=== PATIENT | male | born 2005 | race Caucasian/White ===

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

== ENCOUNTER 2025-01-12 09:37 | Emergency (ER) | payer OTHER, MEDICAID, SELFPAY ==
--- OUTSIDE RECORDS SUMMARY | 2024-11-29 08:10 | XMS_ITS | Encounter Summary ---
Author Organization [employer] Address [address] [place] [address] Care Team Providers Care Lines Tender Name Role Phone Unavailable Primary Care Provider Unavailabl e Encounter Details Date Type Department Care Team (Latest Contact Info) Description 11/29/2024 8:10 AM CDT - 11/30/2024 3:10 PM CDT Hospital Encounter [facility] [address] [facility] [address] [place] [address] Jesus Santizo MD [address] [place] [address] Discharge Disposition: Home Social History Tobacco Use Types Packs/Day Years Used Date Smoking Tobacco: Never Assessed Sex and Gender Information Value Date Recorded Sex Assigned at Not on file Legal Sex Male 5:30 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 ASSISTANT Gender Identity Not on file Sexual Orientation Not on file documented as of this encounter Plan of Treatment Not on file documented as of this encounter Procedures Procedure Name Priority Date/Time Associated Diagnosis Comments ZINC, SERUM STAT 11/29/2024 9:16 AM CDT COPPER STAT 11/29/2024 9:16 AM CDT CARNITINE FREE AND TOTAL STAT 11/29/2024 9:16 AM CDT VITAMIN D 25-HYDROXY, TOTAL STAT 11/29/2024 9:16 AM CDT FERRITIN STAT 11/29/2024 9:16 AM CDT C-REACTIVE PROTEIN STAT 11/29/2024 9: 16 AM CDT IRON PROFILE (IRON,TIBC,%SAT.(CA LC)) STAT 11/29/2024 9:16 AM CDT documented in this encounter Results * Iron Profile (Iron,TIBC,%Sat.(Calc)) (11/29/2024 9:16 AM CDT) Pathologist [facility] Iron 87 65 - 175 mcg/dL 11/29/2024 9:49 AM CDT [facility] Transferrin 317 174 - 364 mg/dL 11/29/2024 9:49 AM CDT [facility] TIBC, Calculated 396 240 - 450 mcg/dL 11/29/2024 9:49 AM T [facility] % Saturation, Calculated 22 10 - 50 % 11/29/2024 9:49 AM T [facility] Blood Venipuncture / Unknown 11/29/2024 9:16 AM CDT 11/29/2024 9:21 AM CDT us Physician Unknown LAB_[email or web address] Final Result [facility] CLIA: [id number] [address] [place] [address] * Carnitine Free And Total (11/29/2024 9:16 AM CDT) Pathologist [facility] Carnitine Jeanna/Free Ratio 0.2 0.1 - 0.9 12/01/2024 1:32 PM CDT [facility] Comment: Performed By: [employer] [employer] [address] [place] [id number] [employer]ational [employer] Consultant: Krzysztof Vazquez MD, PhD CLIA Number: [id number] Carnitine Esterified 8 3 - 38 umol/L 12/01/2024 1:32 PM CDT [facility] Carnitine, Free 36 22 - 63 umol/L 12/01/2024 1:32 PM CDT [facility] Carnitine, Total 44 31 - 78 umol/L 12/01/2024 1:32 PM CDT [facility] Comment: This test was developed and its performance characteristics determined by [employer]. It has not been cleared or approved by the [place] Food and Drug Administration. This test was performed in a CLIA certified laboratory and is intended for clinical purposes. Blood Venipuncture / Unknown 11/29/2024 9:16 AM CDT 11/29/2024 9:21 AM CDT us Physician Unknown LAB_1 Final Result Performing Organization Address [facility] de Phone Number [facility] CLIA: [id number] [address] [place] [address] * Zinc (11/29/2024 9:16 AM CDT) Zinc, Serum 77.1 60.0 - 120.0 ug/dL 11/30/2024 9:24 AM CDT [facility] Comment: INTERPRETIVE INFORMATION: Zinc, Serum or Plasma Elevated results may be due to skin or collection-related contamination, including the use of a noncertified metal-free collection/transport tube. If contamination concerns exist due to elevated levels of serum/plasma zinc, confirmation with a second specimen collected in a certified metal-free tube is recommended. Circulating zinc concentrations are dependent on albumin status and are depressed with malnutrition. Zinc may also be lowered with infection, inflammation, stress, oral contraceptives, and . Zinc may be elevated with zinc supplementation or fasting. Elevated zinc concentrations may interfere with copper absorption. This test was developed and its performance characteristics determined by [employer]. It has not been cleared or approved by the [place] Food and Drug Administration. This test was performed in a CLIA certified laboratory and is intended for clinical purposes. Performed By: [facility] [employer] [facility] [address] [place], [place] [id number] Vocational Rehabilitation Consultant: Krzysztof Vazquez MD, PhD CLIA Number: [id number] Blood Venipuncture / Unknown 11/29/2024 9:16 AM CDT 11/29/2024 9:21 AM CDT us Physician Unknown LAB_1 Final Result Performing Organization Address [facility]/ZIP Co de Phone Number [facility] CLIA: [id number] [address] [place] [address], [place] * Copper, Serum or Plasma (11/29/2024 9:16 AM CDT) Copper, Serum 76.1 70.0 - 140.0 ug/dL 11/30/2024 9:24 AM CDT [facility] Comment: INTERPRETIVE INFORMATION: Copper, Serum or Plasma Elevated results may be due to skin or collection-related contamination, including the use of a noncertified metal-free collection/transport tube. If contamination concerns exist due to elevated levels of serum/plasma copper, confirmation with a second specimen collected in a certified metal-free tube is recommended. Serum copper may be elevated with infection, inflammation, stress, and copper supplementation. In females, elevated copper may also be caused by oral contraceptives and (concentrations may be elevated up to 3 times normal during the third trimester). This test was developed and its performance characteristics determined by [facility]. It has not been cleared or approved by the [place] Food and Drug Administration. This test was performed in a CLIA certified laboratory and is intended for clinical purposes. Performed By: [facility] [employer] [address] [place] [address] Vocational Rehabilitation Consultant: Krzysztof Vazquez MD, PhD CLIA Number: [id number] Blood Venipuncture / Unknown 11/29/2024 9:16 AM CDT 11/29/2024 9:21 AM CDT us Physician Unknown LAB_1 Final Result Performing Organization Address City/[facility]/ZIP Co de Phone Number [facility] CLIA: [id number] [address] [place], [place] [id number] [address] * C-Reactive Protein (11/29/2024 9:16 AM CDT) C-Reactive Protein <0.1 0.0 - 0.5 mg/dL 11/29/2024 9:49 AM CDT [facility] Blood Venipuncture / Unknown 11/29/2024 9:16 AM CDT 11/29/2024 9:21 AM CDT us Physician Unknown LAB_1 Final Result [facility] CLIA: [id number] [address] [place] [address] * (ABNORMAL) Ferritin (11/29/2024 9:16 AM CDT) Ferritin 10(L) 22 - 275 ng/mL 11/29/2024 10:09 AM CDT [facility] Blood Venipuncture / Unknown 11/29/2024 9:16 AM CDT 11/29/2024 9:21 AM CDT us Physician Unknown LAB_1 Final Result [facility] CLIA: [id number] [address] [place] [address] * Vitamin D 25-Hydroxy, Total (11/29/2024 9:16 AM CDT) Vitamin D, 25-OH, Total 42 30 - 80 ng/mL 11/29/2024 12:56 PM CDT [facility] Blood Venipuncture / Unknown 11/29/2024 9:16 AM CDT 11/29/2024 9:21 AM CDT us Physician Unknown LAB_1 Final Result [facility] CLIA: [id number] [address] [place] [address] documented in this encounter Visit Diagnoses Not on filedocumented in this encounter
--- OUTSIDE RECORDS SUMMARY | 2024-12-23 14:30 | XMS_ITS | Encounter Summary ---
Author Organization [facility] Address [address] [place] [id number] Care Team Providers Care Cleaning Laborer Name Role Phone SindevangEstelle meléndez MD Unavailable Jyoti Sotomayor [facility] Unavailable [phone]- [phone] Marcus Stephens MD Unavailable Rashmi Isaac MD Unavailable [phone] Eloy Singh MD Primary Care Provider Reason for Visit * Reason Comments Establish Care Encounter Details Date Type Department Care Team (Late st Contact Info) Description 12/23/2024 2:30 PM CDT Office Visit [facility] [place] [address] [place] [address] [address] [place] [address] Eloy Sinhg MD [address] [place] [address] [place] [address] Autism (Primary Dx); Seizures (H); G tube feedings (H); Anxiety; H/O spinal fusion; Aggressive behavior; CYP2D6 intermediate metabolizer (H); Nutritional deficiency; Food aversion; Impacted tooth; Preop general physical exam; Complex care coordination Social History Tobacco Use Types Packs/Day Years [...] an overnight nursing home, or couch-surfing.) Yes 10/06/2024 Are you worried [...] Sign Reading Time Taken Comments Blood Pressure 111/69 12/23/2024 2:23 PM CDT Pulse 80 12/23/2024 2:23 PM CDT Temperature 36.6 C (97.9 F) 12/23/2024 2:23 PM CDT Respiratory Rate 16 12/23/2024 2:23 PM CDT Oxygen Saturation 97% 12/23/2024 2:23 PM CDT Inhaled Oxygen Concentration - - Weight 47.2 kg (104 lb) 12/23/2024 2:23 PM CDT Height 172.7 cm (5' 8) 12/23/2024 2:23 PM CDT Body Mass Index 15.81 12/23/2024 2:23 PM CDT documented in this encounter Patient Instructions * Patient Instructions* Eloy Singh MD - 12/23/2024 2:30 PM CDT We can try taking [id number] Ferrous Sulfate 325 mg Mon, Wed, Fri. Watch for constipation. How to Take Your Medication Before Surgery Preoperative Medication Instructions Antiplatelet or Anticoagulation Medication Instructions - We reviewed the medication list and the patient is not on an antiplatelet or anticoagulation medications. Additional Medication Instructions We reviewed the medication list and there are no chronic medications that need to be adjusted for this procedure. Avoid nonsteroidals (like ibuprofen or aspirin or naproxen) , but may take tylenol as needed for pain. Patient Education Preparing for Your Surgery For Adults Getting started In most cases, a nurse will call to review your health history and instructions. They will give youan arrival time based on your scheduled surgery time. Please be ready to share: Your doctor's clinic name and phone number Your medical, surgical, and anesthesia history A list of allergies and sensitivities A list of medicines, including herbal treatments and rcjf-myg-bvwiipr drugs Whether the patient has a legal guardian (ask how to send us the papers in advance) Note: You may not receive a call if you were seen at our PAC (Preoperative Assessment Center). Please tell us if you're --or if there's any chance you might be . Some surgeries may injure a fetus (unborn baby), so they require a test. Surgeries that are safe for a fetus don't always need a test, and you can choose whether to have one. Preparing for surgery Within 10 to 30 days of surgery: Have a pre-op exam (sometimes called an H&P, or History and Physical). This can be done at a clinic or pre-operative center. If you're having a , you may not need this exam. Talk to your care team. At your pre-op exam, talk to your care team about all medicines you take. (This includes CBD oil and any drugs, such as THC, marijuana, and other forms of cannabis.) If you need to stop any medicine before surgery, ask when to start taking it again. This is for your safety. Many medicines and drugs can make you bleed too much during surgery. Some change how well surgery (anesthesia) drugs work. Call your insurance company to let them know you're having surgery. (If you don't have insurance, call [phone].) Call your clinic if there's any change in your health. This includes a scrape or scratch near the surgery site, or any signs of a cold (sore throat, runny nose, cough, rash, fever). Eating and drinking guidelines For your safety: Unless your surgeon tells you otherwise, follow the guidelines below. Eat and drink as normal until 8 hours before you arrive for surgery. After that, no food or milk. You can spit out gum when you arrive. Drink clear liquids until 2 hours before you arrive. These are liquids you can see through, like water, Gatorade, and Propel Water. They also include plain black coffee and tea (no cream or milk). No alcohol for 24 hours before you arrive. The night before surgery, stop any drinks that contain THC. If your care team tells you to take medicine on the morning of surgery, it's okay to take it with asip of water. No other medicines or drugs are allowed (including CBD oil)--follow your care team's instructions. If you have questions the day of surgery, call your hospital or surgery center. Preventing infection Shower or bathe the night before and the morning of surgery. Follow the instructions your clinic gave you. (If no instructions, use regular soap.) Don't shave or clip hair near your surgery site. We'll remove the hair if needed. Don't smoke or vape the morning of surgery. No chewing tobacco for 6 hours before you arrive. A nicotine patch is okay. You may spit out nicotine gum when you arrive. For some surgeries, the surgeon will tell you to fully quit smoking and nicotine. We will make every effort to keep you safe from infection. We will: Clean our hands often with soap and water (or an alcohol-based hand rub). Clean the skin at your surgery site with a special soap that kills germs. Give you a special gown to keep you warm. (Cold raises the risk of infection.) Wear hair covers, masks, gowns, and gloves during surgery. Give antibiotic medicine, if prescribed. Not all surgeries need this medicine. What to bring on the day of surgery Photo ID and insurance card Copy of your health care directive, if you have one Glasses and hearing aids (bring cases) You can't wear contacts during surgery Inhaler and eye drops, if you use them (tell us about these when you arrive) CPAP machine or breathing device, if you use them A few personal items, if spending the night If you have . . . A pacemaker, ICD (cardiac defibrillator), or other implant: Bring the ID card. An implanted stimulator: Bring the remote control. A legal guardian: Bring a copy of the certified (court-stamped) guardianship papers. Please remove any jewelry, including body piercings. Leave jewelry and other valuables at home. If you're going home the day of surgery You must have a support person drive you home. They should stay with you overnight, and they may need to help with your self-care. If you don't have a support person, please tells us as soon as possible. We can help. After surgery If it's hard to control your pain or you need more pain medicine, please call your surgeon's office. Questions? If you have any questions for your care team, list them here: For informational purposes only. Not to replace the advice of your health care provider. Copyright ?? 2018 [facility]. All rights reserved. Clinically reviewed by Agustín Nice MD. [employer] [id number] - REV 05/28. documented in this encounter Progress Notes * Eloy Singh MD - 12/23/2024 2:30 PM CDT Assessment & Plan Preop general physical exam: - Preoperative evaluation for upcoming dental procedure. - Completed preoperative paperwork. No changes to current medications. Provided standard preoperative instructions. Scheduled follow-up in six months for routine well check. 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 Autism: - Diagnosis of autism confirmed. G-tube feedings (H): - G-tube placed for nutritional support and hydration due to oral aversion and dysphagia. - Continue current feeding regimen. Recommended ongoing follow-up with elementary art teacher and feeding team at [facility] for formula tolerance and optimization. Anxiety: - Anxiety managed with lexapro. - Continue lexapro as prescribed by psychiatrist. H/O spinal fusion: - Status post spinal fusion for tethered cord and scoliosis on August 01, 2019. Aggressive behavior: - Aggressive behavior managed with risperdal, lexapro, and functional medicine protocol (Beyond Balance supplements). Behavioral flares possibly related to PANS. - Continue current behavioral management regimen. Monitor for behavioral changes. Continue [facility] therapy. 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 Nutritional deficiency: - Nutritional deficiency related to oral aversion and limited intake. Ferritin level noted to be low. - Recommended ferrous sulfate 325 mg every other day (Monday, Monday, Monday). Monitor for constipation. Continue multivitamin supplementation. - Risks and side effects: Monitor for constipation with iron supplementation. Food aversion: - Oral aversion and dysphagia, likely related to sensory or texture issues. Previous speech and swallowing therapy trials without significant improvement. - Recommended continued engagement with feeding team and elementary art teacher at [facility] for oral aversionmanagement. Offered referral to additional feeding team at [facility] if needed. Impacted tooth: - Possible impacted wisdom tooth. - Scheduled sedated dental cleaning and evaluation for wisdom tooth extraction at [facility] January 10, 2025. Preoperative paperwork completed. Consent was obtained from the patient to use an AI documentation tool in the creation of this note. Pacheco Joshi is a 19 year old, presenting for the following health issues: Establish Care 12/23/2024 2:18 PM Additional Questions Roomed by Rosie Alcazar Accompanied by parents 12/23/2024 2:18 PM Patient Reported Additional Medications Patient reports taking the following new medications None History of Present Illness Reason for visit: New patient intro and pre auth for Jan 10 sedation for oral cleaning He is taking medications regularly. Specialists: sees: Meena Mckinley at [facility]. G Tube placed thru Meena as well. To meet with Park Warden at [facility] for GT feeds Dr. [facility] for his spine fusion Rachel Cabrera at [facility], for Functional Medicine for diagnosis of PANS. Takesa supplement program called [facility] Rashmi Pinto: Psychiatry. GTube feeds. Currently just taking water and miralax. Goal 800 mL per day to help with hydration and constipation. Formula (Functional Formularies, Keto Formula, coconut base) causing excess gas. [facility] for dentistry. Sedated dental cleaning. To have IV sedation. History of Present Illness- Adi Dolan, 19 years Autism Spectrum Disorder and Developmental Delay - History of autism spectrum disorder - KCNQ2 gene mutation identified, associated with seizures at and developmental delays - Intellectual disabilities present - Anxiety and ADHD symptoms reported - Aggression episodes noted, including severe behavioral flares lasting several months - Aggression led to two emergency room visits for behavioral management - Behavioral improvement observed with functional medicine protocols and dietary modifications - Lexapro and Risperdal used for anxiety and aggression management - Behavioral tracking performed at [facility] therapy, with improvement noted after resuming functional medicine supplements (Beyond Balance, Fidosidil) - Attends [facility] therapy four days per week Feeding Difficulties and Nutritional Status - Feeding tube (G-tube) placed approximately four weeks prior to encounter for hydration and nutritional support - History of dysphagia and oral aversion; stopped chewing food over four years ago, previously enjoyed potato chips and Faroese fries - Current intake consists of pureed foods, prepared in an instant pot and consumed as thick soup - Difficulty tolerating certain formulas (functional formularies keto formula), with increased gas and sensitivity noted - Water administered via G-tube, goal of 800 mL daily for hydration and constipation management - Formula added to foods, but not used exclusively due to intolerance - History of constipation, managed with MiraLAX - Weight prior to spinal fusion surgery reached 112 lbs; current weight stable at 104 lbs, with previous goal to maintain above 100 lbs - Appetite suppression and difficulty eating noted during behavioral flares, with improvement following antibiotic therapy and functional medicine protocol - Iron supplementation attempted due to low ferritin levels; multivitamin with iron used Spinal and Orthopedic History - History of tethered cord and scoliosis - Underwent spinal fusion surgery for tethered cord and scoliosis on August 01, 2019 - Postoperative period marked by challenges in regaining nutritional status and resolving constipation Gastrointestinal History - History of constipation, managed with MiraLAX - Omeprazole (Prilosec) used for reflux, taken in the morning - Past evaluation by GI specialists for gut issues; medications for digestion trialed without long-term benefit - G-tube placed by surgical team at [facility] Behavioral and Psychiatric History - Aggression and behavioral flares associated with 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) - Behavioral improvement noted with antibiotics and functional medicine protocol - History of suspected triggers including strep throat and dietary factors (sugar intake) - Lexapro and Risperdal used for psychiatric symptom management Surgical History - History of tonsillectomy and adenoidectomy - History of ear tube placement - Recent hospitalization in October 2024 for evaluation of possible impacted wisdom tooth, included CAT scans, X-rays, and ultrasounds - Discharged with pain medication post-hospitalization Dental History - Difficulty with oral care due to oral aversion and agitation - Scheduled for sedated dental cleaning and evaluation for possible impacted wisdom tooth Immunization History - One chickenpox vaccination received; MMR titers checked previously, rubella noted as low - Tetanus vaccination administered in August 2024 [facility] - Sees multiple specialists: complex care, orthopedics, functional medicine, psychiatry, GI, and dentistry - Behavioral and nutritional status monitored by specialists and caregivers Review of Systems Constitutional, HEENT, cardiovascular, pulmonary, GI, , musculoskeletal, neuro, skin, endocrine and psych systems are negative, except as otherwise noted. Objective BP 111/69 (BP Location: Right arm, Patient Position: Sitting, Cuff Size: Adult Small) Pulse 80 Temp 97.9 ??F (36.6 ??C) (Temporal) Resp 16 Ht 1.727 m (5' 8) Wt 47.2 kg (104 lb) SpO2 97% BMI 15.81 kg/m?? Body mass index is 15.81 kg/m??. Physical Exam GENERAL: alert and no distress EYES: Eyes grossly normal to inspection, PERRL and conjunctivae and sclerae normal RESP: lungs clear to auscultation - no rales, rhonchi or wheezes CV: regular rate and rhythm, normal S1 S2, no S3 or S4, no murmur, click or rub, no peripheral edema ABDOMEN: soft, nontender, no hepatosplenomegaly, no masses and bowel sounds normal MS: no gross musculoskeletal defects noted, no edema SKIN: no suspicious lesions or rashes Patient not allowing good complete physcial exam today. Signed Electronically by: Eloy Singh MD * Eloy Singh MD - 12/23/2024 2:30 PM CDT Preoperative Evaluation [address] [address] Primary Provider: Eloy Singh MD Pre-op Performing Provider: Eloy Singh MD Dec 23, 2024 Dental procedure coming up: possible wisdom tooth surgery. Fax number for surgical facility: [facility]. Assessment & Plan The proposed surgical procedure is considered LOW risk. Impacted tooth Surgical and post-op care per primary surgical service. Preop general physical exam Advised to stop all aspirin products and nonsteroidals (like ibuprofen or naproxen) for 10 days prior to procedure. Advised follow surgical center's instructions re: arrival time and when to stop eating. - No identified additional risk factors other than previously addressed Recommendation Approval given to proceed with proposed procedure, without further diagnostic evaluation. Follow-up Pacheco Joshi is a 19 year old, presenting for the following: Establish Care 12/23/2024 2:18 PM Additional Questions Roomed by Rosie Alcazar Accompanied by parents 12/23/2024 2:18 PM Patient Reported Additional Medications Patient reports taking the following new medications None HPI: Upcoming sedated evaluation for wisdom teeth. 11/12/2024 Pre-Op Questionnaire Have you ever had a heart attack or stroke? No Have you ever had surgery on your heart or blood vessels, such as a stent placement, a coronary artery bypass, or surgery on an artery in your head, neck, heart, or legs? No Do you have chest pain with activity? No Do you have a history of heart failure? No Do you currently have a cold, bronchitis or symptoms of other infection? No Do you have a cough, shortness of breath, or wheezing? No Do you or anyone in your family have previous history of blood clots? No Do you or does anyone in your family have a serious bleeding problem such as prolonged bleeding following surgeries or cuts? No Have you ever had problems with anemia or been told to take iron pills? No Have you had any abnormal blood loss such as black, tarry or bloody stools? No Have you ever had a blood transfusion? No Are you willing to have a blood transfusion if it is medically needed before, during, or after yoursurgery? Yes Have you or any of your relatives ever had problems with anesthesia? No Do you have sleep apnea, excessive snoring or daytime drowsiness? No Do you have any artifical heart valves or other implanted medical devices like a pacemaker, defibrillator, or continuous glucose monitor? No Do you have artificial joints? No Are you allergic to latex? No Preoperative Review of PHARMACEUTICAL PLANT OPERATOR PHARMACEUTICAL PLANT OPERATOR reviewed - no record of controlled substances prescribed. Status of Chronic Conditions: See problem list for active medical problems. Problems all longstanding and stable, except as noted/documented. See ROS for pertinent symptoms related to these conditions. Patient Active Problem List Diagnosis Date Noted Aggressive behavior 12/23/2024 Priority: Medium G tube feedings (H) 12/23/2024 Priority: Medium Food aversion 12/23/2024 Priority: Medium H/O spinal fusion 07/16/2024 Priority: Medium For Scoliosis and tethered cord. [id number] decreased function 03/09/2023 Priority: Medium CYP2D6 intermediate metabolizer (H) 03/09/2023 Priority: Medium [id number] intermediate metabolizer (H) 03/09/2023 Priority: Medium CYP2B6 intermediate metabolizer (H) 03/09/2023 Priority: Medium Gastroesophageal reflux disease with esophagitis without hemorrhage 08/22/2022 Priority: Medium Speech delay 09/30/2020 Priority: Medium Tethered cord (H) 09/24/2020 Priority: Medium Contracture of Achilles tendon, unspecified laterality 09/24/2020 Priority: Medium Encopresis, nonorganic origin 09/24/2020 Priority: Medium Urinary incontinence without sensory awareness 09/24/2020 Priority: Medium Immunization deficiency 09/24/2020 Priority: Medium Intellectual disability 03/14/2019 Priority: Medium Low weight, pediatric, BMI less than 5th percentile for age 1001/16/2019 Priority: Medium Attention deficit hyperactivity disorder (ADHD) 06/18/2014 Priority: Medium Inattentive challenges Problem list name updated by automated process. Provider to review Anxiety 01/14/2014 Priority: Medium Nutritional deficiency 07/01/2013 Priority: Medium Gluten and casein free Seizures (H) 07/12/2012 Priority: Medium KCNQ2 mutation. History of seizures At age 9 years seizures for past 3-4 years and normal EEG Rectal diastat to use as needed for seizures lasting more than 5 minutes (particualrly when not near to EMS) For any seizures call 911 Had seizures with medication Autism 07/12/2012 Priority: Medium Intuniv 2mg helps with sleep issues and irritability and OCD - later 02/12/2014 they feel it correlates with stimming so will decrease it. Also consider prozac. History of using lexapro. SEEN AT [facility] with full neurological work-up (metabolic labs, other labs, MRI and EEG with no identifiable cause for ASD) Attends [facility] alvarez for 4 mo of intuiv today on 10/02/2013. Pineda's last appointment was 07/02/2013 and he should be seen in clinic by . Constipation 07/12/2012 Priority: Medium Improved with diet Past Medical History: Diagnosis Date ADHD Autism Chronic constipation History of seizures Seizures (H) Past Surgical History: Procedure Laterality Date BACK SURGERY August 2019July ESOPHAGOSCOPY, GASTROSCOPY, DUODENOSCOPY (EGD), COMBINED N/A 03/12/2019 Procedure: upper endoscopy with Biopsies; Surgeon: Reyna Mojica MD; Location: [facility] SEDATION MYRINGOTOMY, INSERT TUBE BILATERAL, COMBINED tethered chord release TONSILLECTOMY & ADENOIDECTOMY Current Outpatient Medications Medication Sig Dispense Refill Digestive Enzymes (ENZYME DIGEST PO) Pure Encapsulation Digestive enzyme escitalopram (LEXAPRO) 5 MG tablet Take 1 tablet (5 mg) by mouth daily. 30 tablet 5 Fish Oil-Cholecalciferol (OMEGA-3 + D PO) Pro [place] [address] [place] Multiple Vitamins-Minerals (MULTIVITAMIN OR) Take 1 tablet by mouth daily omeprazole (PRILOSEC) [address] capsule Take 40 mg by mouth daily. polyethylene glycol (MIRALAX) 17 GM/Dose powder TAKE 51 G BY MOUTH DAILY 1020 g 4 Probiotic Product (PROBIOTIC BLEND PO) Take 1 capsule by mouth daily Nature Bounty's Prbiotic 10 Ultra strength risperiDONE (RISPERDAL) 1 MG tablet Take 0.5 tablets (0.5 mg) by mouth 2 times daily. 30 tablet 3 Allergies Allergen Reactions Casein Gluten Meal Milk Digestant Other reaction(s): Stomach Pain Wheat Other reaction(s): Stomach Pain Social History Tobacco Use Smoking status: Never Passive exposure: Never Smokeless tobacco: Never Substance Use Topics Alcohol use: Never Family History Problem Relation Age of Onset Hypertension Father Allergies Father Seasonal Allergies Mother Seasonal Heart Disease Paternal Grandfather History Drug Use Unknown Review of Systems Constitutional, HEENT, cardiovascular, pulmonary, GI, , musculoskeletal, neuro, skin, endocrine and psych systems are negative, except as otherwise noted. Objective BP 111/69 (BP Location: Right arm, Patient Position: Sitting, Cuff Size: Adult Small) Pulse 80 Temp 97.9 ??F (36.6 ??C) (Temporal) Resp 16 Ht 1.727 m (5' 8) Wt 47.2 kg (104 lb) SpO2 97% BMI 15.81 kg/m?? Estimated body mass index is 15.81 kg/m?? as calculated from the following: Height as of this encounter: 1.727 m (5' 8). Weight as of this encounter: 47.2 kg (104 lb). Physical Exam GENERAL: alert and no distress EYES: Eyes grossly normal to inspection, PERRL and conjunctivae and sclerae normal HENT: ear canals and TM's normal, nose and mouth without ulcers or lesions NECK: no adenopathy, no asymmetry, masses, or scars RESP: lungs clear to auscultation - no rales, rhonchi or wheezes CV: regular rate and rhythm, normal S1 S2, no S3 or S4, no murmur, click or rub, no peripheral edema ABDOMEN: soft, nontender, no hepatosplenomegaly, no masses and bowel sounds normal NEURO: Normal strength and tone, mentation intact and speech normal PSYCH: mentation appears normal, affect normal/bright Recent Labs Lab Test 07/16/24 1504 07/01/24 1749 01/23/24 1356 HGB -- 12.4* 13.5 PLT -- 306 292 NA -- 142 -- POTASSIUM -- 4.3 -- CR -- 1.25* -- A1C 5.5 -- -- Diagnostics No labs were ordered during this visit. No EKG required for low risk surgery (cataract, skin procedure, breast biopsy, etc). Revised Cardiac Risk Index (RCRI) The patient has the following serious cardiovascular risks for perioperative complications: - No serious cardiac risks = 0 points RCRI Interpretation: 0 points: Class I (very low risk - 0.4% complication rate) Signed Electronically by: Eloy Singh MD A copy of this evaluation report is provided to the requesting physician. documented in this encounter Plan of Treatment Upcoming Encounters Date Type Department Care Team (Late st Contact Info) Description 06/23/2025 3:30 PM CDT Office Visit [facility] Francie [address] [place] [address] [address] [place] [phone] Eloy Singh MD [address] [place] [address] [place] [address] documented as of this encounter Goals Goal [...] Parent to continue with medical specialties within [place] and [facility] 2. Parent to continue with SLT/ Feeding therapy/ OT 3. Parent to connect with PACER on barriers with school 4. 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) Nutritional deficiency Unspecified nutritional deficiency Food aversion Feeding difficulties and mismanagement Impacted tooth Disturbances in tooth eruption Preop general physical exam Other specified pre-operative examination Complex care coordination documented in this encounter Additional Health Concerns Active Problems Noted Date Diagnosed Date Lacking Appropriate Services and Supports 2022 Assessment Noted Time PHQ-9 Depression Total Score: 10 025 11:26 AM SLEEVER documented as of this encounter Care Teams Cleaning Laborer Relationship Specialty Start Date End Date Eloy Singh MD [address] [place] [place] [address] PCP - General Internal Medicine - Pediatrics 12/23/24 Estelle Calvillo MD [address] [place] [address] [address] [place], [place] [address] safety glass installer & Neurology - Child & Adolescent Psychiatry 05/24/19 Jyoti Sotomayor, [facility] [address] [place], [place] [id number] Pharmacist Pharmacist 03/08/23 Marcus Stephens MD [address] [facility] [address] [place], [place] [id number] Assigned PCP 04/27/23 Rashmi Isaac MD [address] [place] [address] [address] [place], [place] [address] Assigned Behavioral Health Provider 06/16/23 documented as of this encounter
--- OUTSIDE RECORDS SUMMARY | 2024-12-24 11:18 | XMS_ITS | Encounter Summary ---
Author Organization [place] Address [address] [facility] [place] [address] Care Team Providers Care Lead Technical Architect Name Role Phone NeishaoscarEstelle MD Unavailable Jyoti Sotomayor [facility] Unavailable + [phone] Marcus Stephens MD Unavailable Rashmi Isaac MD Unavailable [phone] Eloy Singh MD Primary Care Provider [phone] Reason for Visit * Reason Comments Gtube Problem Encounter Details Date Type Department Care Team (Late st Contact Info) Description 12/24/2024 11:18 AM CDT - 12/24/2024 2:58 PM CDT Emergency [facility] Emergency Department [address] [place] [phone] Calin Yanez MD [address] [place], [place] [address] Encounter for gastrojejunal (GJ) tube placement (Primary Dx) Discharge Disposition: Home or Self Care Social History Tobacco Use Types Packs/Day Years [...] in an overnight usp, or couch-surfing.) Yes 10/06/2024 Are you worried [...] on file documented as of this encounter Discharge Instructions * Discharge Instructions* Calin Yanez MD - 12/24/2024 2:49 PM CDT We placed the G-tube here in the emergency room and confirmed that it was in the correct position If he has any new or worsening symptoms please return immediately to the emergency department Otherwise please call your primary care doctor for follow-up visit in the next 1 to 2 days. documented in this encounter Medications at Time of Discharge Digestive Enzymes (ENZYME DIGEST PO) Pure Encapsulation Digestive enzyme escitalopram (LEXAPRO) 5 MG tabletIndications: Anxiety Take 1 tablet (5 mg) by mouth daily. 30 tablet 5 5 Fish Oil-Cholecalcifero l (OMEGA-3 + D PO) Pro [place] 2000-D Supai Multiple Vitamins-Minerals (MULTIVITAMIN OR) Take 1 tablet by mouth daily omeprazole (PRILOSEC) [address] capsule Take 40 mg by mouth daily. polyethylene glycol (MIRALAX) 17 GM/Dose powderIndications: Slow transit constipation TAKE 51 G BY MOUTH DAILY 1020 g 4 5 Probiotic Product (PROBIOTIC BLEND PO) Take 1 capsule by mouth daily Nature Bounty's Prbiotic 10 Ultra strength risperiDONE (RISPERDAL) 1 MG tabletIndications: Autism,Attention deficit hyperactivity disorder (ADHD), combined type,Anxiety Take 0.5 tablets (0.5 mg) by mouth 2 times daily. 30 tablet 3 5 documented as of this encounter ED Notes * Zoe Alarcon RN - 12/24/2024 12:45 PM CDT ordered injection of Haldol given in the R deltoid. Pt was physically held down by MYRIAM team between 12:45-12:46. Notified MD for physical hold order to be placed. Pt calm, cooperative at time IM was given. * Calin Yanez MD - 12/24/2024 12:31 PM CDT Images from the original note were not included. [facility] EMERG[facility]Y [facility]MENT ([facility]) 12/24/24 ED PROVIDER NOTE History Chief Complaint Patient presents with Gtube Problem The history is provided by the patient and medical records. Adi Dolan is a 19 year old male with a history of ASD, GERD, and chronic constipation whopresents to the ED requesting g-tube replacement. Patient reports here with parent. The parent states that patient last had a celia- johnson g-tube replacement done approximately 4 weeks ago and this morning, patient pulled it out. The parents were not able to put it back in and was advised to come here. Physical Exam BP: (unable to obtain. Pt unable to sit still) Physical Exam Vitals and nursing note reviewed. Constitutional: General: He is not in acute distress. Appearance: Normal appearance. He is not toxic-appearing. HENT: Head: Atraumatic. Eyes: General: No scleral icterus. Conjunctiva/sclera: Conjunctivae normal. Cardiovascular: Rate and Rhythm: Normal rate. Heart sounds: Normal heart sounds. Pulmonary: Effort: Pulmonary effort is normal. No respiratory distress. Breath sounds: Normal breath sounds. Abdominal: Palpations: Abdomen is soft. Tenderness: There is no abdominal tenderness. Comments: Abdomen soft and nondistended with small G-tube stoma, appears noninfected Musculoskeletal: General: No deformity. Cervical back: Neck supple. Skin: General: Skin is warm. Neurological: Mental Status: He is alert. ED Course, Procedures, & Data Procedures Medications haloperidol lactate (HALDOL) injection 5 mg (has no administration in time range) OLANZapine zydis (zyPREXA) ODT tab 5 mg (5 mg Oral $Given 12/24/24 1222) Critical care was not performed. Medical Decision Making The patient's presentation was of high complexity (an acute health issue posing potential threat tolife or bodily function). The patient's evaluation involved: review of external note(s) from 3+ sources (see separate area of note for details) review of 3+ test result(s) ordered prior to this encounter (see separate area of note for details) strong consideration of a test (CT abdomen pelvis) that was ultimately deferred discussion of management or test interpretation with another health professional (General Surgery) The patient's management necessitated high risk (order and review of x-ray, discussed with business management consultant, performing a procedure, coordination of care and disposition home). Assessment & Plan Patient presented for dislodged G-tube Discussed with surgery as it had recently been placed [address], [address] Jose recommended attempting here in the emergency department Therefore ordered Haldol for the patient for relaxation Had a number of staff members help calm patient while we placed the G-tube, which was placed successfully G-tube confirmatory x-ray was also showed that it is appropriately positioned As patient is well-appearing, x-ray is reassuring, parents feel comfortable taking patient home, wewill discharge him home with strict return precaution to come back to the emergency room for new orworsening symptoms as well as instructed to follow-up with his primary care doctor in the next 1 to2 days I have reviewed the nursing notes. I have reviewed the findings, diagnosis, plan and need for follow up with the patient. New Prescriptions No medications on file Final diagnoses: None Calin Yanez MD [facility] EMERGENCY DEPARTMENT 12/24/2024 Calin Yanez MD 12/24/24 1454 * Car Trevino, RN - 12/24/2024 11:40 AM CDT Pt here for g-tube replacement. Pt had a lester g-tube placement about 4 weeks ago and this morning he pulled it out. Parents were not able to put it back in and was advised to come here. Parents have supplies with. * Amanda Quick - 12/24/2024 11:37 AM CDT Bed: [facility] Expected date: Expected time: Means of arrival: Comments: SP20 46m hallucinating documented in this encounter Plan of Treatment Upcoming Encounters Date Type Department Care Team (Late st Contact Info) Description 06/23/2025 3:30 PM CDT Office Visit [facility] Francie [address] [place] [phone] Eloy Singh MD [address] [place] [address] [place] [phone] documented as of this encounter Goals Goal [...] Parent to continue with medical specialties within [place] and [facility] 2. Parent to continue with SLT/ Feeding therapy/ OT 3. Parent to connect with PACER on barriers with school 4. SW CC to continue to follow and provide support documented as of this encounter Procedures Procedure Name Priority Date/Time Associated Diagnosis Comments XR ABDOMEN PORT 1 VIEW STAT 12/24/2024 2:17 PM CDT documented in this encounter Results * XR Abdomen Port 1 View (12/24/2024 2:17 PM CDT) Anatomical Region Laterality Modality Abdomen/Pelvis Computed Radiogr aphy Impressions 12/24/2024 2:17 PM CDT IMPRESSION: Adequate G tube positioning based on fluoroscopic water-soluble contrast check. ALICE BROWN MD Narrative 12/24/2024 2:17 PM CDT Examination: Water-soluble contrast G tube check x-ray 12/24/2024 INDICATION: G-tube placement, please place contrast in COMPARISON: Radiograph 07/01/2024. FINDINGS: Hotel Maintenance Worker film demonstrates nonobstructive bowel gas pattern with G-tube projecting over the lower stomach. Omnipaque water soluble contrast administered via G-tube, demonstrating normal G-tube positioning, with contrast outlining portions of the stomach and proximal small bowel. No evidence of extravasation. Procedure Note Alice Brown MD - 12/24/2024 Examination: Water-soluble contrast G tube check x-ray 12/24/2024 INDICATION: G-tube placement, please place contrast in COMPARISON: Radiograph 07/01/2024. FINDINGS: Hotel Maintenance Worker film demonstrates nonobstructive bowel gas pattern with G-tube projecting over the lower stomach. Omnipaque water soluble contrast administered via G-tube, demonstrating normal G-tube positioning, with contrast outlining portions of the stomach and proximal small bowel. No evidence of extravasation. IMPRESSION: Adequate G tube positioning based on fluoroscopic water-soluble contrast check. ALICE BROWN MD Calin Yanez MD IMG DIAGNOSTIC IMAGING ORDERAB LES Final Result documented in this encounter Visit Diagnoses Diagnosis Encounter for gastrojejunal (GJ) tube placement- Primary Unspecified conditions influencing health status documented in this encounter Administered Medications Inactive Administered Medications - up to 3 most recent administrations Medication Order MAR Action Action Date Dose Rate Site haloperidol lactate (HALDOL) injection 5 mg 5 mg, Intramuscular, ONCE, Administer over 1 Minutes, On Mon12/24/24 at 1240, For 1 dose $Given 12/24/2024 12:45 PM CDT 5 mg OLANZapine zydis (zyPREXA) ODT tab 5 mg 5 mg, Oral, ONCE, On Mon12/24/24 at 1220, For 1 dose, Combined IM and PO doses may significantly increase the risk of orthostatic hypotension at 30 mg per day or higher. With dry hands, peel back foil backing and gently remove tablet. Do not push oral disintegrating tablet through foil backing. Administer immediately on tongue and oral disintegrating tablet dissolves in seconds, then swallow with saliva. Liquid not required. $Given 12/24/2024 12:22 PM CDT 5 mg documented in this encounter Active and Recently Administered Medications Times are shown in CDT. Scheduled Medication Order 12/22/2024 12/23/2024 12/24/2024 haloperidol lactate (HALDOL) injection 5 mg (COMPLETED) 5 mg, Intramuscular, ONCE, Administer over 1 Minutes, On Mon12/24/24 at 1240, For 1 dose 1245 ($Given - Provi iain: Zoe Alarcon RN) iopamidol (ISOVUE-300) IV solution 61% 30 mL 30 mL, Intra-peritoneal Port, ONCE, On Mon12/24/24 at 1355, For 1 dose, Supplied and administered by Radiology. 1355 (Canceled Entry - Provider: Orders Generic Provider - Comment: Automatically canceled at discontinue of medication order) OLANZapine zydis (zyPREXA) ODT tab 5 mg (COMPLETED) 5 mg, Oral, ONCE, On Mon12/24/24 at 1220, For 1 dose, Combined IM and PO doses may significantly increase the risk of orthostatic hypotension at 30 mg per day or higher. With dry hands, peel back foil backing and gently remove tablet. Do not push oral disintegrating tablet through foil backing. Administer immediately on tongue and oral disintegrating tablet dissolves in seconds, then swallow with saliva. Liquid not required. 1222 ($Given - Provi iain: Zoe Alarcon RN) documented in this encounter Additional Health Concerns Active Problems Noted Date Diagnosed Date Lacking Appropriate Services and Supports 2022 Assessment Noted Time PHQ-9 Depression Total Score: 10 025 11:26 AM YARDAGE ESTIMATOR documented as of this encounter Care Teams Lead Technical Architect Relationship Specialty Start Date End Date Eloy Singh MD [address] [facility] [place] [address] PCP - General Internal Medicine - Pediatrics 12/23/24 Estelle Calvillo MD [address] [place] [address] [address] [place], [place] [address] gas plant technician & Neurology - Child & Adolescent Psychiatry 05/24/19 Jyoti Sotomayor, [facility] [address] [facility] [address] [place], [place] [address] Pharmacist Pharmacist 03/08/23 Marcus Stephens MD [address] [facility] 370 [place], [place] [address] Assigned PCP 04/27/23 Rashmi Isaac MD [address] [place] [address] [address] [place], [place] [address] Assigned Behavioral Health Provider 06/16/23 documented as of this encounter
--- OUTSIDE RECORDS SUMMARY | 2025-01-06 12:00 | XMS_ITS | Encounter Summary ---
Author Organization [place] Address [address] [place] [address] Care Team Providers Care Genetics Physician Name Role Phone KarliEstelle MD Unavailable Jyoti Sotomayor [facility] Unavailable + [phone] Marcus Stephens MD Unavailable Rashmi Isaac MD Unavailable [phone] Eloy Singh MD Primary Care Provider [phone] Sara Jara RN Unavailable [phone] Reason for Visit * Reason Comments RECHECK Encounter Details Date Type Department Care Team (Late st Contact Info) Description 01/06/2025 12:00 PM CDT Virtual Visit [facility] [address]24 [place] [address] Rashmi Isaac MD [facility] [place] [address] [id number] Social History Tobacco Use Types Packs/Day Years [...] PHQ-2 Answer Date Recorded PHQ-2 Score Incomplete 01/05/2025 Exercise Vital Sign Answer Date Recorde d [...] an overnight long term, or couch-surfing.) Yes 10/06/2024 Are you worried [...] on file documented as of this encounter Nursing Notes * Anastasiya Myrick - 01/06/2025 12:00 PM CDT Current patient location: [address] [place] [id number] Is the patient currently in the state of [place]? YES Visit mode: VIDEO If the visit is dropped, the patient can be reconnected by:VIDEO VISIT: Text to cell phone: Telephone Information: Will anyone else be joining the visit? NO (If patient encounters technical issues they should call [phone] :[phone]) Are changes needed to the allergy or medication list? No Are refills needed on medications prescribed by this physician? NO Rooming Documentation: Questionnaire(s) completed Reason for visit: RECHECK Anastasiya Steward. Shay Rangel [facility] documented in this encounter Plan of Treatment Upcoming Encounters Date Type Department Care Team (Late st Contact Info) Description 06/23/2025 3:30 PM CDT Office Visit [facility] Francie [address] [place] [phone] Eloy Singh MD [address] [place] [address] [place] [id number] documented as of this encounter Goals Goal [...] Depression Total Score: 10 025 11:26 AM MOTORS AND GENERATORS INSPECTOR documented as of this encounter Care Teams Genetics Physician Relationship Specialty Start Date End Date Eloy Singh MD [address] [place] [address] [place] [address] PCP - General Internal Medicine - Pediatrics 12/23/24 Estelle Calvillo MD [address] [place], [place] [phone] reimbursement specialist & Neurology - Child & Adolescent Psychiatry 05/24/19 Jyoti Sotomayor, [facility] [address] [place] [address] Pharmacist Pharmacist 03/08/23 Marcus Stephens MD [address] [facility] [address] [place] [address] Assigned PCP 04/27/23 Rashmi Isaac MD [address] [place] [address] [address] [place], [place] [address] Assigned Behavioral Health Provider 06/16/23 Sara Jara, RN Clinic Production Underwriter 12/25/24 documented as of this encounter
[2025-01-12 09:39] VITALS: BP 121/73; PULSE 75; RESP 18; TEMP 36.6; O2SAT 92
--- OUTSIDE RECORDS SUMMARY | 2025-01-12 09:39 | XMS_ITS | Encounter Summary ---
Author Organization [facility] Address [address] [place] [address] Care Team Providers Care Tractor Trailer Mechanic Name Role Phone Rachel Crum MD Primary Care Provid er Rachel Crum MD Unavailable + [phone] Estelle Calvillo MD Unavailable Estelle Calvillo MD Unavailable Jose Hartman AUTOMOTIVE SALES PROFESSIONAL GENERAL OFFICE WORKER Unavailable Lexii Wray RN Unavailable Twan Patrick MD Unavailable [phone] Zulema Parrish [facility] Unavailable Unavaila Estelle Schaeffer MD Unavailable Erin Fernandez [facility] Unavailable [phone] Erin Fernandez [facility] Unavailable [phone] Marcus Stephens MD Primary Care Provider [phone] Jyoti Sotomayor [facility] Unavailable + [phone] Jyoti Sotomayor [facility] Unavailable [phone] Marcus Stephens MD Unavailable Twan Patrick MD Unavailable [phone] Rashmi Isaac MD Unavailable [phone] Eloy Singh MD Primary Care Provider [phone] Sara Jara RN Unavailable [phone] Encounter Details Date Type Department Care Team (Late Contact Info) Description 03/18/2019 MyC Medical Advice [facility] [address] [facility] [address] [place] [phone] Jose Hartman, AUTOMOTIVE SALES PROFESSIONAL GENERAL OFFICE WORKER [address] [place] [address] Social History Tobacco Use Types Packs/Day Years [...] as of this encounter Plan of Treatment Upcoming Encounters Date Type Department Care Team (Late Contact Info) Description 06/23/2025 3:30 PM CDT Office Visit [facility] Francie [address] [place] [address] Drive [address] [place] [phone] Eloy Singh MD [address] [place] [address] [place] [phone] documented as of this encounter Visit Diagnoses Not on filedocumented in this encounter Additional Health Concerns Infection Onset Date Last Indicated Resolved Time Rule Out COVID-19 12/11/2022 12/11/2022 12/12/2022 1:24 PM CDT Rule Out Rubella 07/16/2024 07/16/2024 07/17/2024 12:31 PM CDT documented as of this encounter Care Teams Tractor Trailer Mechanic Relationship Specialty Start Date End Date Rachel Crum MD PCP - General Pediatrics 07/04/12 02/13/23 Marcus Stephens MD [address] [facility] [address] [place], [place] [address] PCP - General Pediatrics 02/14/23 12/22/24 Eloy Singh MD [address] [facility] [place] [phone] PCP - General Internal Medicine - Pediatrics 12/23/24 Rachel Crum MD Assigned PCP 11/11/18 04/26/23 Estelle Calvillo MD [address] [place] [address] [address] [place], [place] [phone] assistant spa director & Neurology - Child & Adolescent Psychiatry 05/24/19 Estelle Calvillo MD [address] [place], [place] [id number] [place], [place] [id number] Assigned Behavioral Health Provider 01/24/20 05/13/22 Jose Hartman APRN GENERAL OFFICE WORKER [facility] [place] [address] Assigned Pediatric Specialist Provider 01/24/20 09/05/20 Lexii Wray, JOHN Lead Steam Shovel Operator Primary Care - CC 08/14/20 Twan Patrick MD [address] [place] [address] Assigned Pediatric Specialist Provider 12/11/21 04/26/23 Zulema Parrish LGSW Lead Steam Shovel Operator 07/04/22 01/27/23 Estelle Calvillo MD [address] [place], [place] [address] Assigned Behavioral Health Provider 07/02/22 06/15/23 Erin [place]andez, [facility] [address] [place] [phone] Pharmacist Pharmacist 12/22/22 10/25/23 Erin Fernandez, [facility] [address] [place] [phone] Assigned MTM Pharmacist 12/31/22 Jyoti Sotomayor [facility] [address] [place] [address] Pharmacist Pharmacist 03/08/23 Jyoti Sotomayor [facility] [address] [place], [place] [address] Assigned MTM Pharmacist 03/11/23 Marcus Stephens MD [address] [facility] [address] [place], [place] [address] Assigned PCP 04/27/23 Twan Patrick MD [address] [place] [address] Assigned Pediatric Specialist Provider 05/05/23 06/15/23 Rashmi Isaac MD [address] [place] [address] Assigned Behavioral Health Provider 06/16/23 Sara Jara, RN Clinic Steam Shovel Operator 12/25/24 documented as of this encounter
--- OUTSIDE RECORDS SUMMARY | 2025-01-12 09:39 | XMS_ITS | Encounter Summary ---
Author Organization [facility] Address [address] [place] [address] Care Team Providers Care Child And Family Services Worker Name Role Phone Rachel Crum MD Primary Care Provid er Rachel Crum MD Unavailable + [phone] Rachel Crum MD Unavailable + [phone] Santos Guerrero MD Unavailable +[phone] Rachel Crum MD Unavailable + [phone] Estelle Calvillo MD Unavailable Estelle Calvillo MD Unavailable Jose Hartman ANALYST BUSINESS ANALYSIS FLYING I INSTRUCTOR Unavailable Lexii Wray RN Unavailable [phone] Twan Patrick MD Unavailable +[phone] Zulema Parrish [facility] Unavailable Unavaila ble Estelle Calvillo MD Unavailable Erin Fernandez [facility] Unavailable +[phone] Erin Fernandez [facility] Unavailable +[phone] Marcus Stephens MD Primary Care Provider Jyoti Sotomayor [facility] Unavailable + [phone] Jyoti Sotomayor [facility] Unavailable + [phone] Marcus Stephens MD Unavailable Twan Patrick MD Unavailable +[phone] Rashmi Isaac MD Unavailable +[phone] Eloy Singh MD Primary Care Provider Sara Jara RN Unavailable +[phone] Encounter Details Date Type Department Care Team (Late st Contact Info) Description 10/03/2012 MyC Medical Advice [facility] [address] [place] [address] Rachel Crum MD 1021 [facility] E [facility] 100 [place], [place] [id number] Social History Tobacco Use Types Packs/Day Years [...] Description 06/23/2025 3:30 PM CDT [facility] [address] [place] [address] Drive [address] [place] [address] Eloy Singh MD [address] [place] [address] [place] [id number] documented as of this encounter Visit Diagnoses Not on filedocumented in this encounter Additional Health Concerns Infection Onset Date Last Indicated Resolved Time Rule Out COVID-19 12/11/2022 12/11/2022 12/12/2022 1:24 PM CDT Rule Out Rubella 07/16/2024 07/16/2024 07/17/2024 12:31 PM CDT documented as of this encounter Care Teams Child And Family Services Worker Relationship Specialty Start Date End Date Rachle Crum MD PCP - General Pediatrics 07/04/12 02/13/23 Rachel Crum MD [address] [place], [place] [id number] PCP - Assigned PCP 05/22/16 06/05/18 Marcus Stephens MD 717 [facility] [address] 370 [place], [place] [address] PCP - General Pediatrics 02/14/23 12/22/24 Eloy Singh MD [address] [facility] [place] [address] PCP - General Internal Medicine - Pediatrics 12/23/24 Rachel Crum MD [address] [place], [place] [id number] Assigned PCP 05/22/16 06/09/18 [place] [address] [place] [address] Assigned PCP 07/01/18 11/10/18 Rachel Crum MD Assigned PCP 11/11/18 04/26/23 Estelle Calvillo MD [address] [place], [place] [address] photographer model & Neurology - Child & Adolescent Psychiatry 05/24/19 Estelle Calvillo MD [address] [place] [address] [address]275 [place] [address] Assigned Behavioral Health Provider 01/24/20 05/13/22 Jose Hartman APRN FLYING I INSTRUCTOR [address] [place] [address] Assigned Pediatric Specialist Provider 01/24/20 09/05/20 Lexii Wray, JOHN Lead Advertising Layout Worker Primary Care - CC 08/14/20 Twan Patrick MD [address] [facility] [address] [place] [address] Assigned Pediatric Specialist Provider 12/11/21 04/26/23 Zulema Parrish [facility] Lead Advertising Layout Worker 07/04/22 01/27/23 Estelle Calvillo MD [address] [place] [address] [address]275 [place] [address] Assigned Behavioral Health Provider 07/02/22 06/15/23 Erin Fernandez, [facility] [address] [place] [id number] Pharmacist Pharmacist 12/22/22 10/25/23 Erin Fernandez [facility] [address] [place] [id number] Assigned MTM Pharmacist 12/31/22 Jyoti Sotomayor [facility] [address] [place], [place] [address] Pharmacist Pharmacist 03/08/23 Jyoti Sotomayor [facility] [address] [place], [place] [address]474 Assigned MTM Pharmacist 03/11/23 Marcus Stephesn MD [address] [place], [place] 425445 Assigned PCP 04/27/23 Twan Patrick MD [address] [facility] [address] [place] [address] Assigned Pediatric Specialist Provider 05/05/23 06/15/23 Rashmi Isaac MD [address] [place], [place] [address]884 Assigned Behavioral Health Provider 06/16/23 Sara Jara, RN Clinic Advertising Layout Worker 12/25/24 documented as of this encounter
--- OUTSIDE RECORDS SUMMARY | 2025-01-12 09:39 | XMS_ITS | Encounter Summary ---
Author Organization [facility] Address [address] [place] [address] Care Team Providers Care Boxing Machine Operator Name Role Phone Rachel Crum MD Primary Care Provid er Rachel Crum MD Unavailable + [phone] Rachel Crum MD Unavailable + [phone] Santos Guerrero MD Unavailable +[phone] Rachel Crum MD Unavailable + [phone] Estelle Calvillo MD Unavailable Estelle Calvillo MD Unavailable Jose Hartman METER ENGINEER SANFORIZING MACHINE OPERATOR Unavailable Lexii Wray RN Unavailable +[phone] Twan Patrick MD Unavailable +[phone] Zulema Parrish [facility] Unavailable Unavaila ble Estelle Calvillo MD Unavailable Erin Fernandez [facility] Unavailable +[phone] Erin Fernandez [facility] Unavailable +[phone] Marcus Stephens MD Primary Care Provider Jyoti Sotomayor [facility] Unavailable + [phone] Jyoti Sotomayor [facility] Unavailable + [phone] Marcus Stephens MD Unavailable Twan Patrick MD Unavailable +[phone] Rashmi Isaac MD Unavailable +[phone] Eloy Singh MD Primary Care Provider Sara Jara RN Unavailable +[phone] Encounter Details Date Type Department Care Team (Late st Contact Info) Description 12/12/2012 MyC Medical Advice [facility] Children[facility] [address] [place] [address] Rachel Crum MD 1021 [facility] E [facility] 100 [place], [place] [id number] Social History Tobacco Use Types Packs/Day Years [...] Description 06/23/2025 3:30 PM CDT [facility] [address] [place] [address] Drive [address] [place] [address] Eloy Singh MD [address] [place] [address] [place] [id number] documented as of this encounter Visit Diagnoses Not on filedocumented in this encounter Additional Health Concerns Infection Onset Date Last Indicated Resolved Time Rule Out COVID-19 12/11/2022 12/11/2022 12/12/2022 1:24 PM CDT Rule Out Rubella 07/16/2024 07/16/2024 07/17/2024 12:31 PM CDT documented as of this encounter Care Teams Boxing Machine Operator Relationship Specialty Start Date End Date Rachel Crum MD PCP - General Pediatrics 07/04/12 02/13/23 Rachel Crum MD [address] 100 [place], [place] [phone] PCP - Assigned PCP 05/22/16 06/05/18 Marcus Stephens MD 717 [facility] [address] 370 [place], [place] 346185 PCP - General Pediatrics 02/14/23 12/22/24 Eloy Singh MD [address] [facility] [place] [address] PCP - General Internal Medicine - Pediatrics 12/23/24 Rachel Crum MD [address] 100 [place], [place] [id number] Assigned PCP 05/22/16 06/09/18 [place] [address] [place] [address] Assigned PCP 07/01/18 11/10/18 Rachel rCum MD Assigned PCP 11/11/18 04/26/23 Estelle Calvillo MD [address] [place], [place] [address] department editor & Neurology - Child & Adolescent Psychiatry 05/24/19 Estelle Calvillo MD [address] [place] [address] [address]275 [place] [address] Assigned Behavioral Health Provider 01/24/20 05/13/22 Jose Hartman APRN SANFORIZING MACHINE OPERATOR [address] [place] [address] Assigned Pediatric Specialist Provider 01/24/20 09/05/20 Lexii Wray, JOHN Lead Licensed Nurse Practitioner Primary Care - CC 08/14/20 Twan Patrick MD [address] [facility] [address] [place] [address] Assigned Pediatric Specialist Provider 12/11/21 04/26/23 Zulema Parrish [facility] Lead Licensed Nurse Practitioner 07/04/22 01/27/23 Estelle Calvillo MD [address] [place] [address] [address]275 [place] [address] Assigned Behavioral Health Provider 07/02/22 06/15/23 Erin Fernandez, [facility] [address] [place] [id number] Pharmacist Pharmacist 12/22/22 10/25/23 Erin Fernandez [facility] [address] [place] [id number] Assigned MTM Pharmacist 12/31/22 Jyoti Sotomayor [facility] [address] [place], [place] [address] Pharmacist Pharmacist 03/08/23 Jyoti Sotomayor [facility] [address] [place], [place] 8[address] Assigned MTM Pharmacist 03/11/23 Marcus Stephens MD [address] [place], [place] [address]15 Assigned PCP 04/27/23 Twan Patrick MD [address] [facility] [address] [place] [address] Assigned Pediatric Specialist Provider 05/05/23 06/15/23 Rashmi Isaac MD [address] [place], [place] 459964 Assigned Behavioral Health Provider 06/16/23 Sara Jara, RN Clinic Licensed Nurse Practitioner 12/25/24 documented as of this encounter
--- OUTSIDE RECORDS SUMMARY | 2025-01-12 09:39 | XMS_ITS | Encounter Summary ---
Author Organization [facility] Address [address] [place] [address] Care Team Providers Care Law Office Manager Name Role Phone Rachel Crum MD Primary Care Provid er Rachel Crum MD Unavailable + [phone] Rachel Crum MD Unavailable + [phone] Santos Guerrero MD Unavailable Rachel Crum MD Unavailable + [phone] Estelle Calvillo MD Unavailable Estelle Calvillo MD Unavailable Jose Hartman WET MILLING WHEEL OPERATOR GOVERNMENT AFFAIRS MANAGER Unavailable Lexii Wray RN Unavailable [phone] Twan Patrick MD Unavailable [phone] Zulema Parrish [facility] Unavailable Unavaila ble Estelle Calvillo MD Unavailable Erin Fernandez [facility] Unavailable [phone] Erin Fernandez [facility] Unavailable [phone] Marcus Stephens MD Primary Care Provider [phone] Jyoti Sotomayor [facility] Unavailable + [phone] Jyoti Sotomayor [facility] Unavailable + [phone] Marcus Stephens MD Unavailable Twan Patrick MD Unavailable +[phone] Rashmi Isaac MD Unavailable +[phone] Eloy Singh MD Primary Care Provider aSra Jara RN Unavailable +[phone] Reason for Visit * Reason Onset Date Comments Refill Request 11/26/2012 Encounter Details Date Type Department Care Team (Late st Contact Info) Description 11/26/2012 MyC Medical Advice [facility] Children's [address] [place] [address] Rachel Crum MD 1021 [facility] E [facility] 100 [place], [place] [id number] Refill Request Social History Tobacco Use Types [...] Description 06/23/2025 3:30 PM CDT Office Visit [facility] [place] [address] [facility] [address] [place] [phone] Eloy Singh MD [address] [place] [address] [place] [id number] documented as of this encounter Visit Diagnoses Diagnosis Autism- Primary Autistic disorder, current or active state documented in this encounter Additional Health Concerns Infection Onset Date Last Indicated Resolved Time Rule Out COVID-19 12/11/2022 12/11/2022 12/12/2022 1:24 PM CDT Rule Out Rubella 07/16/2024 07/16/2024 07/17/2024 12:31 PM CDT documented as of this encounter Care Teams Law Office Manager Relationship Specialty Start Date End Date Rachel Crum MD PCP - General Pediatrics 07/04/12 02/13/23 Rachel Crum MD [address] [facility] 100 [place], [place] [phone] PCP - Assigned PCP 05/22/16 06/05/18 Marcus Stephens MD 717 [facility] 370 [place], [place] [address] PCP - General Pediatrics 02/14/23 12/22/24 Eloy Singh MD [address] [facility] [place] [address] PCP - General Internal Medicine - Pediatrics 12/23/24 Rachel Crum MD [address] [facility] 100 [place], [place] [address] Assigned PCP 05/22/16 06/09/18 [place] [address] [place], [place] [address] Assigned PCP 07/01/18 11/10/18 Rachel Crum MD Assigned PCP 11/11/18 04/26/23 Estelle Calvillo MD [address] [place] [address] [address]275 [place], [place] [address] prosthetics technician & Neurology - Child & Adolescent Psychiatry 05/24/19 Estelle Calvillo MD [facility] [address] [address] Assigned Behavioral Health Provider 01/24/20 05/13/22 Jose Hartman APRN GOVERNMENT AFFAIRS MANAGER [address] [place] [address] Assigned Pediatric Specialist Provider 01/24/20 09/05/20 Lexii Wray, JOHN Lead Roof Mechanic Primary Care - CC 08/14/20 Twan Patrick MD [address] [place] [address] 200 [place], [place] 043934 Assigned Pediatric Specialist Provider 12/11/21 04/26/23 Zulema Parrish LGSW Lead Roof Mechanic 07/04/22 01/27/23 Estelle Calvillo MD [facility] [address] [address] Assigned Behavioral Health Provider 07/02/22 06/15/23 Erin Fernandez [facility] [address] [id number] Pharmacist Pharmacist 12/22/22 10/25/23 Erin Fernandez [facility] [address] [id number] Assigned MTM Pharmacist 12/31/22 Jyoti Sotomayor [facility] Critical access hospital0 [facility] [address] [place] [address] Pharmacist Pharmacist 03/08/23 Jyoti Sotomayor [facility] 2450 [facility] [address] [place], [place] 453554 Assigned MTM Pharmacist 03/11/23 Marcus Stephens MD 717 [facility] 370 [place] [address] Assigned PCP 04/27/23 Twan Patrick MD [address] [place] [address] [place] 200 [place], [place] 867074 Assigned Pediatric Specialist Provider 05/05/23 06/15/23 Rashmi Isaac MD [address] [place] [address] Assigned Behavioral Health Provider 06/16/23 Sara Jara, RN Clinic Roof Mechanic 12/25/24 documented as of this encounter
--- OUTSIDE RECORDS SUMMARY | 2025-01-12 09:40 | XMS_ITS | Encounter Summary ---
Author Organization [facility] Address [address] [place] [address] Care Team Providers Care Solid Center Winder Name Role Phone Rachel Crum MD Primary Care Provid er Rachel Crum MD Unavailable + [phone] Estelle Calvillo MD Unavailable Estelle Calvillo MD Unavailable Twan Patrick MD Unavailable +[phone] Zulema Parrish [facility] Unavailable Unavaila Estelle Schaeffer MD Unavailable Erin Fernandez [facility] Unavailable +[phone] Erin Fernandez [facility] Unavailable +[phone] Marcus Stephens MD Primary Care Provider [phone] Jyoti Sotomayor [facility] Unavailable +[phone] Jyoti Sotomayor [facility] Unavailable +[phone] Marcus Stephens MD Unavailable Twan Patrick MD Unavailable +[phone] Rashmi Isaac MD Unavailable + [phone] Eloy Singh MD Primary Care Provider +[phone] Sara Jara RN Unavailable +[phone] Encounter Details Date Type Department Care Team (Late st Contact Info) Description 03/18/2021 MyC Medical Advice [place] [address] [place] [address] Rachel Crum MD [address] [place], [place] [id number] Social History Tobacco Use Types Packs/Day Years [...] COVID-19? No / Unsure 03/08/2021 12:40 PM NURSING UNIT CLERK documented as of this encounter Miscellaneous Notes * Telephone Encounter - Elvi Sanchez RN - 03/19/2021 1:43 PM NURSING UNIT CLERK Called mom for clarification and scheduled video visit for 04/01. Elvi Sanchez RN ING UNIT CLERK documented in this encounter Plan of Treatment Upcoming Encounters Date Type Department Care Team (Late st Contact Info) Description 06/23/2025 3:30 PM CDT [facility] [address] [place] [address] Drive [address] [place] [address] Eloy Singh MD [address] [place] [address] [place] [address] documented as of this encounter Visit Diagnoses Not on filedocumented in this encounter Additional Health Concerns Infection Onset Date Last Indicated Resolved Time Rule Out COVID-19 12/11/2022 12/11/2022 12/12/2022 1:24 PM CDT Rule Out Rubella 07/16/2024 07/16/2024 07/17/2024 12:31 PM CDT documented as of this encounter Care Teams Solid Center Winder Relationship Specialty Start Date End Date Rachel Crum MD PCP - General Pediatrics 07/04/12 02/13/23 Marcus Stephens MD 717 [facility] 370 [place] [address] PCP - General Pediatrics 02/14/23 12/22/24 Eloy Singh MD 3305 [facility] [place] [address] PCP - General Internal Medicine - Pediatrics 12/23/24 Rachel Crum MD Assigned PCP 11/11/18 04/26/23 Estelle Calvillo MD [address] [place] [address] carbon lamp cleaner & Neurology - Child & Adolescent Psychiatry 05/24/19 Estelle Calvillo MD [facility] [address] 88[address] Assigned Behavioral Health Provider 01/24/20 05/13/22 Twan Patrick MD [address] [facility] [address] [facility] 200 [place], [place] 2[address]14 Assigned Pediatric Specialist Provider 12/11/21 04/26/23 Zulema Parrish LGSW Lead Senior Product Manager 07/04/22 01/27/23 Estelle Calvillo MD [address] [place] [address] Assigned Behavioral Health Provider 07/02/22 06/15/23 Erin Fernandez [facility] [address] [place] [id number] Pharmacist Pharmacist 12/22/22 10/25/23 Erin Fernandez [facility] [address] [place] [address] Assigned MTM Pharmacist 12/31/22 Jyoti Sotomayor [facility] 2450 [facility] [address] [place] [address] Pharmacist Pharmacist 03/08/23 Jyoti Sotomayor [facility] 2450 [place] 2424882 [place] [address] Assigned MTM Pharmacist 03/11/23 Marcus Stephens MD 717 [facility] [address] [place] [address] Assigned PCP 04/27/23 Twan Patrick MD [address] [place], [place] [address]E S [address] 200 [place] [address] Assigned Pediatric Specialist Provider 05/05/23 06/15/23 Rashmi Isaac MD [address] [place], [place] [address] Assigned Behavioral Health Provider 06/16/23 Sara Jara, RN Clinic Senior Product Manager 12/25/24 documented as of this encounter
--- OUTSIDE RECORDS SUMMARY | 2025-01-12 09:40 | XMS_ITS | Encounter Summary ---
Author Organization [facility] Address [address] [place] [address] Care Team Providers Care Oracle Drm Consultant Name Role Phone Rachel Crum MD Primary Care Provid er Rachel Crum MD Unavailable + [phone] Estelle Calvillo MD Unavailable Estelle Calvillo MD Unavailable Twan Patrick MD Unavailable [phone] Zulema Parrish [facility] Unavailable Unavaila Estelle Schaeffer MD Unavailable Erin Fernandez [facility] Unavailable +[phone] Erin Fernandez [facility] Unavailable +[phone] Marcus Stephens MD Primary Care Provider [phone] Jyoti Sotomayor [facility] Unavailable +[phone] Jyoti Sotomayor [facility] Unavailable +[phone] Marcus Stephens MD Unavailable Twan Patrick MD Unavailable +[phone] Rashmi Isaac MD Unavailable + [phone] Eloy Singh MD Primary Care Provider [phone] Sara Jara RN Unavailable +[phone] Encounter Details Date Type Department Care Team (Late st Contact Info) Description 04/01/2021 MyC Medical Advice [place] [address] [place] [address] Rachel Crum MD [address] [place], [place] [phone] Social History Tobacco Use Types Packs/Day Years [...] COVID-19? No / Unsure 03/08/2021 12:40 PM MOBILE MARKETING MANAGER documented as of this encounter Plan of Treatment Upcoming Encounters Date Type Department Care Team (Late st Contact Info) Description 06/23/2025 3:30 PM CDT Office Visit [facility] [place] [address] [place] [address] Drive [address] [place] [address] Eloy Singh MD [address] [place] [address] [place] [address] documented as of this encounter Visit Diagnoses Not on filedocumented in this encounter Additional Health Concerns Infection Onset Date Last Indicated Resolved Time Rule Out COVID-19 12/11/2022 12/11/2022 12/12/2022 1:24 PM CDT Rule Out Rubella 07/16/2024 07/16/2024 07/17/2024 12:31 PM CDT documented as of this encounter Care Teams Oracle Drm Consultant Relationship Specialty Start Date End Date Rachel Crum MD PCP - General Pediatrics 07/04/12 02/13/23 Marcus Stephens MD [address] [place] [address] PCP - General Pediatrics 02/14/23 12/22/24 Eloy Singh MD [address] [place] [address] [place] [address] PCP - General Internal Medicine - Pediatrics 12/23/24 Rachel Crum MD Assigned PCP 11/11/18 04/26/23 Estelle Calvillo MD [address] [place] [address] hardwood floor sander & Neurology - Child & Adolescent Psychiatry 05/24/19 Estelle Calvillo MD [address] [place] [address] Assigned Behavioral Health Provider 01/24/20 05/13/22 Twan Patrick MD [address] [place] [address] 200 [place], [place] 610944 Assigned Pediatric Specialist Provider 12/11/21 04/26/23 Zulema Parrish [facility] Lead Professor Of Physical Education 07/04/22 01/27/23 Estelle Calvillo MD [address] 683404 Assigned Behavioral Health Provider 07/02/22 06/15/23 Erin Fernandez, [facility] [address] [id number] Pharmacist Pharmacist 12/22/22 10/25/23 Erin Fernandez, [facility] [address] [id number] Assigned MTM Pharmacist 12/31/22 Jyoti Sotomayor [facility] 2450 [facility] [address] [place], [place] [address] Pharmacist Pharmacist 03/08/23 Jyoti Sotomayor [facility] [address] [place] [address] Assigned MTM Pharmacist 03/11/23 Marcus Stephens MD [address] [place] [address] [place] [address] Assigned PCP 04/27/23 Twan Patrick MD [address] [place] [address] Assigned Pediatric Specialist Provider 05/05/23 06/15/23 Rashmi Isaac MD [address] [place] [address] Assigned Behavioral Health Provider 06/16/23 Sara Jara, RN Clinic Professor Of Physical Education 12/25/24 documented as of this encounter
--- OUTSIDE RECORDS SUMMARY | 2025-01-12 09:40 | XMS_ITS | Encounter Summary ---
Author Organization [place] Address [address] [place] [address] Care Team Providers Care Roll Bucker Name Role Phone Rachel Crum MD Primary Care Provid er Rachel Crum MD Unavailable + [phone] Estelle Calvillo MD Unavailable Estelle Calvillo MD Unavailable Twan Patrick MD Unavailable +[phone] Zulema Parrish [facility] Unavailable Unavaila Estelle Schaeffer MD Unavailable Erin Fernandez [facility] Unavailable +[phone] Erin Fernandez [facility] Unavailable [phone] Marcus Stephens MD Primary Care Provider [phone] Jyoti Sotomayor [facility] Unavailable +[phone] Jyoti Sotomayor [facility] Unavailable +[phone] Marcsu Stephens MD Unavailable Twan Patrick MD Unavailable +[phone] Rashmi Isaac MD Unavailable + [phone] Eloy Singh MD Primary Care Provider [phone] Sara Jara RN Unavailable [phone] Encounter Details Date Type Department Care Team (Late st Contact Info) Description 08/12/2021 MyC Medical Advice [id number] [place] [address] Rachel Crum MD [address] [place], [place] [id number] Social History Tobacco Use Types Packs/Day Years [...] Description 06/23/2025 3:30 PM CDT Office Visit [facility] [place] [address] [place] [address] Drive [address] [place] [address] Eloy Singh MD [address] [place] [address] [place] [address] documented as of this encounter Visit Diagnoses Not on filedocumented in this encounter Additional Health Concerns Infection Onset Date Last Indicated Resolved Time Rule Out COVID-19 12/11/2022 12/11/2022 12/12/2022 1:24 PM CDT Rule Out Rubella 07/16/2024 07/16/2024 07/17/2024 12:31 PM CDT documented as of this encounter Care Teams Roll Bucker Relationship Specialty Start Date End Date Rachel Crum MD PCP - General Pediatrics 07/04/12 02/13/23 Marcus Stephens MD [address] [place] [address] PCP - General Pediatrics 02/14/23 12/22/24 Eloy Singh MD [address] [place] [address] [place] [address] PCP - General Internal Medicine - Pediatrics 12/23/24 Rachel Crum MD Assigned PCP 11/11/18 04/26/23 Estelle Calvillo MD [address] [place] [address] [address]275 [place] [address] senior sous chef & Neurology - Child & Adolescent Psychiatry 05/24/19 Estelle Calvillo MD [address] [place] [address] [address] [place] [address] Assigned Behavioral Health Provider 01/24/20 05/13/22 Twan Patrick MD [address] [facility] 200 [place], [place] 598414 Assigned Pediatric Specialist Provider 12/11/21 04/26/23 Zulema Parrish [facility] Lead Flight Attendant/Inflight Manager 07/04/22 01/27/23 Estelle Calvillo MD [id number] [place] [address] Assigned Behavioral Health Provider 07/02/22 06/15/23 Erin Fernandez [facility] [address] [id number] Pharmacist Pharmacist 12/22/22 10/25/23 Erin Fernandez, [facility] [address] [place] [place] [address] Assigned MTM Pharmacist 12/31/22 Jyoti Sotomayor [facility] [address] [place] [address] [id number] Pharmacist Pharmacist 03/08/23 Jyoti Sotomayor [facility] [address] [id number] Assigned MTM Pharmacist 03/11/23 Marcus Stephens MD 717 [facility] [address] [place], [place] [address]605 Assigned PCP 04/27/23 Twan Patrick MD [address] [place] [place], [place] [address]E [address] 200 [place] [address] Assigned Pediatric Specialist Provider 05/05/23 06/15/23 Rashmi Isaac MD [address] [place], [place] [address] Assigned Behavioral Health Provider 06/16/23 Sara Jara, RN Clinic Flight Attendant/Inflight Manager 12/25/24 documented as of this encounter
--- OUTSIDE RECORDS SUMMARY | 2025-01-12 09:40 | XMS_ITS | Encounter Summary ---
Author Organization [place] Address [address] [place] [address] Care Team Providers Care Steam Conditioning Operator Name Role Phone Rachel Crum MD Primary Care Provid er Rachel Crum MD Unavailable + [phone] Estelle Calvillo MD Unavailable Estelle Calvillo MD Unavailable Jose Hartman COIL WRAPPER MECHANICAL SPECIALIST Unavailable Lexii Wray RN Unavailable [phone] Twan Patrick MD Unavailable +[phone] Zulema Parrish [facility] Unavailable Unavaila Estelle Schaeffer MD Unavailable Erin Fernandez [facility] Unavailable [phone] Erin Fernandez [facility] Unavailable [phone] Marcus Stephens MD Primary Care Provider +[phone] Jyoti Sotomayor [facility] Unavailable + [phone] Jyoti Sotomayor [facility] Unavailable [phone] Marcus Stephens MD Unavailable Twan Patrick MD Unavailable +[phone] Rashmi Isaac MD Unavailable Eloy Singh MD Primary Care Provider [phone] Sara Jara RN Unavailable [phone] Encounter Details Date Type Department Care Team (Late Contact Info) Description 05/03/2019 MyC Medical Advice [facility] [address] [facility] [address], 3rd [place] [phone] Jose Hartman, COIL WRAPPER MECHANICAL SPECIALIST 303 [place] [address] Social History Tobacco Use Types Packs/Day Years [...] Description 06/23/2025 3:30 PM CDT Office Visit [facility] [place] [address] [place] [address] Drive [address] [place] [phone] Eloy Singh MD [address] [place] [address] [place]ON [id number] documented as of this encounter Visit Diagnoses Not on filedocumented in this encounter Additional Health Concerns Infection Onset Date Last Indicated Resolved Time Rule Out COVID-19 12/11/2022 12/11/2022 12/12/2022 1:24 PM CDT Rule Out Rubella 07/16/2024 07/16/2024 07/17/2024 12:31 PM CDT documented as of this encounter Care Teams Steam Conditioning Operator Relationship Specialty Start Date End Date Rachel Crum MD PCP - General Pediatrics 07/04/12 02/13/23 Marcus Stephens MD 717 [facility] 370 [place], [place] 832725 PCP - General Pediatrics 02/14/23 12/22/24 Eloy Singh MD [address] [address] [place] [id number] PCP - General Internal Medicine - Pediatrics 12/23/24 Rachel Crum MD Assigned PCP 11/11/18 04/26/23 Estelle Calvillo MD [address] [place] [address] [address] [place], [place] [phone] sales representative wire rope & Neurology - Child & Adolescent Psychiatry 05/24/19 Estelle Calvillo MD [address] [place], [place] 1907975 [place], [place] [address] Assigned Behavioral Health Provider 01/24/20 05/13/22 Jose Hartman APRN MECHANICAL SPECIALIST [facility] [place] [address] Assigned Pediatric Specialist Provider 01/24/20 09/05/20 Lexii Wray, JOHN Lead Appliance Counselor Primary Care - CC 08/14/20 Twan Patrick MD [address] 200 [place] [address] Assigned Pediatric Specialist Provider 12/11/21 04/26/23 Zulema Parrish LGSW Lead Appliance Counselor 07/04/22 01/27/23 Estelle Calvillo MD [address] [place], [place] 926714 Assigned Behavioral Health Provider 07/02/22 06/15/23 Erin Fernandez, [facility] [address] [place] [id number] Pharmacist Pharmacist 12/22/22 10/25/23 Erin Fernandez, [facility] [address] [place] [id number] Assigned MTM Pharmacist 12/31/22 Jyoti Sotomayor [facility] [address] [place] [address] Pharmacist Pharmacist 03/08/23 Jyoti Sotomayor [facility] [address] [place], [place] 269844 Assigned MTM Pharmacist 03/11/23 Marcus Stephens MD 717 [facility] SE [address] [place], [place] 768015 Assigned PCP 04/27/23 Twan Patrick MD [address] [place] 200 [place] [address] Assigned Pediatric Specialist Provider 05/05/23 06/15/23 Rashmi Isaac MD [address] [place] [address] Assigned Behavioral Health Provider 06/16/23 Sara Jara, RN Clinic Appliance Counselor 12/25/24 documented as of this encounter
--- OUTSIDE RECORDS SUMMARY | 2025-01-12 09:40 | XMS_ITS | Encounter Summary ---
Author Organization [facility] Address [address] [place] [address] Care Team Providers Care Storage Management Consultant Name Role Phone Unavailable Primary Care Provider Unavailabl e Encounter Details Date Type Department Care Team (Late st Contact Info) Description 10/22/2018 Correspondence External to External, [place] [address] ORDER NUTRITION REFERRAL Social History Tobacco Use Types Packs/Day Years Used Date Smoking Tobacco: Never Assessed Sex and Gender Information Value Date Recorded Sex Assigned at Not on file Legal Sex Male 5:30 PM WIRE INSERTER Gender Identity Not on file Sexual Orientation Not on file documented as of this encounter Plan of Treatment Not on file documented as of this encounter Visit Diagnoses Not on filedocumented in this encounter
--- OUTSIDE RECORDS SUMMARY | 2025-01-12 09:40 | XMS_ITS | Encounter Summary ---
Author Organization [place] Address [address] [place] [address] Care Team Providers Care Eye Surgeon Name Role Phone Rachel Crum MD Primary Care Provid er Rachel Crum MD Unavailable + [phone] Estelle Calvillo MD Unavailable Estelle Calvillo MD Unavailable Jose Hartman SOCK EXAMINER VALIDATION MANAGER Unavailable Lexii Wray RN Unavailable [phone] Twan Patrick MD Unavailable [phone] Zulema Parrish [facility] Unavailable Unavaila Estelle Schaeffer MD Unavailable Erin Fernandez [facility] Unavailable [phone] Erin Fernandez [facility] Unavailable [phone] Marcus Stephens MD Primary Care Provider [phone] Jyoti Sotomayor [facility] Unavailable + [phone] Jyoti Sotomayor [facility] Unavailable +[phone] Marcus Stephens MD Unavailable Twan Patrick MD Unavailable [phone] Rashmi Isaac MD Unavailable Eloy Singh MD Primary Care Provider Sara Jara RN Unavailable [phone] Encounter Details Date Type Department Care Team (Late Contact Info) Description 02/21/2019 MyC Medical Advice [facility] [address] [facility] [address] Bld[address], 3rd [place] [phone] Jose Hartman, SOCK EXAMINER VALIDATION MANAGER 303 [place] [address] Social History Tobacco Use Types Packs/Day Years [...] Description 06/23/2025 3:30 PM CDT [facility] [address] [place] [address] [address] [place] [address] Eloy Singh MD [address] [place] [address] [place] [address] documented as of this encounter Visit Diagnoses Not on filedocumented in this encounter Additional Health Concerns Infection Onset Date Last Indicated Resolved Time Rule Out COVID-19 12/11/2022 12/11/2022 12/12/2022 1:24 PM CDT Rule Out Rubella 07/16/2024 07/16/2024 07/17/2024 12:31 PM CDT documented as of this encounter Care Teams Eye Surgeon Relationship Specialty Start Date End Date Rachel Crum MD PCP - General Pediatrics 07/04/12 02/13/23 Marcus Stephens MD 717 [facility] 370 [place], [place] 785875 PCP - General Pediatrics 02/14/23 12/22/24 Eloy Singh MD [address] [facility] [place] [address] PCP - General Internal Medicine - Pediatrics 12/23/24 Rachel Crum MD Assigned PCP 11/11/18 04/26/23 Estelle Calvillo MD [address] [place], [place] [address] webmethods consultant & Neurology - Child & Adolescent Psychiatry 05/24/19 Estelle Calvillo MD [address] [place] [address] Assigned Behavioral Health Provider 01/24/20 05/13/22 Jose Hartman APRN VALIDATION MANAGER [address] [place] [address]7297 Assigned Pediatric Specialist Provider 01/24/20 09/05/20 Lexii Wray, RN Lead Tax Services Professional Primary Care - CC 08/14/20 Twan Patrick MD [address] [place] [address] 200 [place] [address] Assigned Pediatric Specialist Provider 12/11/21 04/26/23 Zulema Parrish LGSW Lead Tax Services Professional 07/04/22 01/27/23 Estelle Calvillo MD [address] [facility] [address] [place], [place] 863214 Assigned Behavioral Health Provider 07/02/22 06/15/23 Erin Fernandez, [facility] [address] [place], [place] [phone] Pharmacist Pharmacist 12/22/22 10/25/23 Erin Fernandez, [facility] [address] [place] [phone] Assigned MTM Pharmacist 12/31/22 Jyoti Sotomayor [facility] 2450 [facility] [address] [place], [place] 793614 Pharmacist Pharmacist 03/08/23 Jyoti Sotomayor [facility] 2450 [facility] [address] [place], [place] 988524 Assigned MTM Pharmacist 03/11/23 Marcus Stephens MD 717 [facility] [address] [place], [place] 325865 Assigned PCP 04/27/23 Twan Patrick MD [address] [facility] [address] [place] [address] Assigned Pediatric Specialist Provider 05/05/23 06/15/23 Rashmi Isaac MD [address] [place] [address] [place] [address] Assigned Behavioral Health Provider 06/16/23 Sara Jara, RN Clinic Tax Services Professional 12/25/24 documented as of this encounter
--- OUTSIDE RECORDS SUMMARY | 2025-01-12 09:40 | XMS_ITS | Encounter Summary ---
Author Organization [place] Address [address] [place] [address] Care Team Providers Care Forestry Scientist Name Role Phone Rachel Crum MD Primary Care Provid er Rachel Crum MD Unavailable + [phone] Estelle Calvillo MD Unavailable Estelle Calvillo MD Unavailable Twan Patrick MD Unavailable [phone] Zulema Parrish [facility] Unavailable Unavaila Estelle Schaeffer MD Unavailable Erin Fernandez [facility] Unavailable [phone] Erin Fernandez [facility] Unavailable [phone] Marcus Stephens MD Primary Care Provider [phone] Jyoti Sotomayor [facility] Unavailable [phone] Jyoti Sotomayor [facility] Unavailable [phone] Marcus Stephens MD Unavailable Twan Patrick MD Unavailable [phone] Rashmi Isaac MD Unavailable + [phone] Eloy Singh MD Primary Care Provider [phone] Sara Jara RN Unavailable [phone] Encounter Details Date Type Department Care Team (Late st Contact Info) Description 02/18/2021 MyC Medical Advice [place] [address] [place] [address] Rachel Crum MD [address] [place], [place] [id number] Social History Tobacco Use Types Packs/Day Years [...] Description 06/23/2025 3:30 PM CDT Office Visit [facility] [place] [address] [place] [address] Drive [address] [place] [address] Eloy Singh MD [address] [place] [address] [place] [address] documented as of this encounter Visit Diagnoses Not on filedocumented in this encounter Additional Health Concerns Infection Onset Date Last Indicated Resolved Time Rule Out COVID-19 12/11/2022 12/11/2022 12/12/2022 1:24 PM CDT Rule Out Rubella 07/16/2024 07/16/2024 07/17/2024 12:31 PM CDT documented as of this encounter Care Teams Forestry Scientist Relationship Specialty Start Date End Date Rachel Crum MD PCP - General Pediatrics 07/04/12 02/13/23 Marcus Stephens MD [address] [place] [address] PCP - General Pediatrics 02/14/23 12/22/24 Eloy Singh MD [address] [place] [address] [place] [address] PCP - General Internal Medicine - Pediatrics 12/23/24 Rachel Crum MD Assigned PCP 11/11/18 04/26/23 Estelle Calvillo MD [address] [place] [address] F[address] [place] [address] supervisor word processing & Neurology - Child & Adolescent Psychiatry 05/24/19 Estelle Calvillo MD [address] [place] [address] [address] [place] [address] Assigned Behavioral Health Provider 01/24/20 05/13/22 Twan Patrick MD [address] [facility] 200 [place], [place] 09[address] Assigned Pediatric Specialist Provider 12/11/21 04/26/23 Zulema Parrish [facility] Lead Search Engine Optimization Strategist 07/04/22 01/27/23 Estelle Calvillo MD [facility] [id number] [place] [address] Assigned Behavioral Health Provider 07/02/22 06/15/23 Erin Fernandez [facility] [address] [id number] Pharmacist Pharmacist 12/22/22 10/25/23 Erin Fernandez, [facility] [address] [place] [address] [address] Assigned MTM Pharmacist 12/31/22 Jyoti Sotomayor [facility] [address] [place] [address] Pharmacist Pharmacist 03/08/23 Jyoti Sotomayor [facility] [address] [id number] Assigned MTM Pharmacist 03/11/23 Marcus Stephens MD 717 [facility] [address]H 370 [place], [place] 354655 Assigned PCP 04/27/23 Twan Patrick MD [address] [place], [place] [address]E [address] 200 [place] [address] Assigned Pediatric Specialist Provider 05/05/23 06/15/23 Rashmi Isaac MD [address] [place], [place] [address] Assigned Behavioral Health Provider 06/16/23 Sara Jara, RN Clinic Search Engine Optimization Strategist 12/25/24 documented as of this encounter
--- OUTSIDE RECORDS SUMMARY | 2025-01-12 09:40 | XMS_ITS | Encounter Summary ---
Author Organization [place] Address [address] [place] [address] Care Team Providers Care Swaging Machine Adjuster Name Role Phone Rachel Crum MD Primary Care Provid er Rachel Crum MD Unavailable + [phone] Estelle Calvillo MD Unavailable Estelle Calvillo MD Unavailable Jose Hartman CLINICAL QUALITY ANALYST NURSES' AIDE Unavailable Lexii Wray RN Unavailable [phone] Twan Patrick MD Unavailable [phone] Zulema Parrish [facility] Unavailable Unavaila Estelle Schaeffer MD Unavailable Erin Fernandez [facility] Unavailable [phone] Erin Fernandez [facility] Unavailable [phone] Marcus Stephens MD Primary Care Provider [phone] Jyoti Sotomayor [facility] Unavailable + [phone] Jyoti Sotomayor [facility] Unavailable +[phone] Marcus Stephens MD Unavailable Twan Patrick MD Unavailable [phone] Rashmi Isaac MD Unavailable Eloy Singh MD Primary Care Provider [phone] Sara Jara RN Unavailable [phone] Reason for Visit * Reason Onset Date Comments Refill Request 09/06/2019 fluticasone (JULIUS NASE) 50 MCG/ACT nasal spray Encounter Details Date Type Department Care Team (Late st Contact Info) Description 09/06/[address] [address] Rachel Crum MD 1021 [facility] E [facility] 100 [place] [address] Refill Request (fluticasone (FLONASE) 50 [...] - 09/06/2019 11:07 AM CDT Refilled per [facility] protocol. Camila Bowen RN * Telephone Encounter [...] Description 06/23/2025 3:30 PM CDT [facility] [address] [place] [address] Drive [address] [place] [address] Eloy Singh MD [address] [place] [address] [place] [address] documented as of this encounter Visit Diagnoses Diagnosis Other sinusitis, unspecified chronicity documented in this encounter Additional Health Concerns Infection Onset Date Last Indicated Resolved Time Rule Out COVID-19 12/11/2022 12/11/2022 12/12/2022 1:24 PM CDT Rule Out Rubella 07/16/2024 07/16/2024 07/17/2024 12:31 PM CDT documented as of this encounter Care Teams Swaging Machine Adjuster Relationship Specialty Start Date End Date Rachel Crum MD PCP - General Pediatrics 07/04/12 02/13/23 Marcus Stephens MD [address] [address] PCP - General Pediatrics 02/14/23 12/22/24 Eloy Singh MD [address] [place] [address] [place], [place] [phone] PCP - General Internal Medicine - Pediatrics 12/23/24 Rachel Crum MD Assigned PCP 11/11/18 04/26/23 Estelle Calvillo MD [address] [place] [address] condenser setter & Neurology - Child & Adolescent Psychiatry 05/24/19 Estelle Calvillo MD [address] [place] [address] Assigned Behavioral Health Provider 01/24/20 05/13/22 Jose Hartman APRN [facility] [address] [place] [address]33677 Assigned Pediatric Specialist Provider 01/24/20 09/05/20 Lexii Wray, JOHN Lead Commercial Lines Underwriter Primary Care - CC 08/14/20 Twan Patrick MD [address] [facility] 200 [place], [place] [address] Assigned Pediatric Specialist Provider 12/11/21 04/26/23 Zulema Parrish LGSW Lead Commercial Lines Underwriter 07/04/22 01/27/23 Estelle Calvillo MD [address] [place] [address] Assigned Behavioral Health Provider 07/02/22 06/15/23 Erin Fernandez, [facility] [address] [place] [address] Pharmacist Pharmacist 12/22/22 10/25/23 Erin Fernandez, [facility] [address] [place] [address] Assigned MTM Pharmacist 12/31/22 Jyoti Sotomayor [facility] 2450 [facility] [address] [place] [address] Pharmacist Pharmacist 03/08/23 Jyoti Sotomayor [facility] 2450 [facility] [address] [place] [address] Assigned MTM Pharmacist 03/11/23 Marcus Stephens MD 717 [facility] [address] 370 [place], [place] [address] Assigned PCP 04/27/23 Twan Patrick MD [address] [place], [place] [address]E [address] 200 [place], [place] [address] Assigned Pediatric Specialist Provider 05/05/23 06/15/23 Rashmi Isaac MD [address] [place], [place] [address] Assigned Behavioral Health Provider 06/16/23 Sara Jara, RN Clinic Commercial Lines Underwriter 12/25/24 documented as of this encounter
--- OUTSIDE RECORDS SUMMARY | 2025-01-12 09:40 | XMS_ITS | Encounter Summary ---
Author Organization [place] Address [address] [place] [address] Care Team Providers Care Auction Block Clerk Name Role Phone Rachel Crum MD Primary Care Provid er Rachel Crum MD Unavailable + [phone] Estelle Calvillo MD Unavailable Estelle Calvillo MD Unavailable Twan Patrick MD Unavailable +[phone] Zulema Parrish [facility] Unavailable Unavaila Estelle Schaeffer MD Unavailable Erin Fernandez [facility] Unavailable +[phone] Erin Fernandez [facility] Unavailable [phone] Marcus Stephens MD Primary Care Provider [phone] Jyoti Sotomayor [facility] Unavailable +[phone] Jyoti Sotomayor [facility] Unavailable +[phone] Marcus Stephens MD Unavailable Twan Patrick MD Unavailable +[phone] Rashmi Isaac MD Unavailable + [phone] Eloy Singh MD Primary Care Provider +[phone] Sara Jara RN Unavailable +[phone] Encounter Details Date Type Department Care Team (Late st Contact Info) Description 05/20/2021 MyC Medical Advice [place] [id number] [place] [address] Rachel Crum MD [address] [place], [place] [id number] Social History Tobacco Use Types Packs/Day Years [...] COVID-19? No / Unsure 04/26/2021 6:22 PM YOUTH CARE PROFESSIONAL documented as of this encounter Plan of Treatment Upcoming Encounters Date Type Department Care Team (Late st Contact Info) Description 06/23/2025 3:30 PM CDT Office Visit [facility] Francie [address] [place] [address] Drive [address] [place] [address] Eloy Singh MD [address] [place] [address] [place] [address] documented as of this encounter Visit Diagnoses Not on filedocumented in this encounter Additional Health Concerns Infection Onset Date Last Indicated Resolved Time Rule Out COVID-19 12/11/2022 12/11/2022 12/12/2022 1:24 PM CDT Rule Out Rubella 07/16/2024 07/16/2024 07/17/2024 12:31 PM CDT documented as of this encounter Care Teams Auction Block Clerk Relationship Specialty Start Date End Date Rachel Crum MD PCP - General Pediatrics 07/04/12 02/13/23 Marcus Stephens MD [address] [place] [address] PCP - General Pediatrics 02/14/23 12/22/24 Eloy Singh MD [address] [place] [address] [place] [address] PCP - General Internal Medicine - Pediatrics 12/23/24 Rachel Crum MD Assigned PCP 11/11/18 04/26/23 Estelle Calvillo MD [address] [place] [address] cad drafter & Neurology - Child & Adolescent Psychiatry 05/24/19 Estelle Calvillo MD [address] [place] [address] Assigned Behavioral Health Provider 01/24/20 05/13/22 Twan Patrick MD [address] [place] [address] 200 [place], [place] 002964 Assigned Pediatric Specialist Provider 12/11/21 04/26/23 Zulema Parrish [facility] Lead Telegraph Plant Maintainer 07/04/22 01/27/23 Estelle Calvillo MD [address] [address] Assigned Behavioral Health Provider 07/02/22 06/15/23 Erin Fernandez, [facility] [address] [id number] Pharmacist Pharmacist 12/22/22 10/25/23 Erin Fernandez, [facility] [address] [id number] Assigned MTM Pharmacist 12/31/22 Jyoti Sotomayor [facility] [address] [facility] F[address] [place], [place] 534234 Pharmacist Pharmacist 03/08/23 Jyoti Sotomayor [facility] [address] [place] [address] Assigned MTM Pharmacist 03/11/23 Marcus Stephens MD [address] [place] [address] Assigned PCP 04/27/23 Twan Patrick MD [address] [place] [address] Assigned Pediatric Specialist Provider 05/05/23 06/15/23 Rashmi Isaac MD [address] [place] [address] Assigned Behavioral Health Provider 06/16/23 Sara Jara, RN Clinic Telegraph Plant Maintainer 12/25/24 documented as of this encounter
--- OUTSIDE RECORDS SUMMARY | 2025-01-12 09:40 | XMS_ITS | Encounter Summary ---
Author Organization [place] Address [address] [place] [address] Care Team Providers Care Cad Draftsman Name Role Phone Rachel Crum MD Primary Care Provid er Rachel Crum MD Unavailable + [phone] Estelle Calvillo MD Unavailable Estelle Calvillo MD Unavailable Jose Hartman [employer] LEATHER CLEANER Unavailable Lexii Wray RN Unavailable [phone] Twan Patrick MD Unavailable +[phone] Zulema Parrish [facility] Unavailable Unavaila Estelle Schaeffer MD Unavailable Erin Fernandez [facility] Unavailable [phone] Erin Fernandez [facility] Unavailable +[phone] Marcus Stephens MD Primary Care Provider [phone] Jyoti Sotomayor [facility] Unavailable + [phone] Jyoti Sotomayor [facility] Unavailable +[phone] Marcus Stephens MD Unavailable Twan Patrick MD Unavailable +[phone] Rashmi Isaac MD Unavailable Eloy Singh MD Primary Care Provider [phone] Sara Jara RN Unavailable [phone] Reason for Visit * Reason Onset Date Comments Patient/info Update 09/03/2019 Encounter Details Date Type Department Care Team (Late st Contact Info) Description 09/03/[address] [facility] [place] [id number] [facility] [address] [phone] Estelle Calvillo MD [facility] [address] [address] Patient/info Update Social History Tobacco Use [...] Upcoming Encounters Date Type Department Care Team ([facility] Contact Info) Description 06/23/2025 3:30 PM CDT Office Visit [facility] [place] [address] [place] [address] Drive [address] [place] [phone] Eloy Singh MD [address] [place] [address] [place] [address] documented as of this encounter Visit Diagnoses Not on filedocumented in this encounter Additional Health Concerns Infection Onset Date Last Indicated Resolved Time Rule Out COVID-19 12/11/2022 12/11/2022 12/12/2022 1:24 PM CDT Rule Out Rubella 07/16/2024 07/16/2024 07/17/2024 12:31 PM CDT documented as of this encounter Care Teams Cad Draftsman Relationship Specialty Start Date End Date Rachel Crum MD PCP - General Pediatrics 07/04/12 02/13/23 Marcus Stephens MD 717 [facility] 370 [place], [place] 298515 PCP - General Pediatrics 02/14/23 12/22/24 [place] [address] [place] [address] [address] [place] [id number] PCP - General Internal Medicine - Pediatrics 12/23/24 Rachel Crum MD Assigned PCP 11/11/18 04/26/23 Estelle Calvillo MD [address] [place] [id number] [place], [place] [phone] deli cook & Neurology - Child & Adolescent Psychiatry 05/24/19 Estelle Calvillo MD [address] [id number] Assigned Behavioral Health Provider 01/24/20 05/13/22 Jose Hartman APRN LEATHER CLEANER [facility] [place], [place] 234987 Assigned Pediatric Specialist Provider 01/24/20 09/05/20 Lexii Wray RN Lead Thread Spooler Primary Care - CC 08/14/20 Twan Patrick MD [address] [place], [place] 579164 Assigned Pediatric Specialist Provider 12/11/21 04/26/23 Zulema Parrish LGSW Lead Thread Spooler 07/04/22 01/27/23 Estelle Calvillo MD [address] [place], [place] [address] Assigned Behavioral Health Provider 07/02/22 06/15/23 Erin Fernandez, [facility] [address] [place] [address] Pharmacist Pharmacist 12/22/22 10/25/23 [facility] [address] [place] [address] Assigned MTM Pharmacist 12/31/22 Jyoti Sotomayor [facility] [address] [place], [place] [address] Pharmacist Pharmacist 03/08/23 Jyoti Sotomayor [facility] [address] [place] [address] Assigned MTM Pharmacist 03/11/23 Marcus Stephens MD 717 [facility] [address] [place], [place] 394765 Assigned PCP 04/27/23 Twan Patrick MD [address] 200 [place] [address] Assigned Pediatric Specialist Provider 05/05/23 06/15/23 Rashmi Isaac MD [address] [place] [address] [address] [place] [address] Assigned Behavioral Health Provider 06/16/23 Sara Jara, RN Clinic Thread Spooler 12/25/24 documented as of this encounter
--- OUTSIDE RECORDS SUMMARY | 2025-01-12 09:40 | XMS_ITS | Encounter Summary ---
Author Organization [place] Address [address] [place] [address] Care Team Providers Care General Ledger Accountant Name Role Phone Rachel Crum MD Primary Care Provid er Rachel Crum MD Unavailable + [phone] Rachel Crum MD Unavailable + [phone] Santos Guerrero MD Unavailable [phone] Rachel Crum MD Unavailable + [phone] Estelle Calvillo MD Unavailable Estelle Calvillo MD Unavailable Jose Hartman SECOND RIGGER GEOCHEMICAL LABORATORY TECHNICIAN Unavailable Lexii Wray RN Unavailable [phone] Twan Patrick MD Unavailable [phone] Zulema Parrish [facility] Unavailable Unavaila ble Estelle Calvillo MD Unavailable Erin Fernandez [facility] Unavailable [phone] Erin Fernandez [facility] Unavailable [phone] Marcus Stephens MD Primary Care Provider Jyoti Sotomayor [facility] Unavailable + [phone] Jyoti Sotomayor [facility] Unavailable + [phone] Marcus Stephens MD Unavailable Twan Patrick MD Unavailable +[phone] Rashmi Isaac MD Unavailable [phone] Eloy Singh MD Primary Care Provider Sara Jara RN Unavailable [phone] Encounter Details Date Type Department Care Team (Late st Contact Info) Description 07/31/2012 MyC Medical Advice [facility] [address] [place] [address] Rachel Crum MD 1021 [facility] E [facility] 100 [place], [place] [id number] Social History Tobacco Use Types Packs/Day Years [...] 06/23/2025 3:30 PM CDT [facility] [address] [place] [address] Drive [address] [place] [address] Eloy Singh MD [address] [place] [address] [place] [id number] documented as of this encounter Visit Diagnoses Not on filedocumented in this encounter Additional Health Concerns Infection Onset Date Last Indicated Resolved Time Rule Out COVID-19 12/11/2022 12/11/2022 12/12/2022 1:24 PM CDT Rule Out Rubella 07/16/2024 07/16/2024 07/17/2024 12:31 PM CDT documented as of this encounter Care Teams General Ledger Accountant Relationship Specialty Start Date End Date Rachel Crum MD PCP - General Pediatrics 07/04/12 02/13/23 Rachel Crum MD [address] [place], [place] [phone] PCP - Assigned PCP 05/22/16 06/05/18 Marcus Stephens MD 717 [facility] [address] [place], [place] 849675 PCP - General Pediatrics 02/14/23 12/22/24 Eloy Singh MD [address] [facility] [place] [address] PCP - General Internal Medicine - Pediatrics 12/23/24 Rachel Crum MD [address] [place], [place] [phone] Assigned PCP 05/22/16 06/09/18 [place] [address] [place] [address] Assigned PCP 07/01/18 11/10/18 Rachel Crum MD Assigned PCP 11/11/18 04/26/23 Estelle Calvillo MD [address] [place], [place] 117774 judge & Neurology - Child & Adolescent Psychiatry 05/24/19 Estelle Calvillo MD [address] [place] [address] F275 [place] [address] Assigned Behavioral Health Provider 01/24/20 05/13/22 Jose Hartman APRN GEOCHEMICAL LABORATORY TECHNICIAN [address] [place] [address] Assigned Pediatric Specialist Provider 01/24/20 09/05/20 Lexii Wray, JOHN Lead Milk Route Deliverer Primary Care - CC 08/14/20 Twan Patrick MD [address] [facility] [address] [place] [address] Assigned Pediatric Specialist Provider 12/11/21 04/26/23 Zulema Parrish [facility] Lead Milk Route Deliverer 07/04/22 01/27/23 Estelle Calvillo MD [address] [place] [address] F275 [place] [address] Assigned Behavioral Health Provider 07/02/22 06/15/23 Erin Fernandez, [facility] [address] [place] [address] [id number] Pharmacist Pharmacist 12/22/22 10/25/23 Erin Fernandez [facility] [address] [place] [id number] Assigned MTM Pharmacist 12/31/22 Jyoti Sotomayor [facility] [address] [place], [place] 493664 Pharmacist Pharmacist 03/08/23 Jyoti Sotomayor [facility] [address] [place], [place] 934134 Assigned MTM Pharmacist 03/11/23 Marcus Stephens MD [address] [place], [place] 297145 Assigned PCP 04/27/23 Twan Patrick MD [address] [facility] [address] [place] [address] Assigned Pediatric Specialist Provider 05/05/23 06/15/23 Rashmi Isaac MD [address] [place], [place] 476284 Assigned Behavioral Health Provider 06/16/23 Sara Jara, RN Clinic Milk Route Deliverer 12/25/24 documented as of this encounter
--- OUTSIDE RECORDS SUMMARY | 2025-01-12 09:40 | XMS_ITS | Encounter Summary ---
Author Organization [place] Address [address] [place] [address] Care Team Providers Care Spinning Bath Patroller Name Role Phone Rachel Crum MD Primary Care Provid er Rachel Crum MD Unavailable + [phone] Estelle Calvillo MD Unavailable Estelle Calvillo MD Unavailable Twan Patrick MD Unavailable +[phone] Zulema Parrish [facility] Unavailable Unavaila Estelle Schaeffer MD Unavailable Erin Fernandez [facility] Unavailable [phone] Erin Fernandez [facility] Unavailable [phone] Marcus Stephens MD Primary Care Provider [phone] Jyoti Sotomayor [facility] Unavailable [phone] Jyoti Sotomayor [facility] Unavailable +[phone] Marcus Stephens MD Unavailable Twan Patrick MD Unavailable +[phone] Rashmi Isaac MD Unavailable + [phone] Eloy Singh MD Primary Care Provider [phone] Sara Jara RN Unavailable [phone] Encounter Details Date Type Department Care Team (Late st Contact Info) Description 04/25/2021 MyC Medical Advice [place] [id number] [place] [address] Rachel Crum MD [address] [place], [place] [phone] Social History Tobacco Use Types Packs/Day Years [...] COVID-19? No / Unsure 04/26/2021 6:22 PM DISTRICT RECRUITER documented as of this encounter Miscellaneous Notes * Telephone Encounter - Rachel Crum MD - 04/27/2021 7:43 PM DISTRICT RECRUITER Can use triage spot sooner yes this kid is in and out of ED so this is urgent Rachel Crum MD RICT RECRUITER documented in this encounter Plan of Treatment Upcoming Encounters Date Type Department Care Team (Late st Contact Info) Description 06/23/2025 3:30 PM CDT Office Visit [facility] [place] [address] [place] [address] Drive [address] [place] [address] Eloy Singh MD [address] [place] [address] [place]ANLON [id number] documented as of this encounter Visit Diagnoses Not on filedocumented in this encounter Additional Health Concerns Infection Onset Date Last Indicated Resolved Time Rule Out COVID-19 12/11/2022 12/11/2022 12/12/2022 1:24 PM CDT Rule Out Rubella 07/16/2024 07/16/2024 07/17/2024 12:31 PM CDT documented as of this encounter Care Teams Spinning Bath Patroller Relationship Specialty Start Date End Date Rachel Crum MD PCP - General Pediatrics 07/04/12 02/13/23 Marcus Stephens MD [address] [place] [address] PCP - General Pediatrics 02/14/23 12/22/24 Eloy Singh MD 3305 [facility] [place] [address] PCP - General Internal Medicine - Pediatrics 12/23/24 Rachel Crum MD Assigned PCP 11/11/18 04/26/23 Estelle Calvillo MD [address] [place] [address] [id number] home help aide & Neurology - Child & Adolescent Psychiatry 05/24/19 Estelle Calvillo MD [facility] [address] 509[address] Assigned Behavioral Health Provider 01/24/20 05/13/22 Twan Patrick MD [address] [place] [address] 200 [place], [place] 846484 Assigned Pediatric Specialist Provider 12/11/21 04/26/23 Zulema Parrish, [facility] Lead Gummed Tape Press Operator 07/04/22 01/27/23 Estelle Calvillo MD [facility] [address] 776034 Assigned Behavioral Health Provider 07/02/22 06/15/23 Erin Fernandez [facility] 1440 [facility] [place] [address] Pharmacist Pharmacist 12/22/22 10/25/23 Erin Fernandez [facility] [address] [place] [address] Assigned MTM Pharmacist 12/31/22 [facility] [address] [place], [place] [address] Pharmacist Pharmacist 03/08/23 [facility] [address] [facility] [facility] [address] [place], [place] 757484 Assigned MTM Pharmacist 03/11/23 Marcus Stephens MD [address] [place], [place] 046485 Assigned PCP 04/27/23 Twan Patrick MD [address] [place] [address] Assigned Pediatric Specialist Provider 05/05/23 06/15/23 Rashmi Isaac MD [address] [place], [place] 437[address] Assigned Behavioral Health Provider 06/16/23 Sara Jara, RN Clinic Gummed Tape Press Operator 12/25/24 documented as of this encounter
--- OUTSIDE RECORDS SUMMARY | 2025-01-12 09:40 | XMS_ITS | Encounter Summary ---
Author Organization [place] Address [address] [place] [address] Care Team Providers Care Nurse'S Aides Teacher Name Role Phone Rachel Crum MD Primary Care Provid er Rachel Crum MD Unavailable + [phone] Estelle Calvillo MD Unavailable Estelle Calvillo MD Unavailable Twan Patrick MD Unavailable [phone] Zulema Parrish [facility] Unavailable Unavaila Estelle Schaeffer MD Unavailable Erin Fernandez [facility] Unavailable [phone] Erin Fernandez [facility] Unavailable [phone] Marcus Stephens MD Primary Care Provider [phone] Jyoti Sotomayor [facility] Unavailable +[phone] Jyoti Sotomayor [facility] Unavailable +[phone] Marcus Stephens MD Unavailable Twan Patrick MD Unavailable +[phone] Rashmi Isaac MD Unavailable + [phone] Eloy Singh MD Primary Care Provider [phone] Sara Jara RN Unavailable +[phone] Reason for Visit * Reason Onset Date Comments Patient Request for Note/Letter 04/17/2021 Encounter Details Date Type Department Care Team (Late st Contact Info) Description 04/17/2021 MyC Medical Advice [place] 064795 [place] [address] Rachel Crum MD 1021 [facility] 100 [place] [address] Patient Request for Note/Letter Social History Tobacco [...] Rachel Crum MD - 04/20/2021 1:21 PM RN ONCOLOGY CLINICAL Dc team I do not know what mom needs YES I will sign any letter for this Talk with [employer] is VERY SPECIFIC about what they need Can you determine what is needed and let me know? Thanks for investigating Rachel Crum MD ONCOLOGY CLINICAL documented in this encounter Plan of Treatment Upcoming Encounters Date Type Department Care Team (Late st Contact Info) Description 06/23/2025 3:30 PM CDT Office Visit [facility] [place] [address] [place] [address] Drive [address] [place] [address] Eloy Singh MD [address] [place] [address] [place] [address] documented as of this encounter Visit Diagnoses Not on filedocumented in this encounter Additional Health Concerns Infection Onset Date Last Indicated Resolved Time Rule Out COVID-19 12/11/2022 12/11/2022 12/12/2022 1:24 PM CDT Rule Out Rubella 07/16/2024 07/16/2024 07/17/2024 12:31 PM CDT documented as of this encounter Care Teams Nurse'S Aides Teacher Relationship Specialty Start Date End Date Rachel Crum MD PCP - General Pediatrics 07/04/12 02/13/23 Marcus Stephens MD [address] [place] [address] PCP - General Pediatrics 02/14/23 12/22/24 Eloy Singh MD 3305 [facility] [place] [address] PCP - General Internal Medicine - Pediatrics 12/23/24 Rachel Crum MD Assigned PCP 11/11/18 04/26/23 Estelle Calvillo MD [address] [place] [address]34 aviation technician aircraft & Neurology - Child & Adolescent Psychiatry 05/24/19 Estelle Calvillo MD [facility] [address] [address] Assigned Behavioral Health Provider 01/24/20 05/13/22 Twan Patrick MD [address] [place] [address] 200 [place], [place] 402194 Assigned Pediatric Specialist Provider 12/11/21 04/26/23 Zulema Parrish, [facility] Lead Pile Driving Technician 07/04/22 01/27/23 Estelle Calvillo MD [facility] [address] [address] Assigned Behavioral Health Provider 07/02/22 06/15/23 Erin Fernandez [facility] [address] [place] [address] [place] [address] Pharmacist Pharmacist 12/22/22 10/25/23 Erin Fernandez [facility] [address] [place] [address] Assigned MTM Pharmacist 12/31/22 Jyoti Sotomayor, [facility] [address] [place] [address] Pharmacist Pharmacist 03/08/23 [facility] [address] [place], [place] 752344 Assigned MTM Pharmacist 03/11/23 Marcus Stephens MD [address] [place], [place] 231045 Assigned PCP 04/27/23 Twan Patrick MD [address] [place] [address] Assigned Pediatric Specialist Provider 05/05/23 06/15/23 Rashmi Isaac MD [address] [place], [place] [address] Assigned Behavioral Health Provider 06/16/23 Sara Jara, RN Clinic Pile Driving Technician 12/25/24 documented as of this encounter
--- OUTSIDE RECORDS SUMMARY | 2025-01-12 09:40 | XMS_ITS | Encounter Summary ---
Author Organization [place] Address [address] [place] [address] Care Team Providers Care Aircraft Electronics Technical Officer Name Role Phone Rachel Crum MD Primary Care Provid er Rachel Crum MD Unavailable + [phone] Rachel Crum MD Unavailable + [phone] Santos Guerrero MD Unavailable +[phone] Rachel Crum MD Unavailable + [phone] Estelle Calvillo MD Unavailable Estelle Calvillo MD Unavailable Jose Hartman TANK FARM ATTENDANT STAGE SET UP WORKER Unavailable Lexii Wrya RN Unavailable [phone] Twan Patrick MD Unavailable +[phone] Zulema Parrish [facility] Unavailable Unavaila ble Estelle Calvillo MD Unavailable Erin Fernandez [facility] Unavailable +[phone] Erin Fernandez [facility] Unavailable +[phone] Marcus Stephens MD Primary Care Provider Jyoti Sotomayor [facility] Unavailable + [phone] Jyoti Sotomayor [facility] Unavailable + [phone] Marcus Stephens MD Unavailable Twan Patrick MD Unavailable +[phone] Rashmi Isaac MD Unavailable [phone] Eloy Singh MD Primary Care Provider Sara Jara RN Unavailable [phone] Encounter Details Date Type Department Care Team (Late st Contact Info) Description 06/04/2013 MyC Medical Advice [facility] Children's [address] [place] [address] Rachel Crum MD 1021 [facility] E [facility] 100 [place], [place] [id number] Social History Tobacco Use Types Packs/Day Years [...] Description 06/23/2025 3:30 PM CDT [facility] [address] [place] [address] Drive [address] [place] [id number] Eloy Singh MD [address] [place] [address] [place] [id number] documented as of this encounter Visit Diagnoses Not on filedocumented in this encounter Additional Health Concerns Infection Onset Date Last Indicated Resolved Time Rule Out COVID-19 12/11/2022 12/11/2022 12/12/2022 1:24 PM CDT Rule Out Rubella 07/16/2024 07/16/2024 07/17/2024 12:31 PM CDT documented as of this encounter Care Teams Aircraft Electronics Technical Officer Relationship Specialty Start Date End Date Rachel Crum MD PCP - General Pediatrics 07/04/12 02/13/23 Rachel Crum MD [address] [place], [place] [id number] PCP - Assigned PCP 05/22/16 06/05/18 Marcus Stephens MD 7[address] [facility] [address] [place], [place] [address] PCP - General Pediatrics 02/14/23 12/22/24 Eloy Singh MD [address] [facility] [place] [id number] PCP - General Internal Medicine - Pediatrics 12/23/24 Rachel Crum MD [address] [place], [place] [id number] Assigned PCP 05/22/16 06/09/18 [place] [address] [place] [address] Assigned PCP 07/01/18 11/10/18 Rachel Crum MD Assigned PCP 11/11/18 04/26/23 Estelle Calvillo MD [address] [place], [place] [address] gold letterer & Neurology - Child & Adolescent Psychiatry 05/24/19 Estelle Calvillo MD [address] [place] [address] [address] [place] [address] Assigned Behavioral Health Provider 01/24/20 05/13/22 Jose Hartman APRN STAGE SET UP WORKER [address] [place] [address] Assigned Pediatric Specialist Provider 01/24/20 09/05/20 Lexii Wray, JOHN Lead Psychiatric Secretary Primary Care - CC 08/14/20 Twan Patrick MD [address] [facility] [address] [place] [address] Assigned Pediatric Specialist Provider 12/11/21 04/26/23 Zulema Parrish [facility] Lead Psychiatric Secretary 07/04/22 01/27/23 Estelle Calvillo MD [address] [place] [address] [address] [place] [address] Assigned Behavioral Health Provider 07/02/22 06/15/23 Erin Fernandez, [facility] [address] [place] [address] Pharmacist Pharmacist 12/22/22 10/25/23 Erin Fernandez [facility] [address] [place] [address] Assigned MTM Pharmacist 12/31/22 Jyoti Sotomayor [facility] [address] [place], [place] [address] Pharmacist Pharmacist 03/08/23 Jyoti Sotomayor [facility] [address] [place], [place] 44[address]84 Assigned MTM Pharmacist 03/11/23 Marcus Stephens MD [address] [place], [place] [address] Assigned PCP 04/27/23 Twan Patrick MD [address] [facility] [address] [place] [address] Assigned Pediatric Specialist Provider 05/05/23 06/15/23 Rashmi Isaac MD [address] [place], [place] [address] Assigned Behavioral Health Provider 06/16/23 Sara Jara, RN Clinic Psychiatric Secretary 12/25/24 documented as of this encounter
--- OUTSIDE RECORDS SUMMARY | 2025-01-12 09:40 | XMS_ITS | Encounter Summary ---
Author Organization [place] Address [address] [place] [address] Care Team Providers Care Production Supv Name Role Phone Rachel Crum MD Primary Care Provid er Rachel Crum MD Unavailable + [phone] Estelle Calvillo MD Unavailable Estelle Calvillo MD Unavailable Jose Hartman DRIVER/SALES WORKERS SENIOR FINANCIAL REPORTING ACCOUNTANT Unavailable Lexii Wray RN Unavailable [phone] Twan Patrick MD Unavailable [phone] Zulema Parrish [facility] Unavailable Unavaila Estelle Schaeffer MD Unavailable Erin Fernandez [facility] Unavailable +[phone] Erin Fernandez [facility] Unavailable [phone] Marcus Stephens MD Primary Care Provider [phone] Jyoti Sotomayor [facility] Unavailable + [phone] Jyoti Sotomayor [facility] Unavailable +[phone] Marcus Stephens MD Unavailable Twan Patrick MD Unavailable [phone] Rashmi Isaac MD Unavailable Eloy Singh MD Primary Care Provider [phone] Sara Jara RN Unavailable [phone] Reason for Visit * Reason Onset Date Comments Patient/info Update 10/09/2019 Encounter Details Date Type Department Care Team (Late st Contact Info) Description 10/09/2019 MyC Medical Advice [facility] Mental Health & Addiction [place] [id number] [facility] [address] [phone] Estelle Calvillo MD [facility] [address] [address] Patient/info Update Social History Tobacco [...] Upcoming Encounters Date Type Department Care Team ([facility] Contact Info) Description 06/23/2025 3:30 PM CDT Office Visit [facility] [place] [address] [place] [address] Drive [address] [place] [phone] Eloy Singh MD [address] [place] [address] [place] [address] documented as of this encounter Visit Diagnoses Not on filedocumented in this encounter Additional Health Concerns Infection Onset Date Last Indicated Resolved Time Rule Out COVID-19 12/11/2022 12/11/2022 12/12/2022 1:24 PM CDT Rule Out Rubella 07/16/2024 07/16/2024 07/17/2024 12:31 PM CDT documented as of this encounter Care Teams Production Supv Relationship Specialty Start Date End Date Rachel Crum MD PCP - General Pediatrics 07/04/12 02/13/23 Marcus Stephens MD 717 [facility] 370 [place], [place] [address] PCP - General Pediatrics 02/14/23 12/22/24 [place] [address] [place] [address] [address] [place] [id number] PCP - General Internal Medicine - Pediatrics 12/23/24 Rachel Crum MD Assigned PCP 11/11/18 04/26/23 Estelle Calvillo MD [address] [place] 11568[address] [place], [place] [id number] manager hris & Neurology - Child & Adolescent Psychiatry 05/24/19 Estelle Calvillo MD [address] [id number] Assigned Behavioral Health Provider 01/24/20 05/13/22 Jose Hartman APRN SENIOR FINANCIAL REPORTING ACCOUNTANT [facility] [place], [place] [address] Assigned Pediatric Specialist Provider 01/24/20 09/05/20 Lexii Wray RN Lead Marriage Performer Primary Care - CC 08/14/20 Twan Patrick MD [address] [place], [place] [address] Assigned Pediatric Specialist Provider 12/11/21 04/26/23 Zulema Parrish LGSW Lead Marriage Performer 07/04/22 01/27/23 Estelle Calvillo MD [address] [place] [address] [place], [place] [address] Assigned Behavioral Health Provider 07/02/22 06/15/23 Erin Fernandez, [facility] [address] [place] [address] Pharmacist Pharmacist 12/22/22 10/25/23 [facility] [address] [place] [address] Assigned MTM Pharmacist 12/31/22 Jyoti Sotomayor [facility] [address] [place], [place] [address] Pharmacist Pharmacist 03/08/23 Jyoti Sotomayor [facility] [address] [place] [address] Assigned MTM Pharmacist 03/11/23 Marcus Stephens MD 717 [facility] [address] [place], [place] [address] Assigned PCP 04/27/23 Twan Patrick MD [address] [place] [address] Assigned Pediatric Specialist Provider 05/05/23 06/15/23 Rashmi Isaac MD [address] [place] [address] [address] [place] [address] Assigned Behavioral Health Provider 06/16/23 Sara Jara, RN Clinic Marriage Performer 12/25/24 documented as of this encounter
--- OUTSIDE RECORDS SUMMARY | 2025-01-12 09:40 | XMS_ITS | Encounter Summary ---
Author Organization [facility] Address [address] [place] [address] Care Team Providers Care Life Skills Worker Name Role Phone Unavailable Primary Care Provider Unavailabl e Encounter Details Date Type Department Care Team (Late st Contact Info) Description 10/25/2018 Correspondence External to External, [place] [address] NUTRITION REFERRAL ORDER Social History Tobacco Use Types Packs/Day Years Used Date Smoking Tobacco: Never Assessed Sex and Gender Information Value Date Recorded Sex Assigned at Not on file Legal Sex Male 5:30 PM TRIGONOMETRY TUTOR Gender Identity Not on file Sexual Orientation Not on file documented as of this encounter Plan of Treatment Not on file documented as of this encounter Visit Diagnoses Not on filedocumented in this encounter
--- OUTSIDE RECORDS SUMMARY | 2025-01-12 09:40 | XMS_ITS | Encounter Summary ---
Author Organization [place] Address [address] [place] [address] Care Team Providers Care Head Tennis Coach Name Role Phone Rachel Crum MD Primary Care Provid er Rachel Crum MD Unavailable + [phone] Rachel Crum MD Unavailable + [phone] Santos Guerreor MD Unavailable [phone] Rachel Crum MD Unavailable + [phone] Estelle Calvillo MD Unavailable Estelle Calvillo MD Unavailable Jose Hartman FISH BAIT PICKER WELDER SETTER ELECTRON BEAM MACHINE Unavailable Lexii Wray RN Unavailable [phone] Twan Patrick MD Unavailable [phone] Zulema Parrish [facility] Unavailable Unavaila ble Estelle Calvillo MD Unavailable Erin Fernandez [facility] Unavailable [phone] Erin Fernandez [facility] Unavailable [phone] Marcus Stephens MD Primary Care Provider [phone] Jyoti Sotomayor [facility] Unavailable + [phone] Jyoti Sotomayor [facility] Unavailable + [phone] Marcus Stephens MD Unavailable Twan Patrick MD Unavailable [phone] Rashmi Isaac MD Unavailable +[phone] Eloy Singh MD Primary Care Provider [phone] Sara Jara RN Unavailable +[phone] Reason for Visit * Reason Onset Date Comments Refill Request 10/03/2012 intuniv, and altagracia apro- patient is out of intuniv, please send to [facility] on [address] in [place] Encounter Details Date Type Department Care Team (Late Contact Info) Description 10/03/2012 Refill [facility] Children' [address] [place] [address] Nicole Miller APRN [facility]-[address] [place] [address] Refill Request (intuniv, and lexapro- patient is out of intuniv, please send to [facility] on [address] in [place]) Social History Tobacco Use Types Packs/Day Years [...] Description 06/23/2025 3:30 PM CDT Office Visit [facility] [place] [address] [facility] [address] [place] [address] [place] [address] [place] [address] [place] [id number] documented as of this encounter Visit Diagnoses Diagnosis Autism- Primary Autistic disorder, current or active state documented in this encounter Additional Health Concerns Infection Onset Date Last Indicated Resolved Time Rule Out COVID-19 12/11/2022 12/11/2022 12/12/2022 1:24 PM CDT Rule Out Rubella 07/16/2024 07/16/2024 07/17/2024 12:31 PM CDT documented as of this encounter Care Teams Head Tennis Coach Relationship Specialty Start Date End Date Rachel Crum MD PCP - General Pediatrics 07/04/12 02/13/23 Rachel Crum MD [address] [facility] 100 [place], [place] [id number] PCP - Assigned PCP 05/22/16 06/05/18 Marcus Stephens MD [address] [address] PCP - General Pediatrics 02/14/23 12/22/24 Eloy Singh MD [address] [facility] [place] [address] PCP - General Internal Medicine - Pediatrics 12/23/24 Rachel Crum MD [address] [facility] 100 [place] [address] Assigned PCP 05/22/16 06/09/18 [place] [address] [place], [place] [id number] Assigned PCP 07/01/18 11/10/18 Rachel Crum MD Assigned PCP 11/11/18 04/26/23 Estelle Calvillo MD [address] [place] [address]5974 inspector material disposition & Neurology - Child & Adolescent Psychiatry 05/24/19 Estelle Calvillo MD [address] [place] [address] 941884 Assigned Behavioral Health Provider 01/24/20 05/13/22 Jose Hartman APRN [facility] [address] [place] [address] 752957 Assigned Pediatric Specialist Provider 01/24/20 09/05/20 Lexii Wray RN Lead Traffic Operator Primary Care - CC 08/14/20 Twan Patrick MD [address] [facility] 200 [place], [place] [address] Assigned Pediatric Specialist Provider 12/11/21 04/26/23 Zulema Parrish LGSW Lead Traffic Operator 07/04/22 01/27/23 sEtelle Calvillo MD [address] [place] [address] Assigned Behavioral Health Provider 07/02/22 06/15/23 Erin Fernandez [facility] [address] [place] [address] Pharmacist Pharmacist 12/22/22 10/25/23 Erin Fernandez [facility] [address] [id number] Assigned MTM Pharmacist 12/31/22 Jyoti Sotomayor [facility] 2450 [facility] [address] [place], [place] [address] Pharmacist Pharmacist 03/08/23 Jyoti Sotomayor [facility] 2450 [facility] [address] [place], [place] [address] Assigned MTM Pharmacist 03/11/23 Marcus Stephens MD 717 [facility] [address] [place], [place] [address] Assigned PCP 04/27/23 Twan Patrick MD [address] [facility] [address] [place] [place], [place] [address] Assigned Pediatric Specialist Provider 05/05/23 06/15/23 Rashmi Isaac MD [address] [facility] [address] [place], [place] [address] Assigned Behavioral Health Provider 06/16/23 Sara Jara, RN Clinic Traffic Operator 12/25/24 documented as of this encounter
--- OUTSIDE RECORDS SUMMARY | 2025-01-12 09:40 | XMS_ITS | Clinical Summary ---
[facility] Organization [facility] Address [address] [place] [address] Care Team Providers Care Curriculum Director Name Role Phone Unavailable Primary Care Provider [...] for each transition of care or referral. [facility] Date Type Department Care Team Description 11/29/2024 8:10 AM CDT - 11/30/2024 3:10 PM CDT Hospital Encounter [address] 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 Gender Identity Not on file Sexual Orientation Not on file Plan of Treatment Health Maintenance Due Date Last Done Comments Hep C Screening (Preventive Services) 2005 MenB Immunization Discussion 2005 HPV Vaccine (1 - Male 3-dose series) 2020 HIV Screening (Preventive Services) 2021 Adult Preventive Visit 09/20/2023 DTaP/Tdap/Td Vaccine (1 - Tdap) 2024 HepB Vaccine (1) 2024 COVID-19 Vaccine ( - 2023-2 5 season) 2024 Influenza Vaccine (#1) 2024 Zoster/Shingles Vaccine [...] Procedure Name Priority Date/Time Associated Diagnosis Comments IRON PROFILE (IRON,TIBC,%SAT.(CA LC)) STAT 11/29/2024 9:16 AM CDT CARNITINE FREE AND TOTAL STAT 11/29/2024 9:16 AM CDT ZINC, SERUM STAT 11/29/2024 9:16 AM CDT COPPER STAT 11/29/2024 9:16 AM CDT C-REACTIVE PROTEIN STAT 11/29/2024 9: 16 AM CDT FERRITIN STAT 11/29/2024 9:16 AM CDT VITAMIN D 25-HYDROXY, TOTAL STAT 11/29/2024 9:16 AM CDT UA CONDITIONAL UC Specified Time 10/24/2024 11: 11 AM CDT from Last 3 Months Results * Zinc (11/29/2024 9:16 AM CDT) Zinc, Serum 77.1 60.0 - 120.0 ug/dL 11/30/2024 9:24 AM CDT [facility] Comment: INTERPRETIVE INFORMATION: Zinc, Serum or Plasma [...] developed and its performance characteristics determined by [employer]. It has not been cleared or approved by the US Food and Drug Administration. This test was performed in a CLIA certified laboratory and is intended for clinical purposes. Performed By: [facility] [address] [place] [address] Clinical Pharmacologist: Krzysztof Vazquez MD, PhD CLIA Number: [id number] Blood Venipuncture / Unknown 11/29/2024 9:16 AM CDT 11/29/2024 9:21 AM CDT us Physician Unknown LAB_1 Final Result Performing Organization Address City/State/[facility] Co de Phone Number [facility] CLIA: [id number] [address] [place] [address] * Copper, Serum or Plasma (11/29/2024 9:16 AM CDT) Copper, Serum 76.1 70.0 - 140.0 ug/dL 11/30/2024 9:24 AM CDT [facility] Comment: INTERPRETIVE INFORMATION: Copper, Serum or Plasma [...] developed and its performance characteristics determined by [employer]. It has not been cleared or approved by the US Food and Drug Administration. This test was performed in a CLIA certified laboratory and is intended for clinical purposes. Performed By: [employer] [address] [place], [place] [id number] Clinical Pharmacologist: Krzysztof Vazquez MD, PhD CLIA Number: [id number] Blood Venipuncture / Unknown 11/29/2024 9:16 AM CDT 11/29/2024 9:21 AM CDT us Physician Unknown LAB_1 Final Result Performing Organization Address [facility] Co de Phone Number [facility] CLIA: [id number] [address] [place] [address] * Carnitine Free And Total (11/29/2024 9:16 AM CDT) Carnitine Jeanna/Free Ratio 0.2 0.1 - 0.9 12/01/2024 1:32 PM CDT [facility] [facility] [employer] Comment: Performed By: [employer] [address] [place] [address] Clinical Pharmacologist: Krzysztof Vazquez MD, PhD CLIA Number: [id number] Carnitine Esterified 8 3 - 38 umol/L 12/01/2024 1:32 PM CDT [facility] Carnitine, Free 36 22 - 63 umol/L 12/01/2024 1:32 PM CDT [facility] Carnitine, Total 44 31 - 78 umol/L 12/01/2024 1:32 PM CDT [employer] [facility] [employer] Comment: This test was developed and its performance characteristics determined by [employer]. It has not been cleared or approved by the US Food and Drug Administration. This test was performed in a CLIA certified laboratory and is intended for clinical purposes. Blood Venipuncture / Unknown 11/29/2024 9:16 AM CDT 11/29/2024 9:21 AM CDT us Physician Unknown LAB_1 Final Result Performing Organization Address City/[facility]/ZIP Co de Phone Number [facility] CLIA: [id number] [address] * Vitamin D 25-Hydroxy, Total (11/29/2024 9:16 AM CDT) Vitamin D, 25-OH, Total 42 30 - 80 ng/mL 11/29/2024 12:56 PM CDT [facility] Blood Venipuncture / Unknown 11/29/2024 9:16 AM CDT 11/29/2024 9:21 AM CDT us Physician Unknown LAB_1 Final Result Performing Organization Address City/[facility]/ZIP Co de Phone Number [facility] CLIA: [id number] [address] [place] [address] * (ABNORMAL) Ferritin (11/29/2024 9:16 AM CDT) Ferritin 10(L) 22 - 275 ng/mL 11/29/2024 10:09 AM CDT [facility] Blood Venipuncture / Unknown 11/29/2024 9:16 AM CDT 11/29/2024 9:21 AM CDT us Physician Unknown LAB_1 Final Result Performing Organization Address [facility] Co de Phone Number [facility] CLIA: [id number] [address] * C-Reactive Protein (11/29/2024 9:16 AM CDT) C-Reactive Protein <0.1 0.0 - 0.5 mg/dL 11/29/2024 9:49 AM CDT [facility] Blood Venipuncture / Unknown 11/29/2024 9:16 AM CDT 11/29/2024 9:21 AM CDT us Physician Unknown LAB_1 Final Result Performing Organization Address City/[facility]/ZIP Co de Phone Number [facility] CLIA: [id number] [address] * Iron Profile (Iron,TIBC,%Sat.(Calc)) (11/29/2024 9:16 AM CDT) Iron 87 65 - 175 mcg/dL 11/29/2024 9:49 AM T [facility] Transferrin 317 174 - 364 mg/dL 11/29/2024 9:49 AM [facility] TIBC, Calculated 396 240 - 450 mcg/dL 11/29/2024 9:49 AM [facility] % Saturation, Calculated 22 10 - 50 % 11/29/2024 9:49 AM [facility] Blood Venipuncture / Unknown 11/29/2024 9:16 AM CDT 11/29/2024 9:21 AM CDT us Physician Unknown LAB_1 Final Result [facility] CLIA: [id number] [address] [place] [address] * UA Conditional UC: Straight catheter (10/24/2024 11:11 AM CDT) Urine Culture Comment Urinalysis results do not meet criteria for urine culture reflex. 10/24/2024 11:26 AM [facility] Urine Color Light-Yellow 10/24/2024 11:26 AM [facility] Urine Clarity Clear Clear 10/24/2024 11:26 AM [facility] Specific [place], Urine 1.020 <1.030 10/24/2024 11:26 AM [facility] PH Urine 7.5 5.0 - 8.0 10/24/2024 11:26 AM [facility] Protein Negative Negative, 10 , 20 mg/dL 10/24/2024 11:26 AM [facility] Glucose Normal (Negative) Normal (Negative), 30 , 50 mg/dL 10/24/2024 11:26 AM [facility] Ketones Negative Negative, Trace mg/dL 10/24/2024 11:26 AM [facility] Urobilinogen Normal (Negative) Normal (Negative) EU/dL 10/24/2024 11:26 AM [facility] Bilirubin Negative Negative mg/dL 10/24/2024 11:26 AM [facility] Blood, Urine (mg/dL) Negative Negative, 0.03 (Trace) 10/24/2024 11:26 AM [facility] Nitrite Urine Negative Negative 10/24/2024 11:26 AM [facility] Leukocyte Esterase Negative Negative, 25 (Trace) JUANITA/uL 10/24/2024 11:26 AM [facility] Red Blood Cells 1 0 - 3 /HPF 11:26 AM [facility] White Blood Cells <1 0 - 5 /HPF 10/24/2024 11:26 AM [facility] Source Straight catheter 10/24/2024 11:26 AM [facility] Urine (Straight catheter) Non-blood Collection / Unknown 10/24/2024 11:11 AM CDT 10/24/2024 11:18 AM CDT [facility] - 10/24/2024 11:26 AM CDT The qualitative interpretive guidance provided (e.g., small, moderate, large) is intended to aid in quantitative result interpretation. It is not itself an FDA-cleared test result. us Shakir Kingston MD LAB_1 [place] [address], [facility] from Last 3 Months Insurance [facility] [place] [phone]
--- OUTSIDE RECORDS SUMMARY | 2025-01-12 09:40 | XMS_ITS | Encounter Summary ---
Author Organization [employer] Address [address] [place] [address] Care Team Providers Care Hse Coordinator Name Role Phone Rachel Crum MD Primary Care Provid er Rachel Crum MD Unavailable + [phone] Estelle Calvillo MD Unavailable Estelle Calvillo MD Unavailable Twan Patrick MD Unavailable [phone] Zulema Parrish [facility] Unavailable Unavaila Estelle Schaeffer MD Unavailable Erin Fernandez [facility] Unavailable +[phone] Erin Fernandez [facility] Unavailable +[phone] Marcus Stephens MD Primary Care Provider [phone] Jyoti Sotomayor [facility] Unavailable +[phone] Jyoti Sotomayor [facility] Unavailable +[phone] Marcus Stephens MD Unavailable Twan Patrick MD Unavailable +[phone] Rashmi Isaac MD Unavailable + [phone] Eloy Singh MD Primary Care Provider [phone] Sara Jara RN Unavailable +[phone] Encounter Details Date Type Department Care Team (Late st Contact Info) Description 09/28/2021 MyC Medical Advice [place] [id number] [place] [address] Rachel Crum MD [address] [place], [place] [id number] Social History Tobacco Use Types Packs/Day Years [...] Description 06/23/2025 3:30 PM CDT [facility] [address] [place] [address] Drive [address] [place] [address] Eloy Singh MD [address] [place] [address] [place] [address] documented as of this encounter Visit Diagnoses Not on filedocumented in this encounter Additional Health Concerns Infection Onset Date Last Indicated Resolved Time Rule Out COVID-19 12/11/2022 12/11/2022 12/12/2022 1:24 PM CDT Rule Out Rubella 07/16/2024 07/16/2024 07/17/2024 12:31 PM CDT documented as of this encounter Care Teams Hse Coordinator Relationship Specialty Start Date End Date Rachel Crum MD PCP - General Pediatrics 07/04/12 02/13/23 Marcus Stephens MD [address] [address] PCP - General Pediatrics 02/14/23 12/22/24 Eloy Singh MD [address] [facility] [place] [address] PCP - General Internal Medicine - Pediatrics 12/23/24 Rachel Crum MD Assigned PCP 11/11/18 04/26/23 Estelle Calvillo MD [facility] [address] [address] medical assistant prn & Neurology - Child & Adolescent Psychiatry 05/24/19 Estelle Calvillo MD [facility] [address] [address]280[address] Assigned Behavioral Health Provider 01/24/20 05/13/22 Twan Patrick MD [address] [place] [address] [address] [place], [place] [address] Assigned Pediatric Specialist Provider 12/11/21 04/26/23 Zulema Parrish, MACHINIST FIRST CLASS Lead Senior Packaging Engineer 07/04/22 01/27/23 Estelle Calvillo MD [facility] [address] [address] Assigned Behavioral Health Provider 07/02/22 06/15/23 Erin Fernandez [facility] [address] [place] [address] Pharmacist Pharmacist 12/22/22 10/25/23 Erin Fernandez [facility] [address] [place] [address] Assigned MTM Pharmacist 12/31/22 Jyoti Sotomayor [facility] 2450 [facility] [address] [place] [address] Pharmacist Pharmacist 03/08/23 Jyoti Sotomayor [facility] 24[address] [facility] [address] [place] [address] Assigned MTM Pharmacist 03/11/23 Marcus Stephens MD 717 [facility] [address] [place] [address] Assigned PCP 04/27/23 Twan Patrick MD [address] [place], [place] [address]E [address] [place] [address] Assigned Pediatric Specialist Provider 05/05/23 06/15/23 Rashmi Isaac MD [address] [facility] [address] [place] [address] Assigned Behavioral Health Provider 06/16/23 Sara Jara, RN Clinic Senior Packaging Engineer 12/25/24 documented as of this encounter
--- OUTSIDE RECORDS SUMMARY | 2025-01-12 09:40 | XMS_ITS | Encounter Summary ---
Author Organization [facility] Address [address] [place] [address] Care Team Providers Care Bleach Boiler Filler Name Role Phone Rachel Crum MD Primary Care Provid er Rachel Crum MD Unavailable + [phone] Rachel Curm MD Unavailable + [phone] Santos Guerrero MD Unavailable [phone] Rachel Crum MD Unavailable + [phone] Estelle Calvillo MD Unavailable Estelle Calvillo MD Unavailable Jose Hartman SCENARIO WRITER AUTO BODY REPAIR TEACHER Unavailable Lexii Wray RN Unavailable [phone] Twan Patrick MD Unavailable [phone] Zulema Parrish [facility] Unavailable Unavaila ble Estelle Calvillo MD Unavailable Erin Fernandez [facility] Unavailable +[phone] Erin Fernandez [facility] Unavailable +[phone] Marcus Stephens MD Primary Care Provider [phone] Jyoti Sotomayor [facility] Unavailable + [phone] Jyoti Sotomayor [facility] Unavailable + [phone] Marcus Stephens MD Unavailable Twan Patrick MD Unavailable +[phone] Rashmi Isaac MD Unavailable [phone] Eloy Singh MD Primary Care Provider [phone] Sara Jara RN Unavailable [phone] Encounter Details Date Type Department Care Team (Late st Contact Info) Description 07/02/2013 MyC Medical Advice [facility] [address] [place] [address] Rachel Crum MD 1021 [facility] E [facility] 100 [place], [place] [id number] Social History Tobacco Use Types Packs/Day Years [...] 3:30 PM CDT [facility] [address] [place] [address] [address] [place] [address] Eloy Singh MD [address] [place] [address] [place] [id number] documented as of this encounter Visit Diagnoses Not on filedocumented in this encounter Additional Health Concerns Infection Onset Date Last Indicated Resolved Time Rule Out COVID-19 12/11/2022 12/11/2022 12/12/2022 1:24 PM CDT Rule Out Rubella 07/16/2024 07/16/2024 07/17/2024 12:31 PM CDT documented as of this encounter Care Teams Bleach Boiler Filler Relationship Specialty Start Date End Date Rachel Crum MD PCP - General Pediatrics 07/04/12 02/13/23 Rachel Crum MD [address] [place], [place] [id number] PCP - Assigned PCP 05/22/16 06/05/18 Marcus Stephens MD 717 [facility] [address] [place], [place] [address] PCP - General Pediatrics 02/14/23 12/22/24 Eloy Singh MD [address] [facility] [place] [address] PCP - General Internal Medicine - Pediatrics 12/23/24 Rachel Crum MD [address] [place], [place] [id number] Assigned PCP 05/22/16 06/09/18 [place] [address] [place] [address] Assigned PCP 07/01/18 11/10/18 Rachel Crum MD Assigned PCP 11/11/18 04/26/23 Estelle Calvillo MD [address] [place], [place] [address] general forecaster & Neurology - Child & Adolescent Psychiatry 05/24/19 Estelle Calvillo MD [address] [place] [address] [address] [place] [address] Assigned Behavioral Health Provider 01/24/20 05/13/22 Jose Hartman APRN AUTO BODY REPAIR TEACHER [address] [place] [address] Assigned Pediatric Specialist Provider 01/24/20 09/05/20 Lexii Wray, JOHN Lead Audiology Assistant Primary Care - CC 08/14/20 Twan Patrick MD [address] [facility] [address] [place] [address] Assigned Pediatric Specialist Provider 12/11/21 04/26/23 Zulema Parrish [facility] Lead Audiology Assistant 07/04/22 01/27/23 Estelle Calvillo MD [address] [place] [address] [address] [place] [address] Assigned Behavioral Health Provider 07/02/22 06/15/23 Erin Fernandez, [facility] [address] [place] [address] [address] Pharmacist Pharmacist 12/22/22 10/25/23 Erin Fernandez [facility] [address] [place] [address] Assigned MTM Pharmacist 12/31/22 Jyoti Sotomayor [facility] [address] [place], [place] [address] Pharmacist Pharmacist 03/08/23 Jyoti Sotomayor [facility] [address] [place], [place] [address] Assigned MTM Pharmacist 03/11/23 Marcus Stephens MD [address] [place], [place] [address] Assigned PCP 04/27/23 Twan Patrick MD [address] [facility] [address] [place] [address] Assigned Pediatric Specialist Provider 05/05/23 06/15/23 Rashmi Isaac MD [address] [place], [place] [address] Assigned Behavioral Health Provider 06/16/23 Sara Jara, RN Clinic Audiology Assistant 12/25/24 documented as of this encounter
--- OUTSIDE RECORDS SUMMARY | 2025-01-12 09:40 | XMS_ITS | Encounter Summary ---
Author Organization [facility] Address [address] [place] [address] Care Team Providers Care Sponge Buffer Name Role Phone Rachel Crum MD Primary Care Provid er Rachel Crum MD Unavailable + [phone] Rachel Crum MD Unavailable + [phone] Santos Guerrero MD Unavailable [phone] Rachel Crum MD Unavailable + [phone] Estelle Calvillo MD Unavailable Estelle Calvillo MD Unavailable Jose Hartman STRIP PRESSER MARKETING CONTENT SPECIALIST Unavailable Lexii Wray RN Unavailable [phone] Twan Patrick MD Unavailable [phone] Zulema Parrish [facility] Unavailable Unavaila ble Estelle Calvillo MD Unavailable Erin Fernandez [facility] Unavailable +[phone] Erin Fernandez [facility] Unavailable +[phone] Marcus Stephens MD Primary Care Provider Jyoti Sotomayor [facility] Unavailable + [phone] Jyoti Sotomayor [facility] Unavailable + [phone] Marcus Stephens MD Unavailable Twan Patrick MD Unavailable +[phone] Rashmi Isaac MD Unavailable [phone] Eloy Singh MD Primary Care Provider Sara Jara RN Unavailable [phone] Reason for Visit * Reason Onset Date Comments Patient Request 01/15/2016 Encounter Details Date Type Department Care Team (Late st Contact Info) Description 01/15/2016 MyC Medical Advice [facility] Children' [address] [place] [address] Rachel Crum MD 1021 [facility] [address] [place], [place] [id number] Patient Request Social History Tobacco Use Types [...] Description 06/23/2025 3:30 PM CDT Office Visit [facility] [place] [address] [place] [address] Drive [address] [place] [address] [place] [address] [place] [address] [place] [address] documented as of this encounter Visit Diagnoses Not on filedocumented in this encounter Additional Health Concerns Infection Onset Date Last Indicated Resolved Time Rule Out COVID-19 12/11/2022 12/11/2022 12/12/2022 1:24 PM CDT Rule Out Rubella 07/16/2024 07/16/2024 07/17/2024 12:31 PM CDT documented as of this encounter Care Teams Sponge Buffer Relationship Specialty Start Date End Date Rachel Crum MD PCP - General Pediatrics 07/04/12 02/13/23 Rachel Crum MD [address] [place], [place] [id number] PCP - Assigned PCP 05/22/16 06/05/18 Marcus Stephens MD 717 [facility] [address] [place], [place] [address] PCP - General Pediatrics 02/14/23 12/22/24 Eloy Singh MD [address] [facility] [place] [address] PCP - General Internal Medicine - Pediatrics 12/23/24 Rachel Crum MD [address] [place], [place] [phone] Assigned PCP 05/22/16 06/09/18 [place] [address] [place], [place] [id number] Assigned PCP 07/01/18 11/10/18 Rachel Crum MD Assigned PCP 11/11/18 04/26/23 Estelle Calvillo MD [address] [place], [place] [address] liberal arts teacher & Neurology - Child & Adolescent Psychiatry 05/24/19 Estelle Calvillo MD [address] [place] [address] [address] [place] [address] Assigned Behavioral Health Provider 01/24/20 05/13/22 Jose Hartman APRN MARKETING CONTENT SPECIALIST [facility] [place] [address] Assigned Pediatric Specialist Provider 01/24/20 09/05/20 Lexii Wray, JOHN Lead Orchid Transplanter Primary Care - CC 08/14/20 Twan Patrick MD [address] [facility] [address] [place], [place] [address] Assigned Pediatric Specialist Provider 12/11/21 04/26/23 Zulema Parrish LGSW Lead Orchid Transplanter 07/04/22 01/27/23 Estelle Calvillo MD [address] [place] 3456075 [place], [place] [address] Assigned Behavioral Health Provider 07/02/22 06/15/23 Erin Fernandez, [facility] [address] [id number] Pharmacist Pharmacist 12/22/22 10/25/23 Erin Fernandez, [facility] [address] [id number] Assigned MTM Pharmacist 12/31/22 Jyoti Sotomayor [facility] [address] [facility] [address] [place], [place] [address] Pharmacist Pharmacist 03/08/23 Jyoti Sotomayor [facility] [address] [place] [address] Assigned MTM Pharmacist 03/11/23 Marcus Stephens MD 717 [facility] [address] [place] [address] Assigned PCP 04/27/23 Twan Patrick MD [address] [place], [place] [address]E [address] [place] [address] Assigned Pediatric Specialist Provider 05/05/23 06/15/23 Rashmi Isaac MD [address] [place], [place] [address] Assigned Behavioral Health Provider 06/16/23 Sara Jara, RN Clinic Orchid Transplanter 12/25/24 documented as of this encounter
--- OUTSIDE RECORDS SUMMARY | 2025-01-12 09:40 | XMS_ITS | Encounter Summary ---
Author Organization [place] Address [address] [place] [address] Care Team Providers Care Construction Recruiter Name Role Phone Rachel Crum MD Primary Care Provid er Rachel Crum MD Unavailable + [phone] Estelle Calvillo MD Unavailable Estelle Calvillo MD Unavailable Twan Patrick MD Unavailable +[phone] Zulema Parrish [facility] Unavailable Unavaila Estelle Schaeffer MD Unavailable Erin Fernandez [facility] Unavailable +[phone] Erin Fernandez [facility] Unavailable +[phone] Marcus Stephens MD Primary Care Provider [phone] Jyoti Sotomayor [facility] Unavailable +[phone] Jyoti Sotomayor [facility] Unavailable +[phone] Marcus Stephens MD Unavailable Twan Patrick MD Unavailable +[phone] Rashmi Isaac MD Unavailable + [phone] Eloy Singh MD Primary Care Provider [phone] Sara Jara RN Unavailable [phone] Encounter Details Date Type Department Care Team (Late st Contact Info) Description 09/29/2021 MyC Medical Advice [facility] Explorer [facility] Explorer [facility] 12th Floor [address] [place] [phone] Stacie Butts Social History Tobacco Use Types [...] 06/23/2025 3:30 PM CDT Office Visit [facility] [place] [address] [place] [address] Eloy Singh MD [address] [place] [address] [place] [address] documented as of this encounter Visit Diagnoses Not on filedocumented in this encounter Additional Health Concerns Infection Onset Date Last Indicated Resolved Time Rule Out COVID-19 12/11/2022 12/11/2022 12/12/2022 1:24 PM CDT Rule Out Rubella 07/16/2024 07/16/2024 07/17/2024 12:31 PM CDT documented as of this encounter Care Teams Construction Recruiter Relationship Specialty Start Date End Date Rachel Crum MD PCP - General Pediatrics 07/04/12 02/13/23 Marcus Stephens MD [address] [place] [address] PCP - General Pediatrics 02/14/23 12/22/24 Eloy Singh MD [address] [place] [address] [place] [address] PCP - General Internal Medicine - Pediatrics 12/23/24 Rachel Crum MD Assigned PCP 11/11/18 04/26/23 Estelle Calvillo MD [address] [place] [address] crepe maker & Neurology - Child & Adolescent Psychiatry 05/24/19 Estelle Calvillo MD [address] [place], [place] 964064 Assigned Behavioral Health Provider 01/24/20 05/13/22 Twan Patrick MD [address] [place] [address] 200 [place], [place] 888614 Assigned Pediatric Specialist Provider 12/11/21 04/26/23 Zulema Parrish [facility] Lead Hospital Corpsman 07/04/22 01/27/23 Estelle Calvillo MD [facility] [address] [place] [address] Assigned Behavioral Health Provider 07/02/22 06/15/23 Erin Fernandez [facility] [address] [place] [id number] Pharmacist Pharmacist 12/22/22 10/25/23 Erin Fernandez [facility] [address] [place] [address] Assigned MTM Pharmacist 12/31/22 Jyoti Sotomayor Edin [address] [place] [address] [address] [place] [address] Pharmacist Pharmacist 03/08/23 Jyoti Sotomayor [facility] [address] [place] [address] Assigned MTM Pharmacist 03/11/23 Marcus Stephens MD [address] [facility] [address] 370 [place], [place] 546935 Assigned PCP 04/27/23 Twan Patrick MD [address] [place] [address] [address] 200 [place], [place] 834244 Assigned Pediatric Specialist Provider 05/05/23 06/15/23 Rashmi Isaac MD [address] [place], [place] 394404 Assigned Behavioral Health Provider 06/16/23 Sara Jara, RN Clinic [facility] Corpsman 12/25/24 documented as of this encounter
--- OUTSIDE RECORDS SUMMARY | 2025-01-12 09:40 | XMS_ITS | Encounter Summary ---
Author Organization [place] Address [address] [place] [address] Care Team Providers Care Manager Aerospace Name Role Phone Rachel Crum MD Primary Care Provid er Rachel Crum MD Unavailable + [phone] Estelle Calvillo MD Unavailable Estelle Calvillo MD Unavailable Jose Hartman LEAD SYSTEMS ANALYST BUDGET CLERK Unavailable Lexii Wray RN Unavailable [phone] Twan Patrick MD Unavailable [phone] Zulema Parrish [facility] Unavailable Unavaila Estelle Schaeffer MD Unavailable Erin Fernandez [facility] Unavailable [phone] Erin Fernandez [facility] Unavailable +[phone] Marcus Stephens MD Primary Care Provider [phone] Jyoti Sotomayor [facility] Unavailable + [phone] Jyoti Sotomayor [facility] Unavailable +[phone] Marcus Stephens MD Unavailable Twan Patrick MD Unavailable +[phone] Rashmi Isaac MD Unavailable Eloy Singh MD Primary Care Provider [phone] Sara Jara RN Unavailable +[phone] Encounter Details Date Type Department Care Team (Late st Contact Info) Description 03/14/2019 MyC Medical Advice [facility] [address] [place] [address] Rachel Crum MD [address] [facility] 100 [place], [place] [id number] Social History Tobacco Use Types Packs/Day Years [...] Description 06/23/2025 3:30 PM CDT [facility] [address] [place] [address] Drive [address] [place] [address] Eloy Singh MD [address] [place] [address] [place] [address] documented as of this encounter Visit Diagnoses Not on filedocumented in this encounter Additional Health Concerns Infection Onset Date Last Indicated Resolved Time Rule Out COVID-19 12/11/2022 12/11/2022 12/12/2022 1:24 PM CDT Rule Out Rubella 07/16/2024 07/16/2024 07/17/2024 12:31 PM CDT documented as of this encounter Care Teams Manager Aerospace Relationship Specialty Start Date End Date Rachel Crum MD PCP - General Pediatrics 07/04/12 02/13/23 Marcus Stephens MD [address] [facility] 370 [place], [place] 176425 PCP - General Pediatrics 02/14/23 12/22/24 Eloy Singh MD [address] [facility] [place] [address] PCP - General Internal Medicine - Pediatrics 12/23/24 Rachel Crum MD Assigned PCP 11/11/18 04/26/23 Estelle Calvillo MD [address] [place] [address] [address] [place], [place] 247124 die cutter operator & Neurology - Child & Adolescent Psychiatry 05/24/19 Estelle Calvillo MD [address] [place] [address] [address]275 [place] [address] Assigned Behavioral Health Provider 01/24/20 05/13/22 Jose Hartman APRN BUDGET CLERK [address] [place] [address] 204067 Assigned Pediatric Specialist Provider 01/24/20 09/05/20 Lexii Wray, RN Lead Cork Grinder Primary Care - CC 08/14/20 Twan Patrick MD [address] [place] [address] 200 [place] [address] Assigned Pediatric Specialist Provider 12/11/21 04/26/23 Zulema Parrish LGSW Lead Cork Grinder 07/04/22 01/27/23 Estelle Calvillo MD [address] [facility] [address] [place], [place] 510494 Assigned Behavioral Health Provider 07/02/22 06/15/23 Erin Fernandez, [facility] [address] [id number] Pharmacist Pharmacist 12/22/22 10/25/23 Erin Fernandez, [facility] [address] [id number] Assigned MTM Pharmacist 12/31/22 Jyoti Sotomayor, [facility] [address] [facility] [address] [place], [place] 8[address]24 Pharmacist Pharmacist 03/08/23 Jyoti Sotomayor, [facility] [address] [facility] [address] [place] [address] Assigned MTM Pharmacist 03/11/23 Marcus Stephens MD [address] [facility] [address] 370 [place], [place] 205865 Assigned PCP 04/27/23 Twan Patrick MD [address] [facility] [address] 200 [place] [address] Assigned Pediatric Specialist Provider 05/05/23 06/15/23 Rashmi Isaac MD [address] [place] [address] Assigned Behavioral Health Provider 06/16/23 Sara Jara, RN Clinic Cork Grinder 12/25/24 documented as of this encounter
--- OUTSIDE RECORDS SUMMARY | 2025-01-12 09:40 | XMS_ITS | Encounter Summary ---
Author Organization [place] Address [address] [place] [address] Care Team Providers Care Program Manager Transportation Name Role Phone Rachel Crum MD Primary Care Provid er Rachel Crum MD Unavailable + [phone] Rachel Crum MD Unavailable + [phone] Santos Guerrero MD Unavailable Rachel Crum MD Unavailable + [phone] Estelle Calvillo MD Unavailable Estelle Calvillo MD Unavailable Jose Hartman PILE DRIVING TECHNICIAN LITHOGRAPHERS PRINTER Unavailable Lexii Wray RN Unavailable [phone] Twan Patrick MD Unavailable [phone] Zulema Parrish [facility] Unavailable Unavaila ble Estelle Calvillo MD Unavailable Erin Fernandez [facility] Unavailable +[phone] Erin Fernandez [facility] Unavailable [phone] Marcus Stephens MD Primary Care Provider Jyoti Sotomayor [facility] Unavailable + [phone] Jyoti Sotomayor [facility] Unavailable + [phone] Marcus Stephens MD Unavailable Twan Patrick MD Unavailable [phone] Rashmi Isaac MD Unavailable +[phone] Eloy Singh MD Primary Care Provider Sara Jara RN Unavailable +[phone] Encounter Details Date Type Department Care Team (Late st Contact Info) Description 07/28/2015 MyC Medical Advice [facility] Children[facility] 25[address] [place] [address] Rachel Crum MD 10[address] [facility] 100 [place], [place] [id number] Social History Tobacco Use Types Packs/Day Years [...] Description 06/23/2025 3:30 PM CDT [facility] [address] [place] [address] Drive [address] [place] [address] Eloy Singh MD [address] [place] [address] [place] [id number] documented as of this encounter Visit Diagnoses Not on filedocumented in this encounter Additional Health Concerns Infection Onset Date Last Indicated Resolved Time Rule Out COVID-19 12/11/2022 12/11/2022 12/12/2022 1:24 PM CDT Rule Out Rubella 07/16/2024 07/16/2024 07/17/2024 12:31 PM CDT documented as of this encounter Care Teams Program Manager Transportation Relationship Specialty Start Date End Date Rachel Crum MD PCP - General Pediatrics 07/04/12 02/13/23 Rachel Crum MD [address] [place], [place] [id number] PCP - Assigned PCP 05/22/16 06/05/18 Marcus Stephens MD 7[address] [facility] [address] 370 [place], [place] [address]375 PCP - General Pediatrics 02/14/23 12/22/24 Eloy Singh MD [address] [facility] [address] PCP - General Internal Medicine - Pediatrics 12/23/24 Rachel Crum MD [address] [place], [place] [address] Assigned PCP 05/22/16 06/09/18 [place] [address] [place] [address] Assigned PCP 07/01/18 11/10/18 Rachel Crum MD Assigned PCP 11/11/18 04/26/23 Estelle Calvillo MD [address] [place], [place] [address] machine coil assembler & Neurology - Child & Adolescent Psychiatry 05/24/19 Estelle Calvillo MD [address] [place] [address] [address]275 [place] [address] Assigned Behavioral Health Provider 01/24/20 05/13/22 Jose Hartman APRN LITHOGRAPHERS PRINTER [address] [place] [address] Assigned Pediatric Specialist Provider 01/24/20 09/05/20 Lexii Wray, JOHN Lead Food Service Lead Primary Care - CC 08/14/20 Twan Patrick MD [address] [facility] [address] 200 [place] [address] Assigned Pediatric Specialist Provider 12/11/21 04/26/23 Zulema Parrish [facility] Lead Food Service Lead 07/04/22 01/27/23 Estelle Calvillo MD [address] [place] [address] F275 [place] [address] Assigned Behavioral Health Provider 07/02/22 06/15/23 Erin Fernandez, [facility] [address] [place] [address] [address] Pharmacist Pharmacist 12/22/22 10/25/23 Erin Fernandez [facility] [address] [place] [address] [id number] Assigned MTM Pharmacist 12/31/22 Jyoti Sotomayor [facility] [address] [place], [place] [address] Pharmacist Pharmacist 03/08/23 Jyoti Sotomayor [facility] [address] [place], [place] 894564 Assigned MTM Pharmacist 03/11/23 Marcus Stephens MD [address] [facility] [address] [place], [place] 521885 Assigned PCP 04/27/23 Twan Patrick MD [address] [facility] [address] [place] [address] Assigned Pediatric Specialist Provider 05/05/23 06/15/23 Rashmi Isaac MD [address] [place], [place] [address] Assigned Behavioral Health Provider 06/16/23 Sara Jara, RN Clinic Food Service Lead 12/25/24 documented as of this encounter
--- OUTSIDE RECORDS SUMMARY | 2025-01-12 09:40 | XMS_ITS | Encounter Summary ---
Author Organization [place] Address [address] [place] [address] Care Team Providers Care Size Stamper Name Role Phone Rachel Crum MD Primary Care Provid er Rachel Crum MD Unavailable + [phone] Estelle Calvillo MD Unavailable Estelle Calvillo MD Unavailable Twan Patrick MD Unavailable [phone] Zulema Parrish [facility] Unavailable Unavaila Estelle Schaeffer MD Unavailable Erin Fernandez [facility] Unavailable +[phone] Erin Fernandez [facility] Unavailable [phone] Marcus Setphens MD Primary Care Provider [phone] Jyoti Sotomayor [facility] Unavailable +[phone] Jyoti Sotomayor [facility] Unavailable +[phone] Marcus Stephens MD Unavailable Twan Patrick MD Unavailable +[phone] Rashmi Isaac MD Unavailable + [phone] Eloy Singh MD Primary Care Provider +[phone] Sara Jaar RN Unavailable +[phone] Encounter Details Date Type Department Care Team (Late st Contact Info) Description 04/28/2021 MyC Medical Advice [address] [address] Kandy Vega, RN Social History Tobacco Use Types Packs/Day Years [...] COVID-19? No / Unsure 04/26/2021 6:22 PM MAILROOM COORDINATOR documented as of this encounter Plan of Treatment Upcoming Encounters Date Type Department Care Team (Late st Contact Info) Description 06/23/2025 3:30 PM CDT Office Visit [facility] [place] [address] [facility] [address] [place] [address] [place] [address] [place] [address] [place] [address] documented as of this encounter Visit Diagnoses Not on filedocumented in this encounter Additional Health Concerns Infection Onset Date Last Indicated Resolved Time Rule Out COVID-19 12/11/2022 12/11/2022 12/12/2022 1:24 PM CDT Rule Out Rubella 07/16/2024 07/16/2024 07/17/2024 12:31 PM CDT documented as of this encounter Care Teams Size Stamper Relationship Specialty Start Date End Date Rachel Crum MD PCP - General Pediatrics 07/04/12 02/13/23 Marcus Stephens MD [address] [address] PCP - General Pediatrics 02/14/23 12/22/24 Eloy Singh MD [address] [place] [address] [place] [address] PCP - General Internal Medicine - Pediatrics 12/23/24 Rachel Crum MD Assigned PCP 11/11/18 04/26/23 Estelle Calvillo MD [address] [place] [address] [address]275 [place] [address] inspecting engineer & Neurology - Child & Adolescent Psychiatry 05/24/19 Estelle Calvillo MD [address] [place], [place] 8[address] [place] [address] Assigned Behavioral Health Provider 01/24/20 05/13/22 Twan Patrick MD [address] [facility] [address] [facility] 200 [place], [place] [address] Assigned Pediatric Specialist Provider 12/11/21 04/26/23 Zulema Parrish [facility] Lead Rn Licensed Practical 07/04/22 01/27/23 Estelle Calvillo MD [facility] [address] [address] Assigned Behavioral Health Provider 07/02/22 06/15/23 Erin Fernandez [facility] [address] [place] [address] Pharmacist Pharmacist 12/22/22 10/25/23 Erin Fernandez [facility] [address] [place] [address] Assigned MTM Pharmacist 12/31/22 Jyoti Sotomayor [facility] [address] [place] [address] [phone] Pharmacist Pharmacist 03/08/23 Jyoti Sotomayor [facility] [address] [place] [address] 479644 Assigned MTM Pharmacist 03/11/23 Marcus Stephens MD 717 [facility] [address] 370 [place], [place] 9[address] Assigned PCP 04/27/23 Twan Patrick MD [address] [facility] [address] [place], [place] 9[address] Assigned Pediatric Specialist Provider 05/05/23 06/15/23 Rashmi Isaac MD [address] [place], [place] [address] Assigned Behavioral Health Provider 06/16/23 Sara Jara RN Clinic Rn Licensed Practical 12/25/24 documented as of this encounter
--- OUTSIDE RECORDS SUMMARY | 2025-01-12 09:40 | XMS_ITS | Encounter Summary ---
Author Organization [place] Address [address] [place] [address] Care Team Providers Care Debit Agent Name Role Phone Rachel Crum MD Primary Care Provid er Rachel Crum MD Unavailable + [phone] Estelle Calvillo MD Unavailable Estelle Calvillo MD Unavailable Jose Hartman [employer] CAPTAIN Unavailable Lexii Wray RN Unavailable [phone] Twan Patrick MD Unavailable [phone] Zulema Parrish [facility] Unavailable Unavaila Estelle Schaeffer MD Unavailable Erin Fernandez [facility] Unavailable [phone] Erin Fernandez [facility] Unavailable [phone] Marcus Stephens MD Primary Care Provider +[phone] Jyoti Sotomayor [facility] Unavailable + [phone] Jyoti Sotomayor [facility] Unavailable +[phone] Marcus Stephens MD Unavailable Twan Patrick MD Unavailable +[phone] Rashmi Isaac MD Unavailable Eloy Singh MD Primary Care Provider [phone] Sara Jara RN Unavailable [phone] Reason for Visit * Reason Onset Date Comments Clinic Care Coordination - Follow-up 09/04/2019 Encounter Details Date Type Department Care Team (Late Contact Info) Description 09/04/2019 MyC Medical Advice [facility] [place] [id number] [facility] [address] [phone] Estelle Calvillo MD [facility] [address] [address] Clinic Care Coordination - Follow-up Social History [...] Description 06/23/2025 3:30 PM CDT Office Visit [facility] [place] [address] [place] [address] Drive [address] [place] [phone] Eloy Singh MD [address] [place] [address] [place] [address] documented as of this encounter Visit Diagnoses Not on filedocumented in this encounter Additional Health Concerns Infection Onset Date Last Indicated Resolved Time Rule Out COVID-19 12/11/2022 12/11/2022 12/12/2022 1:24 PM CDT Rule Out Rubella 07/16/2024 07/16/2024 07/17/2024 12:31 PM CDT documented as of this encounter Care Teams Debit Agent Relationship Specialty Start Date End Date Rachel Crum MD PCP - General Pediatrics 07/04/12 02/13/23 Marcus Stephens MD 717 [facility] 370 [place], [place] [address] PCP - General Pediatrics 02/14/23 12/22/24 Eloy Singh MD [address] [facility] [address] [place], [place] [address] PCP - General Internal Medicine - Pediatrics 12/23/24 Rachel Crum MD Assigned PCP 11/11/18 04/26/23 Estelle Calvillo MD [address] [place], [place] [address]75 [place], [place] [address] men's designer & Neurology - Child & Adolescent Psychiatry 05/24/19 Estelle Calvillo MD [address] [place] [address] 254534 Assigned Behavioral Health Provider 01/24/20 05/13/22 Jose Hartman APRN [facility] [place] [address] Assigned Pediatric Specialist Provider 01/24/20 09/05/20 Lexii Wray, JOHN Lead [place] Primary Care - CC 08/14/20 Twan Patrick MD [address] [place], [place] [address] Assigned Pediatric Specialist Provider 12/11/21 04/26/23 Zulema Parrish LGSW Lead [place] 07/04/22 01/27/23 Estelle Calvillo MD [address] [place], [place] [address] Assigned Behavioral Health Provider 07/02/22 06/15/23 Erin Fernandez [facility] [address] [place] [address] Pharmacist Pharmacist 12/22/22 10/25/23 [facility] [address] [place] [address] Assigned MTM Pharmacist 12/31/22 Jyoti Sotomayor [facility] [address] [facility] [address] [place], [place] [address] Pharmacist Pharmacist 03/08/23 Jyoti Sotomayor [facility] [address] [place], [place] [address] Assigned MTM Pharmacist 03/11/23 Marcus Stephens MD [facility]17 [facility] [address] [place], [place] [address] Assigned PCP 04/27/23 Twan Patrick MD [address] [place] [address] Assigned Pediatric Specialist Provider 05/05/23 06/15/23 Rashmi Isaac MD [address] [place] [address] [address] [place] [address] Assigned Behavioral Health Provider 06/16/23 Sara Jara, RN Clinic [place] 12/25/24 documented as of this encounter
--- OUTSIDE RECORDS SUMMARY | 2025-01-12 09:40 | XMS_ITS | Encounter Summary ---
Author Organization [place] Address [address] [place] [address] Care Team Providers Care Inspector Assemblies And Installations Name Role Phone Rachel Crum MD Primary Care Provid er Rachel Crum MD Unavailable + [phone] Rachel Crum MD Unavailable + [phone] Santos Guerrero MD Unavailable +[phone] Rachel Crum MD Unavailable + [phone] Estelle Calvillo MD Unavailable Estelle Calvillo MD Unavailable Jose Hartman NET SQL DEVELOPER SENIOR GEOLOGIST Unavailable Lexii Wray RN Unavailable [phone] Twan Patrick MD Unavailable +[phone] Zulema Parrish [facility] Unavailable Unavaila ble Estelle Calvillo MD Unavailable Erin Fernandez [facility] Unavailable +[phone] Erin Fernandez [facility] Unavailable +[phone] Marcus Stephens MD Primary Care Provider Jyoti Sotomayor [facility] Unavailable + [phone] yJoti Sotomayor [facility] Unavailable + [phone] Marcus Stephens MD Unavailable Twan Patrick MD Unavailable +[phone] Rashmi Isaac MD Unavailable [phone] Eloy Singh MD Primary Care Provider +[phone] Sara Jara RN Unavailable [phone] Encounter Details Date Type Department Care Team (Late st Contact Info) Description 01/18/[address] [facility] [address] [place] [address] Rachel Crum MD 1021 [facility] E [facility] 100 [place], [place] [id number] Social History Tobacco Use Types Packs/Day Years [...] Description 06/23/2025 3:30 PM CDT [facility] [address] [place] [address] Drive [address] [place] [address] Eloy Singh MD [address] [place] [address] [place] [id number] documented as of this encounter Visit Diagnoses Not on filedocumented in this encounter Additional Health Concerns Infection Onset Date Last Indicated Resolved Time Rule Out COVID-19 12/11/2022 12/11/2022 12/12/2022 1:24 PM CDT Rule Out Rubella 07/16/2024 07/16/2024 07/17/2024 12:31 PM CDT documented as of this encounter Care Teams Inspector Assemblies And Installations Relationship Specialty Start Date End Date Rachel Crum MD PCP - General Pediatrics 07/04/12 02/13/23 Rachel Crum MD [address] [place], [place] [address] PCP - Assigned PCP 05/22/16 06/05/18 Marcus Stephens MD 717 [facility] JOSH 370 [place], [place] 8[address]15 PCP - General Pediatrics 02/14/23 12/22/24 Eloy Singh MD 3305 [facility] [place] [address] PCP - General Internal Medicine - Pediatrics 12/23/24 Rachel Crum MD [address] [place], [place] [address] Assigned PCP 05/22/16 06/09/18 [place] [address] [place] [address] Assigned PCP 07/01/18 11/10/18 Rachel Crum MD Assigned PCP 11/11/18 04/26/23 Estelle Calvillo MD [address] [place], [place] [address] truck dock material mover & Neurology - Child & Adolescent Psychiatry 05/24/19 Estelle Calvillo MD [address] [place] [address] [address] [place] [address] Assigned Behavioral Health Provider 01/24/20 05/13/22 Jose Hartman APRN SENIOR GEOLOGIST [address] [place] [address] Assigned Pediatric Specialist Provider 01/24/20 09/05/20 Lexii Wray, JOHN Lead Staff Weapons Officer Primary Care - CC 08/14/20 Twan Patrick MD [address] [facility] [address] 200 [place] [address] Assigned Pediatric Specialist Provider 12/11/21 04/26/23 Zulema Parrish [facility] Lead Staff Weapons Officer 07/04/22 01/27/23 Estelle Calvillo MD [address] [place] [address] [address]275 [place] [address] Assigned Behavioral Health Provider 07/02/22 06/15/23 Erin Fernandez, [facility] [address] [place] [id number] Pharmacist Pharmacist 12/22/22 10/25/23 Erin Fernandez [facility] [address] [place] [id number] Assigned MTM Pharmacist 12/31/22 Jyoti Sotomayor [facility] [address] [place], [place] 9[address] Pharmacist Pharmacist 03/08/23 Jyoti Sotomayor [facility] [address] [place], [place] 0[address]324 Assigned MTM Pharmacist 03/11/23 Marcus Stephens MD [address] [place], [place] 857835 Assigned PCP 04/27/23 Twan Patrick MD [address] [facility] [address] 200 [place] [address] Assigned Pediatric Specialist Provider 05/05/23 06/15/23 Rashmi Isaac MD [address] [place], [place] 178054 Assigned Behavioral Health Provider 06/16/23 Sara Jara, RN Clinic Staff Weapons Officer 12/25/24 documented as of this encounter
--- OUTSIDE RECORDS SUMMARY | 2025-01-12 09:41 | XMS_ITS | Encounter Summary ---
Author Organization [place] Address [address] [place] [address] Care Team Providers Care Frame Cleaner Name Role Phone Rachel Crum MD Primary Care Provid er Rachel Crum MD Unavailable + [phone] Estelle Calvillo MD Unavailable Estelle Calvillo MD Unavailable Jose Hartman GAS SPECIALIST OUTSOLE MOLDER Unavailable Lexii Wray RN Unavailable [phone] Twan Patrick MD Unavailable +[phone] Zulema Parrish [facility] Unavailable Unavaila Estelle Schaeffer MD Unavailable Erin Fernandez [facility] Unavailable [phone] Erin Fernandez [facility] Unavailable [phone] Marcus Stephens MD Primary Care Provider [phone] Jyoti Sotomayor [facility] Unavailable + [phone] Jyoti Sotomayor [facility] Unavailable +[phone] Marcus Stephens MD Unavailable Twan Patrick MD Unavailable +[phone] Rashmi Isaac MD Unavailable Eloy Singh MD Primary Care Provider [phone] Sara Jara RN Unavailable [phone] Reason for Visit * Reason Comments Medication Refill Encounter Details Date Type Department Care Team (Late Contact Info) Description 10/31/2019 Refill [facility]5 [place] [address] Rachel Crum MD 1021 [facility] E [facility] 100 [place], [place] [id number] Medication Refill Social History Tobacco Use Types [...] Upcoming Encounters Date Type Department Care Team ([facility] Contact Info) Description 06/23/2025 3:30 PM CDT Office Visit [facility] [place]ie [address] [place] [address] Drive [address] [place] [phone] [place] [address] [place] [address] [place] [id number] documented as of this encounter Visit Diagnoses Diagnosis Other sinusitis, unspecified chronicity documented in this encounter Additional Health Concerns Infection Onset Date Last Indicated Resolved Time Rule Out COVID-19 12/11/2022 12/11/2022 12/12/2022 1:24 PM CDT Rule Out Rubella 07/16/2024 07/16/2024 07/17/2024 12:31 PM CDT documented as of this encounter Care Teams Frame Cleaner Relationship Specialty Start Date End Date Rachel Crum MD PCP - General Pediatrics 07/04/12 02/13/23 Marcus Stephens MD 717 [facility] 370 [place], [place] 828815 PCP - General Pediatrics 02/14/23 12/22/24 Eloy Singh MD [address] [facility] [address] [place] [id number] PCP - General Internal Medicine - Pediatrics 12/23/24 Rachel Crum MD Assigned PCP 11/11/18 04/26/23 Estelle Calvillo MD [address] [place] [address] F275 [place], [place] [phone] geriatric nurse & Neurology - Child & Adolescent Psychiatry 05/24/19 Estelle Calvillo MD [address] [place] [address] F275 [place], [place] 529424 Assigned Behavioral Health Provider 01/24/20 05/13/22 Jose Hartman APRN [facility] [place] [address] Assigned Pediatric Specialist Provider 01/24/20 09/05/20 Lexii Wray, JOHN Lead Employee Health Nurse Primary Care - CC 08/14/20 Twan Patrick MD [address] [place] [address] Assigned Pediatric Specialist Provider 12/11/21 04/26/23 Zulema Parrish LGSW Lead Employee Health Nurse 07/04/22 01/27/23 Estelle Calvillo MD [address] [place], [place] 7[address]144 Assigned Behavioral Health Provider 07/02/22 06/15/23 Erin Fernandez, [facility] [address] [id number] Pharmacist Pharmacist 12/22/22 10/25/23 Erin Fernandez, [facility] [address] [id number] Assigned MTM Pharmacist 12/31/22 Jyoti Sotomayor, [facility] [address] [place], [place] 166784 Pharmacist Pharmacist 03/08/23 Jyoti Sotomayor [facility] [address] [place], [place] 378934 Assigned MTM Pharmacist 03/11/23 Marcus Stephens MD [address] [place], [place] 289265 Assigned PCP 04/27/23 Twan Patrick MD [address] 200 [place] [address] Assigned Pediatric Specialist Provider 05/05/23 06/15/23 Rashmi Isaac MD [address] [place] [address] Assigned Behavioral Health Provider 06/16/23 Sara Jara, RN Clinic Employee Health Nurse 12/25/24 documented as of this encounter
--- OUTSIDE RECORDS SUMMARY | 2025-01-12 09:41 | XMS_ITS | Encounter Summary ---
Author Organization [place] Address [address] [place] [address] Care Team Providers Care Spun Paste Machine Operator Name Role Phone Rachel Crum MD Primary Care Provid er Rachel Crum MD Unavailable + [phone] Estelle Calvillo MD Unavailable Estelle Calvillo MD Unavailable Jose Hartman SIGNING TEACHER CORRECTIONAL SUBSTANCE ABUSE COUNSELOR Unavailable Lexii Wray RN Unavailable [phone] Twan Patrick MD Unavailable [phone] Zulema Parrish [facility] Unavailable Unavaila Estelle Schaeffer MD Unavailable Erin Fernandez [facility] Unavailable [phone] Erin Fernandez [facility] Unavailable [phone] Marcus Stephens MD Primary Care Provider [phone] Jyoti Sotomayor [facility] Unavailable + [phone] Jyoti Sotomayor [facility] Unavailable [phone] Marcus Stephens MD Unavailable Twan Patrick MD Unavailable +[phone] Rashmi Isaac MD Unavailable [phone] Eloy Singh MD Primary Care Provider [phone] Sara Jara RN Unavailable [phone] Encounter Details Date Type Department Care Team (Late Contact Info) Description 12/24/[address] [facility] Mental Health & Addiction [place] [id number] [address] [phone] Estelle Calvillo MD [facility]2 [place] [id number] [place] [address]127[address] Social History Tobacco Use Types Packs/Day Years [...] Upcoming Encounters Date Type Department Care Team ([facility] Contact Info) Description 06/23/2025 3:30 PM CDT Office Visit [facility] Francie [address] [place] [address] Drive [address] [place] [phone] Eloy Singh MD [address] [place] [address] [place] [address] documented as of this encounter Visit Diagnoses Not on filedocumented in this encounter Additional Health Concerns Infection Onset Date Last Indicated Resolved Time Rule Out COVID-19 12/11/2022 12/11/2022 12/12/2022 1:24 PM CDT Rule Out Rubella 07/16/2024 07/16/2024 07/17/2024 12:31 PM CDT documented as of this encounter Care Teams Spun Paste Machine Operator Relationship Specialty Start Date End Date Rachel Crum MD PCP - General Pediatrics 07/04/12 02/13/23 Marcus Stephens MD 717 [facility] 370 [place], [place] 72[address]65 PCP - General Pediatrics 02/14/23 12/22/24 Eloy Singh MD [address] [facility] [place] [address] PCP - General Internal Medicine - Pediatrics 12/23/24 Rachel Crum MD Assigned PCP 11/11/18 04/26/23 Estelle Calvillo MD [address] [place] [address] F275 [place], [place] [id number] it service technician & Neurology - Child & Adolescent Psychiatry 05/24/19 Estelle Calvillo MD [address] [place], [place] [address] [place], [place] [address] Assigned Behavioral Health Provider 01/24/20 05/13/22 Jose Hartman APRN CORRECTIONAL SUBSTANCE ABUSE COUNSELOR [address] [place] [address] Assigned Pediatric Specialist Provider 01/24/20 09/05/20 Lexii Wray, JOHN Lead Saw Man Primary Care - CC 08/14/20 Twan Patrick MD [address] [place] [address] Assigned Pediatric Specialist Provider 12/11/21 04/26/23 Zulema Parrish [facility] Lead Saw Man 07/04/22 01/27/23 Estelle Calvillo MD [address] [place], [place] 270774 Assigned Behavioral Health Provider 07/02/22 06/15/23 Erin Fernandez, [facility] [address] [id number] Pharmacist Pharmacist 12/22/22 10/25/23 Erin Fernandez, [facility] [address] [id number] Assigned MTM Pharmacist 12/31/22 Jyoti Sotomayor, [facility] [address] [place], [place] [address] Pharmacist Pharmacist 03/08/[address] [address] [place], [place] 725[address] Assigned MTM Pharmacist 03/11/23 Marcus Stephens MD 717 [facility] SE [address] [place] [address] Assigned PCP 04/27/23 Twan Patrick MD [address] [place] [address] Assigned Pediatric Specialist Provider 05/05/23 06/15/23 Rashmi Isaac MD [address] [place] [address] Assigned Behavioral Health Provider 06/16/23 Sara Jara, RN Clinic Saw Man 12/25/24 documented as of this encounter
--- OUTSIDE RECORDS SUMMARY | 2025-01-12 09:41 | XMS_ITS | Encounter Summary ---
Author Organization [facility] Address [address] [place] [address] Care Team Providers Care Explosive Man Name Role Phone Rachel Crum MD Primary Care Provid er Rachel Crum MD Unavailable + [phone] Rachel Crum MD Unavailable + [phone] Santos Guerrero MD Unavailable [phone] Rachel Crum MD Unavailable + [phone] Estelle Calvillo MD Unavailable Estelle Calvillo MD Unavailable Jose Hartman FIRE PILOT HEARING INSTRUMENT SPECIALIST Unavailable Lexii Wray RN Unavailable [phone] Twan Patrick MD Unavailable [phone] Zulema Parrish [facility] Unavailable Unavaila ble Estelle Calvillo MD Unavailable Erin Fernandez [facility] Unavailable [phone] Erin Fernandez [facility] Unavailable [phone] Marcus Stephens MD Primary Care Provider Jyoti Sotomayor [facility] Unavailable + [phone] Jyoti Sotomayor [facility] Unavailable + [phone] Marcus Stephens MD Unavailable Twan Patrick MD Unavailable [phone] Rashmi Isaac MD Unavailable [phone] Eloy Singh MD Primary Care Provider [phone] Sara Jara RN Unavailable [phone] Reason for Referral * Consultation - Closed Specialty Diagnoses / Procedures Referred By Geoffrey t Referred To Contact Diagnoses Autism Anxiety Gingivitis Grinding of teeth Convulsions, unspecified convulsion type (H) Rachel Crum MD Phone: tel: fax: Referral ID Status Reason Start Date Expiration Date Visits Re quested Visits Authorized [id number] Closed 08/17/2015 08/16/2016 1 1 Comments Your provider has referred you to: [facility]: Dental Clinic [facility] [phone] [email or web address] Type: complex medical child Urgency: Routine and [...] where they were done to arrange for meat pickler prior to your scheduled appointment. Any new CT, MRI or other procedures ordered by your specialist must be performed at a [facility] facility or coordinated by your clinic's referral office. (2) List of current medications (3) This referral request (4) Any documents/labs given to you for this referral Reason for Visit * Reason Onset Date Comments Referral 08/17/2015 dental Encounter Details Date Type Department Care Team (Late st Contact Info) Description 08/17/2015 [facility] [address] [address] Rachel Crum MD 1021 [facility] E [address] 100 [place] [address] Referral (dental) Social History Tobacco Use Types [...] letter I made on 08/17/2015 to dentsitry [phone] Thanks Rachel Crum documented in this encounter Plan of Treatment Upcoming Encounters Date Type Department Care Team (Late st Contact Info) Description 06/23/2025 3:30 PM CDT Office Visit [facility] [place] [address] [facility] [address] [place] [phone] Eloy Singh MD 3[address] [facility] [place] [address] documented as of this encounter Visit Diagnoses [...] documented as of this encounter Care Teams Explosive Man Relationship Specialty Start Date End Date Rachel Crum MD PCP - General Pediatrics 07/04/12 02/13/23 Rachel Crum MD [address] [place], [place] [phone] PCP - Assigned PCP 05/22/16 06/05/18 Marcus Stephens MD [address] [place] [address] 370 [place], [place] 8[address]65 PCP - General Pediatrics 02/14/23 12/22/24 Eloy Singh MD [address] [facility] [place] [address] PCP - General Internal Medicine - Pediatrics 12/23/24 Rachel Crum MD [address] [place] [address] Assigned PCP 05/22/16 06/09/18 [place] [address] [place], [place] 43826[address] Assigned PCP 07/01/18 11/10/18 Rachel Crum MD Assigned PCP 11/11/18 04/26/23 Estelle Calvillo MD [address] [place] [address] import coordinator & Neurology - Child & Adolescent Psychiatry 05/24/19 Estelle Calvillo MD [address] [place] [address] Assigned Behavioral Health Provider 01/24/20 05/13/22 Jose Hartman APRN [facility] [address] [place] [address] Assigned Pediatric Specialist Provider 01/24/20 09/05/20 Lexii Wray, JOHN Lead Sales Coach Primary Care - CC 08/14/20 Twan Patrick MD [address] [place] [address] 200 [place], [place] 317264 Assigned Pediatric Specialist Provider 12/11/21 04/26/23 Zulema Parrish LGSW Lead Sales Coach 07/04/22 01/27/23 Estelle Calvillo MD [address] [place] [address] Assigned Behavioral Health Provider 07/02/22 06/15/23 Erin Fernandez, [facility] [address] [place] [id number] Pharmacist Pharmacist 12/22/22 10/25/23 Erin Fernandez, [facility] [address] [place] [id number] Assigned MTM Pharmacist 12/31/22 Jyoti Sotomayor [facility] 2450 [facility] F282 [place] [address] Pharmacist Pharmacist 03/08/23 Jyoti Sotomayor [facility] 2450 [facility] [address] [place] [address] Assigned MTM Pharmacist 03/11/23 Marcus Stephens MD 717 [facility] [address]H 370 [place] [address] Assigned PCP 04/27/23 Twan Patrick MD [address] [place] [address] S [address] 200 [place], [place] 255094 Assigned Pediatric Specialist Provider 05/05/23 06/15/23 Rashmi Isaac MD [address] [place], [place] 640[address] Assigned Behavioral Health Provider 06/16/23 Sara Jara, RN Clinic Sales Coach 12/25/24 documented as of this encounter
--- OUTSIDE RECORDS SUMMARY | 2025-01-12 09:41 | XMS_ITS | Encounter Summary ---
Author Organization [place] Address [address] [place] [address] Care Team Providers Care Wringer And Setter Name Role Phone Rachel Crum MD Primary Care Provid er Rachel Crum MD Unavailable + [phone] Estelle Calvillo MD Unavailable Estelle Calvillo MD Unavailable Jose Hartman BACTERIOLOGY TEACHER [facility] [employer] Unavailable Lexii Wray RN Unavailable [phone] Twan Patrick MD Unavailable [phone] Zulema Parrish [facility] Unavailable Unavaila Estelle Schaeffer MD Unavailable Erin Fernandez [facility] Unavailable [phone] Erin Fernandez [facility] Unavailable [phone] Marcus Stephens MD Primary Care Provider +[phone] Jyoti Sotomayor [facility] Unavailable + [phone] Jyoti Sotomayor [facility] Unavailable +[phone] Marcus Stephens MD Unavailable Twan Patrick MD Unavailable [phone] Rashmi Isaac MD Unavailable Eloy Singh MD Primary Care Provider [phone] Sara Jara RN Unavailable [phone] Encounter Details Date Type Department Care Team (Late Contact Info) Description 08/12/2019 MyC Medical Advice [facility] Mental Health & Addiction [place] [id number] [address] [phone] Estelle Calvillo MD [facility]2 [place] [phone] [place], [place] 798014 Social History Tobacco Use Types Packs/Day Years [...] Upcoming Encounters Date Type Department Care Team ([facility] Contact Info) Description 06/23/2025 3:30 PM CDT Office Visit [facility] Francie [address] [place] [address] Drive [address] [place] [phone] Eloy Singh MD [address] [place] [address] [place] [address] documented as of this encounter Visit Diagnoses Not on filedocumented in this encounter Additional Health Concerns Infection Onset Date Last Indicated Resolved Time Rule Out COVID-19 12/11/2022 12/11/2022 12/12/2022 1:24 PM CDT Rule Out Rubella 07/16/2024 07/16/2024 07/17/2024 12:31 PM CDT documented as of this encounter Care Teams Wringer And Setter Relationship Specialty Start Date End Date Rachel Crum MD PCP - General Pediatrics 07/04/12 02/13/23 Marcus Stephens MD 717 [facility] 370 [place], [place] 9[address] PCP - General Pediatrics 02/14/23 12/22/24 Eloy Singh MD [address] [facility] [place] [address] PCP - General Internal Medicine - Pediatrics 12/23/24 Rachel Crum MD Assigned PCP 11/11/18 04/26/23 Estelle Calvillo MD [address] [place] [address] F275 [place], [place] [phone] event technician & Neurology - Child & Adolescent Psychiatry 05/24/19 Estelle Calvillo MD [address] [place], [place] [address] [place], [place] [address] Assigned Behavioral Health Provider 01/24/20 05/13/22 Jose Hartman APRN [facility] [employer] [facility] [address] [place] [address] Assigned Pediatric Specialist Provider 01/24/20 09/05/20 Lexii Wray, JOHN Lead Enterprise Account Executive Primary Care - CC 08/14/20 Twan Patrick MD [address] [place] [address] Assigned Pediatric Specialist Provider 12/11/21 04/26/23 Zulema Parrish [facility] Lead Enterprise Account Executive 07/04/22 01/27/23 Estelle Calvillo MD [address] [place], [place] 330664 Assigned Behavioral Health Provider 07/02/22 06/15/23 Erin Fernandez, [facility] [address] [id number] Pharmacist Pharmacist 12/22/22 10/25/23 Erin Fernandez, [facility] [address] [id number] Assigned MTM Pharmacist 12/31/22 Jyoti Sotomayor, [facility] [address] [place], [place] [phone] Pharmacist Pharmacist 03/08/23 [facility] [address] [place], [place] 301614 Assigned MTM Pharmacist 03/11/23 Marcus Stephens MD 717 [facility] [address] [place], [place] 112035 Assigned PCP 04/27/23 Twan Patrick MD [address] [place] [address] Assigned Pediatric Specialist Provider 05/05/23 06/15/23 Rashmi Isaac MD [address] [place] [address] Assigned Behavioral Health Provider 06/16/23 Sara Jara, RN Clinic Enterprise Account Executive 12/25/24 documented as of this encounter
--- OUTSIDE RECORDS SUMMARY | 2025-01-12 09:41 | XMS_ITS | Encounter Summary ---
Author Organization [place] Address [address] [place] [address] Care Team Providers Care Slasher Hand Name Role Phone Rachel Crum MD Primary Care Provid er Rachel Crum MD Unavailable + [phone] Rachel Crum MD Unavailable + [phone] Santos Guerrero MD Unavailable Rachel Crum MD Unavailable + [phone] Estelle Calvillo MD Unavailable Estelle Calvillo MD Unavailable Jose Hartman [employer]ITION AND EXPLOSIVES HANDLER DIRECTOR OF HUMAN RESOURCES Unavailable Lexii Wray RN Unavailable [phone] Twan Patrick MD Unavailable +[phone] Zulema Parrish [facility] Unavailable Unavaila ble Estelle Calvillo MD Unavailable Erin Fernandez [facility] Unavailable +[phone] Erin Fernandez [facility] Unavailable +[phone] Marcus Stephens MD Primary Care Provider Jyoti Sotomayor [facility] Unavailable + [phone] Jyoti Sotomayor [facility] Unavailable + [phone] Marcus Stephens MD Unavailable Twan Patrick MD Unavailable +[phone] Rashmi Isaac MD Unavailable +[phone] Eloy Singh MD Primary Care Provider Sara Jara RN Unavailable +[phone] Encounter Details Date Type Department Care Team (Late st Contact Info) Description 02/09/2016 MyC Medical Advice [facility] Children's 2535 [place] [address] Rachel Crum MD 1021 [facility] E [facility] 100 [place], [place] [id number] Social History Tobacco Use Types Packs/Day Years [...] 3:30 PM CD[facility] [address] [place] [address] Drive [address] [place] [address] Eloy Singh MD [address] [place] [address] [place] [id number] documented as of this encounter Visit Diagnoses Not on filedocumented in this encounter Additional Health Concerns Infection Onset Date Last Indicated Resolved Time Rule Out COVID-19 12/11/2022 12/11/2022 12/12/2022 1:24 PM CDT Rule Out Rubella 07/16/2024 07/16/2024 07/17/2024 12:31 PM CDT documented as of this encounter Care Teams Slasher Hand Relationship Specialty Start Date End Date Rachel Crum MD PCP - General Pediatrics 07/04/12 02/13/23 Rachel Crum MD [address] [place], [place] [id number] PCP - Assigned PCP 05/22/16 06/05/18 Marcus Stephens MD 717 [facility] [address] 370 [place], [place] [address] PCP - General Pediatrics 02/14/23 12/22/24 Eloy Singh MD [address] [place] [address] PCP - General Internal Medicine - Pediatrics 12/23/24 Rachel Crum MD [address] [place], [place] [address] Assigned PCP 05/22/16 06/09/18 [place] [address] [place] [address] Assigned PCP 07/01/18 11/10/18 Rachel Crum MD Assigned PCP 11/11/18 04/26/23 Estelle Calvillo MD [address] [place], [place] [address] tooth clerk & Neurology - Child & Adolescent Psychiatry 05/24/19 Estelle Calvillo MD [address] [place] [address] [address] [place] [address] Assigned Behavioral Health Provider 01/24/20 05/13/22 Jose Hartman APRN DIRECTOR OF HUMAN RESOURCES [address] [place] [address] Assigned Pediatric Specialist Provider 01/24/20 09/05/20 Lexii Wray, JOHN Lead Veterinary Receptionist Primary Care - CC 08/14/20 Twan Patrick MD [address] [place] [address] Assigned Pediatric Specialist Provider 12/11/21 04/26/23 Zulema Parrish [facility] Lead Veterinary Receptionist 07/04/22 01/27/23 Estelle Calvillo MD [address] [place] [address] [address]275 [place] [address] Assigned Behavioral Health Provider 07/02/22 06/15/23 Erin Fernandez, [facility] [address] [place] [place] [id number] Pharmacist Pharmacist 12/22/22 10/25/23 Erin Fernandez [facility] [address] [place] [id number] Assigned MTM Pharmacist 12/31/22 Jyoti Sotomayor [facility] [address] [place], [place] [address] Pharmacist Pharmacist 03/08/23 Jyoti Sotomayor [facility] [address] [place], [place] [address]34 Assigned MTM Pharmacist 03/11/23 Marcus Stehpens MD [address] [place], [place] 27[address]45 Assigned PCP 04/27/23 Twan Patrick MD [address] 200 [place] [address] Assigned Pediatric Specialist Provider 05/05/23 06/15/23 Rashmi Isaac MD [address] [place], [place] 608444 Assigned Behavioral Health Provider 06/16/23 Sara Jara, RN Clinic Veterinary Receptionist 12/25/24 documented as of this encounter
--- OUTSIDE RECORDS SUMMARY | 2025-01-12 09:41 | XMS_ITS | Encounter Summary ---
Author Organization [facility] Address [address] [place] [address] Care Team Providers Care Ticket Manager Name Role Phone Rachel Crum MD Primary Care Provid er Rachel Crum MD Unavailable + [phone] Estelle Calvillo MD Unavailable Estelle Calvillo MD Unavailable Twan Patrick MD Unavailable +[phone] Zulema Parrish [facility] Unavailable Unavaila Estelle Schaeffer MD Unavailable Erin Fernandez [facility] Unavailable [phone] Erin Fernandez [facility] Unavailable +[phone] Marcus Stephens MD Primary Care Provider [phone] Jyoti Sotomayor [facility] Unavailable +[phone] Jyoti Sotomayor [facility] Unavailable +[phone] Marcus Stephens MD Unavailable Twan Patrick MD Unavailable +[phone] Rashmi Isaac MD Unavailable + [phone] Eloy Singh MD Primary Care Provider +[phone] Sara Jara RN Unavailable +[phone] Encounter Details Date Type Department Care Team (Late st Contact Info) Description 08/11/2021 MyC Medical Advice [place] [address] [place] [address] Rachel Crum MD [address] [place], [place] [id number] Social History Tobacco Use Types Packs/Day Years [...] Visit [facility] [place] [address] [place] [address] Drive [address] [place] [phone] Eloy Singh MD [address] [place] [address] [place] [address] documented as of this encounter Visit Diagnoses Not on filedocumented in this encounter Additional Health Concerns Infection Onset Date Last Indicated Resolved Time Rule Out COVID-19 12/11/2022 12/11/2022 12/12/2022 1:24 PM CDT Rule Out Rubella 07/16/2024 07/16/2024 07/17/2024 12:31 PM CDT documented as of this encounter Care Teams Ticket Manager Relationship Specialty Start Date End Date Rachel Crum MD PCP - General Pediatrics 07/04/12 02/13/23 Marcus Stephens MD [address] [place] [address] PCP - General Pediatrics 02/14/23 12/22/24 Eloy Singh MD [address] [place] [address] [place] [address] PCP - General Internal Medicine - Pediatrics 12/23/24 Rachel Crum MD Assigned PCP 11/11/18 04/26/23 Estelle Calvillo MD [address] [place] [address] F275 [place], [place] 0[address] intranet specialist & Neurology - Child & Adolescent Psychiatry 05/24/19 Estelle Calvillo MD [address] [place] [address] 9[address]254 Assigned Behavioral Health Provider 01/24/20 05/13/22 Twan Patrick MD [address] [place] [address] 200 [place], [place] 107994 Assigned Pediatric Specialist Provider 12/11/21 04/26/23 Zulema Parrish LGSW Lead Mandrel Cleaner 07/04/22 01/27/23 Estelle Calvillo MD [address] [place] [id number] [place], [place] 750184 Assigned Behavioral Health Provider 07/02/22 06/15/23 Erin Fernandez [facility] [address] [place] [address] Pharmacist Pharmacist 12/22/22 10/25/23 Erin Fernandez [facility] [address] [id number] Assigned MTM Pharmacist 12/31/22 Jyoti Sotomayor [facility] [address] [place] [address] [address] [place], [place] 140424 Pharmacist Pharmacist 03/08/23 Jyoti Sotomayor [facility] [address] [place] [address] Assigned MTM Pharmacist 03/11/23 Marcus Stephens MD 717 [facility] [address] 370 [place] [address] Assigned PCP 04/27/23 Twan Patrick MD [address] [place], [place] [address]E [address] 200 [place] [address] Assigned Pediatric Specialist Provider 05/05/23 06/15/23 Rashmi Isaac MD [address] [place], [place] [address] Assigned Behavioral Health Provider 06/16/23 Sara Jara, RN Clinic Mandrel Cleaner 12/25/24 documented as of this encounter
--- OUTSIDE RECORDS SUMMARY | 2025-01-12 09:41 | XMS_ITS | Encounter Summary ---
Author Organization [facility] Address [address] [place] [address] Care Team Providers Care Union Organizer Name Role Phone Rachel Crum MD Primary Care Provid er Rachel Crum MD Unavailable + [phone] Rachel Crum MD Unavailable + [phone] Santos Guerrero MD Unavailable +[phone] Rachel Crum MD Unavailable + [phone] Estelle Calvillo MD Unavailable Estelle Calvillo MD Unavailable Jose Hartman DIRECTOR STAFFING SANITATION ENGINEER Unavailable Lexii Wray RN Unavailable +[phone] Twan Patrick MD Unavailable +[phone] Zulema Parrish [facility] Unavailable Unavaila ble Estelle Calvillo MD Unavailable Erin Fernandez [facility] Unavailable +[phone] Erin Fernandez [facility] Unavailable +[phone] Marcus Stephens MD Primary Care Provider +[phone] Jyoti Sotomayor [facility] Unavailable + [phone] Jyoti Sotomayor [facility] Unavailable + [phone] Marcus Stephens MD Unavailable Twan Patrick MD Unavailable +[phone] Rashmi Isaac MD Unavailable +[phone] Eloy Singh MD Primary Care Provider +[phone] Sara Jara RN Unavailable +[phone] Encounter Details Date Type Department Care Team (Late st Contact Info) Description 03/24/2014 MyC Medical Advice [facility] Children's 2535 [place] [address] Rachel Crum MD 1021 [facility] E [facility] 100 [place] [address] Social History Tobacco Use Types [...] Diastat. See order 12-18-14 Kandy Vega RN EXAMINER documented in this encounter Plan of Treatment Upcoming Encounters Date Type Department Care Team (Late st Contact Info) Description 06/23/2025 3:30 PM CDT Office Visit [facility] [place] [address] [facility] [address] [place] [address] Eloy Singh MD 3305 [facility] [place] [id number] documented as of this encounter Visit Diagnoses Not on filedocumented in this encounter Additional Health Concerns Infection Onset Date Last Indicated Resolved Time Rule Out COVID-19 12/11/2022 12/11/2022 12/12/2022 1:24 PM CDT Rule Out Rubella 07/16/2024 07/16/2024 07/17/2024 12:31 PM CDT documented as of this encounter Care Teams Union Organizer Relationship Specialty Start Date End Date Rachel Crum MD PCP - General Pediatrics 07/04/12 02/13/23 Rachel Crum MD [address] [place], [place] [phone] PCP - Assigned PCP 05/22/16 06/05/18 Marcus Stephens MD 717 [facility] [address] [place] [address] PCP - General Pediatrics 02/14/23 12/22/24 Eloy Singh MD [address] [facility] [address] [place] [id number] PCP - General Internal Medicine - Pediatrics 12/23/24 Rachel Crum MD [address] [facility] 100 [place], [place] [address] Assigned PCP 05/22/16 06/09/18 [place] [address] [place] [address] Assigned PCP 07/01/18 11/10/18 Rachel Crmu MD Assigned PCP 11/11/18 04/26/23 Estelle Calvillo MD [address] [place] [address] [address]275 [place] [address] handle machine operator & Neurology - Child & Adolescent Psychiatry 05/24/19 Estelle Calvillo MD [address] [place] [address] F275 [place] [address] Assigned Behavioral Health Provider 01/24/20 05/13/22 Jose Hartman APRN [facility] [address] [place] [address] 090667 Assigned Pediatric Specialist Provider 01/24/20 09/05/20 Lexii Wray RN Lead Grip Assembler Primary Care - CC 08/14/20 Twan Patrick MD [address] [facility] 200 [place], [place] 442774 Assigned Pediatric Specialist Provider 12/11/21 04/26/23 Zulema Parrish LGSW Lead Grip Assembler 07/04/22 01/27/23 Estelle Calvillo MD [facility] [place] [address] [place] [address] Assigned Behavioral Health Provider 07/02/22 06/15/23 Erin Fernandez [facility] [address] [place] [address] Pharmacist Pharmacist 12/22/22 10/25/23 Erin Fernandez [facility] [address] [id number] Assigned MTM Pharmacist 12/31/22 Jyoti Sotomayor [facility] 2450 [facility] [address] [place], [place] 310234 Pharmacist Pharmacist 03/08/23 Jyoti Sotomayor [facility] 2450 [facility] [place] [address] [place], [place] 582634 Assigned MTM Pharmacist 03/11/23 Marcus Stephens MD 717 [facility] [address] 370 [place], [place] 692895 Assigned PCP 04/27/23 Twan Patrick MD [address] [place], [place] [address]E S [address] 200 [place] [address] Assigned Pediatric Specialist Provider 05/05/23 06/15/23 Rashmi Isaac MD [address] [place], [place] [address]074 Assigned Behavioral Health Provider 06/16/23 Sara Jara, RN Clinic Grip Assembler 12/25/24 documented as of this encounter
--- OUTSIDE RECORDS SUMMARY | 2025-01-12 09:41 | XMS_ITS | Encounter Summary ---
Author Organization [facility] Address [address] [place] [address] Care Team Providers Care Runner Out Name Role Phone Rachel Crum MD Primary Care Provid er Rachel Crum MD Unavailable + [phone] Rachel Crum MD Unavailable + [phone] Santos Guerrero MD Unavailable +[phone] Rachel Crum MD Unavailable + [phone] Estelle Calvillo MD Unavailable Estelle Calvillo MD Unavailable Jose Hartman BENEFITS SPECIALIST RECRUITER SENIOR CYTOGENETICS LABORATORY DIRECTOR Unavailable Lexii Wray RN Unavailable [phone] Twan Patrick MD Unavailable +[phone] Zulema Parrish [facility] Unavailable Unavaila ble Estelle Calvillo MD Unavailable Erin Fernandez [facility] Unavailable +[phone] Erin Fernandez [facility] Unavailable +[phone] Marcus Stephens MD Primary Care Provider +[phone] Jyoti Sotomayor [facility] Unavailable + [phone] Jyoti Sotomayor [facility] Unavailable + [phone] Marcus Stephens MD Unavailable Twan Patrick MD Unavailable +[phone] Rashmi Isaac MD Unavailable +[phone] Eloy Singh MD Primary Care Provider Sara Jara RN Unavailable +[phone] Encounter Details Date Type Department Care Team (Late st Contact Info) Description 05/24/2014 MyC Medical Advice [facility] Children's [address] [place] [address] Rachel Crum MD 1021 [facility] E [facility] 100 [place] [address] Attention deficit disorder with hyperactivity(314.01 [...] Rachel Crum MD - 05/29/2014 3:29 PM SUSPECT ARTIST Mom and I spoke at length Plan 1) intuniv 3mg/day for irritability and aggression and challenges sleeping. rx pended - nurses to send once pharmacy is documented. 2) se psychiatry - I will send resources and so will my director social welfare Rachel Crum ECT ARTIST documented in this encounter Plan of Treatment Upcoming Encounters Date Type Department Care Team (Late st Contact Info) Description 06/23/2025 3:30 PM CDT Office Visit [place] [id number] [facility] [address] [place] [address] Eoly Singh MD [facility] [place] [id number] documented as of this encounter Visit Diagnoses [...] documented as of this encounter Care Teams Runner Out Relationship Specialty Start Date End Date Rachel Crum MD PCP - General Pediatrics 07/04/12 02/13/23 Rachel Crum MD [address] [place] [address] PCP - Assigned PCP 05/22/16 06/05/18 Marcus Stephens MD 717 [facility] 370 [place] [address] PCP - General Pediatrics 02/14/23 12/22/24 Eloy Singh MD [address] [place] [address] [place] [address] PCP - General Internal Medicine - Pediatrics 12/23/24 Rachel Crum MD [address] [place] [address] Assigned PCP 05/22/16 06/09/18 [place] [address] [place] [address] Assigned PCP 07/01/18 11/10/18 Rachel Crum MD Assigned PCP 11/11/18 04/26/23 Estelle Calvillo MD [facility] [address] [address] acquisition editor & Neurology - Child & Adolescent Psychiatry 05/24/19 Estelle Calvillo MD [address] [place] [address] Assigned Behavioral Health Provider 01/24/20 05/13/22 Jose Hartman APRN [facility] [address] [place] [address] Assigned Pediatric Specialist Provider 01/24/20 09/05/20 Lexii Wray, RN Lead Auditor Tax Primary Care - CC 08/14/20 Twan Patrick MD [address] [place] [address] 200 [place] [address] Assigned Pediatric Specialist Provider 12/11/21 04/26/23 Zulema Parrish LGSW Lead Auditor Tax 07/04/22 01/27/23 Estelle Calvillo MD [address] [place] [address] Assigned Behavioral Health Provider 07/02/22 06/15/23 Erin Fernandez, [facility] [address] [place] [address] Pharmacist Pharmacist 12/22/22 10/25/23 Erin Fernandez, [facility] [address] [place] [address] Assigned MTM Pharmacist 12/31/22 Jyoti Sotomayor, [facility] [address] [address] [facility] [address] [place], [place] [address] Pharmacist Pharmacist 03/08/23 [facility] [address] [place], [place] [address] Assigned MTM Pharmacist 03/11/23 Marcus Stephens MD [address] [place] [address] Assigned PCP 04/27/23 Twan Patrick MD [address] [place], [place] [address] Assigned Pediatric Specialist Provider 05/05/23 06/15/23 Rashmi Isaac MD [address] [place] [address] Assigned Behavioral Health Provider 06/16/23 Sara Jara, RN Clinic Auditor Tax 12/25/24 documented as of this encounter
--- OUTSIDE RECORDS SUMMARY | 2025-01-12 09:41 | XMS_ITS | Encounter Summary ---
Author Organization [facility] Address [address] [place] [address] Care Team Providers Care Slinger Sequins Name Role Phone Rachel Crum MD Primary Care Provid er Rachel Crum MD Unavailable + [phone] Estelle Calvillo MD Unavailable Twan Patrick MD Unavailable +[phone] Zulema Parrish [facility] Unavailable Unavaila Estelle Schaeffer MD Unavailable Erin Fernandez [facility] Unavailable +[phone] Erin Fernandez [facility] Unavailable +[phone] Marcus Stephens MD Primary Care Provider +[phone] Jyoti Sotomayor [facility] Unavailable + [phone] Jyoti Sotomayor [facility] Unavailable + [phone] Marcus Stephens MD Unavailable Twan Patrick MD Unavailable +[phone] Rashmi Isaac MD Unavailable +[phone] Eloy Singh MD Primary Care Provider +[phone] Sara Jara RN Unavailable +[phone] Encounter Details Date Type Department Care Team (Late st Contact Info) Description 06/19/[address] [facility] 2535 [place] [address] Rachel Crum MD 1021 [facility] [address] [place] [address] Social History Tobacco Use Types Packs/Day Years [...] Coronavirus/COVID-19? No / Unsure 05/31/2022 12:51 PM GRAVEL SCREENER documented as of this encounter Plan of Treatment Upcoming Encounters Date Type Department Care Team (Late st Contact Info) Description 06/23/2025 3:30 PM CDT Office Visit [facility] [place] [address] [place] [address] Drive [address] [place] [phone] Eloy Singh MD [address] [place] [address] [place] [id number] documented as of this encounter Visit Diagnoses Not on filedocumented in this encounter Additional Health Concerns Infection Onset Date Last Indicated Resolved Time Rule Out COVID-19 12/11/2022 12/11/2022 12/12/2022 1:24 PM CDT Rule Out Rubella 07/16/2024 07/16/2024 07/17/2024 12:31 PM CDT Assessment Noted Time PHQ-9 Depression Total Score: 18 022 1:59 PM CDT documented as of this encounter Care Teams Slinger Sequins Relationship Specialty Start Date End Date Rachel Crum MD PCP - General Pediatrics 07/04/12 02/13/23 Marcus Stephens MD [address] [address] PCP - General Pediatrics 02/14/23 12/22/24 Eloy Singh MD [address] [place] [address] [place] [address] PCP - General Internal Medicine - Pediatrics 12/23/24 Rachel Crum MD Assigned PCP 11/11/18 04/26/23 Estelle Calvillo MD [address] [place] [address] F275 [place] [address] band sawmill operator & Neurology - Child & Adolescent Psychiatry 05/24/19 Twan Patrick MD [address] [place] [address] Assigned Pediatric Specialist Provider 12/11/21 04/26/23 Zulema Parrish [facility] Lead Marketing Administrative Assistant 07/04/22 01/27/23 Estelle Calvillo MD [address] [place] [address] F275 [place] [address] Assigned Behavioral Health Provider 07/02/22 06/15/23 Erin Fernandez, [facility] [address] [id number] Pharmacist Pharmacist 12/22/22 10/25/23 Erin Fernandez, [facility] [address] [id number] Assigned MTM Pharmacist 12/31/22 Jyoti Sotomayor [facility] [address] [id number] [place], [place] 559684 Pharmacist Pharmacist 03/08/23 Jyoti Sotomayor [facility] [address] [place] [address] Assigned MTM Pharmacist 03/11/23 Marcus Stephens MD [address] [place] [address] Assigned PCP 04/27/23 Twan Patrick MD [address] [place] [address] Assigned Pediatric Specialist Provider 05/05/23 06/15/23 Rashmi Isaac MD [address] [facility] [address] [place] [address] Assigned Behavioral Health Provider 06/16/23 Sara Jara, RN Clinic Marketing Administrative Assistant 12/25/24 documented as of this encounter
--- OUTSIDE RECORDS SUMMARY | 2025-01-12 09:41 | XMS_ITS | Encounter Summary ---
Author Organization [place] Address [address] [place] [address] Care Team Providers Care Glass Smoother Name Role Phone Rachel Crum MD Primary Care Provid er Rachel Crum MD Unavailable + [phone] Rachel Crum MD Unavailable + [phone] Santos Guerrero MD Unavailable +[phone] Rachel Crum MD Unavailable + [phone] Estelle Calvillo MD Unavailable Estelle Calvillo MD Unavailable Jose Hartman OFFSET LITHOGRAPHIC PRESS OPERATOR PONY RIDE ATTENDANT Unavailable Lexii Wray RN Unavailable +[phone] Twan Patrick MD Unavailable +[phone] Zulema Parrish [facility] Unavailable Unavaila ble Estelle Calvillo MD Unavailable Erin Fernandez [facility] Unavailable +[phone] Erin Fernandez [facility] Unavailable +[phone] Marcus Stephens MD Primary Care Provider Jyoti Sotomayor [facility] Unavailable + [phone] Jyoti Sotomayor [facility] Unavailable + [phone] Marcus Stephens MD Unavailable Twan Patrick MD Unavailable +[phone] Rashmi Isaac MD Unavailable +[phone] Eloy Singh MD Primary Care Provider Sara Jara RN Unavailable +[phone] Reason for Visit * Reason Onset Date Comments Refill Request 02/09/2015 Encounter Details Date Type Department Care Team (Late st Contact Info) Description 02/09/2015 MyC Medical Advice [facility] Children[facility] [address] [place] [address] Rachel Crum MD 1021 [facility] E [facility] 100 [place], [place] [id number] Refill Request Social History Tobacco Use Types [...] Description 06/23/2025 3:30 PM CDT Office Visit [facility] [place]ie [address] [place] [phone] Eloy Singh MD [address] [place] [address] [place] [id number] documented as of this encounter Visit Diagnoses [...] as of this encounter Care Teams Glass Smoother Relationship Specialty Start Date End Date Rachel Crum MD PCP - General Pediatrics 07/04/12 02/13/23 Rachel Crum MD [address] [facility] 100 [place], [place] [id number] PCP - Assigned PCP 05/22/16 06/05/18 Marcus Stephens MD 717 [facility] 370 [place], [place] 9[address] PCP - General Pediatrics 02/14/23 12/22/24 Eloy Singh MD [address] [facility] [place] [address] PCP - General Internal Medicine - Pediatrics 12/23/24 Rachel Crum MD [address] [facility] 100 [place], [place] [address]58[address] Assigned PCP 05/22/16 06/09/18 [place] [address] [place] [address] Assigned PCP 07/01/18 11/10/18 Rachel Crum MD Assigned PCP 11/11/18 04/26/23 Estelle Calvillo MD [address] [place], [place] [address] chemist water purification & Neurology - Child & Adolescent Psychiatry 05/24/19 Estelle Calvillo MD [address] [address] Assigned Behavioral Health Provider 01/24/20 05/13/22 Jose Hartman APRN [facility] [address] [place] [address] Assigned Pediatric Specialist Provider 01/24/20 09/05/20 Lexii Wray RN Lead Acupuncture Physician Primary Care - CC 08/14/20 Twan Patrick MD [address] [facility] 200 [place], [place] 50[address] Assigned Pediatric Specialist Provider 12/11/21 04/26/23 Zulema Parrish LGSW Lead Acupuncture Physician 07/04/22 01/27/23 Estelle Calvillo MD [facility][note 3][address] [address] Assigned Behavioral Health Provider 07/02/22 06/15/23 Erin Fernandez [facility] [address] [place] [address] [id number] Pharmacist Pharmacist 12/22/22 10/25/23 Erin Fernandez [facility] [address] [place] [id number] Assigned MTM Pharmacist 12/31/22 Jyoti Sotomayor [facility] [address] [place] [address] AVE [address] [place], [place] [address] Pharmacist Pharmacist 03/08/23 Jyoti Sotomayor [facility] 2450 [facility] [address] [place], [place] [address]684 Assigned MTM Pharmacist 03/11/23 Marcus Stephens MD 717 [facility] [address] 370 [place], [place] 3[address] Assigned PCP 04/27/23 Twan Patrick MD [address] [place] 200 [place], [place] [address] Assigned Pediatric Specialist Provider 05/05/23 06/15/23 Rashmi Isaac MD [address] [place], [place] [address] Assigned Behavioral Health Provider 06/16/23 Sara Jara, RN Clinic Acupuncture Physician 12/25/24 documented as of this encounter
--- OUTSIDE RECORDS SUMMARY | 2025-01-12 09:41 | XMS_ITS | Encounter Summary ---
Author Organization [place] Address [address] [place] [address] Care Team Providers Care Industrial Illuminating Engineer Name Role Phone Rachel Crum MD Primary Care Provid er Rachel Crum MD Unavailable + [phone] Estelle Calvillo MD Unavailable Estelle Calvillo MD Unavailable Twan Patrick MD Unavailable +[phone] Zulema Parrish [facility] Unavailable Unavaila Estelle Schaeffer MD Unavailable Erin Fernandez [facility] Unavailable +[phone] Erin Fernandez [facility] Unavailable +[phone] Marcus Stephens MD Primary Care Provider [phone] Jyoti Sotomayor [facility] Unavailable +[phone] Jyoti Sotomayor [facility] Unavailable +[phone] Marcus Stephens MD Unavailable Twan Patrick MD Unavailable +[phone] Rashmi Isaac MD Unavailable + [phone] Eloy Singh MD Primary Care Provider +[phone] Sara Jara RN Unavailable +[phone] Encounter Details Date Type Department Care Team (Late st Contact Info) Description 07/07/2021 MyC Medical Advice [address] [address] Kandy Vega, RN Social History [...] Description 06/23/2025 3:30 PM CDT Office Visit [facility] Francie [address] [place] [address] [place] [address] [place] [address] [place] [address] documented as of this encounter Visit Diagnoses Not on filedocumented in this encounter Additional Health Concerns Infection Onset Date Last Indicated Resolved Time Rule Out COVID-19 12/11/2022 12/11/2022 12/12/2022 1:24 PM CDT Rule Out Rubella 07/16/2024 07/16/2024 07/17/2024 12:31 PM CDT documented as of this encounter Care Teams Industrial Illuminating Engineer Relationship Specialty Start Date End Date Rachel Crum MD PCP - General Pediatrics 07/04/12 02/13/23 Marcus Stephens MD [address] [address] PCP - General Pediatrics 02/14/23 12/22/24 Eloy Singh MD [address] [place] [address] [place] [address] PCP - General Internal Medicine - Pediatrics 12/23/24 Rachel Crum MD Assigned PCP 11/11/18 04/26/23 Estelle Calvillo MD [address] [place], [place] [address] [place] [address] press cleaner & Neurology - Child & Adolescent Psychiatry 05/24/19 Estelle Calvillo MD [address] [address] Assigned Behavioral Health Provider 01/24/20 05/13/22 Twan Patrick MD [address] [facility] 200 [place], [place] 963824 Assigned Pediatric Specialist Provider 12/11/21 04/26/23 Zulema Parrish LGSW Lead Care Management Specialist 07/04/22 01/27/23 Estelle Calvillo MD [facility] [address] [address] Assigned Behavioral Health Provider 07/02/22 06/15/23 Erin Fernandez [facility] [address] [place] [address] [address] Pharmacist Pharmacist 12/22/22 10/25/23 Erin Fernandez [facility] [address] [place] [address] Assigned MTM Pharmacist 12/31/22 Jyoti Sotomayor [facility] [address] [place] [address] [id number] Pharmacist Pharmacist 03/08/23 Jyoti Sotomayor [facility] [address] [place] [address]14 Assigned MTM Pharmacist 03/11/23 Marcus Stephens MD [address] [place], [place] [address] Assigned PCP 04/27/23 Twan Patrick MD [address] [place] 200 [place] [address] Assigned Pediatric Specialist Provider 05/05/23 06/15/23 Rashmi Isaac MD [address] [facility] TAM[address] [place], [place] [address] Assigned Behavioral Health Provider 06/16/23 Sara Jara RN Clinic Care Management Specialist 12/25/24 documented as of this encounter
--- OUTSIDE RECORDS SUMMARY | 2025-01-12 09:41 | XMS_ITS | Encounter Summary ---
Author Organization [place] Address [address] [place] [address] Care Team Providers Care Veterinary Physiologist Name Role Phone Rachel Crum MD Primary Care Provid er Rachel Crum MD Unavailable + [phone] Rachel Crum MD Unavailable + [phone] Santos Guerrero MD Unavailable [phone] Rachel Crum MD Unavailable + [phone] Estelle Calvillo MD Unavailable Estelle Calvillo MD Unavailable Jose Hartman MUD ANALYSIS OPERATOR FLAP CURER Unavailable Lexii Wray RN Unavailable +[phone] Twan Patrick MD Unavailable +[phone] Zulema Parrish [facility] Unavailable Unavaila ble Estelle Calvillo MD Unavailable Erin Fernandez [facility] Unavailable +[phone] Erin Fernandez [facility] Unavailable +[phone] Marcus Stephens MD Primary Care Provider Jyoti Sotomayor [facility] Unavailable + [phone] Jyoti Sotomayor [facility] Unavailable + [phone] Marcus Stephens MD Unavailable Twan Patrick MD Unavailable +[phone] Rashmi Isaac MD Unavailable +[phone] Eloy Singh MD Primary Care Provider +[phone] Sara Jara RN Unavailable [phone] Reason for Visit * Reason Onset Date Comments Refill Request 02/09/2016 Diapers Encounter Details Date Type Department Care Team (Late st Contact Info) Description 02/09/[address] [facility] Children's Counts include 234 beds at the [facility]5 [place] [address] Rachel Crum MD 1021 [facility] E [facility] 100 [place], [place] [id number] Refill Request (Diapers) Social History Tobacco Use [...] José Lind RN - 02/09/2016 7:00 PM HOSPITAL CLEANING SPECIALIST NOTE: last WCC 05/13/2015. Last Diaper Rx: 02/10/2015. Rx sent. José Lind RN ITAL CLEANING SPECIALIST documented in this encounter Plan of Treatment Upcoming Encounters Date Type Department Care Team (Late st Contact Info) Description 06/23/2025 3:30 PM CDT Office Visit [facility] Francie [address] [place] [address] Eloy Singh MD 3305 [facility] [place] [address] documented as of this encounter Visit Diagnoses [...] documented as of this encounter Care Teams Veterinary Physiologist Relationship Specialty Start Date End Date Rachel Crum MD PCP - General Pediatrics 07/04/12 02/13/23 Rachel Crum MD 1021 [employer] E [facility] 100 [place] [address] PCP - Assigned PCP 05/22/16 06/05/18 Marcus Stephens MD [address] [address] PCP - General Pediatrics 02/14/23 12/22/24 Eloy Singh MD 3305 [facility] [place] [address] PCP - General Internal Medicine - Pediatrics 12/23/24 Rachel Crum MD 1021 [employer] E [facility] 100 [place], [place] 101[address] Assigned PCP 05/22/16 06/09/18 [place] [address] [place] [address] Assigned PCP 07/01/18 11/10/18 Rachel Crum MD Assigned PCP 11/11/18 04/26/23 Estelle Calvillo MD [address] [place] [address]2534 unit reactor operator & Neurology - Child & Adolescent Psychiatry 05/24/19 Estelle Calvillo MD [address] [place] [address] 914014 Assigned Behavioral Health Provider 01/24/20 05/13/22 Jose Hartman APRN [facility] [address] [place] [address] Assigned Pediatric Specialist Provider 01/24/20 09/05/20 Lexii Wray, RN Lead Technical Artist Primary Care - CC 08/14/20 Twan Patrick MD [address] [place] [address] 200 [place], [place] [address] Assigned Pediatric Specialist Provider 12/11/21 04/26/23 Zulema Parrish LGSW Lead Technical Artist 07/04/22 01/27/23 Estelle Calvillo MD [facility] [address] [address] Assigned Behavioral Health Provider 07/02/22 06/15/23 Erin Fernandez [facility] [address] [place] [address] [place], [place] [address] Pharmacist Pharmacist 12/22/22 10/25/23 Erin Fernandez, [facility] [address] [place] [place], [place] [address] Assigned MTM Pharmacist 12/31/22 Jyoti Sotomayor [facility] [address] [place] 1588382 [place] [address] Pharmacist Pharmacist 03/08/23 [facility] [address] [place] 1588382 [place] [address] Assigned MTM Pharmacist 03/11/23 Marcus Stephens MD 717 [facility] [address] 370 [place], [place] [address] Assigned PCP 04/27/23 Twan Patrick MD [address] [facility] [address] [place], [place] [address] Assigned Pediatric Specialist Provider 05/05/23 06/15/23 Rashmi Isaac MD [address] [place], [place] [address] Assigned Behavioral Health Provider 06/16/23 Sara Jara, RN Clinic Technical Artist 12/25/24 documented as of this encounter
--- OUTSIDE RECORDS SUMMARY | 2025-01-12 09:41 | XMS_ITS | Encounter Summary ---
Author Organization [place] Address [address] [place] [address] Care Team Providers Care Manager Product Support Name Role Phone Rachel Crum MD Primary Care Provid er Rachel Crum MD Unavailable + [phone] Estelle Calvillo MD Unavailable Twan Patrick MD Unavailable +[phone] Zulema Parrish [facility] Unavailable Unavaila Estelle Schaeffer MD Unavailable Erin Fernandez [facility] Unavailable +[phone] Erin Fernandez [facility] Unavailable [phone] Marcus Stephens MD Primary Care Provider +[phone] Jyoti Sotomayor [facility] Unavailable + [phone] Jyoti Sotomayor [facility] Unavailable + [phone] Marcus Stephens MD Unavailable Twan Patrick MD Unavailable +[phone] Rashmi Isaac MD Unavailable +[phone] Eloy Singh MD Primary Care Provider [phone] Sara Jara RN Unavailable +[phone] Encounter Details Date Type Department Care Team (Late st Contact Info) Description 08/08/2022 MyC Medical Advice [facility] 2024 [place] [address] Estelle Calvillo MD [address] [place] [address] [place] [address] Social History Tobacco Use Types Packs/Day Years [...] Description 06/23/2025 3:30 PM CDT Office Visit [facility] Francie [address] [place] [address] Eloy Singh MD [address] [facility] [place] [address] documented as of this encounter Goals Goal [...] Parent to continue with medical specialties within [place] and [facility] 2. Parent to continue with [...] Noted Time PHQ-9 Depression Total Score: 18 10/2 022 1:59 PM CDT documented as of this encounter Care Teams Manager Product Support Relationship Specialty Start Date End Date Rachel Crum MD PCP - General Pediatrics 07/04/12 02/13/23 Marcus Stephens MD 717 [facility] 370 [place] [address] PCP - General Pediatrics 02/14/23 12/22/24 [place] [address] [place] [address] [place] [address] PCP - General Internal Medicine - Pediatrics 12/23/24 Rachel Crum MD Assigned PCP 11/11/18 04/26/23 Estelle Calvillo MD [address] [place], [place] 199[address] [place] [address] manager commodities & Neurology - Child & Adolescent Psychiatry 05/24/19 Twan Patrick MD [address] [place] [address] 200 [place], [place] [address] Assigned Pediatric Specialist Provider 12/11/21 04/26/23 Zulema Parrish, [facility] Lead Voice Professor 07/04/22 01/27/23 Estelle Calvillo MD [address] [place] [address] [address] [place], [place] 274804 Assigned Behavioral Health Provider 07/02/22 06/15/23 Erin Fernandez, [facility] [address] [place] [address] [place] [id number] Pharmacist Pharmacist 12/22/22 10/25/23 Erin Fernandez, [facility] [address] [place] [address] Assigned MTM Pharmacist 12/31/22 Jyoti Sotomayor, [facility] [address] [place] [address] Pharmacist Pharmacist 03/08/23 [facility] [address] [place], [place] [address]284 Assigned MTM Pharmacist 03/11/23 Marcus Stephens MD [address] [place] [address] Assigned PCP 04/27/23 Twan Patrick MD [address] [place], [place] [address] Assigned Pediatric Specialist Provider 05/05/23 06/15/23 Rashmi Isaac MD [address] [place], [place] [address] Assigned Behavioral Health Provider 06/16/23 Sara Jara, RN Clinic Voice Professor 12/25/24 documented as of this encounter
--- OUTSIDE RECORDS SUMMARY | 2025-01-12 09:41 | XMS_ITS | Encounter Summary ---
Author Organization [place] Address [address] [place] [address] Care Team Providers Care Etl Bi Developer Name Role Phone Rachel Crum MD Primary Care Provid er Rachel Crum MD Unavailable + [phone] Estelle Calvillo MD Unavailable Twan Patrick MD Unavailable +[phone] Zulema Parrish [facility] Unavailable Unavaila Estelle Schaeffer MD Unavailable Erin Fernandez [facility] Unavailable +[phone] Erin Fernandez [facility] Unavailable [phone] Marcus Stephens MD Primary Care Provider +[phone] Jyoti Sotomayor [facility] Unavailable + [phone] Jyoti Sotomayor [facility] Unavailable + [phone] Marcus Stephens MD Unavailable Twan Patrick MD Unavailable +[phone] Rashmi Isaac MD Unavailable +[phone] Eloy Singh MD Primary Care Provider +[phone] Sara Jara RN Unavailable +[phone] Encounter Details Date Type Department Care Team (Late st Contact Info) Description 08/18/2022 [facility] [address] [place] [address] Saul Ruelas Social History Tobacco Use Types [...] Description 06/23/2025 3:30 PM CDT Office Visit [facility] Francie [address] [place] [address] Eloy Singh MD 3305 [facility] [place] [address] documented as of this encounter Goals Goal [...] documented as of this encounter Care Teams Etl Bi Developer Relationship Specialty Start Date End Date Rachel Crum MD PCP - General Pediatrics 07/04/12 02/13/23 Marcus Stephens MD 717 [facility] 370 [place] [address] PCP - General Pediatrics 02/14/23 12/22/24 Eloy Singh MD 3305 [facility] [place] [address] PCP - General Internal Medicine - Pediatrics 12/23/24 Rachel Crum MD Assigned PCP 11/11/18 04/26/23 Estelle Calvillo MD [address] [facility] [address] [place], [place] [address] operations lead & Neurology - Child & Adolescent Psychiatry 05/24/19 Twan Patrick MD [address] [facility] [address] [facility] 200 [place], [place] 5[address]34 Assigned Pediatric Specialist Provider 12/11/21 04/26/23 Zulema Parrish, MARGI Lead Cleaning Handyman 07/04/22 01/27/23 Estelle Calvillo MD [address] [place] [address] F275 [place] [address] Assigned Behavioral Health Provider 07/02/22 06/15/23 Erin Fernandez [facility] [address] [address] [id number] Pharmacist Pharmacist 12/22/22 10/25/23 Erin Fernandez [facility] [address] [id number] Assigned MTM Pharmacist 12/31/22 Jyoti Sotomayor [facility] 2450 [facility] [address] [place], [place] [address] Pharmacist Pharmacist 03/08/23 Jyoti Sotomayor [facility] 2450 [facility] [address] [place], [place] 330334 Assigned MTM Pharmacist 03/11/23 Marcus Stephens MD 717 [facility] [address] 370 [place], [place] [address] Assigned PCP 04/27/23 Twan Patrick MD [address] [facility] [address] [place] [address] Assigned Pediatric Specialist Provider 05/05/23 06/15/23 aRshmi Isaac MD 2312 [address] [facility] [address] [place], [place] 82[address] Assigned Behavioral Health Provider 06/16/23 Sara Jara, RN Clinic Cleaning Handyman 12/25/24 documented as of this encounter
--- OUTSIDE RECORDS SUMMARY | 2025-01-12 09:41 | XMS_ITS | Encounter Summary ---
Author Organization [place] Address [address] [place] [address] Care Team Providers Care Senior Ui Designer Name Role Phone Rachel Crum MD Primary Care Provid er Rachel Crum MD Unavailable + [phone] Estelle Calvillo MD Unavailable Twan Patrick MD Unavailable +[phone] Zulema Parrish [facility] Unavailable Unavaila Estelle Schaeffer MD Unavailable Erin Fernandez [facility] Unavailable +[phone] Erin Fernandez [facility] Unavailable +[phone] Marcus Stephens MD Primary Care Provider +[phone] Jyoti Sotomayor [facility] Unavailable + [phone] Jyoti Sotomayor [facility] Unavailable + [phone] Marcus Stephens MD Unavailable Twan Patrick MD Unavailable +[phone] Rashmi Isaac MD Unavailable +[phone] Eloy Singh MD Primary Care Provider +[phone] Sara Jara RN Unavailable +[phone] Encounter Details Date Type Department Care Team (Late st Contact Info) Description 07/21/2022 MyC Medical Advice [facility] 2024 [place] [address] Estelle Calvillo MD [address] [place] [address] Social History Tobacco Use Types Packs/Day Years [...] Description 06/23/2025 3:30 PM CDT Office Visit [facility] Francie [address] [place] [phone] Eloy Singh MD [address] [facility] [place] [address] documented as of this encounter Goals Goal [...] Parent to continue with medical specialties within [place] and [facility] 2. Parent to continue with [...] Noted Time PHQ-9 Depression Total Score: 18 01/20/2 022 1:59 PM CDT documented as of this encounter Care Teams Senior Ui Designer Relationship Specialty Start Date End Date Rachel Crum MD PCP - General Pediatrics 07/04/12 02/13/23 Marcus Stephens MD 717 [facility] 370 [place] [address] PCP - General Pediatrics 02/14/23 12/22/24 [place] [address] [place] [address] [place] [address] PCP - General Internal Medicine - Pediatrics 12/23/24 Rachel Crum MD Assigned PCP 11/11/18 04/26/23 Estelle Calvillo MD [address] [place], [place] [id number] [place] [address] data systems manager & Neurology - Child & Adolescent Psychiatry 05/24/19 Twan Patrick MD [address] [place] [address] 200 [place], [place] 033984 Assigned Pediatric Specialist Provider 12/11/21 04/26/23 Zulema Parrish, [facility] Lead Butter Maker 07/04/22 01/27/23 Estelle Calvillo MD [address] [place] [address] [address] [place], [place] 166694 Assigned Behavioral Health Provider 07/02/22 06/15/23 Erin Fernandez, [facility] [address] [place] [address] [place] [id number] Pharmacist Pharmacist 12/22/22 10/25/23 Erin Fernandez, [facility] [address] [place] [address] Assigned MTM Pharmacist 12/31/22 Jyoti Sotomayor, [facility] [address] [place] [address] Pharmacist Pharmacist 03/08/23 [facility] [address] [place], [place] 612124 Assigned MTM Pharmacist 03/11/23 Marcus Stephens MD [address] [place] [address] Assigned PCP 04/27/23 Twan Patrick MD [address] [place], [place] [address] Assigned Pediatric Specialist Provider 05/05/23 06/15/23 Rashmi Isaac MD [address] [place], [place] 361484 Assigned Behavioral Health Provider 06/16/23 Sara Jara, RN Clinic Butter Maker 12/25/24 documented as of this encounter
--- OUTSIDE RECORDS SUMMARY | 2025-01-12 09:41 | XMS_ITS | Encounter Summary ---
Author Organization [place] Address [address] [place] [address] Care Team Providers Care Cooling Tower Technician Name Role Phone Rachel Crum MD Primary Care Provid er Rachel Crum MD Unavailable + [phone] Estelle Calvillo MD Unavailable Estelle Calvillo MD Unavailable Jose Hartman CONSULTING UTILITY FORESTER TURN DOWN WORKER Unavailable Lexii Wray RN Unavailable Twan Patrick MD Unavailable +[phone] Zulema Parrish [facility] Unavailable Unavaila Estelle Schaeffer MD Unavailable Erin Fernandez [facility] Unavailable +[phone] Erin Fernandez [facility] Unavailable +[phone] Marcus Stephens MD Primary Care Provider +[phone] Jyoti Sotomayor [facility] Unavailable + [phone] Jyoti Sotomayor [facility] Unavailable +[phone] Marcus Stephens MD Unavailable Twan Patrick MD Unavailable +[phone] Rashmi Isaac MD Unavailable [phone] Eloy Singh MD Primary Care Provider [phone] Sara Jara RN Unavailable [phone] Reason for Visit * Reason Onset Date Comments Refill Request 07/31/2019 risperidone and guanfacine Encounter Details Date Type Department Care Team (Late st Contact Info) Description 07/31/2019 MyC Refill [facility] [place] [id number] [address] [address] Estelle Calvillo MD [address] [place] [id number] [place] [address] Refill Request (risperidone and guanfacine) Social History [...] 06/23/2025 3:30 PM CDT Office Visit [facility] Francie [address] [place] [address] Drive [address] [place] [address] Eloy Singh MD [address] [place] [place] [address] [place] [id number] documented as of this encounter Visit Diagnoses Diagnosis Autism Autistic disorder, current or active state Anxiety Anxiety state, unspecified documented in this encounter Additional Health Concerns Infection Onset Date Last Indicated Resolved Time Rule Out COVID-19 12/11/2022 12/11/2022 12/12/2022 1:24 PM CDT Rule Out Rubella 07/16/2024 07/16/2024 07/17/2024 12:31 PM CDT documented as of this encounter Care Teams Cooling Tower Technician Relationship Specialty Start Date End Date Rachel Crum MD PCP - General Pediatrics 07/04/12 02/13/23 Marcus Stephens MD [address] [place] [address] PCP - General Pediatrics 02/14/23 12/22/24 Eloy Singh MD [address] [place] [place] [address] [place] [address] PCP - General Internal Medicine - Pediatrics 12/23/24 Rachel Crum MD Assigned PCP 11/11/18 04/26/23 Estelle Calvillo MD [address] [place] [address] 823774 rn mobile & Neurology - Child & Adolescent Psychiatry 05/24/19 Estelle Calvillo MD [address] [place] [address] 038874 Assigned Behavioral Health Provider 01/24/20 05/13/22 Jose Hartman APRN [facility] [address] [place] [address] [id number] Assigned Pediatric Specialist Provider 01/24/20 09/05/20 Lexii Wray RN Lead Bakery Machine Mechanic Primary Care - CC 08/14/20 Twan Patrick MD [address] [facility] 200 [place], [place] 095364 Assigned Pediatric Specialist Provider 12/11/21 04/26/23 Zulema Parrish LGSW Lead Bakery Machine Mechanic 07/04/22 01/27/23 Estelle Calvillo MD [address] [place] [address] 745464 Assigned Behavioral Health Provider 07/02/22 06/15/23 Erin Fernandez [facility] [address] [place] [address] Pharmacist Pharmacist 12/22/22 10/25/23 Erin Fernandez [facility] [address] [place] [address] Assigned MTM Pharmacist 12/31/22 Jyoti Sotomayor [facility] 2450 [facility] [address] [place] [address] Pharmacist Pharmacist 03/08/23 Jyoti Sotomayor [facility] 2450 [facility] [address] [place] [address] Assigned MTM Pharmacist 03/11/23 Marcus Stephens MD [address] [facility] [address] [place] [address] Assigned PCP 04/27/23 Twan Patrick MD 701 [facility] [address] [address] [place], [place] 932734 Assigned Pediatric Specialist Provider 05/05/23 06/15/23 Rashmi Isaac MD [address] [facility] [address] [place], [place] 040034 Assigned Behavioral Health Provider 06/16/23 Sara Jara, RN Clinic Bakery Machine Mechanic 12/25/24 documented as of this encounter
--- OUTSIDE RECORDS SUMMARY | 2025-01-12 09:41 | XMS_ITS | Encounter Summary ---
Author Organization [place] Address [address] [place] [address] Care Team Providers Care Rework Operator Name Role Phone Rachel Crum MD Primary Care Provid er Rachel Crum MD Unavailable + [phone] Estelle Calvillo MD Unavailable Estelle Calvillo MD Unavailable Jose Hartman [facility] Unavailable Lexii Wray RN Unavailable [phone] Twan Patrick MD Unavailable +[phone] Zulema Parrish [facility] Unavailable Unavaila Estelle Schaeffer MD Unavailable Erin Fernandez [facility] Unavailable +[phone] Erin Fernandez [facility] Unavailable [phone] Marcus Stephens MD Primary Care Provider [phone] Jyoti Sotomayor [facility] Unavailable + [phone] Jyoti Sotomayor [facility] Unavailable +[phone] Marcus Stephens MD Unavailable Twan Patrick MD Unavailable +[phone] Rashmi Isaac MD Unavailable Eloy Singh MD Primary Care Provider [phone] Sara Jara RN Unavailable [phone] Reason for Visit * Reason Comments Medication Refill Encounter Details Date Type Department Care Team (Late st Contact Info) Description 08/13/2019 Refill [facility]5 [place] [address] Rachel Crum MD 1021 [facility] E [facility] 100 [place], [place] [id number] Medication Refill Social History Tobacco Use Types [...] Visit [facility] Francie [address] [place] [phone] [place] [address] [place] [address] [place] [id number] documented as of this encounter Visit Diagnoses Diagnosis Other sinusitis, unspecified chronicity documented in this encounter Additional Health Concerns Infection Onset Date Last Indicated Resolved Time Rule Out COVID-19 12/11/2022 12/11/2022 12/12/2022 1:24 PM CDT Rule Out Rubella 07/16/2024 07/16/2024 07/17/2024 12:31 PM CDT documented as of this encounter Care Teams Rework Operator Relationship Specialty Start Date End Date Rachel Crum MD PCP - General Pediatrics 07/04/12 02/13/23 Marcus Stephens MD [address] [place] [address] 378085 PCP - General Pediatrics 02/14/23 12/22/24 Eloy Singh MD [address] [place] [address] [place] [address] PCP - General Internal Medicine - Pediatrics 12/23/24 Rachel Crum MD Assigned PCP 11/11/18 04/26/23 Estelle Calvillo MD [address] [place] [address] 100124 assistant front end manager & Neurology - Child & Adolescent Psychiatry 05/24/19 Estelle Calvillo MD [facility] [address] 508[address] Assigned Behavioral Health Provider 01/24/20 05/13/22 Jose Hartman APRN [facility] [address] [place] [address] Assigned Pediatric Specialist Provider 01/24/20 09/05/20 Lexii Wray, RN Lead Mix Technician Primary Care - CC 08/14/20 Twan Patrick MD [address] [facility] [address] [place] [address] Assigned Pediatric Specialist Provider 12/11/21 04/26/23 Zulema Parrish LGSW Lead Mix Technician 07/04/22 01/27/23 Estelle Calvillo MD [address] [place] [address] [address] [place], [place] 366114 Assigned Behavioral Health Provider 07/02/22 06/15/23 Erin Fernandez [facility] [address] [place] [address] Pharmacist Pharmacist 12/22/22 10/25/23 Erin Fernandez, [facility] [address] [place] [address] Assigned MTM Pharmacist 12/31/22 Jyoti Sotomayor [facility] 2450 [facility] [address] [place], [place] 6[address] Pharmacist Pharmacist 03/08/23 Jyoti Sotomayor [facility] 2450 [facility] [address] [place] [address] Assigned MTM Pharmacist 03/11/23 Marcus Stephens MD 717 [facility] 370 [place] [address] Assigned PCP 04/27/23 Twan Patrick MD [address] [place] [address] 200 [place] [address] Assigned Pediatric Specialist Provider 05/05/23 06/15/23 Rashmi Isaac MD [address] [place] [address] Assigned Behavioral Health Provider 06/16/23 Sara Jara, RN Clinic Mix Technician 12/25/24 documented as of this encounter
--- OUTSIDE RECORDS SUMMARY | 2025-01-12 09:41 | XMS_ITS | Encounter Summary ---
Author Organization [place] Address [address] [place] [address] Care Team Providers Care Computer Architect Name Role Phone Rachel Crum MD Primary Care Provid er Rachel Crum MD Unavailable + [phone] Estelle Calvillo MD Unavailable Twan Patrick MD Unavailable +[phone] Zulmea Parrish [facility] Unavailable Unavaila Estelle Schaeffer MD Unavailable Erin Fernandez [facility] Unavailable +[phone] Erin Fernandez [facility] Unavailable +[phone] Marcus Stephens MD Primary Care Provider +[phone] Jyoti Sotomayor [facility] Unavailable + [phone] Jyoti Sotomayor [facility] Unavailable + [phone] Marcus Stephens MD Unavailable Twan Patrick MD Unavailable +[phone] Rashmi Isaac MD Unavailable +[phone] Eloy Singh MD Primary Care Provider [phone] Sara Jara RN Unavailable [phone] Encounter Details Date Type Department Care Team (Late st Contact Info) Description 08/15/2022 MyC Medical Advice [facility] 2450 [facility] [address],[place] [address] Tamra Velasquez Social History Tobacco Use Types [...] slept in a retirement (including now)? No 02/09/2022 Sex and Gender [...] Description 06/23/2025 3:30 PM CDT Office Visit [facility] Francie [address] [facility] [address] [place] [phone] [place] [address] [place] [address] [place] [address] documented as of this encounter Goals Goal [...] as of this encounter Care Teams Computer Architect Relationship Specialty Start Date End Date Rachel Crum MD PCP - General Pediatrics 07/04/12 02/13/23 Marcus Stephens MD 717 [facility] 370 [place], [place] 220955 PCP - General Pediatrics 02/14/23 12/22/24 Eloy Singh MD 3305 [facility] [place] [id number] PCP - General Internal Medicine - Pediatrics 12/23/24 Rachel Crum MD Assigned PCP 11/11/18 04/26/23 Estelle Calvillo MD [address] [place] [address] [address]275 [place] [address] sack sorter & Neurology - Child & Adolescent Psychiatry 05/24/19 Twan Patrick MD [address] [facility] 200 [place], [place] 827774 Assigned Pediatric Specialist Provider 12/11/21 04/26/23 Zulema Parrish LGSW Lead Dough Puncher 07/04/22 01/27/23 Estelle Calvillo MD [address] [place] [address] [address]275 [place] [address] Assigned Behavioral Health Provider 07/02/22 06/15/23 Erin Fernandez [facility] [address] [id number] Pharmacist Pharmacist 12/22/22 10/25/23 Erin Fernandez [facility] [address] [place] [address] [id number] Assigned MTM Pharmacist 12/31/22 Jyoti Sotomayor [facility] 2450 [facility] [address] [place], [place] 481704 Pharmacist Pharmacist 03/08/23 Jyoti Sotomayor [facility] 2450 [facility] [address] [place] [address] Assigned MTM Pharmacist 03/11/23 Marcus Stephens MD 717 [facility] [address] [place], [place] 202475 Assigned PCP 04/27/23 Twan Patrick MD [address] [facility] [address] [place], [place] 516444 Assigned Pediatric Specialist Provider 05/05/23 06/15/23 Rashmi Isaac MD [address] [facility] [address] [place], [place] 723144 Assigned Behavioral Health Provider 06/16/23 Sara Jara, RN Clinic Dough Puncher 12/25/24 documented as of this encounter
--- OUTSIDE RECORDS SUMMARY | 2025-01-12 09:41 | XMS_ITS | Encounter Summary ---
Author Organization [place] Address [address] [place] [address] Care Team Providers Care Client Portfolio Manager Name Role Phone Rachel Crum MD Primary Care Provid er Rachel Crum MD Unavailable + [phone] Estelle Calvillo MD Unavailable Esetlle Calvillo MD Unavailable Jose Hartman RIG HAND PATHOLOGY TECH Unavailable Lexii Wray RN Unavailable [phone] Twan Patrick MD Unavailable +[phone] Zulema Parrish [facility] Unavailable Unavaila Estelle Schaeffer MD Unavailable Erin Fernandez [facility] Unavailable [phone] Erin Fernandez [facility] Unavailable +[phone] Marcus Stephens MD Primary Care Provider +[phone] Jyoti Sotomayor [facility] Unavailable + [phone] Jyoti Sotomayor [facility] Unavailable +[phone] Marcus Stephens MD Unavailable Twan Patrick MD Unavailable +[phone] Rashmi Isaac MD Unavailable Eloy Singh MD Primary Care Provider [phone] Sara Jara RN Unavailable +[phone] Encounter Details Date Type Department Care Team (Late st Contact Info) Description 05/20/2019 MyC Medical Advice [facility] 25[address] [place] [address] Rachel Crum MD 1021 [facility] E [facility] 100 [place], [place] [id number] Social History Tobacco Use Types Packs/Day Years [...] Description 06/23/2025 3:30 PM CDT [facility] [address] [place] [address] Drive [address] [place] [address] Eloy Singh MD [address] [place] [address] [place] [address] documented as of this encounter Visit Diagnoses Not on filedocumented in this encounter Additional Health Concerns Infection Onset Date Last Indicated Resolved Time Rule Out COVID-19 12/11/2022 12/11/2022 12/12/2022 1:24 PM CDT Rule Out Rubella 07/16/2024 07/16/2024 07/17/2024 12:31 PM CDT documented as of this encounter Care Teams Client Portfolio Manager Relationship Specialty Start Date End Date Rachel Crum MD PCP - General Pediatrics 07/04/12 02/13/23 Marcus Stephens MD 717 [facility] 370 [place], [place] [address] PCP - General Pediatrics 02/14/23 12/22/24 Eloy Singh MD [address] [facility] [place] [address] PCP - General Internal Medicine - Pediatrics 12/23/24 Rachel Crum MD Assigned PCP 11/11/18 04/26/23 Estelle Calvillo MD [address] [place] [address] [address] [place], [place] 618604 parquetry layer & Neurology - Child & Adolescent Psychiatry 05/24/19 Estelle Calvillo MD [address] [place] [address] F275 [place] [address] Assigned Behavioral Health Provider 01/24/20 05/13/22 Jose Hartman APRN PATHOLOGY TECH [address] [place] [address] 441847 Assigned Pediatric Specialist Provider 01/24/20 09/05/20 Lexii Wray, RN Lead Curb Setter Primary Care - CC 08/14/20 Twan Patrick MD [address] [place] [address] 200 [place] [address] Assigned Pediatric Specialist Provider 12/11/21 04/26/23 Zulema Parrish LGSW Lead Curb Setter 07/04/22 01/27/23 Estelle Calvillo MD 2312 S [facility] [address] [place], [place] 212724 Assigned Behavioral Health Provider 07/02/22 06/15/23 Erin Fernandez, [facility] [address] [id number] Pharmacist Pharmacist 12/22/22 10/25/23 Erin Fernandez, [facility] [address] [id number] Assigned MTM Pharmacist 12/31/22 Jyoti Sotomayor, [facility] 2450 [facility] [address] [place], [place] 203044 Pharmacist Pharmacist 03/08/23 Jyoti Sotomayor, [facility] 2450 [facility] [address] [place] [address] Assigned MTM Pharmacist 03/11/23 Marcus Stephens MD [address] [facility] [address] [place] [address] Assigned PCP 04/27/23 Twan Patrick MD [address] [facility] [address] [place] [address] Assigned Pediatric Specialist Provider 05/05/23 06/15/23 Rashmi Isaac MD [address] [place] [address] Assigned Behavioral Health Provider 06/16/23 Sara Jara, RN Clinic Curb Setter 12/25/24 documented as of this encounter
--- OUTSIDE RECORDS SUMMARY | 2025-01-12 09:41 | XMS_ITS | Encounter Summary ---
Author Organization [place] Address [address] [place] [address] Care Team Providers Care Cleaner Wall Name Role Phone Rachel Crum MD Primary Care Provid er Rachel Crum MD Unavailable + [phone] Rachel Crum MD Unavailable + [phone] Santos Guerrero MD Unavailable [phone] Rachel Crum MD Unavailable + [phone] Estelle Calvillo MD Unavailable Estelle Calvillo MD Unavailable Jose Hartman GUN NUMBER CONTAMINATION CONSULTANT Unavailable Lexii Wray RN Unavailable [phone] Twan Patrick MD Unavailable +[phone] Zulema Parrish [facility] Unavailable Unavaila ble Estelle Calvillo MD Unavailable Erin Fernandez [facility] Unavailable +[phone] Erin Fernandez [facility] Unavailable +[phone] Marcus Stephens MD Primary Care Provider Jyoti Sotomayor [facility] Unavailable + [phone] Jyoti Sotomayor [facility] Unavailable + [phone] Marcus Stephens MD Unavailable Twan Patrick MD Unavailable +[phone] Rashmi Isaac MD Unavailable +[phone] Eloy Singh MD Primary Care Provider Sara Jara RN Unavailable +[phone] Encounter Details Date Type Department Care Team (Late st Contact Info) Description 05/30/2014 MyC Medical Advice [facility] [address] [place] [address] Monae Piña LICSW Social History [...] Description 06/23/2025 3:30 PM CDT Office Visit [facility] Francie [address] [place] [address] [address] [place] [address] Eloy Singh MD [address] [place] [address] [place] [address] documented as of this encounter Visit Diagnoses Not on filedocumented in this encounter Additional Health Concerns Infection Onset Date Last Indicated Resolved Time Rule Out COVID-19 12/11/2022 12/11/2022 12/12/2022 1:24 PM CDT Rule Out Rubella 07/16/2024 07/16/2024 07/17/2024 12:31 PM CDT documented as of this encounter Care Teams Cleaner Wall Relationship Specialty Start Date End Date Rachel Crum MD PCP - General Pediatrics 07/04/12 02/13/23 Rachel Crum MD [address] [place], [place] [id number] PCP - Assigned PCP 05/22/16 06/05/18 Marcus Stephens MD 717 [facility] 370 [place] [address] PCP - General Pediatrics 02/14/23 12/22/24 Eloy Singh MD [address] [facility] [place] [address] PCP - General Internal Medicine - Pediatrics 12/23/24 Rachel Crum MD [address] [facility] 100 [place] [address] Assigned PCP 05/22/16 06/09/18 [place] [address] [place] [address] Assigned PCP 07/01/18 11/10/18 Rachel Crum MD Assigned PCP 11/11/18 04/26/23 Estelle Calvillo MD [address] [place] [address] clerk telegraph service & Neurology - Child & Adolescent Psychiatry 05/24/19 Estelle Calvillo MD [address] [place] [address] Assigned Behavioral Health Provider 01/24/20 05/13/22 Jose Hartman APRN CNP [address] [place], [place] [address] [address] Assigned Pediatric Specialist Provider 01/24/20 09/05/20 Lexii Wray, JOHN Lead Sql Engineer Primary Care - CC 08/14/20 Twan Patrick MD [address] [place] [address] 200 [place], [place] 493794 Assigned Pediatric Specialist Provider 12/11/21 04/26/23 Zulema Parrish LGSW Lead Sql Engineer 07/04/22 01/27/23 [place] [address] [place] [address] [address]275 [place] [address] Assigned Behavioral Health Provider 07/02/22 06/15/23 Erin Fernandez [facility] [address] [place] [place] [address] Pharmacist Pharmacist 12/22/22 10/25/23 Erin Fernandez [facility] [address] [place] [place] [address] Assigned MTM Pharmacist 12/31/22 Jyoti Sotomayor Edin [address] [place] [address] [address] [place] [address] Pharmacist Pharmacist 03/08/23 Jyoti Sotomayor [facility] [address] [place], [place] 698734 Assigned MTM Pharmacist 03/11/23 Marcus Stephens MD [address] [place], [place] [address]285 Assigned PCP 04/27/23 Twan Patrick MD 701 [facility] [address] 200 [place], [place] 172334 Assigned Pediatric Specialist Provider 05/05/23 06/15/23 Rashmi Isaac MD 2312 S [facility] [address] [place], [place] 433624 Assigned Behavioral Health Provider 06/16/23 Sara Jara, RN Clinic Sql Engineer 12/25/24 documented as of this encounter
--- OUTSIDE RECORDS SUMMARY | 2025-01-12 09:41 | XMS_ITS | Encounter Summary ---
Author Organization [place] Address [address] [place] [address] Care Team Providers Care Slide Machine Tender Name Role Phone Rachel Crum MD Primary Care Provid er Rachel Crum MD Unavailable + [phone] Estelle Calvillo MD Unavailable Estelle Calvillo MD Unavailable Twan Patrick MD Unavailable +[phone] Zulema Parrish [facility] Unavailable Unavaila Estelle Schaeffer MD Unavailable Erin Fernandez [facility] Unavailable +[phone] Erin Fernandez [facility] Unavailable +[phone] Marcus Stephens MD Primary Care Provider [phone] Jyoti Sotomayor [facility] Unavailable +[phone] Jyoti Sotomayor [facility] Unavailable +[phone] Marcus Stephens MD Unavailable Twan Patrick MD Unavailable +[phone] Rashmi Isaac MD Unavailable + [phone] Eloy Singh MD Primary Care Provider +[phone] Sara Jara RN Unavailable +[phone] Encounter Details Date Type Department Care Team (Late st Contact Info) Description 07/30/2021 MyC Medical Advice [place] [id number] [place] [address] Rachel Crum MD [address] [place], [place] [id number] Social History Tobacco Use Types Packs/Day Years [...] Miscellaneous Notes * Telephone Encounter - Arlette Booth, RN - 07/30/2021 3:56 PM CDT documented in this encounter Plan of Treatment Upcoming Encounters Date Type Department Care Team (Late st Contact Info) Description 06/23/2025 3:30 PM CDT [facility] [address] [place] [address] Drive [address] [place] [address] Eloy Singh MD [address] [place] [address] [place] [id number] documented as of this encounter Visit Diagnoses Not on filedocumented in this encounter Additional Health Concerns Infection Onset Date Last Indicated Resolved Time Rule Out COVID-19 12/11/2022 12/11/2022 12/12/2022 1:24 PM CDT Rule Out Rubella 07/16/2024 07/16/2024 07/17/2024 12:31 PM CDT documented as of this encounter Care Teams Slide Machine Tender Relationship Specialty Start Date End Date Rachel Crum MD PCP - General Pediatrics 07/04/12 02/13/23 Marcus Stephens MD [address] [place] [address] PCP - General Pediatrics 02/14/23 12/22/24 Eloy Singh MD 3305 [facility] [place] [address] PCP - General Internal Medicine - Pediatrics 12/23/24 Rachel Crum MD Assigned PCP 11/11/18 04/26/23 Estelle Calvillo MD [address] [place] [address] [address] [place] [address] thermodynamics engineer & Neurology - Child & Adolescent Psychiatry 05/24/19 Estelle Calvillo MD [address] [place] [address] [place] [address] Assigned Behavioral Health Provider 01/24/20 05/13/22 Twan Patrick MD [address] [facility] 200 [place], [place] 368424 Assigned Pediatric Specialist Provider 12/11/21 04/26/23 Zulema Parrish [facility] Lead Plant Inspector 07/04/22 01/27/23 Estelle Calvillo MD [facility] [address] [place] [address] [address] [place] [address] Assigned Behavioral Health Provider 07/02/22 06/15/23 Erin Fernandez [facility] [address] [id number] Pharmacist Pharmacist 12/22/22 10/25/23 Erin Fernandez [facility] [address] [id number] Assigned MTM Pharmacist 12/31/22 Jyoti Sotomayor [facility] 2450 [facility] [address] [place], [place] [address] Pharmacist Pharmacist 03/08/23 Jyoti Sotomayor [facility] 2450 [facility] [address] [place] [address] Assigned MTM Pharmacist 03/11/23 Marcus Stephens MD 717 [facility] [address] 370 [place], [place] 400675 Assigned PCP 04/27/23 Twan Patrick MD [address] [facility] [address] 200 [place] [address] Assigned Pediatric Specialist Provider 05/05/23 06/15/23 Rashmi Isaac MD 2312 S [facility] [address] F[address] [place], [place] [address] Assigned Behavioral Health Provider 06/16/23 Sara Jara, RN Clinic Plant Inspector 12/25/24 documented as of this encounter
--- OUTSIDE RECORDS SUMMARY | 2025-01-12 09:41 | XMS_ITS | Encounter Summary ---
Author Organization [place] Address [address] [place] [address] Care Team Providers Care Workers Compensation Attorney Name Role Phone Rachel Crum MD Primary Care Provid er Rachel Crum MD Unavailable + [phone] Estelle Calvillo MD Unavailable Twan Patrick MD Unavailable +[phone] Zulema Parrish [facility] Unavailable Unavaila Estelle Schaeffer MD Unavailable Erin Fernandez [facility] Unavailable +[phone] Erin Fernandez [facility] Unavailable +[phone] Marcus Stephens MD Primary Care Provider [phone] Jyoti Sotomayor [facility] Unavailable + [phone] Jyoti Sotomayor [facility] Unavailable + [phone] Marcus Stephens MD Unavailable Twan Patrick MD Unavailable +[phone] Rashmi Isaac MD Unavailable [phone] Eloy Singh MD Primary Care Provider +[phone] Sara Jara RN Unavailable +[phone] Encounter Details Date Type Department Care Team (Late st Contact Info) Description 08/11/2022 MyC Medical Advice [facility] [place] [address] Camila Shelley Social History Tobacco Use [...] Description 06/23/2025 3:30 PM CDT Office Visit [facility] Francie [address] [place] [address] Eloy Singh MD 3305 [facility] [place] [address] documented as of this encounter Goals Goal [...] Parent to continue with medical specialties within [facility] and [facility] 2. Parent to continue with [...] Stephens MD 717 [facility] 370 [place] [address] PCP - General Pediatrics 02/14/23 12/22/24 Eloy Singh MD 3305 [facility] [place] [address] PCP - General Internal Medicine - Pediatrics 12/23/24 Rachle Crum MD Assigned PCP 11/11/18 04/26/23 Estelle Calvillo MD [address] [facility] F[address] [place], [place] 543134 elementary school art teacher & Neurology - Child & Adolescent Psychiatry 05/24/19 Twan Patrick MD [address] [facility] [address] [facility] 200 [place], [place] 977564 Assigned Pediatric Specialist Provider 12/11/21 04/26/23 Zulema Parrish, MARGI Lead Malware Analyst 07/04/22 01/27/23 Estelle Calvillo MD [address] [place] [address] [address]275 [place] [address] Assigned Behavioral Health Provider 07/02/22 06/15/23 Erin Fernandez [facility] [address] [id number] Pharmacist Pharmacist 12/22/22 10/25/23 Erin Fernandez [facility] [address] [id number] Assigned MTM Pharmacist 12/31/22 Jyoti Sotomayor [facility] 2450 [facility] F282 [place], [place] 120204 Pharmacist Pharmacist 03/08/23 Jyoti Sotomayor [facility] 2450 [facility] F[address] [place], [place] 228114 Assigned MTM Pharmacist 03/11/23 Marcus Stephens MD 717 [facility] [address] 370 [place], [place] 920285 Assigned PCP 04/27/23 Twan Patrick MD [address] [place], [place] [address]E S [address] 200 [place] [address] Assigned Pediatric Specialist Provider 05/05/23 06/15/23 Rashmi Isaac MD [address] [place], [place] 8669[address] Assigned Behavioral Health Provider 06/16/23 Sara Jara, RN Clinic Malware Analyst 12/25/24 documented as of this encounter
--- OUTSIDE RECORDS SUMMARY | 2025-01-12 09:41 | XMS_ITS | Encounter Summary ---
Author Organization [place] Address [address] [place] [address] Care Team Providers Care Information Technology Data Analyst Name Role Phone Rachel Crum MD Primary Care Provid er Rachel Crum MD Unavailable + [phone] Estelle Calvillo MD Unavailable Estelle Calvillo MD Unavailable Twan Patrick MD Unavailable +[phone] Zulema Parrish [facility] Unavailable Unavaila Estelle Schaeffer MD Unavailable Erin Fernandez [facility] Unavailable +[phone] Erin Fernandez [facility] Unavailable +[phone] Marcus Stephens MD Primary Care Provider [phone] Jyoti Sotomayor [facility] Unavailable +[phone] Jyoti Sotomayor [facility] Unavailable +[phone] Marcus Stephens MD Unavailable Twan Patrick MD Unavailable +[phone] Rashmi Isaac MD Unavailable + [phone] Eloy Singh MD Primary Care Provider +[phone] Sara Jara RN Unavailable +[phone] Reason for Visit * Reason Onset Date Comments Forms 07/01/2021 Encounter Details Date Type Department Care Team (Late st Contact Info) Description 07/01/2021 MyC Medical Advice [place] [address] [place] [phone] Rachel Crum MD [address] [facility] [address] [place] [address] Forms Social History Tobacco Use Types Packs/Day [...] 07/05/2021 9:04 AM CDT Forms received from [facility] for Rachel Crum M.D.. Forms placed in provider 'sign me' folder. Please UPLOAD forms to MY-CHART after completion. Beena Odom, Grade Setter documented in this encounter Plan of Treatment Upcoming Encounters Date Type Department Care Team (Late st Contact Info) Description 06/23/2025 3:30 PM CDT Office Visit [address] [place] [address] Eloy Singh MD [address] [place] [address] [place] [address] documented as of this encounter Visit Diagnoses Not on filedocumented in this encounter Additional Health Concerns Infection Onset Date Last Indicated Resolved Time Rule Out COVID-19 12/11/2022 12/11/2022 12/12/2022 1:24 PM CDT Rule Out Rubella 07/16/2024 07/16/2024 07/17/2024 12:31 PM CDT documented as of this encounter Care Teams Information Technology Data Analyst Relationship Specialty Start Date End Date Rachel Crum MD PCP - General Pediatrics 07/04/12 02/13/23 Marcus Stephens MD 717 [facility] [address] 370 [place] [address] PCP - General Pediatrics 02/14/23 12/22/24 Eloy Singh MD [address] [facility] [place] [address] PCP - General Internal Medicine - Pediatrics 12/23/24 Rachel Crum MD Assigned PCP 11/11/18 04/26/23 Estelle Calvillo MD [address] [facility] [address] [place] [address] machine printer hose & Neurology - Child & Adolescent Psychiatry 05/24/19 Estelle Calvillo MD [address] [place] [address] [address]275 [place], [place] 6[address] Assigned Behavioral Health Provider 01/24/20 05/13/22 Twan Patrick MD [address] [facility] [address] [facility] 200 [place], [place] 118504 Assigned Pediatric Specialist Provider 12/11/21 04/26/23 Zulema Parrish SURVEY INSTRUMENT OPERATOR Lead Screen Printer Helper 07/04/22 01/27/23 Estelle Calvillo MD [address] [place], [place] [address] [place] [address] Assigned Behavioral Health Provider 07/02/22 06/15/23 Erin Fernandez, [facility] 1440 [facility] [address] [place] [id number] Pharmacist Pharmacist 12/22/22 10/25/23 Erin Fernandez, [facility] [address]40 [place] [address] Assigned MTM Pharmacist 12/31/22 Jyoti Sotomayor, [facility] 2450 [facility] [address] [place], [place] [address] Pharmacist Pharmacist 03/08/23 [facility] [address]50 [place] [id number] [place], [place] 7[address]704 Assigned MTM Pharmacist 03/11/23 Marcus Stephens MD 717 [facility] [address] 370 [place] [address] Assigned PCP 04/27/23 Twan Patrick MD [address] [place] [address] [address] 200 [place], [place] 874334 Assigned Pediatric Specialist Provider 05/05/23 06/15/23 Rashmi Isaac MD [address] [place] [address] [address] [place], [place] 306664 Assigned Behavioral Health Provider 06/16/23 Sara Jara, RN Clinic Screen Printer Helper 12/25/24 documented as of this encounter
--- OUTSIDE RECORDS SUMMARY | 2025-01-12 09:41 | XMS_ITS | Encounter Summary ---
Author Organization [place] Address [address] [place] [address] Care Team Providers Care Chimney Mechanic Name Role Phone Rachel Crum MD Primary Care Provid er Rachel Crum MD Unavailable + [phone] Estelle Calvillo MD Unavailable Estelle Calvillo MD Unavailable Twan Patrick MD Unavailable +[phone] Zulema Parrish [facility] Unavailable Unavaila Estelle Schaeffer MD Unavailable Erin Fernandez [facility] Unavailable +[phone] Erin Fernandez [facility] Unavailable [phone] Marcus Stephens MD Primary Care Provider [phone] Jyoti Sotomayor [facility] Unavailable +[phone] Jyoti Sotomayor [facility] Unavailable +[phone] Marcus Stephens MD Unavailable Twan Patrick MD Unavailable +[phone] Rashmi Isaac MD Unavailable + [phone] Eloy Singh MD Primary Care Provider +[phone] Sara Jara RN Unavailable +[phone] Reason for Visit * Reason Onset Date Comments schedule pre op 06/14/2021 Encounter Details Date Type Department Care Team (Late st Contact Info) Description 06/14/2021 MyC Medical Advice [place] [address] [place] [address] Rachel Crum MD 1021 [facility] [address] 100 [place] [address] schedule pre op Social History Tobacco Use [...] slept in a mcc (including now)? No 09/24/2020 Sex and Gender [...] Description 06/23/2025 3:30 PM CDT Office Visit [facility] Francie [address] [place] [address] Drive [address] [place] [phone] Eloy Singh MD [address] [place] [address] [place]ON [address] documented as of this encounter Visit Diagnoses Not on filedocumented in this encounter Additional Health Concerns Infection Onset Date Last Indicated Resolved Time Rule Out COVID-19 12/11/2022 12/11/2022 12/12/2022 1:24 PM CDT Rule Out Rubella 07/16/2024 07/16/2024 07/17/2024 12:31 PM CDT documented as of this encounter Care Teams Chimney Mechanic Relationship Specialty Start Date End Date Rachel Crum MD PCP - General Pediatrics 07/04/12 02/13/23 Marcus Stephens MD [address] [address] PCP - General Pediatrics 02/14/23 12/22/24 Eloy Singh MD [address] [place] [address] [place] [address] PCP - General Internal Medicine - Pediatrics 12/23/24 Rachel Crum MD Assigned PCP 11/11/18 04/26/23 Estelle Calvillo MD [address] [place] [address] F275 [place], [place] 136084 head cook & Neurology - Child & Adolescent Psychiatry 05/24/19 Estelle Calvillo MD [address] [place] [address] 341764 Assigned Behavioral Health Provider 01/24/20 05/13/22 Twan Patrick MD [address] [place] [address] 200 [place], [place] 814504 Assigned Pediatric Specialist Provider 12/11/21 04/26/23 Zulema Parrish COMPUTER SYSTEMS SOFTWARE ENGINEER Lead Templer Head 07/04/22 01/27/23 Estelle Calvillo MD [address] [place] [address] Assigned Behavioral Health Provider 07/02/22 06/15/23 Erin Fernandez [facility] [address] [id number] Pharmacist Pharmacist 12/22/22 10/25/23 Erin Fernandez [facility] [address] [id number] Assigned MTM Pharmacist 12/31/22 Jyoti Sotomayor [facility] 2450 [facility] [address] [place] [address] Pharmacist Pharmacist 03/08/23 Jyoti Sotomayor [facility] [address] [place] [address] Assigned MTM Pharmacist 03/11/23 Marcus Stephens MD 717 [facility] [address]OSH 370 [place] [address] Assigned PCP 04/27/23 Twan Patrick MD [address] [facility] [address] 200 [place] [address] Assigned Pediatric Specialist Provider 05/05/23 06/15/23 Rashmi Isaac MD [address] [place] [address] Assigned Behavioral Health Provider 06/16/23 Sara Jara RN Clinic Templer Head 12/25/24 documented as of this encounter
--- OUTSIDE RECORDS SUMMARY | 2025-01-12 09:41 | XMS_ITS | Encounter Summary ---
Author Organization [place] Address [address] [place] [address] Care Team Providers Care Density Control Puncher Name Role Phone Estelle Calvillo MD Unavailable Estelle Calvillo MD Unavailable Erin Fernandez [facility] Unavailable +[phone] Marcus Stephens MD Primary Care Provider +[phone] Jyoti Sotomayor [facility] Unavailable + [phone] Jyoti Sotomayor [facility] Unavailable + [phone] Marcus Stephens MD Unavailable Twan Patrick MD Unavailable +[phone] Rashmi Isaac MD Unavailable [phone] Eloy Singh MD Primary Care Provider [phone] Sara Jara RN Unavailable +[phone] Encounter Details Date Type Department Care Team (Late st Contact Info) Description 06/13/2023 [facility] Medical Advice [facility] 2024 [place] [address] Rashmi Isaac MD [address] [facility] F[address] [place] [address] Social History Tobacco Use Types [...] in an overnight retirement, or couch-surfing.) Yes 06/12/2023 Are you worried [...] Description 06/23/2025 3:30 PM CDT Office Visit [facility] Francie [address] [facility] [address] [place] [address] Eloy Singh MD 3305 [facility] [place] [address] documented as of this encounter Goals Goal [...] documented as of this encounter Care Teams Density Control Puncher Relationship Specialty Start Date End Date Marcus Stephens MD [address] [place] [address] 370 [place] [address] PCP - General Pediatrics 02/14/23 12/22/24 Eloy Singh MD [address] [place] [address] [place] [address] PCP - General Internal Medicine - Pediatrics 12/23/24 Estelle Calvillo MD [address] [place] [address] F275 [place] [address] environmental services manager & Neurology - Child & Adolescent Psychiatry 05/24/19 Estelle Calvillo MD [address] [address] [place] [address] Assigned Behavioral Health Provider 07/02/22 06/15/23 Erin Fernandez, [facility] [address] [place] [id number] Pharmacist Pharmacist 12/22/22 10/25/23 [facility] [address] [place], [place] 57[address] Pharmacist Pharmacist 03/08/23 [facility] [address] [place], [place] [address] Assigned MTM Pharmacist 03/11/23 Marcus Stephens MD [address] [place], [place] 55[address] Assigned PCP 04/27/23 Twan Patrick MD [address] [place], [place] 252864 Assigned Pediatric Specialist Provider 05/05/23 06/15/23 Rashmi Isaac MD [address] [place] [place], [place] 347614 Assigned Behavioral Health Provider 06/16/23 Sara Jara, RN Clinic Ship Keeper 12/25/24 documented as of this encounter
--- OUTSIDE RECORDS SUMMARY | 2025-01-12 09:42 | XMS_ITS | Encounter Summary ---
Author Organization [place] Address [address] [place] [address] Care Team Providers Care Halal Butcher Name Role Phone Rachel Crum MD Primary Care Provid er Rachel Crum MD Unavailable + [phone] Estelle Calvillo MD Unavailable Estelle Calvillo MD Unavailable Twan Patrick MD Unavailable +[phone] Zulema Parrish [facility] Unavailable Unavaila Estelle Schaeffer MD Unavailable Erin Fernandez [facility] Unavailable +[phone] Erin Fernandez [facility] Unavailable [phone] Marcus Stephens MD Primary Care Provider [phone] Jyoti Sotomayor [facility] Unavailable +[phone] Jyoti Sotomayor [facility] Unavailable +[phone] Marcus Stephens MD Unavailable Twan Patrick MD Unavailable +[phone] Rashmi Isaac MD Unavailable + [phone] Eloy Singh MD Primary Care Provider [phone] Sara Jara RN Unavailable [phone] Encounter Details Date Type Department Care Team (Late st Contact Info) Description 09/25/2020 MyC Medical Advice [facility] [address] 1st Floor, [address] [place] [phone] Estelle Calvillo MD [address] [facility] [address] [place] [address] Social History Tobacco Use Types [...] Description 06/23/2025 3:30 PM CDT Office Visit [facility] Francie [address] [place] [address] Drive [address] [place]jo [phone] Eloy Singh MD [address] [place] [address] SAS[place] SCANLON [address] documented as of this encounter Visit Diagnoses Not on filedocumented in this encounter Additional Health Concerns Infection Onset Date Last Indicated Resolved Time Rule Out COVID-19 12/11/2022 12/11/2022 12/12/2022 1:24 PM CDT Rule Out Rubella 07/16/2024 07/16/2024 07/17/2024 12:31 PM CDT documented as of this encounter Care Teams Halal Butcher Relationship Specialty Start Date End Date Rachel Crum MD PCP - General Pediatrics 07/04/12 02/13/23 Marcus Stephens MD [address] [place] [address] [id number] PCP - General Pediatrics 02/14/23 12/22/24 Eloy Singh MD [address] [place] [address] [place]ON [address] PCP - General Internal Medicine - Pediatrics 12/23/24 Rachel Crum MD Assigned PCP 11/11/18 04/26/23 Estelle Calvillo MD [address] [place] [address] [address] [place] [address] college or university business manager & Neurology - Child & Adolescent Psychiatry 05/24/19 Estelle Calvillo MD [address] [place] [address] [address] [place], [place] 828384 Assigned Behavioral Health Provider 01/24/20 05/13/22 Twan Patrick MD [address] [place] [address] 200 [place], [place] 963204 Assigned Pediatric Specialist Provider 12/11/21 04/26/23 Zulema Parrish, [facility] Lead Operator Ground Based Air Defence 07/04/22 01/27/23 Estelle Calvillo MD [address] [place], [place] 7[address]254 Assigned Behavioral Health Provider 07/02/22 06/15/23 Erin Fernandez, [facility] [address] [id number] Pharmacist Pharmacist 12/22/22 10/25/23 Erin Fernandez, [facility] [address] [id number] Assigned MTM Pharmacist 12/31/22 Jyoti Sotomayor [facility] [address] [place], [place] 5[address]254 Pharmacist Pharmacist 03/08/23 Jyoti Sotomayor [facility] 2450 [facility] [address] [place] [address] Assigned MTM Pharmacist 03/11/23 Marcus Stephens MD 717 [facility] [address] [place], [place] 0[address]58[address] Assigned PCP 04/27/23 Twan Patrick MD [address] [place] [address] [address] [place] [address] Assigned Pediatric Specialist Provider 05/05/23 06/15/23 Rashmi Isaac MD [address] [place], [place] [address] Assigned Behavioral Health Provider 06/16/23 Sara Jara, RN Clinic Operator Ground Based [employer] 12/25/24 documented as of this encounter
--- OUTSIDE RECORDS SUMMARY | 2025-01-12 09:42 | XMS_ITS | Encounter Summary ---
Author Organization [place] Address [address] [place] [address] Care Team Providers Care Dependency Counselor Name Role Phone Rachel Crum MD Primary Care Provid er Rachel Crum MD Unavailable + [phone] Estelle Calvillo MD Unavailable Twan Patrick MD Unavailable +[phone] Zulema Parrish [facility] Unavailable Unavaila Estelle Schaeffer MD Unavailable Erin Fernandez [facility] Unavailable +[phone] Erin Fernandez [facility] Unavailable +[phone] Marcus Stephens MD Primary Care Provider [phone] [address] [facility] Unavailable + [phone] Jyoti [address]ay[address] [facility] Unavailable + [phone] Marcus Stephens MD Unavailable Twan Patrick MD Unavailable [phone] Rashmi Isaac MD Unavailable +[phone] Eloy Singh MD Primary Care Provider [phone] Sara Jara RN Unavailable [phone] Encounter Details Date Type Department Care Team (Late st Contact Info) Description 12/07/2022 MyC Medical Advice [facility] 2535 [place] [address] Rachel Crum MD 1021 [facility] [address] [place] [address] Social History Tobacco Use Types Packs/Day Years [...] 3:30 PM CDT Office Visit [facility] Francie [address] [place] [phone] Eloy Singh MD 3305 [facility] [place] [address] documented as of this encounter Goals Goal [...] documented as of this encounter Care Teams Dependency Counselor Relationship Specialty Start Date End Date Rachel Crum MD PCP - General Pediatrics 07/04/12 02/13/23 Marcus Stephens MD [address] [place] [address] [place] [address] PCP - General Pediatrics 02/14/23 12/22/24 Eloy Singh MD 3305 [facility] [place] [address] PCP - General Internal Medicine - Pediatrics 12/23/24 Rachel Crum MD Assigned PCP 11/11/18 04/26/23 Estelle Calvillo MD [address] [facility] [address] [place] [address] newspaper carrier & Neurology - Child & Adolescent Psychiatry 05/24/19 Twan Patrick MD [address] [facility] [address] [place] [address] Assigned Pediatric Specialist Provider 12/11/21 04/26/23 Zulema Parrish, [facility] Lead Braille Duplicating Machine Operator 07/04/22 01/27/23 Estelle Calvillo MD [address] [place] [address] [address] [place], [place] 734574 Assigned Behavioral Health Provider 07/02/22 06/15/23 Erin Fernandez, [facility] [address] [place] [id number] Pharmacist Pharmacist 12/22/22 10/25/23 Erin Fernandez, [facility] [address] [place] [address] [id number] Assigned MTM Pharmacist 12/31/[address] [facility] [address] [place], [place] [address] Pharmacist Pharmacist 03/08/[address] [facility] [address] [place], [place] [address] Assigned MTM Pharmacist 03/11/23 Marcus Stephens MD [address] [place] [address] [place] [address] Assigned PCP 04/27/23 Twan Patrick MD [address] [place] [address] Assigned Pediatric Specialist Provider 05/05/23 06/15/23 Rashmi Isaac MD [address] [place] [address] Assigned Behavioral Health Provider 06/16/23 Sara Jara, RN Clinic Braille Duplicating Machine Operator 12/25/24 documented as of this encounter
--- OUTSIDE RECORDS SUMMARY | 2025-01-12 09:42 | XMS_ITS | Encounter Summary ---
Author Organization [place] Address [address] [place] [address] Care Team Providers Care Executive Director Global Brand Marketing Name Role Phone Rachel Crum MD Primary Care Provid er Rachel Crum MD Unavailable + [phone] Estelle Calvillo MD Unavailable Twan Patrick MD Unavailable [phone] Zulema Parrish [facility] Unavailable Unavaila Estelle Schaeffer MD Unavailable Erin Fernandez [facility] Unavailable [phone] Erin Fernandez [facility] Unavailable [phone] Marcus Stephens MD Primary Care Provider [phone] Jyoti Sotomayor [facility] Unavailable + [phone] Jyoti Sotomayor [facility] Unavailable + [phone] Marcus Stephens MD Unavailable Twan Patrick MD Unavailable +[phone] Rashmi Isaac MD Unavailable +[phone] Eloy Singh MD Primary Care Provider [phone] Sara Jara RN Unavailable +[phone] Encounter Details Date Type Department Care Team (Late st Contact Info) Description 07/07/2022 MyC Medical Advice [facility] Care Coordination [facility] [address] [place] [address] Zulema Parrish, MARGI Social History Tobacco Use Types Packs/Day Years [...] Description 06/23/2025 3:30 PM CDT Office Visit [facility] Francie [address] [facility] [address] [place] [address] Eloy Singh MD 3305 [facility] ASSHA SCANLON [id number] documented as of this encounter Goals Goal [...] documented as of this encounter Care Teams Executive Director Global Brand Marketing Relationship Specialty Start Date End Date Rachel Crum MD PCP - General Pediatrics 07/04/12 02/13/23 Marcus Stephens MD [address] [address] PCP - General Pediatrics 02/14/23 12/22/24 Eloy Singh MD 3305 [facility] [place] [address] PCP - General Internal Medicine - Pediatrics 12/23/24 Rachel Crum MD Assigned PCP 11/11/18 04/26/23 Estelle Calvillo MD [address] [place] [address] [address] [place], [place] 8[address]684 automatic teller machine servicer & Neurology - Child & Adolescent Psychiatry 05/24/19 Twan Patrick MD [address] [place] [address] 200 [place], [place] 376084 Assigned Pediatric Specialist Provider 12/11/21 04/26/23 Zulema Parrish [facility] Lead Driver/Refuse Collector 07/04/22 01/27/23 Estelle Calvillo MD [address] [place] [address] [address] [place] [address] Assigned Behavioral Health Provider 07/02/22 06/15/23 Erin Fernandez [facility] [address] [place] [id number] Pharmacist Pharmacist 12/22/22 10/25/23 Erin Fernandez [facility] [address] [place] [id number] Assigned MTM Pharmacist 12/31/22 Jyoti Sotomayor [facility] 2450 [facility] [address] [place], [place] 9[address] Pharmacist Pharmacist 03/08/23 Jyoti Sotomayor [facility] [address] [place] [address] Assigned MTM Pharmacist 03/11/23 Marcus Stephens MD 717 [facility] [address] 370 [place] [address] Assigned PCP 04/27/23 Twan Patrick MD [address] [place], [place] [address]E S [address] 200 [place] [address] Assigned Pediatric Specialist Provider 05/05/23 06/15/23 Rashmi Isaac MD [address] [place], [place] [address] Assigned Behavioral Health Provider 06/16/23 Sara Jara, RN Clinic Driver/Refuse Collector 12/25/24 documented as of this encounter
--- OUTSIDE RECORDS SUMMARY | 2025-01-12 09:42 | XMS_ITS | Encounter Summary ---
Author Organization [place] Address [address] [place] [address]. [place] [address] Care Team Providers Care Toxicology Supervisor Name Role Phone NeishaoscarEstelle MD Unavailable Erin Fernandez [facility] Unavailable [phone] Marcus Stephens MD Primary Care Provider [phone] Jyoti Sotomayor [facility] Unavailable + [phone] Jyoti Sotomayor [facility] Unavailable + [phone] Marcus Stephens MD Unavailable Rashmi Isaac MD Unavailable [phone] Eloy Singh MD Primary Care Provider [phone] Sara Jara RN Unavailable Encounter Details Date Type Department Care Team (Late st Contact Info) Description 08/29/2023 [facility] [address] [place] [address] Marcus Stephens MD [address] [place] [address] Social History Tobacco Use Types Packs/Day [...] an overnight senior care, or couch-surfing.) Yes 06/12/2023 Are you worried [...] 06/23/2025 3:30 PM CDT Office Visit [facility] Francie [address] [facility] [address] [place] [address] Eloy Singh MD 3305 [facility] SAS[place] SCANLON [id number] documented as of this encounter Goals Goal [...] Parent to continue with medical specialties within [place] and [facility] 2. Parent to continue with [...] documented as of this encounter Care Teams Toxicology Supervisor Relationship Specialty Start Date End Date Marcus Stephens MD 717 [facility] 370 [place] [address] PCP - General Pediatrics 02/14/23 12/22/24 Eloy Singh MD 3305 [facility] [place] [address] PCP - General Internal Medicine - Pediatrics 12/23/24 Estelle Calvillo MD [address] [place] [address] nurse first aid & Neurology - Child & Adolescent Psychiatry 05/24/19 Erin Fernandez, [facility] [address] [facility] [place] [address] Pharmacist Pharmacist 12/22/22 10/25/23 Jyoti Sotomayor [facility] 2450 [facility] [address] [place], [place] 290814 Pharmacist Pharmacist 03/08/23 Jyoti Sotomayor [facility] 2450 [facility] [address] [place], [place] 502184 Assigned MTM Pharmacist 03/11/23 Marcus Stephens MD 717 [facility] [address] [place], [place] 810825 Assigned PCP 04/27/23 Rashmi Isaac MD [address] [place] [address] [address] [place], [place] 611724 Assigned Behavioral Health Provider 06/16/23 Sara Jara, RN Clinic Blood Bank Manager 12/25/24 documented as of this encounter
--- OUTSIDE RECORDS SUMMARY | 2025-01-12 09:42 | XMS_ITS | Encounter Summary ---
Author Organization [place] Address [address] [place] [address] Care Team Providers Care Comic Book Writer Name Role Phone Rachel Crum MD Primary Care Provid er Rachel Crum MD Unavailable + [phone] Estelle Calvillo MD Unavailable Twan Patrick MD Unavailable +[phone] Zulema Parrish [facility] Unavailable Unavaila Estelle Schaeffer MD Unavailable Erin Fernandez [facility] Unavailable [phone] Erin Fernandez [facility] Unavailable [phone] Marcus Stephens MD Primary Care Provider [phone] Jyoti Sotomayor [facility] Unavailable + [phone] Jyoti Sotomayor [facility] Unavailable + [phone] Marcus Stephens MD Unavailable Twan Patrick MD Unavailable +[phone] Rashmi Isaac MD Unavailable +[phone] Eloy Singh MD Primary Care Provider [phone] Sara Jara RN Unavailable +[phone] Encounter Details Date Type Department Care Team (Late st Contact Info) Description 06/26/2022 MyC Medical Advice [facility] [address] [place] [address] Estelle Calvillo MD [address] [place] [address] Social History Tobacco Use Types Packs/Day Years [...] Coronavirus/COVID-19? No / Unsure 05/31/2022 12:51 PM SCUDDING INSPECTOR documented as of this encounter Plan of Treatment Upcoming Encounters Date Type Department Care Team (Late st Contact Info) Description 06/23/2025 3:30 PM CDT Office Visit [facility] Francie [address] [place] [address] Drive [address] [place] [phone] Eloy Singh MD [address] [place] [address] [place] SCANLON [id number] documented as of this encounter Visit Diagnoses Not on filedocumented in this encounter Additional Health Concerns Infection Onset Date Last Indicated Resolved Time Rule Out COVID-19 12/11/2022 12/11/2022 12/12/2022 1:24 PM CDT Rule Out Rubella 07/16/2024 07/16/2024 07/17/2024 12:31 PM CDT Assessment Noted Time PHQ-9 Depression Total Score: 18 022 1:59 PM CDT documented as of this encounter Care Teams Comic Book Writer Relationship Specialty Start Date End Date Rachel Crum MD PCP - General Pediatrics 07/04/12 02/13/23 Marcus Stephens MD 717 [facility] 370 [place] [address] PCP - General Pediatrics 02/14/23 12/22/24 Eloy Singh MD [address] [place] [address] [place] [address] PCP - General Internal Medicine - Pediatrics 12/23/24 Rachel Crum MD Assigned PCP 11/11/18 04/26/23 Estelle Calvillo MD [address] [place] [address] [address] [place] [address] content writer & Neurology - Child & Adolescent Psychiatry 05/24/19 Twan Patrick MD [address] [facility] [address] [place], [place] [address] Assigned Pediatric Specialist Provider 12/11/21 04/26/23 Zulema Parrish [facility] Lead Metal Drill Press Operator 07/04/22 01/27/23 Estelle Calvillo MD [facility] [address] 0[address]954 Assigned Behavioral Health Provider 07/02/22 06/15/23 Erin Fernandez, [facility] [address] [id number] Pharmacist Pharmacist 12/22/22 10/25/23 Erin Fernandez, [facility] [address] [id number] Assigned MTM Pharmacist 12/31/22 Jyoti Sotomayor [facility] [address] [id number] [place], [place] [address] Pharmacist Pharmacist 03/08/23 Jyoti Sotomayor [facility] [address] [id number] [place] 174594 Assigned MTM Pharmacist 03/11/23 Marcus Stephens MD [address] [facility] [address] [place] [address] Assigned PCP 04/27/23 Twan Patrick MD [address] [place] [address] Assigned Pediatric Specialist Provider 05/05/23 06/15/23 Rashmi Isaac MD [address]12 [address] [facility] [address] [place] [address] Assigned Behavioral Health Provider 06/16/23 Sara Jara RN Clinic Metal Drill Press Operator 12/25/24 documented as of this encounter
--- OUTSIDE RECORDS SUMMARY | 2025-01-12 09:42 | XMS_ITS | Encounter Summary ---
Author Organization [place] Address [address] [place] [address] Care Team Providers Care Property Management Intern Name Role Phone Rachel Crum MD Primary Care Provid er Rachel Crum MD Unavailable + [phone] Estelle Calvillo MD Unavailable Estelle Calvillo MD Unavailable Twan Patrick MD Unavailable +[phone] Zulema Parrish [facility] Unavailable Unavaila Estelle Schaeffer MD Unavailable Erin Fernandez [facility] Unavailable +[phone] Erin Fernandez [facility] Unavailable [phone] Marcus Stephens MD Primary Care Provider [phone] Jyoti Sotomayor [facility] Unavailable +[phone] Jyoti Sotomayor [facility] Unavailable +[phone] Marcus Stephens MD Unavailable Twan Patrick MD Unavailable +[phone] Rashmi Isaac MD Unavailable + [phone] Eloy Singh MD Primary Care Provider [phone] Sara Jara RN Unavailable [phone] Encounter Details Date Type Department Care Team (Late st Contact Info) Description 09/30/2020 MyC Medical Advice [place] [id number] [place] [address] Rachel Crum MD [address] [place], [place] [id number] Social History Tobacco Use Types Packs/Day Years [...] 06/23/2025 3:30 PM CDT Office Visit [facility] Francie [address] [place] [address] Drive [address] [place] [address] Eloy Singh MD [address] [place] [address] [place] [address] documented as of this encounter Visit Diagnoses Not on filedocumented in this encounter Additional Health Concerns Infection Onset Date Last Indicated Resolved Time Rule Out COVID-19 12/11/2022 12/11/2022 12/12/2022 1:24 PM CDT Rule Out Rubella 07/16/2024 07/16/2024 07/17/2024 12:31 PM CDT documented as of this encounter Care Teams Property Management Intern Relationship Specialty Start Date End Date Rachel Crum MD PCP - General Pediatrics 07/04/12 02/13/23 Marcus Stephens MD [address] [place] [address] PCP - General Pediatrics 02/14/23 12/22/24 Eloy Singh MD [address] [place] [address] [place] [address] PCP - General Internal Medicine - Pediatrics 12/23/24 Rachel Crum MD Assigned PCP 11/11/18 04/26/23 Estelle Calvillo MD [address] [place] [address] director of strategic communications & Neurology - Child & Adolescent Psychiatry 05/24/19 Estelle Calvillo MD [address] [place] [address] Assigned Behavioral Health Provider 01/24/20 05/13/22 Twan Patrick MD [address] [place] [address] 200 [place], [place] 851434 Assigned Pediatric Specialist Provider 12/11/21 04/26/23 Zulema Parrish, [facility] Lead Manager New Product 07/04/22 01/27/23 Estelle Calvillo MD [address] 077924 Assigned Behavioral Health Provider 07/02/22 06/15/23 Erin Fernandez, [facility] [address] [id number] Pharmacist Pharmacist 12/22/22 10/25/23 Erin Fernandez, [facility] [address] [id number] Assigned MTM Pharmacist 12/31/22 Jyoti Sotomayor [facility] [address] [place], [place] 29[address] Pharmacist Pharmacist 03/08/23 Jyoti Sotomayor [facility] [address] [place] [address] Assigned MTM Pharmacist 03/11/23 Marcus Stephens MD [address] [place] [address] [place] [address] Assigned PCP 04/27/23 Twan Patrick MD [address] [facility] [address] [place] [address] Assigned Pediatric Specialist Provider 05/05/23 06/15/23 Rashmi Isaac MD [address] [place] [address] Assigned Behavioral Health Provider 06/16/23 Sara Jara, RN Clinic Manager New Product 12/25/24 documented as of this encounter
--- OUTSIDE RECORDS SUMMARY | 2025-01-12 09:42 | XMS_ITS | Encounter Summary ---
Author Organization [place] Address [address] [place] [address] Care Team Providers Care Cafeteria Director Name Role Phone Rachel Crum MD Primary Care Provid er Rachel Crum MD Unavailable + [phone] Estelle Calvillo MD Unavailable Twan Patrick MD Unavailable +[phone] Zulema Parrish [facility] Unavailable Unavaila Estelle Schaeffer MD Unavailable Erin Fernandez [facility] Unavailable +[phone] Erin Fernandez [facility] Unavailable +[phone] Marcus Stephens MD Primary Care Provider +[phone] Jyoti Sotomayor [facility] Unavailable + [phone] Jyoti Sotomayor [facility] Unavailable + [phone] Marcus Stephens MD Unavailable Twan Patrick MD Unavailable +[phone] Rashmi Isaac MD Unavailable +[phone] Eloy Singh MD Primary Care Provider +[phone] Sara Jara RN Unavailable +[phone] Encounter Details Date Type Department Care Team (Late st Contact Info) Description 06/26/2022 MyC Medical Advice [facility] 2024 [place] [address] Estelle Calvillo MD [address] [place] [address] Social History Tobacco Use Types Packs/Day Years [...] a care home (including now)? No 02/09/2022 Sex and [...] Coronavirus/COVID-19? No / Unsure 05/31/2022 12:51 PM CORPORATE ANALYST documented as of this encounter Plan of Treatment Upcoming Encounters Date Type Department Care Team (Late st Contact Info) Description 06/23/2025 3:30 PM CDT Office Visit [facility] Francie [address] [place] [address] Drive [address] [place] [phone] Eloy Singh MD [address] [place] [address] [place] [id number] documented as of this encounter Visit Diagnoses Not on filedocumented in this encounter Additional Health Concerns Infection Onset Date Last Indicated Resolved Time Rule Out COVID-19 12/11/2022 12/11/2022 12/12/2022 1:24 PM CDT Rule Out Rubella 07/16/2024 07/16/2024 07/17/2024 12:31 PM CDT Assessment Noted Time PHQ-9 Depression Total Score: 18 022 1:59 PM CDT documented as of this encounter Care Teams Cafeteria Director Relationship Specialty Start Date End Date Rachel Crum MD PCP - General Pediatrics 07/04/12 02/13/23 Marcus Stephens MD 717 [facility] 370 [place] [address] PCP - General Pediatrics 02/14/23 12/22/24 Eloy Singh MD [address] [place] [address] [place] [address] PCP - General Internal Medicine - Pediatrics 12/23/24 Rachel Crum MD Assigned PCP 11/11/18 04/26/23 Estelle Calvillo MD [address] [place] [address] [address]275 [place] [address] hose builder & Neurology - Child & Adolescent Psychiatry 05/24/19 Twan Patrick MD [address] [facility] [address] [place], [place] 392464 Assigned Pediatric Specialist Provider 12/11/21 04/26/23 Zulema Parrish LGSW Lead Trimmer Press Clippings 07/04/22 01/27/23 Estelle Calvillo MD [facility] [address] 144484 Assigned Behavioral Health Provider 07/02/22 06/15/23 Erin Fernandez, [facility] [address] [id number] Pharmacist Pharmacist 12/22/22 10/25/23 Erin Fernandez, [facility] [address] [id number] Assigned MTM Pharmacist 12/31/22 Jyoti Sotomayor [facility] [address] [id number] [place], [place] [address] Pharmacist Pharmacist 03/08/23 Jyoti Sotomayor [facility] [address] 5426082 [place], [place] 176814 Assigned MTM Pharmacist 03/11/23 Marcus Stephens MD [address] [place] [address] Assigned PCP 04/27/23 Twan Patrick MD [address] [place] [address] Assigned Pediatric Specialist Provider 05/05/23 06/15/23 Rashmi Isaac MD [address] [facility] [address] [place] [address] Assigned Behavioral Health Provider 06/16/23 Sara Jara RN Clinic Trimmer Press Clippings 12/25/24 documented as of this encounter
--- OUTSIDE RECORDS SUMMARY | 2025-01-12 09:42 | XMS_ITS | Encounter Summary ---
Author Organization [place] Address [address] [place] [address]. [place] [address] Care Team Providers Care Work Order Clerk Name Role Phone NeishaoscarEstelle MD Unavailable Erin Fernandez [facility] Unavailable +[phone] Marcus Stephens MD Primary Care Provider +[phone] Jyoti Sotomayor [facility] Unavailable + [phone] Jyoti Sotomayor [facility] Unavailable + [phone] Marcus Stephens MD Unavailable Rashmi Isaac MD Unavailable +[phone] Eloy Singh MD Primary Care Provider +[phone] Sara Jara RN Unavailable +[phone] Encounter Details Date Type Department Care Team (Late st Contact Info) Description 07/05/2023 [facility] Medical Advice [facility]'s 2535 [place] [address] Marcus Stephens MD [address] [place] [address] Social History Tobacco Use Types Packs/Day [...] in an overnight detention, or couch-surfing.) Yes 06/12/2023 Are you worried [...] Description 06/23/2025 3:30 PM CDT Office Visit [facility] Francie [address] [facility] [address] [place] [address] Eloy Singh MD 3305 [facility] [place] [id number] documented as of this encounter Goals Goal [...] Parent to continue with medical specialties within [facility] and [facility] 2. Parent to continue with [...] documented as of this encounter Care Teams Work Order Clerk Relationship Specialty Start Date End Date Marcus Stephens MD 717 [facility] 370 [place] [address] PCP - General Pediatrics 02/14/23 12/22/24 Eloy Singh MD 3[address] [facility] [place] [address] PCP - General Internal Medicine - Pediatrics 12/23/24 Estelle Calvillo MD [address] [place] [address] stockroom coordinator & Neurology - Child & Adolescent Psychiatry 05/24/19 Erin Fernandez, [facility] 1440 [facility] [place] [address] Pharmacist Pharmacist 12/22/22 10/25/23 Jyoti Sotomayor [facility] 2450 [facility] F[address] [place], [place] 699684 Pharmacist Pharmacist 03/08/23 Jyoti Sotomayor [facility] 2450 [facility] [address] [place], [place] 278[address] Assigned MTM Pharmacist 03/11/23 Marcus Stephens MD 717 [facility] [address] [place], [place] 7[address]455 Assigned PCP 04/27/23 Rashmi Isaac MD [address] [place] [address] [address] [place], [place] 020764 Assigned Behavioral Health Provider 06/16/23 Sara Jara, RN Clinic Lamp Shades Supervisor 12/25/24 documented as of this encounter
--- OUTSIDE RECORDS SUMMARY | 2025-01-12 09:42 | XMS_ITS | Encounter Summary ---
Author Organization [place] Address [address] [place] [address] Care Team Providers Care Souvenir And Novelty Maker Name Role Phone Rachel Crum MD Primary Care Provid er Rachel Crum MD Unavailable + [phone] Estelle Calvillo MD Unavailable Twan Patrick MD Unavailable +[phone] Zulema Parrish [facility] Unavailable Unavaila Estelle Schaeffer MD Unavailable Erin Fernandez [facility] Unavailable +[phone] Erin Fernandez [facility] Unavailable +[phone] Marcus Stephens MD Primary Care Provider +[phone] Jyoti Sotomayor [facility] Unavailable + [phone] Jyoti Sotomayor [facility] Unavailable + [phone] Marcus Stephens MD Unavailable Twan Patrick MD Unavailable +[phone] Rashmi Isaac MD Unavailable [phone] Eloy Singh MD Primary Care Provider [phone] Sara Jara RN Unavailable +[phone] Encounter Details Date Type Department Care Team (Late st Contact Info) Description 06/23/2022 MyC Medical Advice [facility] 2535 [place] [address] Rachel Crum MD 1021 [facility] [address] [place] [address] Social History Tobacco Use Types Packs/Day Years [...] Coronavirus/COVID-19? No / Unsure 05/31/2022 12:51 PM CYLINDER VALVE REPAIRER documented as of this encounter Plan of Treatment Upcoming Encounters Date Type Department Care Team (Late st Contact Info) Description 06/23/2025 3:30 PM CDT Office Visit [facility] Francie [address] [place] [address] Drive [address] [place] [phone] Eloy Singh MD [address] [place] [address] [place] [id number] documented as of this encounter Visit Diagnoses Not on filedocumented in this encounter Additional Health Concerns Infection Onset Date Last Indicated Resolved Time Rule Out COVID-19 12/11/2022 12/11/2022 12/12/2022 1:24 PM CDT Rule Out Rubella 07/16/2024 07/16/2024 07/17/2024 12:31 PM CDT Assessment Noted Time PHQ-9 Depression Total Score: 18 022 1:59 PM CDT documented as of this encounter Care Teams Souvenir And Novelty Maker Relationship Specialty Start Date End Date Rachel Crum MD PCP - General Pediatrics 07/04/12 02/13/23 Marcus Stephens MD [address] [address] PCP - General Pediatrics 02/14/23 12/22/24 Eloy Singh MD [address] [place] [address] [place] [address] PCP - General Internal Medicine - Pediatrics 12/23/24 Rachel Crum MD Assigned PCP 11/11/18 04/26/23 Estelle Calvillo MD [address] [place] [address] F275 [place] [address] bridge repair crew person & Neurology - Child & Adolescent Psychiatry 05/24/19 Twan Patrick MD [address] 200 [place] [address] Assigned Pediatric Specialist Provider 12/11/21 04/26/23 Zulema Parrish [facility] Lead Marine Machinist 07/04/22 01/27/23 Estelle Calvillo MD [address] [place] [address] F275 [place] [address] Assigned Behavioral Health Provider 07/02/22 06/15/23 Erin Fernandez, [facility] [address] [id number] Pharmacist Pharmacist 12/22/22 10/25/23 Erin Fernandez, [facility] [address] [id number] Assigned MTM Pharmacist 12/31/22 Jyoti Sotomayor [facility] [address] 1714982 [place], [place] 0[address] Pharmacist Pharmacist 03/08/23 Jyoti Sotomayor [facility] [address] [place] [address] Assigned MTM Pharmacist 03/11/23 Marcus Stephens MD [address] [place] [address] Assigned PCP 04/27/23 Twan Patrick MD [address] [place] [address] Assigned Pediatric Specialist Provider 05/05/23 06/15/23 Rashmi Isaac MD [address] [facility] [address] [place] [address] Assigned Behavioral Health Provider 06/16/23 Sara Jara, RN Clinic Marine Machinist 12/25/24 documented as of this encounter
--- OUTSIDE RECORDS SUMMARY | 2025-01-12 09:42 | XMS_ITS | Encounter Summary ---
Author Organization [place] Address [address] [place] [address] Care Team Providers Care Presser Hand Name Role Phone Rachel Crum MD Primary Care Provid er Rachel Crum MD Unavailable + [phone] Estelle Calvillo MD Unavailable Estelle Calvillo MD Unavailable Twan Patrick MD Unavailable +[phone] Zulema Parrish [facility] Unavailable Unavaila Estelle Schaeffer MD Unavailable Erin Fernandez [facility] Unavailable +[phone] Erin Fernandez [facility] Unavailable [phone] Marcus Stephens MD Primary Care Provider [phone] Jyoti Sotomayor [facility] Unavailable +[phone] Jyoti Sotomayor [facility] Unavailable +[phone] Marcus Stephens MD Unavailable Twan Patrick MD Unavailable +[phone] Rashmi Isaac MD Unavailable + [phone] Eloy Singh MD Primary Care Provider +[phone] Sara Jara RN Unavailable +[phone] Encounter Details Date Type Department Care Team (Late st Contact Info) Description 11/14/2020 MyC Medical Advice [id number] [place] [address] Rachel Crum MD [address] [place], [place] [id number] Social History Tobacco Use Types Packs/Day Years [...] in a senior care (including now)? No 09/24/2020 Sex and Gender [...] Description 06/23/2025 3:30 PM CDT Office Visit [facility] Francie [address] [place] [address] Drive [address] [place] [phone] Eloy Singh MD [address] [place] [address] [place] [address] documented as of this encounter Visit Diagnoses Not on filedocumented in this encounter Additional Health Concerns Infection Onset Date Last Indicated Resolved Time Rule Out COVID-19 12/11/2022 12/11/2022 12/12/2022 1:24 PM CDT Rule Out Rubella 07/16/2024 07/16/2024 07/17/2024 12:31 PM CDT documented as of this encounter Care Teams Presser Hand Relationship Specialty Start Date End Date Rachel Crum MD PCP - General Pediatrics 07/04/12 02/13/23 Marcus Stephens MD [address] [address] PCP - General Pediatrics 02/14/23 12/22/24 Eloy Singh MD [address] [place] [address] [place] [address] PCP - General Internal Medicine - Pediatrics 12/23/24 Rachel Crum MD Assigned PCP 11/11/18 04/26/23 Estelle Calvillo MD [address] [place] [address] F275 [place], [place] 461804 machine lay out worker & Neurology - Child & Adolescent Psychiatry 05/24/19 Estelle Calvillo MD [address] [place] [address] [address]275 [place], [place] 161174 Assigned Behavioral Health Provider 01/24/20 05/13/22 Twan Patrick MD [address] [place] [address] 200 [place], [place] 683854 Assigned Pediatric Specialist Provider 12/11/21 04/26/23 Zulema Parrish LGSW Lead Lsw 07/04/22 01/27/23 Estelle Calvillo MD [address] [place] [address] F275 [place] [address] Assigned Behavioral Health Provider 07/02/22 06/15/23 Erin Fernandez [facility] [address] [place] [address] [id number] Pharmacist Pharmacist 12/22/22 10/25/23 Erin Fernandez [facility] [address] [place] [id number] Assigned MTM Pharmacist 12/31/22 Jyoti Sotomayor [facility] 2450 [facility] [address] [place] [address] Pharmacist Pharmacist 03/08/23 yJoti Sotomayor [facility] 2450 [facility] [address] [place] [address] Assigned MTM Pharmacist 03/11/23 Marcus Stephens MD 717 [facility] 370 [place] [address] Assigned PCP 04/27/23 Twan Patrick MD [address] [place] [address] 200 [place] [address] Assigned Pediatric Specialist Provider 05/05/23 06/15/23 Rashmi Isaac MD [address] [place] [address] Assigned Behavioral Health Provider 06/16/23 Sara Jara RN Clinic Lsw 12/25/24 documented as of this encounter
--- OUTSIDE RECORDS SUMMARY | 2025-01-12 09:42 | XMS_ITS | Encounter Summary ---
Author Organization [place] Address [address] [place] [address] Care Team Providers Care Substitute Crossing Guard Name Role Phone Rachel Crum MD Primary Care Provid er Rachel Crum MD Unavailable + [phone] Estelle Calvillo MD Unavailable Twan Patrick MD Unavailable +[phone] Zulema Parrish [facility] Unavailable Unavaila Estelle Schaeffer MD Unavailable Erin Fernandez [facility] Unavailable +[phone] Erin Fernandez [facility] Unavailable [phone] Marcus Stephens MD Primary Care Provider +[phone] Jyoti Sotomayor [facility] Unavailable + [phone] Jyoti Sotomayor [facility] Unavailable + [phone] Marcus Stephens MD Unavailable Twan Patrick MD Unavailable +[phone] Rashmi Isaac MD Unavailable +[phone] Eloy Singh MD Primary Care Provider [phone] Sara Jara RN Unavailable +[phone] Encounter Details Date Type Department Care Team (Late st Contact Info) Description 06/26/2022 MyC Medical Advice [facility] 2024 [place] [address] Estelle Calvillo MD [address] [place] [address] Social History Tobacco Use Types Packs/Day Years [...] Coronavirus/COVID-19? No / Unsure 05/31/2022 12:51 PM WELT SEWER documented as of this encounter Plan of Treatment Upcoming Encounters Date Type Department Care Team (Late st Contact Info) Description 06/23/2025 3:30 PM CDT Office Visit [facility] Francie [address] [place] [address] Drive [address] [place] [phone] Eloy Singh MD [address] [place] [address] [place] [id number] documented as of this encounter Visit Diagnoses Not on filedocumented in this encounter Additional Health Concerns Infection Onset Date Last Indicated Resolved Time Rule Out COVID-19 12/11/2022 12/11/2022 12/12/2022 1:24 PM CDT Rule Out Rubella 07/16/2024 07/16/2024 07/17/2024 12:31 PM CDT Assessment Noted Time PHQ-9 Depression Total Score: 18 022 1:59 PM CDT documented as of this encounter Care Teams Substitute Crossing Guard Relationship Specialty Start Date End Date Rachel Crum MD PCP - General Pediatrics 07/04/12 02/13/23 Marcus Stephens MD 717 [facility] 370 [place] [address] PCP - General Pediatrics 02/14/23 12/22/24 Eloy Singh MD [address] [place] [address] [place] [address] PCP - General Internal Medicine - Pediatrics 12/23/24 Rachel Crum MD Assigned PCP 11/11/18 04/26/23 Estelle Calvillo MD [address] [place] [address] F275 [place] [address] dock hand & Neurology - Child & Adolescent Psychiatry 05/24/19 Twan Patrick MD [address] [facility] [address] [place], [place] 8018[address] Assigned Pediatric Specialist Provider 12/11/21 04/26/23 Zulema Parrish LGSW Lead Tooler 07/04/22 01/27/23 Estelle Calvillo MD [facility] [address] 863314 Assigned Behavioral Health Provider 07/02/22 06/15/23 Erin Frenandez, [facility] [address] [id number] Pharmacist Pharmacist 12/22/22 10/25/23 Erin Fernandez, [facility] [address] [id number] Assigned MTM Pharmacist 12/31/22 Jyoti Sotomayor [facility] [address] [id number] [place], [place] 7188[address] Pharmacist Pharmacist 03/08/23 Jyoti Sotomayor [facility] [address] 4668482 [place], [place] 946014 Assigned MTM Pharmacist 03/11/23 Marcus Stephens MD [address] [place] [address] Assigned PCP 04/27/23 Twan Patrick MD [address] [place] [address] Assigned Pediatric Specialist Provider 05/05/23 06/15/23 Rashmi Isaac MD [address] [facility] [address] [place] [address] Assigned Behavioral Health Provider 06/16/23 Sara Jara RN Clinic Tooler 12/25/24 documented as of this encounter
--- OUTSIDE RECORDS SUMMARY | 2025-01-12 09:42 | XMS_ITS | Encounter Summary ---
Author Organization [place] Address [address] [place] [address] Care Team Providers Care Test Lead Name Role Phone Rachel Crum MD Primary Care Provid er Rachel Crum MD Unavailable + [phone] Estelle Calvillo MD Unavailable Estelle Calvillo MD Unavailable Twan Patrick MD Unavailable +[phone] Zulema Parrish [facility] Unavailable Unavaila Estelle Schaeffer MD Unavailable Erin Fernandez [facility] Unavailable +[phone] Erin Fernandez [facility] Unavailable [phone] Marcus Stephens MD Primary Care Provider [phone] Jyoti Sotomayor [facility] Unavailable +[phone] Jyoti Sotomayor [facility] Unavailable +[phone] Marcus Stephens MD Unavailable Twan Patrick MD Unavailable +[phone] Rashmi Isaac MD Unavailable + [phone] Eloy Singh MD Primary Care Provider +[phone] Sara Jara RN Unavailable +[phone] Reason for Visit * Reason Onset Date Comments Patient Request for Note/Letter 11/24/2020 Encounter Details Date Type Department Care Team (Late st Contact Info) Description 11/24/2020 MyC Medical Advice [address] [place] [address] Rachel Crum MD 1021 [facility] E [facility] 100 [place], [place] [id number] Patient Request for Note/Letter Social History Tobacco [...] PM CDT Letter faxed to Meena at [phone] Kandy Vega RN * Telephone Encounter - Rachel Crum MD - 11/24/2020 1:08 PM CDT Hi Can our team check on this request in [employer] please? Let me know Rachel Crum MD documented in this encounter Plan of Treatment Upcoming Encounters Date Type Department Care Team (Late st Contact Info) Description 06/23/2025 3:30 PM CDT Office Visit [facility] Francie [address] [place] [address] Drive [address] [place] [phone] Eloy Singh MD [address] [place] [address] [place] [address] documented as of this encounter Visit Diagnoses Not on filedocumented in this encounter Additional Health Concerns Infection Onset Date Last Indicated Resolved Time Rule Out COVID-19 12/11/2022 12/11/2022 12/12/2022 1:24 PM CDT Rule Out Rubella 07/16/2024 07/16/2024 07/17/2024 12:31 PM CDT documented as of this encounter Care Teams Test Lead Relationship Specialty Start Date End Date Rachel Crum MD PCP - General Pediatrics 07/04/12 02/13/23 Marcus Stephens MD 717 [facility] 370 [place], [place] 194765 PCP - General Pediatrics 02/14/23 12/22/24 Eloy Singh MD [address] [facility] [address] PCP - General Internal Medicine - Pediatrics 12/23/24 Rachel Crum MD Assigned PCP 11/11/18 04/26/23 Estelle Calvillo MD [id number] [place], [place] 237784 field marketing associate & Neurology - Child & Adolescent Psychiatry 05/24/19 Estelle Calvillo MD [address] [id number] Assigned Behavioral Health Provider 01/24/20 05/13/22 Twan Patrick MD [address] [place] [address] 200 [place], [place] 899014 Assigned Pediatric Specialist Provider 12/11/21 04/26/23 Zulema Parrish LGSW Lead Retail Planner 07/04/22 01/27/23 Estelle Calvillo MD [address] 689314 Assigned Behavioral Health Provider 07/02/22 06/15/23 Erin Fernandez [facility] [address] [place] [address] Pharmacist Pharmacist 12/22/22 10/25/23 Erin Fernandez, [facility] [address] [place] [address] [address] Assigned MTM Pharmacist 12/31/22 Jyoti Sotomayor [facility] 2450 [facility] [address] [place] [address] Pharmacist Pharmacist 03/08/23 Jyoti Sotomayor [facility] 2450 [facility] [address] [place] [address] Assigned MTM Pharmacist 03/11/23 Marcus Stephens MD 717 [facility] [address] [place], [place] 7[address] Assigned PCP 04/27/23 Twan Patrick MD [address] [facility] [address] [place], [place] [address] Assigned Pediatric Specialist Provider 05/05/23 06/15/23 Rashmi Isaac MD 2312 S [facility] [address] [place], [place] 8089[address] Assigned Behavioral Health Provider 06/16/23 Sara Jara, RN Clinic Retail Planner 12/25/24 documented as of this encounter
--- OUTSIDE RECORDS SUMMARY | 2025-01-12 09:42 | XMS_ITS | Encounter Summary ---
Author Organization [place] Address [address] [place] [address] Care Team Providers Care Gage Designer Name Role Phone Rachel Crum MD Primary Care Provid er Rachel Crum MD Unavailable + [phone] Estelle Calvillo MD Unavailable Twan Patrick MD Unavailable +[phone] Zulema Parrish [facility] Unavailable Unavaila Estelle Schaeffer MD Unavailable Erin Fernandez [facility] Unavailable +[phone] Erin Fernandez [facility] Unavailable +[phone] Marcus Stephens MD Primary Care Provider +[phone] Jyoti Sotomayor [facility] Unavailable + [phone] Jyoti Sotomayor [facility] Unavailable + [phone] Marcus Stephens MD Unavailable Twan Patrick MD Unavailable +[phone] Rashmi Isaac MD Unavailable +[phone] Eloy Singh MD Primary Care Provider +[phone] Sara Jara RN Unavailable +[phone] Encounter Details Date Type Department Care Team (Late st Contact Info) Description 06/28/2022 MyC Medical Advice [facility] 2024 [place] [address] Estelle Calvillo MD [address] [place] [address] Social History Tobacco Use Types Packs/Day Years [...] Coronavirus/COVID-19? No / Unsure 05/31/2022 12:51 PM GRIND OPERATOR documented as of this encounter Plan of Treatment Upcoming Encounters Date Type Department Care Team (Late st Contact Info) Description 06/23/2025 3:30 PM CDT Office Visit [facility] Francie [address] [place] [address] Drive [address] [place] [phone] Eloy Singh MD [address] [place] [address] [place]ON [id number] documented as of this encounter Visit Diagnoses Not on filedocumented in this encounter Additional Health Concerns Infection Onset Date Last Indicated Resolved Time Rule Out COVID-19 12/11/2022 12/11/2022 12/12/2022 1:24 PM CDT Rule Out Rubella 07/16/2024 07/16/2024 07/17/2024 12:31 PM CDT Assessment Noted Time PHQ-9 Depression Total Score: 18 022 1:59 PM CDT documented as of this encounter Care Teams Gage Designer Relationship Specialty Start Date End Date Rachel Crum MD PCP - General Pediatrics 07/04/12 02/13/23 Marcus Stephens MD 717 [facility] 370 [place] [address] PCP - General Pediatrics 02/14/23 12/22/24 Eloy Singh MD [address] [place] [address] [place]ON [address] PCP - General Internal Medicine - Pediatrics 12/23/24 Rachel Crum MD Assigned PCP 11/11/18 04/26/23 Estelle Calvillo MD [address] [place] [address] [address] [place] [address] turn down attendant & Neurology - Child & Adolescent Psychiatry 05/24/19 Twan Patrick MD [address] [facility] [address] [place], [place] [address] Assigned Pediatric Specialist Provider 12/11/21 04/26/23 Zulema Parrish LGSW Lead Vice President Sales And Marketing 07/04/22 01/27/23 Estelle Calvillo MD [facility] [address] 702854 Assigned Behavioral Health Provider 07/02/22 06/15/23 Erin Fernandez, [facility] [address] [id number] Pharmacist Pharmacist 12/22/22 10/25/23 Erin Fernandez, [facility] [address] [id number] Assigned MTM Pharmacist 12/31/22 Jyoti Sotomayor [facility] [address] [id number] [place], [place] 819104 Pharmacist Pharmacist 03/08/23 Jyoti Sotomayor [facility] [address] [id number] [place], [place] 761754 Assigned MTM Pharmacist 03/11/23 Marcus Stephens MD [address] [place] [address] Assigned PCP 04/27/23 Twan Patrick MD [address] [place] [address] Assigned Pediatric Specialist Provider 05/05/23 06/15/23 Rashmi Isaac MD [address] [facility] [address] [place] [address] Assigned Behavioral Health Provider 06/16/23 Sara Jara RN Clinic Vice President Sales And Marketing 12/25/24 documented as of this encounter
--- OUTSIDE RECORDS SUMMARY | 2025-01-12 09:42 | XMS_ITS | Encounter Summary ---
Author Organization [place] Address [address] [place] [address] Care Team Providers Care Glass Installer Technician Name Role Phone Rachel Crum MD Primary Care Provid er Rachel Crum MD Unavailable + [phone] Estelle Calvillo MD Unavailable Estelle Calvillo MD Unavailable Twan Patrick MD Unavailable +[phone] Zulema Parrish [facility] Unavailable Unavaila Estelle Schaeffer MD Unavailable Erin Fernandez [facility] Unavailable +[phone] Erin Fernandez [facility] Unavailable +[phone] Marcus Stephens MD Primary Care Provider [phone] Jyoti Sotomayor [facility] Unavailable +[phone] Jyoti Sotomayor [facility] Unavailable +[phone] Marcus Stephens MD Unavailable Twan Patrick MD Unavailable +[phone] Rashmi Isaac MD Unavailable + [phone] Eloy Singh MD Primary Care Provider +[phone] Sara Jara RN Unavailable +[phone] Encounter Details Date Type Department Care Team (Late st Contact Info) Description 09/24/2020 MyC Medical Advice [place] [id number] [place] [address] Rachel Crum MD [address] [place], [place] [id number] Social History Tobacco Use Types Packs/Day Years [...] PM CDT Office Visit [facility] Francie [address] [place] [address] Drive [address] [place] [phone] Eloy Singh MD [address] [place] [address] [place]ON [address] documented as of this encounter Visit Diagnoses Not on filedocumented in this encounter Additional Health Concerns Infection Onset Date Last Indicated Resolved Time Rule Out COVID-19 12/11/2022 12/11/2022 12/12/2022 1:24 PM CDT Rule Out Rubella 07/16/2024 07/16/2024 07/17/2024 12:31 PM CDT documented as of this encounter Care Teams Glass Installer Technician Relationship Specialty Start Date End Date Rachel Crum MD PCP - General Pediatrics 07/04/12 02/13/23 Marcus Stephens MD [address] [place] [address] PCP - General Pediatrics 02/14/23 12/22/24 Eloy Singh MD [address] [place] [address] [place]ON [address] PCP - General Internal Medicine - Pediatrics 12/23/24 Rachel Crum MD Assigned PCP 11/11/18 04/26/23 Estelle Calivllo MD [address] [place] [address] hvac journeyman & Neurology - Child & Adolescent Psychiatry 05/24/19 Estelle Calvillo MD [address] [place] [address] Assigned Behavioral Health Provider 01/24/20 05/13/22 Twan Patrick MD [address] [place] [address] 200 [place], [place] 470374 Assigned Pediatric Specialist Provider 12/11/21 04/26/23 Zulema Parrish, [facility] Lead Balloon Pilot 07/04/22 01/27/23 Estelle Calvillo MD [address] 051414 Assigned Behavioral Health Provider 07/02/22 06/15/23 Erin Fernandez, [facility] [address] [id number] Pharmacist Pharmacist 12/22/22 10/25/23 Erin Fernandez, [facility] [address] [id number] Assigned MTM Pharmacist 12/31/22 Jyoti Sotomayor [facility] [address] [place], [place] 828284 Pharmacist Pharmacist 03/08/23 Jyoti Sotomayor [facility] [address] [place] [address] Assigned MTM Pharmacist 03/11/23 Marcus Stephens MD [address] [place] [address] Assigned PCP 04/27/23 Twan Patrick MD [address] [facility] [address] [place] [address] Assigned Pediatric Specialist Provider 05/05/23 06/15/23 Rashmi Isaac MD [address] [place] [address] Assigned Behavioral Health Provider 06/16/23 Sara Jara, RN Clinic Balloon Pilot 12/25/24 documented as of this encounter
--- OUTSIDE RECORDS SUMMARY | 2025-01-12 09:42 | XMS_ITS | Encounter Summary ---
Author Organization [place] Address [address] [place] [address] Care Team Providers Care Telescope Repairer Name Role Phone Rachel Crum MD Primary Care Provid er Rachel Curm MD Unavailable + [phone] Estelle Calvillo MD Unavailable Twan Patrick MD Unavailable +[phone] Zulema Parrish [facility] Unavailable Unavaila Estelle Schaeffer MD Unavailable Erin Fernandez [facility] Unavailable +[phone] Erin Fernandez [facility] Unavailable +[phone] Marcus Stephens MD Primary Care Provider +[phone] Jyoti Sotomayor [facility] Unavailable + [phone] Jyoti Sotomayor [facility] Unavailable + [phone] Marcus Stephens MD Unavailable Twan Patrick MD Unavailable +[phone] Rashmi Isaac MD Unavailable +[phone] Eloy Singh MD Primary Care Provider +[phone] Sara Jara RN Unavailable +[phone] Encounter Details Date Type Department Care Team (Late st Contact Info) Description 12/06/2022 MyC Medical Advice [facility] 2024 [place] [address] Estelle Calvillo MD [address] [place] [address] Social History Tobacco Use Types Packs/Day Years [...] Description 06/23/2025 3:30 PM CDT Office Visit [facility] Francie [address] [facility] [address] [place] [phone] Eloy Singh MD 3305 [facility] [place] [address] documented as of this encounter Goals Goal [...] Parent to continue with medical specialties within [place] and [facility] 2. Parent to continue with [...] documented as of this encounter Care Teams Telescope Repairer Relationship Specialty Start Date End Date Rachel Crum MD PCP - General Pediatrics 07/04/12 02/13/23 Marcus Stephens MD [address] [place] [address] PCP - General Pediatrics 02/14/23 12/22/24 Eloy Singh MD [address] [facility] [place] [address] PCP - General Internal Medicine - Pediatrics 12/23/24 Rachel Crum MD Assigned PCP 11/11/18 04/26/23 Estelle Calvillo MD [address] [place] [address] machine repair person & Neurology - Child & Adolescent Psychiatry 05/24/19 Twan Patrick MD [address] [place], [place] 480344 Assigned Pediatric Specialist Provider 12/11/21 04/26/23 Zulema Parrish, [facility] Lead Sack Maker 07/04/22 01/27/23 Estelle Calvillo MD [address] [facility] [address] [place], [place] 760704 Assigned Behavioral Health Provider 07/02/22 06/15/23 Erin Fernandez [facility] [address] [place] [id number] Pharmacist Pharmacist 12/22/22 10/25/23 Erin Fernandez [facility] [address] [id number] Assigned MTM Pharmacist 12/31/22 Jyoti Sotomayor [facility] [address] [place], [place] [address] Pharmacist Pharmacist 03/08/23 Jyoti Sotomayor [facility] [address] [place], [place] 11090[address] Assigned MTM Pharmacist 03/11/23 Marcus Stephens MD 717 [facility] [address] [place] [address] Assigned PCP 04/27/23 Twan Patrick MD [address] [facility] [place] [address] Assigned Pediatric Specialist Provider 05/05/23 06/15/23 Rashmi Isaac MD [address] [facility] [address] [place] [address] Assigned Behavioral Health Provider 06/16/23 Sara Jara, RN Clinic Sack Maker 12/25/24 documented as of this encounter
--- OUTSIDE RECORDS SUMMARY | 2025-01-12 09:42 | XMS_ITS | Encounter Summary ---
Author Organization [place] Address [address] [place] [address] Care Team Providers Care Credit Products Officer Name Role Phone Rachel Crum MD Primary Care Provid er Rachel Crum MD Unavailable + [phone] Estelle Calvillo MD Unavailable Estelle Calvillo MD Unavailable Twan Patrick MD Unavailable +[phone] Zulema Parrish [facility] Unavailable Unavaila Estelle Schaeffer MD Unavailable Erin Fernandez [facility] Unavailable +[phone] Erin Fernandez [facility] Unavailable +[phone] Marcus Stephens MD Primary Care Provider [phone] Jyoti Sotomayor [facility] Unavailable +[phone] Jyoti Sotomayor [facility] Unavailable +[phone] Marcus Stephens MD Unavailable Twan Patrick MD Unavailable +[phone] Rashmi Isaac MD Unavailable + [phone] Eloy Singh MD Primary Care Provider +[phone] Sara Jara RN Unavailable +[phone] Encounter Details Date Type Department Care Team (Late st Contact Info) Description 10/25/2020 MyC Medical Advice [facility]ty [facility] [address] 1[address] Floor, [address] [place] [phone] Estelle Calvillo MD [address] [facility] [address] [place] [address] Social History Tobacco Use Types [...] CDT Office Visit [facility] Francie [address] [place] [address] Drive [address] [place] [phone] Eloy Singh MD [address] [place] [address] [place]ON [address] documented as of this encounter Visit Diagnoses Not on filedocumented in this encounter Additional Health Concerns Infection Onset Date Last Indicated Resolved Time Rule Out COVID-19 12/11/2022 12/11/2022 12/12/2022 1:24 PM CDT Rule Out Rubella 07/16/2024 07/16/2024 07/17/2024 12:31 PM CDT documented as of this encounter Care Teams Credit Products Officer Relationship Specialty Start Date End Date Rachel Crum MD PCP - General Pediatrics 07/04/12 02/13/23 Marcus Stephens MD [address] [place] [address] 711035 PCP - General Pediatrics 02/14/23 12/22/24 Eloy Singh MD [address] [place] [address] [place] [address] PCP - General Internal Medicine - Pediatrics 12/23/24 Rachel Crum MD Assigned PCP 11/11/18 04/26/23 Estelle Calvillo MD [address] [place] [address] [address] [place] [address] tectonophysicist & Neurology - Child & Adolescent Psychiatry 05/24/19 Estelle Calvillo MD [address] [place] [address] [address] [place], [place] 278444 Assigned Behavioral Health Provider 01/24/20 05/13/22 Twan Patrick MD [address] [place] [address] 200 [place], [place] 056824 Assigned Pediatric Specialist Provider 12/11/21 04/26/23 Zulema Parrish, [facility] Lead Repairer Kiln Car 07/04/22 01/27/23 Estelle Calvillo MD [address] [place], [place] 0[address] Assigned Behavioral Health Provider 07/02/22 06/15/23 Erin Fernandez, [facility] [address] [id number] Pharmacist Pharmacist 12/22/22 10/25/23 Erin Fernandez, [facility] [address] [id number] Assigned MTM Pharmacist 12/31/22 Jyoti Sotomayor [facility] [address] [place], [place] 598034 Pharmacist Pharmacist 03/08/23 Jyoti Sotomayor [facility] 2450 [facility] [address] [place] [address] Assigned MTM Pharmacist 03/11/23 Marcus Stephens MD 717 [facility] [address] [place], [place] 487[address] Assigned PCP 04/27/23 Twan Patrick MD [address] [place] [address] [address] [place] [address] Assigned Pediatric Specialist Provider 05/05/23 06/15/23 Rashmi Isaac MD [address] [place], [place] [address] Assigned Behavioral Health Provider 06/16/23 Sara Jara, RN Clinic Repairer Kiln Car 12/25/24 documented as of this encounter
--- OUTSIDE RECORDS SUMMARY | 2025-01-12 09:42 | XMS_ITS | Encounter Summary ---
Author Organization [place] Address [address] [place] [address] Care Team Providers Care Design Studio Consultant Name Role Phone Rachel Crum MD Primary Care Provid er Rachel Crum MD Unavailable + [phone] Estelle Calvillo MD Unavailable Twan Patrick MD Unavailable +[phone] Zulema Parrish [facility] Unavailable Unavaila Estelle Schaeffer MD Unavailable Erin Fernandez [facility] Unavailable +[phone] Erin Fernandez [facility] Unavailable +[phone] Marcus Stephens MD Primary Care Provider +[phone] Jyoti Sotomayor [facility] Unavailable + [phone] Jyoti Sotomayor [facility] Unavailable + [phone] Marcus Stephens MD Unavailable Twan Patrick MD Unavailable +[phone] Rashmi Isaac MD Unavailable +[phone] Eloy Singh MD Primary Care Provider +[phone] Sara Jara RN Unavailable +[phone] Encounter Details Date Type Department Care Team (Late st Contact Info) Description 06/14/2022 MyC Medical Advice [facility] 2024 [place] [address] Estelle Calvillo MD [address] [place] [address] Social History Tobacco Use Types Packs/Day Years [...] Coronavirus/COVID-19? No / Unsure 05/31/2022 12:51 PM EMBOSSED OR IMPRESSED LETTERING PAINTER documented as of this encounter Plan of Treatment Upcoming Encounters Date Type Department Care Team (Late st Contact Info) Description 06/23/2025 3:30 PM CDT Office Visit [facility] Francie [address] [place] [address] Drive [address] [place] [phone] Eloy Singh MD [address] [place] [address] [place]ON [id number] documented as of this encounter Visit Diagnoses Not on filedocumented in this encounter Additional Health Concerns Infection Onset Date Last Indicated Resolved Time Rule Out COVID-19 12/11/2022 12/11/2022 12/12/2022 1:24 PM CDT Rule Out Rubella 07/16/2024 07/16/2024 07/17/2024 12:31 PM CDT Assessment Noted Time PHQ-9 Depression Total Score: 18 022 1:59 PM CDT documented as of this encounter Care Teams Design Studio Consultant Relationship Specialty Start Date End Date Rachel Crum MD PCP - General Pediatrics 07/04/12 02/13/23 Marcus Stephens MD 717 [facility] 370 [place] [address] PCP - General Pediatrics 02/14/23 12/22/24 Eloy Singh MD [address] [place] [address] [place]ON [address] PCP - General Internal Medicine - Pediatrics 12/23/24 Rachel Crum MD Assigned PCP 11/11/18 04/26/23 Estelle Calvillo MD [address] [place] [address] [address]275 [place] [address] reproduction specialist & Neurology - Child & Adolescent Psychiatry 05/24/19 Twan Patrick MD [address] [facility] [address] [place], [place] 864084 Assigned Pediatric Specialist Provider 12/11/21 04/26/23 Zulema Parrish LGSW Lead Weatherization Technician 07/04/22 01/27/23 Estelle Calvillo MD [facility] [address] 948974 Assigned Behavioral Health Provider 07/02/22 06/15/23 Erin Fernandez, [facility] [address] [id number] Pharmacist Pharmacist 12/22/22 10/25/23 Erin Fernandez, [facility] [address] [id number] Assigned MTM Pharmacist 12/31/22 Jyoti Sotomayor [facility] [address] [id number] [place], [place] 8[address]004 Pharmacist Pharmacist 03/08/23 Jyoti Sotomayor [facility] [address] 3400782 [place], [place] 716354 Assigned MTM Pharmacist 03/11/23 Marcus Stephens MD [address] [place] [address] Assigned PCP 04/27/23 Twan Patrick MD [address] [place] [address] Assigned Pediatric Specialist Provider 05/05/23 06/15/23 Rashmi Isaac MD [address] [facility] [address] [place] [address] Assigned Behavioral Health Provider 06/16/23 Sara Jara RN Clinic Weatherization Technician 12/25/24 documented as of this encounter
--- OUTSIDE RECORDS SUMMARY | 2025-01-12 09:42 | XMS_ITS | Encounter Summary ---
Author Organization [place] Address [address] [place] [address] Care Team Providers Care Cement Conveyor Operator Name Role Phone Estelle Calvillo MD Unavailable Estelle Calvillo MD Unavailable Erin Fernandez [facility] Unavailable +[phone] Marcus Stephens MD Primary Care Provider +[phone] Jyoti Sotomayor [facility] Unavailable + [phone] Jyoti Sotomayor [facility] Unavailable + [phone] Marcus Stephens MD Unavailable Twan Patrick MD Unavailable +[phone] Rashmi Isaac MD Unavailable +[phone] Eloy Singh MD Primary Care Provider +[phone] Sara Jara RN Unavailable +[phone] Encounter Details Date Type Department Care Team (Late st Contact Info) Description 05/31/2023 [facility] 2024 [place] [address] Rashmi Isaac MD [address] [facility] [address] [place] [address] Social History Tobacco Use Types [...] in a detention (including now)? No 02/09/2022 Adolescent Education Answer [...] Description 06/23/2025 3:30 PM CDT Office Visit [facility] [address] [facility] [address] [place] [phone] Eloy Singh MD 3305 [facility] [place] [address] documented as of this encounter Goals Goal [...] Parent to continue with medical specialties within [place] and [facility] 2. Parent to continue with [...] documented as of this encounter Care Teams Cement Conveyor Operator Relationship Specialty Start Date End Date Marcus Stephens MD [address] [place] [address] 370 [place], [place] 428745 PCP - General Pediatrics 02/14/23 12/22/24 Eloy Singh MD [address] [place] [address] [place]ON [address] PCP - General Internal Medicine - Pediatrics 12/23/24 Estelle Calvillo MD [address] [place] [address] [address] [place], [place] 085044 senior commercial loan officer & Neurology - Child & Adolescent Psychiatry 05/24/19 Estelle Calvillo MD [address] [facility] [address] [place], [place] 393814 Assigned Behavioral Health Provider 07/02/22 06/15/23 Erin Fernandez, [facility] [address] [place], [place] [address] Pharmacist Pharmacist 12/22/22 10/25/23 Jyoti Sotomayor [facility] 2450 [facility] [address] [place], [place] 158184 Pharmacist Pharmacist 03/08/23 Jyoti Sotomayor [facility] 2450 [facility] [address] [place], [place] 628224 Assigned MTM Pharmacist 03/11/23 Marcus Stephens MD 717 [facility] [address] 370 [place], [place] 533085 Assigned PCP 04/27/23 Twan Patrick MD [address] [place] [address] [address] [place], [place] 0[address]594 Assigned Pediatric Specialist Provider 05/05/23 06/15/23 Rashmi Isaac MD [address] [facility] [address] [place], [place] 566434 Assigned Behavioral Health Provider 06/16/23 Sara Jara, RN Clinic Event Management Consultant 12/25/24 documented as of this encounter
--- OUTSIDE RECORDS SUMMARY | 2025-01-12 09:42 | XMS_ITS | Patient Health Record ---
Author Organization [facility] Address 25[address] [facility] 400 [place], [place] [address] Care Team Providers Care Collar Packer Name Role Phone [facility] RIOS, [facility] Primary Care Provider [phone] Reason For Referral No Information Plan Of Treatment No Information Insurance Providers Payer Name Payer Address Payer Phone Subscriber Number Group Number Insured Name Patient Relationship to Insured Coverage Start Date Coverage End Date [facility] [address] [address] [place] [address] [id number] Alea Dolan Natural Child - Insured has Financial Responsibility [facility] [address] [address] [place] [address] [id number] Adi Dolan Self - patient is the insured
--- OUTSIDE RECORDS SUMMARY | 2025-01-12 09:42 | XMS_ITS | Encounter Summary ---
Author Organization [facility] Address [address] [place] [address] Care Team Providers Care Claims Examiner Name Role Phone KarliEstelle MD Unavailable Erin Fernandez [facility] Unavailable [phone] Marcus Stephens MD Primary Care Provider [phone] Jyoti Sotomayor [facility] Unavailable + [phone] Jyoti Sotomayor [facility] Unavailable + [phone] Marcus Stephens MD Unavailable Rashmi Isaac MD Unavailable +[phone] Eloy Singh MD Primary Care Provider [phone] Sara Jara RN Unavailable +[phone] Encounter Details Date Type Department Care Team (Late st Contact Info) Description 09/07/2023 [facility] 2024 [place] [phone] Rashmi Isaac MD [facility] [place] [address] [address] [place] [address] Autism (Primary Dx) Social History [...] Description 06/23/2025 3:30 PM CDT Office Visit [facility] [address] [facility] [address] [place] [phone] Eloy Singh MD [address] [place] [address] [place] [id number] documented as of this encounter Goals Goal [...] documented as of this encounter Care Teams Claims Examiner Relationship Specialty Start Date End Date Marcus Stephens MD 717 [facility] 370 [place], [place] 987505 PCP - General Pediatrics 02/14/23 12/22/24 Eloy Singh MD 3305 [facility] [place] [id number] PCP - General Internal Medicine - Pediatrics 12/23/24 [place] [address] [place] [address] [address] [place], [place] 628434 public relations counselor & Neurology - Child & Adolescent Psychiatry 05/24/19 Erin Fernandez, [facility] [address] [place] [address] [place] [address] Pharmacist Pharmacist 12/22/22 10/25/23 Jyoti Sotomayor [facility] [address] [id number] [place] [address] Pharmacist Pharmacist 03/08/23 Jyoti Sotomayor [facility] [address] [address] Assigned MTM Pharmacist 03/11/23 Marcus Stephens MD [address]17 [facility] 370 [place] [address] Assigned PCP 04/27/23 Rashmi Isaac MD [address] [place] [address] Assigned Behavioral Health Provider 06/16/23 Sara Jara, RN Clinic Sales Force Administrator 12/25/24 documented as of this encounter
--- OUTSIDE RECORDS SUMMARY | 2025-01-12 09:42 | XMS_ITS | Encounter Summary ---
Author Organization [facility] Address [address] [place] [address] Care Team Providers Care It Admin Name Role Phone Rachel Crum MD Primary Care Provid er Rachel Crum MD Unavailable + [phone] Estelle Calvillo MD Unavailable Estelle Calvillo MD Unavailable Jose Hartman DOOR TO DOOR SELLING AGENT ENVIRONMENTAL HEALTH MANAGER Unavailable Lexii Wray RN Unavailable [phone] Twan Patrick MD Unavailable +[phone] Zulema Parrish [facility] Unavailable Unavaila Estelle Schaeffer MD Unavailable Erin Fernandez [facility] Unavailable +[phone] Erin Fernandez [facility] Unavailable +[phone] Marcus Stephens MD Primary Care Provider [phone] Jyoti Sotomayor [facility] Unavailable + [phone] Jyoti Sotomayor [facility] Unavailable +[phone] Marcus Stephens MD Unavailable Twan Patrick MD Unavailable +[phone] Rashmi Isaac MD Unavailable [phone] Eloy Singh MD Primary Care Provider [phone] Sara Jara RN Unavailable [phone] Reason for Visit * Reason Comments Medication Refill Encounter Details Date Type Department Care Team (Late st Contact Info) Description 11/14/[address] [facility] [place] [address] Rachel Crum MD 1021 [facility] 100 [place], [place] [phone] Medication Refill Social History Tobacco Use Types [...] - 11/14/2018 8:20 AM CDT Per 10/22/18 [employer] message note: 1) REFLUX - trial of protonix once daily x 3 weeks (watch for burps, abdominal pain, tapping or behaviors of being frustrated with eating) - after this trial we will plan to stop protonix and then do a trial of digestive enzymes and betaine HCL (see below for purchase details). ??There is data from [place] that children with autism havelower amount of digestive enzymes. ?? Refused request for protonix, as Dr. Crum planned to stop this. Mihaela Bennett, RN, IBCLC documented in this encounter Plan of Treatment Upcoming Encounters Date Type Department Care Team (Late Contact Info) Description 06/23/2025 3:30 PM CDT Office Visit [facility] [address] [facility] [address] [place] [address] Eloy Singh MD [address] [facility] [place] [address] documented as of this encounter Visit Diagnoses Diagnosis Gastroesophageal reflux disease, esophagitis presence not specified documented in this encounter Additional Health Concerns Infection Onset Date Last Indicated Resolved Time Rule Out COVID-19 12/11/2022 12/11/2022 12/12/2022 1:24 PM CDT Rule Out Rubella 07/16/2024 07/16/2024 07/17/2024 12:31 PM CDT documented as of this encounter Care Teams It Admin Relationship Specialty Start Date End Date Rachel Crum MD PCP - General Pediatrics 07/04/12 02/13/23 Marcus Stephens MD 717 [facility] 370 [place], [place] 764175 PCP - General Pediatrics 02/14/23 12/22/24 [place] [address] [place] [address] [place] [address] PCP - General Internal Medicine - Pediatrics 12/23/24 Rachel Crum MD Assigned PCP 11/11/18 04/26/23 Estelle Calvillo MD [facility] [address] [place] [address] [address] [place] [address] attic blower & Neurology - Child & Adolescent Psychiatry 05/24/19 Estelle Calvillo MD [address] [place] [address] [address] [place] [address] Assigned Behavioral Health Provider 01/24/20 05/13/22 oJse Hartman APRN ENVIRONMENTAL HEALTH MANAGER [facility] [place] [address] Assigned Pediatric Specialist Provider 01/24/20 09/05/20 Lexii Wray, RN Lead Field Organizer Primary Care - CC 08/14/20 Twan Patrick MD [address] [place], [place] 334664 Assigned Pediatric Specialist Provider 12/11/21 04/26/23 Zulema Parrish LGSW Lead Field Organizer 07/04/22 01/27/23 Estelle Calvillo MD [address] [place], [place] [id number] Assigned Behavioral Health Provider 07/02/22 06/15/23 [facility] [address] [id number] Pharmacist Pharmacist 12/22/22 10/25/23 Erin Fernandez, [facility] [address] [id number] Assigned MTM Pharmacist 12/31/22 Jyoti Sotomayor [facility] [address] [place], [place] 8[address] Pharmacist Pharmacist 03/08/23 Jyoti Sotomayor [facility] [address] [place], [place] [address]454 Assigned MTM Pharmacist 03/11/23 Marcus Stephens MD [address] [place], [place] 7[address] Assigned PCP 04/27/23 Twan Patrick MD [address] [place] [address] Assigned Pediatric Specialist Provider 05/05/23 06/15/23 Rashmi Isaac MD [address] [facility] [address] [place] [address] Assigned Behavioral Health Provider 06/16/23 Sara Jara, RN Clinic Field Organizer 12/25/24 documented as of this encounter
--- OUTSIDE RECORDS SUMMARY | 2025-01-12 09:42 | XMS_ITS | Encounter Summary ---
Author Organization [facility] Address [address] [place] [address] Care Team Providers Care Salesforce Administrator Name Role Phone Rachel Crum MD Primary Care Provid er Rachel Crum MD Unavailable + [phone] Estelle Calvillo MD Unavailable Estelle Calvillo MD Unavailable Twan Patrick MD Unavailable [phone] Zulema Parrish [facility] Unavailable Unavaila Estelle Schaeffer MD Unavailable Erin Fernandez [facility] Unavailable [phone] Erin Fernandez [facility] Unavailable [phone] Marcus Stephens MD Primary Care Provider [phone] Jyoti Sotomayor [facility] Unavailable +[phone] Jyoti Sotomayor [facility] Unavailable +[phone] Marcus Stephens MD Unavailable Twan Patrick MD Unavailable [phone] Rashmi Isaac MD Unavailable + [phone] Eloy Singh MD Primary Care Provider [phone] Sara Jara RN Unavailable [phone] Encounter Details Date Type Department Care Team (Late st Contact Info) Description 12/05/2021 [facility] Medical Advice [place] [id number] [place] [address] Rachel Crum MD [address] [place], [place] [phone] Social History Tobacco Use Types Packs/Day Years [...] 06/23/2025 3:30 PM CDT Office Visit [facility] [address] [place] [address] Drive [address] [place] [phone] Eloy Singh MD [address] [place] [address] [place] [address] documented as of this encounter Visit Diagnoses Not on filedocumented in this encounter Additional Health Concerns Infection Onset Date Last Indicated Resolved Time Rule Out COVID-19 12/11/2022 12/11/2022 12/12/2022 1:24 PM CDT Rule Out Rubella 07/16/2024 07/16/2024 07/17/2024 12:31 PM CDT documented as of this encounter Care Teams Salesforce Administrator Relationship Specialty Start Date End Date Rachel Crum MD PCP - General Pediatrics 07/04/12 02/13/23 Marcus Stephens MD [address] [place] [address] PCP - General Pediatrics 02/14/23 12/22/24 Eloy Singh MD [address] [place] [address] [place] [address] PCP - General Internal Medicine - Pediatrics 12/23/24 Rachel Crum MD Assigned PCP 11/11/18 04/26/23 Estelle Calvillo MD [address] [place] [address] [place] [address] flame brazing machine operator & Neurology - Child & Adolescent Psychiatry 05/24/19 Estelle Calvillo MD [address] [place] [address] Assigned Behavioral Health Provider 01/24/20 05/13/22 Twan Patrick MD [address] [facility] [address] [facility] 200 [place], [place] [address]234 Assigned Pediatric Specialist Provider 12/11/21 04/26/23 Zulema Parrish [facility] Lead Metal Welder 07/04/22 01/27/23 Estelle Calvillo MD [address] 255[address] Assigned Behavioral Health Provider 07/02/22 06/15/23 Erin Fernandez, [facility] [address] [id number] Pharmacist Pharmacist 12/22/22 10/25/23 Erin Fernandez, [facility] [address] [id number] Assigned MTM Pharmacist 12/31/22 Jyoti Sotomayor [facility] [address] [facility] [address] [address] [place], [place] [phone] Pharmacist Pharmacist 03/08/23 Jyoti Sotomayor [facility] [address] [place] [address] Assigned MTM Pharmacist 03/11/23 Marcus Stephnes MD [address] [facility] [address] [place] [address] Assigned PCP 04/27/23 Twan Patrick MD [address] [facility] [address] [place] [address] Assigned Pediatric Specialist Provider 05/05/23 06/15/23 Rashmi Isaac MD [address] [place] [address] Assigned Behavioral Health Provider 06/16/23 Sara Jara, RN Clinic Metal Welder 12/25/24 documented as of this encounter
--- OUTSIDE RECORDS SUMMARY | 2025-01-12 09:42 | XMS_ITS ---
Author Organization [facility] Address [address] [place] [address] Care Team Providers Care Clock Maker Name Role Phone Estelle Calvillo MD Unavailable Jyoti Sotomayor [facility] Unavailable + [phone] Marcus Stephens MD Unavailable Rashmi Isaac MD Unavailable [phone] Eloy Singh MD Primary Care Provider [phone] Sara Jara RN Unavailable [phone] Primary Care Care Coordination Status:Enrolled (Active) Start date:12/25/2024 Enrollment date:12/25/2024 Case Team Name Relationship Phone Sara Jara RN(Responsible Staff) Clinic Car e Coordinator [phone] Continued Care and Services Coordination
--- OUTSIDE RECORDS SUMMARY | 2025-01-12 09:42 | XMS_ITS | Encounter Summary ---
Author Organization [facility] Address [address] [place] [address] Care Team Providers Care Binding Nicker Name Role Phone Rachel Crum MD Primary Care Provid er Santos Guerrero MD Unavailable [phone] Rachel Crum MD Unavailable + [phone] Estelle Calvillo MD Unavailable Estelle Calvillo MD Unavailable Jose Hartman APRN VICE PRESIDENT PAYMENT Unavailable Lexii Wray RN Unavailable [phone] Twan Patrick MD Unavailable [phone] Zulema Parrish [facility] Unavailable Unavaila Estelle Schaeffer MD Unavailable Erin Fernandez [facility] Unavailable Erin Fernandez [facility] Unavailable [phone] Marcus Stephens MD Primary Care Provider [phone] Jyoti Sotomayor [facility] Unavailable + [phone] Jyoti Sotomayor [facility] Unavailable + [phone] Marcus Stephens MD Unavailable Twan Patrick MD Unavailable [phone] Rashmi Isaac MD Unavailable [phone] Eloy Singh MD Primary Care Provider Sara Jara RN Unavailable +[phone] Encounter Details Date Type Department Care Team (Late st Contact Info) Description 10/23/2018 [facility] Medical Advice [facility] 25[address] [place] [phone] Rachel Crum MD [facility] [address] [place], [place] [phone] Social History Tobacco Use Types Packs/Day Years [...] Description 06/23/2025 3:30 PM CDT Office Visit [address] [place] [phone] Eloy Singh MD [address] [place] [address] [id number] documented as of this encounter Visit Diagnoses Not on filedocumented in this encounter Additional Health Concerns Infection Onset Date Last Indicated Resolved Time Rule Out COVID-19 12/11/2022 12/11/2022 12/12/2022 1:24 PM CDT Rule Out Rubella 07/16/2024 07/16/2024 07/17/2024 12:31 PM CDT documented as of this encounter Care Teams Binding Nicker Relationship Specialty Start Date End Date Rachel Crum MD PCP - General Pediatrics 07/04/12 02/13/23 Marcus Stephens MD 717 [facility] 370 [place] [address] PCP - General Pediatrics 02/14/23 12/22/24 Eloy Singh MD [address] [facility] [place] [address] PCP - General Internal Medicine - Pediatrics 12/23/24 [place] [address] [place], [place] [phone] Assigned PCP 07/01/18 11/10/18 Rachel Crum MD Assigned PCP 11/11/18 04/26/23 Estelle Calvillo MD [address] [place] [address] [address] [place], [place] [phone] ship fastener & Neurology - Child & Adolescent Psychiatry 05/24/19 Estelle Calvillo MD [address] [place] [address] [address] [place], [place] [address] Assigned Behavioral Health Provider 01/24/20 05/13/22 Jose Hartman APRN VICE PRESIDENT PAYMENT [address] [place] [address] [place] [address] Assigned Pediatric Specialist Provider 01/24/20 09/05/20 Lexii Wray, JOHN Lead Silo Operator Primary Care - CC 08/14/20 Twan Patrick MD [address] [place] [address] Assigned Pediatric Specialist Provider 12/11/21 04/26/23 Zulema Parrish LGSW Lead Silo Operator 07/04/22 01/27/23 Estelle Calvillo MD [address] [place], [place] [address]034 Assigned Behavioral Health Provider 07/02/22 06/15/23 Erin Fernandez, [facility] [address] [id number] Pharmacist Pharmacist 12/22/22 10/25/23 Erin Fernandez, [facility] [address] [id number] Assigned MTM Pharmacist 12/31/22 Jyoti Sotomayor, [facility] [address] [place], [place] [address] Pharmacist Pharmacist 03/08/23 Jyoti Sotomayor [facility] [address] [place], [place] 682764 Assigned MTM Pharmacist 03/11/23 Marcus Stephens MD [address] [place], [place] 316435 Assigned PCP 04/27/23 Twan Patrick MD [address] [place] [address] Assigned Pediatric Specialist Provider 05/05/23 06/15/23 Rashmi Isaac MD [address] [place] [address] Assigned Behavioral Health Provider 06/16/23 Sara Jara, RN Clinic Silo Operator 12/25/24 documented as of this encounter
--- OUTSIDE RECORDS SUMMARY | 2025-01-12 09:42 | XMS_ITS | Encounter Summary ---
Author Organization [facility] Address [address] [place] [address] Care Team Providers Care Purchase Analyst Name Role Phone Rachel Crum MD Primary Care Provid er Rachel Crum MD Unavailable + [phone] Estelle Calvillo MD Unavailable Estelle Calvillo MD Unavailable Twan Patrick MD Unavailable +[phone] Zulema Parrish [facility] Unavailable Unavaila Estelle Schaeffer MD Unavailable Erin Fernandez [facility] Unavailable +[phone] Erin Fernandez [facility] Unavailable [phone] Marcus Stephens MD Primary Care Provider [phone] Jyoti Sotomayor [facility] Unavailable +[phone] Jyoti Sotomayor [facility] Unavailable +[phone] Marcus Stephens MD Unavailable Twan Patrick MD Unavailable [phone] Rashmi Isaac MD Unavailable + [phone] Eloy Singh MD Primary Care Provider +[phone] Sraa Jara RN Unavailable +[phone] Encounter Details Date Type Department Care Team (Late st Contact Info) Description 09/21/2020 MyC Medical Advice [place] [address] [place] [address] Rachel Crum MD [address] [place], [place] [phone] Medication side effects (Primary Dx) Social History [...] CDT Office Visit [facility] [address] [facility] [address] [place] [address] Eloy Singh MD 3305 [facility] [place] [id number] documented as of this encounter Results * (ABNORMAL) Prolactin (09/24/2020 10:06 AM CDT) Prolactin 19(H) 2 - 18 ug/L 09/29/2020 4:31 PM CDT [facility] Blood 09/24/2020 10:0 6 AM CDT 09/29/2020 1:58 PM CDT us Rachel Crum MD LAB - BLOOD ORDERABL ES Final Result [facility] [address] [place] [address] documented in this encounter Visit Diagnoses Diagnosis Medication side effects- Primary Unspecified adverse effect of unspecified drug, medicinal and biological substance documented in this encounter Additional Health Concerns Infection Onset Date Last Indicated Resolved Time Rule Out COVID-19 12/11/2022 12/11/2022 12/12/2022 1:24 PM CDT Rule Out Rubella 07/16/2024 07/16/2024 07/17/2024 12:31 PM CDT documented as of this encounter Care Teams Purchase Analyst Relationship Specialty Start Date End Date Rachel Crum MD PCP - General Pediatrics 07/04/12 02/13/23 Marcus Stephens MD [address] [place] [address] 370 [place] [address] PCP - General Pediatrics 02/14/23 12/22/24 [place] [address] [place] [address] [place] [address] PCP - General Internal Medicine - Pediatrics 12/23/24 Rachel Crum MD Assigned PCP 11/11/18 04/26/23 Estelle Calvillo MD [address] [place] [address] emergency care attendant & Neurology - Child & Adolescent Psychiatry 05/24/19 Estelle Calvillo MD [address] [place] [address] 263224 Assigned Behavioral Health Provider 01/24/20 05/13/22 Twan Patrick MD [address] [place] [address] 200 [place], [place] [address] Assigned Pediatric Specialist Provider 12/11/21 04/26/23 Zulema Parrish, [facility] Lead Insurance Special Agent 07/04/22 01/27/23 Estelle Calvillo MD [facility] [address] [address] Assigned Behavioral Health Provider 07/02/22 06/15/23 Erin Fernandez, [facility] [address] [place] [place] [id number] Pharmacist Pharmacist 12/22/22 10/25/23 Erin Fernandez, [facility] [address] [place] [id number] Assigned MTM Pharmacist 12/31/22 Jyoti Sotomayor, [facility] [address] [place], [place] [phone] Pharmacist Pharmacist 03/08/23 Jyoti Sotomayor, [facility] [address] [place], [place] [phone] Assigned MTM Pharmacist 03/11/23 Marcus Stephens MD [address] [place] [address] Assigned PCP 04/27/23 Twan Patrick MD [address] [facility] [address] [place], [place] [phone] Assigned Pediatric Specialist Provider 05/05/23 06/15/23 Rashmi Isaac MD [address] [place] [address] Assigned Behavioral Health Provider 06/16/23 Sara Jara, RN Clinic Insurance Special Agent 12/25/24 documented as of this encounter
--- OUTSIDE RECORDS SUMMARY | 2025-01-12 09:42 | XMS_ITS | Encounter Summary ---
Author Organization [facility] Address [address] [place] [address] Care Team Providers Care Janitor Supervisor Name Role Phone Rachel Crum MD Primary Care Provid er Rachel Crum MD Unavailable + [phone] Estelle Calvillo MD Unavailable Estelle Calvillo MD Unavailable Lexii Wray RN Unavailable [phone] Twan Patrick MD Unavailable +[phone] Zulema Parrish [facility] Unavailable Unavaila [facility] Estelle Calvillo MD Unavailable Erin Fernandez [facility] Unavailable [phone] Erin Fernandez [facility] Unavailable +[phone] Marcus Stephens MD Primary Care Provider [phone] Jyoti Sotomayor [facility] Unavailable +[phone] Jyoti Sotomayor [facility] Unavailable +[phone] Marcus Stephens MD Unavailable Twan Patrick MD Unavailable +[phone] Rashmi Isaac MD Unavailable +[phone] Eloy Singh MD Primary Care Provider +[phone] Sara Jara RN Unavailable Encounter Details Date Type Department Care Team (Late st Contact Info) Description 09/06/2020 MyC Medical Advice [facility] [address] 1st Floor, [address] [place] [phone] Estelle Calvillo MD [address] [facility] [address] [place], [place] [address] Social History Tobacco Use Types Packs/Day Years [...] Description 06/23/2025 3:30 PM CDT Office Visit [facility] Francie [address] [place] [phone] [place] [address] [place] [address] [place] [address] documented as of this encounter Visit Diagnoses Not on filedocumented in this encounter Additional Health Concerns Infection Onset Date Last Indicated Resolved Time Rule Out COVID-19 12/11/2022 12/11/2022 12/12/2022 1:24 PM CDT Rule Out Rubella 07/16/2024 07/16/2024 07/17/2024 12:31 PM CDT documented as of this encounter Care Teams Janitor Supervisor Relationship Specialty Start Date End Date Rachel Crum MD PCP - General Pediatrics 07/04/12 02/13/23 Marcus Stephens MD 717 [facility] 370 [place], [place] 928575 PCP - General Pediatrics 02/14/23 12/22/24 Eloy Singh MD [address] [facility] [place] [address] PCP - General Internal Medicine - Pediatrics 12/23/24 Rachel Crum MD Assigned PCP 11/11/18 04/26/23 Estelle Calvillo MD [address] [place], [place] [address] [place], [place] [address] playground equipment erector & Neurology - Child & Adolescent Psychiatry 05/24/19 Estelle Calvillo MD [address] [place] [address] 131694 Assigned Behavioral Health Provider 01/24/20 05/13/22 Lexii Wray, JOHN Lead Financial Analyst Intern Primary Care - CC 08/14/20 Twan Patrick MD [address] [place] [address] 200 [place], [place] [address] Assigned Pediatric Specialist Provider 12/11/21 04/26/23 Zulema Parrish ATHLETIC TRAINER Lead Financial Analyst Intern 07/04/22 01/27/23 Estelle Calvillo MD [address] [place], [place] [address] [place] [address] Assigned Behavioral Health Provider 07/02/22 06/15/23 Erin Fernandez, [facility] 14[address] [facility] [place] [address] Pharmacist Pharmacist 12/22/22 10/25/23 Erin Fernandez, [facility] 1440 [facility] [place] [address] Assigned MTM Pharmacist 12/31/22 Jyoti Sotomayor [facility] [address] [place], [place] [address] [place] [address] Pharmacist Pharmacist 03/08/23 Jyoti Sotomayor [facility] [address] [place], [place] [address] [place] [address] Assigned MTM Pharmacist 03/11/23 Marcus Stephens MD [address] [place] [address] 370 [place], [place] 415395 Assigned PCP 04/27/23 Twan Patrick MD [address] [place] [address] 200 [place], [place] 154784 Assigned Pediatric Specialist Provider 05/05/23 06/15/23 Rashmi Isaac MD [facility] [place] [address] [address] [place] [address] Assigned Behavioral Health Provider 06/16/23 Sara Jara, RN Clinic Financial Analyst Intern 12/25/24 documented as of this encounter
--- OUTSIDE RECORDS SUMMARY | 2025-01-12 09:42 | XMS_ITS | Encounter Summary ---
Author Organization [facility] Address [address] [place] [address] Care Team Providers Care Staker Surveying Name Role Phone Rachel Crum MD Primary Care Provid er Rachel Crum MD Unavailable + [phone] Estelle Calvillo MD Unavailable Estelle Calvillo MD Unavailable Twan Patrick MD Unavailable +[phone] Zulema Parrish [facility] Unavailable Unavaila Estelle Schaeffer MD Unavailable Erin Fernandez [facility] Unavailable +[phone] Erin Fernandez [facility] Unavailable +[phone] Marcus Stephens MD Primary Care Provider [phone] Jyoti Sotomayor [facility] Unavailable +[phone] Jyoti Sotomayor [facility] Unavailable +[phone] Marcus Stephens MD Unavailable Twan Patrick MD Unavailable +[phone] Rashmi Isaac MD Unavailable + [phone] Eloy Singh MD Primary Care Provider [phone] Sara Jara RN Unavailable [phone] Encounter Details Date Type Department Care Team (Late st Contact Info) Description 11/14/2020 MyC Medical Advice [facility] [address] 1st Floor, [address] [place] [phone] Estelle Calvillo MD [address] [facility] [address] [place] [address] Social History Tobacco Use Types [...] CDT Office Visit [facility] Francie [address] [place] [address] Drive [address] [place] [phone] Eloy Singh MD [address] [place] [address] [place] [address] documented as of this encounter Visit Diagnoses Not on filedocumented in this encounter Additional Health Concerns Infection Onset Date Last Indicated Resolved Time Rule Out COVID-19 12/11/2022 12/11/2022 12/12/2022 1:24 PM CDT Rule Out Rubella 07/16/2024 07/16/2024 07/17/2024 12:31 PM CDT documented as of this encounter Care Teams Staker Surveying Relationship Specialty Start Date End Date Rachel Crum MD PCP - General Pediatrics 07/04/12 02/13/23 Marcus Stephens MD [address] [address] PCP - General Pediatrics 02/14/23 12/22/24 Eloy Singh MD [address] [place] [address] [place] [address] PCP - General Internal Medicine - Pediatrics 12/23/24 Rachel Crum MD Assigned PCP 11/11/18 04/26/23 Estelle Calvillo MD [address] [place], [place] [address] [place] [address] switching clerk & Neurology - Child & Adolescent Psychiatry 05/24/19 Estelle Calvillo MD [address] [place] [address]175 [place] [address] Assigned Behavioral Health Provider 01/24/20 05/13/22 Twan Patrick MD [address] [facility] 200 [place], [place] 712364 Assigned Pediatric Specialist Provider 12/11/21 04/26/23 Zulema Parrish LGSW Lead Air Intelligence Officer 07/04/22 01/27/23 Estelle Calvillo MD [facility] [address] Assigned Behavioral Health Provider 07/02/22 06/15/23 Erin Fernandez [facility] [address] [place] [address] Pharmacist Pharmacist 12/22/22 10/25/23 Erin Fernandez [facility] [address] [place] [address] [address] Assigned MTM Pharmacist 12/31/22 Jyoti Sotomayor [facility] [address] [place] [address] Pharmacist Pharmacist 03/08/23 yJoti Sotomayor [facility] [address] [place] [address] [id number] Assigned MTM Pharmacist 03/11/23 Marcus Stephens MD [address] [place], [place] [address] Assigned PCP 04/27/23 Twan Patrick MD [address] 200 [place] [address] Assigned Pediatric Specialist Provider 05/05/23 06/15/23 Rashmi Isaac MD [address] [facility] [address] [place], [place] [address] Assigned Behavioral Health Provider 06/16/23 Sara Jara RN Clinic Air Intelligence Officer 12/25/24 documented as of this encounter
--- OUTSIDE RECORDS SUMMARY | 2025-01-12 09:42 | XMS_ITS | Encounter Summary ---
Author Organization [facility] Address [address] [place] [address] Care Team Providers Care Account Management Specialist Name Role Phone Rachel Crum MD Primary Care Provid er Rachel Crum MD Unavailable + [phone] Estelle Calvillo MD Unavailable Twan Patrick MD Unavailable +[phone] Zulema Parrish [facility] Unavailable Unavaila Estelle Schaeffer MD Unavailable Erin Fernandez [facility] Unavailable [phone] Erin Fernandez [facility] Unavailable [phone] Marcus Stephens MD Primary Care Provider [phone] Jyoti Sotomayor [facility] Unavailable + [phone] Jyoti Sotomayor [facility] Unavailable + [phone] Marcus Stephens MD Unavailable Twan Patrick MD Unavailable +[phone] Rashmi Isaac MD Unavailable +[phone] Eloy Singh MD Primary Care Provider [phone] Sara Jara RN Unavailable +[phone] Encounter Details Date Type Department Care Team (Late st Contact Info) Description 06/26/2022 MyC Medical Advice [facility] 2024 [place] [address] Estelle Calvillo MD [address] [place] [address] Social History Tobacco Use Types Packs/Day Years [...] Coronavirus/COVID-19? No / Unsure 05/31/2022 12:51 PM INTERMEDIATE CARD TENDER documented as of this encounter Plan of Treatment Upcoming Encounters Date Type Department Care Team (Late st Contact Info) Description 06/23/2025 3:30 PM CDT Office Visit [facility] Franc[place] [address] [place] [address] Drive [address] [place] [phone] Eloy Singh MD [address] [place] [address] [place] [id number] documented as of this encounter Visit Diagnoses Not on filedocumented in this encounter Additional Health Concerns Infection Onset Date Last Indicated Resolved Time Rule Out COVID-19 12/11/2022 12/11/2022 12/12/2022 1:24 PM CDT Rule Out Rubella 07/16/2024 07/16/2024 07/17/2024 12:31 PM CDT Assessment Noted Time PHQ-9 Depression Total Score: 18 022 1:59 PM CDT documented as of this encounter Care Teams Account Management Specialist Relationship Specialty Start Date End Date Rachel Crum MD PCP - General Pediatrics 07/04/12 02/13/23 Marcus Stephens MD 717 [facility] 370 [place] [address] PCP - General Pediatrics 02/14/23 12/22/24 Eloy Singh MD [address] [place] [address] [place] [address] PCP - General Internal Medicine - Pediatrics 12/23/24 Rachel Crum MD Assigned PCP 11/11/18 04/26/23 Estelle Calvillo MD [address] [place] [address] F275 [place] [address] former hand & Neurology - Child & Adolescent Psychiatry 05/24/19 Twan Patrick MD [address] [facility] [address] 200 [place], [place] 408534 Assigned Pediatric Specialist Provider 12/11/21 04/26/23 Zulema Parrish LGSW Lead Supervisor Photoengraving 07/04/22 01/27/23 Estelle Calvillo MD [facility] [address] 904734 Assigned Behavioral Health Provider 07/02/22 06/15/23 Erin Fernandez, [facility] [address] [id number] Pharmacist Pharmacist 12/22/22 10/25/23 Erin Fernandez, [facility] [address] [id number] Assigned MTM Pharmacist 12/31/22 Jyoti Sotomayor [facility] [address] [place] 9582882 [place], [place] 361174 Pharmacist Pharmacist 03/08/23 Jyoti Sotomayor [facility] [address] [place] 9582882 [place], [place] [address] Assigned MTM Pharmacist 03/11/23 Marcus Stephens MD [address] [place] [address] Assigned PCP 04/27/23 Twan Patrick MD [address] 200 [place] [address] Assigned Pediatric Specialist Provider 05/05/23 06/15/23 Rashmi Isaac MD [address]12 [address] [facility] [address] [place] [address] Assigned Behavioral Health Provider 06/16/23 Sara Jara RN Clinic Supervisor Photoengraving 12/25/24 documented as of this encounter
--- OUTSIDE RECORDS SUMMARY | 2025-01-12 09:43 | XMS_ITS | Encounter Summary ---
Author Organization [facility] Address [address] [place] [address] Care Team Providers Care Body Shop Supervisor Name Role Phone Rachel Crum MD Primary Care Provid er Rachel Crum MD Unavailable + [phone] Estelle Calvillo MD Unavailable Estelle Calvillo MD Unavailable Twan Patrick MD Unavailable +[phone] Zulema Parrish [facility] Unavailable Unavaila Estelle Schaeffer MD Unavailable Erin Fernandez [facility] Unavailable +[phone] Erin Fernandez [facility] Unavailable +[phone] Marcus Stephens MD Primary Care Provider [phone] Jyoti Sotomayor [facility] Unavailable +[phone] Jyoti Sotomayor [facility] Unavailable +[phone] Marcus Stephens MD Unavailable Twan Patrick MD Unavailable +[phone] Rashmi Isaac MD Unavailable + [phone] Eloy Singh MD Primary Care Provider [phone] Sara Jara RN Unavailable +[phone] Encounter Details Date Type Department Care Team (Late st Contact Info) Description 12/08/2021 MyC Medical Advice [place] [id number] [place] [address] Rachel Crum MD [address] [place], [place] [id number] Social History Tobacco Use Types Packs/Day Years [...] Description 06/23/2025 3:30 PM CDT Office Visit [facility] Franc[place] [address] [place] [address] Drive [address] [place] [phone] Eloy Singh MD [address] [place] [address] [place] [address] documented as of this encounter Visit Diagnoses Not on filedocumented in this encounter Additional Health Concerns Infection Onset Date Last Indicated Resolved Time Rule Out COVID-19 12/11/2022 12/11/2022 12/12/2022 1:24 PM CDT Rule Out Rubella 07/16/2024 07/16/2024 07/17/2024 12:31 PM CDT documented as of this encounter Care Teams Body Shop Supervisor Relationship Specialty Start Date End Date Rachel Crum MD PCP - General Pediatrics 07/04/12 02/13/23 Marcus Stephens MD [address] [place] [address] PCP - General Pediatrics 02/14/23 12/22/24 Eloy Singh MD [address] [place] [address] [place] [address] PCP - General Internal Medicine - Pediatrics 12/23/24 Rachel Crum MD Assigned PCP 11/11/18 04/26/23 Estelle Calvillo MD [address] [place] [address] [place] [address] marketing automation manager & Neurology - Child & Adolescent Psychiatry 05/24/19 Estelle Calvillo MD [address] [place] [address] Assigned Behavioral Health Provider 01/24/20 05/13/22 Twan Patrick MD [address] [facility] [address] [facility] 200 [place], [place] [address]994 Assigned Pediatric Specialist Provider 12/11/21 04/26/23 Zulema Parrish [facility] Lead Artificial Snow Making Machine Operator 07/04/22 01/27/23 Estelle Calvillo MD [address] [address] Assigned Behavioral Health Provider 07/02/22 06/15/23 Erin Fernandez, [facility] [address] [id number] Pharmacist Pharmacist 12/22/22 10/25/23 Erin Fernandez, [facility] [address] [id number] Assigned MTM Pharmacist 12/31/22 Jyoti Sotomayor [facility] [address] [facility] [address] [address] [place], [place] [phone] Pharmacist Pharmacist 03/08/23 Jyoti Sotomayor [facility] [address] [place] [address] Assigned MTM Pharmacist 03/11/23 Marcus Stephens MD 717 [facility] [address] [place] [address] Assigned PCP 04/27/23 Twan Patrick MD [address] [facility] [address] 200 [place] [address] Assigned Pediatric Specialist Provider 05/05/23 06/15/23 Rashmi Isaac MD [address] [place] [address] Assigned Behavioral Health Provider 06/16/23 Sara Jara, RN Clinic Artificial Snow Making Machine Operator 12/25/24 documented as of this encounter
--- OUTSIDE RECORDS SUMMARY | 2025-01-12 09:43 | XMS_ITS | Encounter Summary ---
Author Organization [facility] Address [address] [place] [address] Care Team Providers Care Drywall Contractor Name Role Phone Rachel Crum MD Primary Care Provid er Rachel Crum MD Unavailable + [phone] Estelle Calvillo MD Unavailable Twan Patrick MD Unavailable +[phone] Zulema Parrish [facility] Unavailable Unavaila Estelle Schaeffer MD Unavailable Erin Fernandez [facility] Unavailable [phone] Erin Fernandez [facility] Unavailable [phone] Marcus Stephens MD Primary Care Provider [phone] Jyoti Sotomayor [facility] Unavailable + [phone] Jyoti Sotomayor [facility] Unavailable + [phone] Marcus Stephens MD Unavailable Twan Patrick MD Unavailable +[phone] Rashmi Isaac MD Unavailable +[phone] Eloy Singh MD Primary Care Provider [phone] Sara Jara RN Unavailable +[phone] Encounter Details Date Type Department Care Team (Late st Contact Info) Description 11/23/2022 MyC Medical Advice [facility] 2535 [place] [address] Rachel Crum MD 1021 [facility] [address] [place] [address] Social History Tobacco Use Types Packs/Day Years [...] [facility] Francie [address] [facility] [address] [place] [phone] Eloy Singh MD 3305 [facility] [place] [address] documented as of this encounter Goals Goal [...] documented as of this encounter Care Teams Drywall Contractor Relationship Specialty Start Date End Date Rachel Crum MD PCP - General Pediatrics 07/04/12 02/13/23 Marcus Stephens MD [address] [place] [address] [place] [address] PCP - General Pediatrics 02/14/23 12/22/24 Eloy Singh MD [address] [facility] [place] [address] PCP - General Internal Medicine - Pediatrics 12/23/24 Rachel Crum MD Assigned PCP 11/11/18 04/26/23 Estelle Calvillo MD [address] [facility] [address] [place] [address] fishing boat mate & Neurology - Child & Adolescent Psychiatry 05/24/19 Twan Patrick MD [address] [facility] [address] 200 [place] [address] Assigned Pediatric Specialist Provider 12/11/21 04/26/23 Zulema Parrish, [facility] Lead Core Measures Abstractor 07/04/22 01/27/23 Estelle Calvillo MD [address] [place] [address] F275 [place], [place] 249144 Assigned Behavioral Health Provider 07/02/22 06/15/23 Erin Fernandez, [facility] [address] [place] [address] Pharmacist Pharmacist 12/22/22 10/25/23 Erin Fernandez, [facility] [address] [place] [address] Assigned MTM Pharmacist 12/31/22 Jyoti oStomayor [facility] [address] [place], [place] [address] Pharmacist Pharmacist 03/08/23 Jyoti Sotomayor [facility] [address] [place], [place] [address] Assigned MTM Pharmacist 03/11/23 Marcus Stephens MD [address] [place] [address] Assigned PCP 04/27/23 Twan Patrick MD [address] 200 [place] [address] Assigned Pediatric Specialist Provider 05/05/23 06/15/23 Rashmi Isaac MD [address] [place] [address] Assigned Behavioral Health Provider 06/16/23 Sara Jara, RN Clinic Core Measures Abstractor 12/25/24 documented as of this encounter
--- OUTSIDE RECORDS SUMMARY | 2025-01-12 09:43 | XMS_ITS | Encounter Summary ---
Author Organization [facility] Address [address] [place] [address] Care Team Providers Care Rubber And Plastics Worker Name Role Phone NeishaoscarEstelle MD Unavailable Marcus Stephens MD Primary Care Provider [phone] Jyoti Sotomayor [facility] Unavailable + [phone] Jyoti Sotomayor [facility] Unavailable + [phone] Marcus Stephens MD Unavailable Rashmi Isaac MD Unavailable +[phone] Eloy Singh MD Primary Care Provider [phone] Sara Jara RN Unavailable [phone] Encounter Details Date Type Department Care Team (Late st Contact Info) Description 07/17/2024 [facility] Medical Advice [facility] 2024 [place] [address] Rashmi Isaac MD [address] [facility] [address] [place] [address] Social History Tobacco Use Types [...] 06/23/2025 3:30 PM CDT Office Visit [facility] [place] [address] [facility] [address] [place] [phone] Eloy Singh MD [address]305 [facility] [place] [id number] documented as of this encounter Goals Goal [...] Depression Total Score: 10 025 11:26 AM REGISTERED SALES ASSISTANT documented as of this encounter Care Teams Rubber And Plastics Worker Relationship Specialty Start Date End Date Marcus Stephens MD 717 [facility] 370 [place], [place] [address] PCP - General Pediatrics 02/14/23 12/22/24 Eloy Singh MD [address] [facility] [place] [address] PCP - General Internal Medicine - Pediatrics 12/23/24 Estelle Calvillo MD [address] [place], [place] [address] hand crown pouncer & Neurology - Child & Adolescent Psychiatry 05/24/19 Jyoti Sotomayor RPH 2450 [facility] [address] [place], [place] [address] Pharmacist Pharmacist 03/08/23 Jyoti Sotomayor RPH [address] [place] [address] Assigned MTM Pharmacist 03/11/23 Marcus Stephens MD [address] [place] [address] Assigned PCP 04/27/23 Rashmi Isaac MD [address] [place] [address] Assigned Behavioral Health Provider 06/16/23 Sara Jara, RN Clinic Elevator Mechanic Apprentice 12/25/24 documented as of this encounter
--- OUTSIDE RECORDS SUMMARY | 2025-01-12 09:43 | XMS_ITS | Encounter Summary ---
Author Organization [place] Address [address] [place] [address] Care Team Providers Care Field Mechanical Meter Tester Name Role Phone SindveangEstelle meléndez MD Unavailable Jyoti Sotomayor [facility] Unavailable [phone] Marcus Stephens MD Unavailable Rashmi Isaac MD Unavailable [phone] Eloy Singh MD Primary Care Provider [phone] Encounter Details Date Type Department Care Team (Late st Contact Info) Description 12/23/2024 Orders Only [address] [place] [address] Eloy Singh MD [address] [place] [address] [place] [address] Social History Tobacco Use Types Packs/Day Years [...] CDT Office Visit [facility] [place] [address] [facility] [address] [place] [phone] Eloy Singh MD 3305 [facility] [place] [id number] documented as of this encounter Goals Goal [...] Depression Total Score: 10 025 11:26 AM MVA OPERATOR documented as of this encounter Care Teams Field Mechanical Meter Tester Relationship Specialty Start Date End Date Eloy Singh MD [address] [facility] [place] [address] PCP - General Internal Medicine - Pediatrics 12/23/24 Estelle Calvillo MD [address] [place] [address] forest fire lookout & Neurology - Child & Adolescent Psychiatry 05/24/19 Jyoti Sotomayor [facility] [address] [place], [place] 3350[address] Pharmacist Pharmacist 03/08/23 Marcus Stephens MD 717 [facility] [address] [place], [place] [address] Assigned PCP 04/27/23 Rashmi Isaac MD [address] [place] [address] Assigned Behavioral Health Provider 06/16/23 documented as of this encounter
--- OUTSIDE RECORDS SUMMARY | 2025-01-12 09:43 | XMS_ITS | Encounter Summary ---
Author Organization [facility] Address [address] [place] [address] Care Team Providers Care Hat And Cap Opener Name Role Phone Estelle Calvillo MD Unavailable Marcus Stephens MD Primary Care Provider [phone] Jyoti Sotomayor [facility] Unavailable + [phone] Marcus Stephens MD Unavailable Rashmi Isaac MD Unavailable [phone] Encounter Details Date Type Department Care Team (Latest Contact Info) Description 12/20/2024 Travel Social History Tobacco Use Types Packs/Day [...] in an overnight custodial, or couch-surfing.) Yes 10/06/2024 Are you worried [...] 3:30 PM CDT Office Visit [facility] Francie [address] [facility] [address] [place] [phone] Eloy Singh MD [address] [place] [address] [place] [address] documented as of this encounter Goals Goal [...] Depression Total Score: 10 025 11:26 AM PRIVACY DIRECTOR documented as of this encounter Care Teams Hat And Cap Opener Relationship Specialty Start Date End Date Marcus Stephens MD [address]17 [facility] 370 [place] [address] PCP - General Pediatrics 02/14/23 12/22/24 Estelle Calvillo MD [address] [place] [address] [address] [place], [place] 493204 technical training specialist & Neurology - Child & Adolescent Psychiatry 05/24/19 Jyoti Sotomayor, [facility] [address] [place], [place] [address]194 Pharmacist Pharmacist 03/08/23 Marcus Stephens MD [address] [facility] 370 [place], [place] 065525 Assigned PCP 04/27/23 Rashmi Isaac MD [address] [place] [address] [place], [place] [address]444 Assigned Behavioral Health Provider 06/16/23 documented as of this encounter
--- OUTSIDE RECORDS SUMMARY | 2025-01-12 09:43 | XMS_ITS | Encounter Summary ---
Author Organization [place] Address [address] [place] [address] Care Team Providers Care Parts Administrator Name Role Phone SindevangEstelle meléndez MD Unavailable Marcus Stephens MD Primary Care Provider [phone] Jyoti Sotomayor [facility] Unavailable [phone] Marcus Stephens MD Unavailable Rashmi Isaac MD Unavailable [phone] Eloy Singh MD Primary Care Provider [phone] Encounter Details Date Type Department Care Team (Late st Contact Info) Description 12/17/2024 Medical Correspondence [facility] Health Information Management [address] [phone] Scan, Non-Provider Social History Tobacco Use Types [...] PM CDT Office Visit [facility] Francie [address] [facility] [address] [place] [phone] Eloy Singh MD [address] [place] [address] [place] [address] documented as of this encounter Goals Goal [...] Parent to continue with medical specialties within [place] and [facility] 2. Parent to continue with [...] Depression Total Score: 10 025 11:26 AM DRYWALL SPRAYER documented as of this encounter Care Teams Parts Administrator Relationship Specialty Start Date End Date Marcus Stephens MD [address] [place] [address] 370 [place] [address] PCP - General Pediatrics 02/14/23 12/22/24 Eloy Singh MD [address] [facility] [place] [address] PCP - General Internal Medicine - Pediatrics 12/23/24 Estelel Calvillo MD [address] [place] [address] F275 [place], [place] 744184 instrument processing tech & Neurology - Child & Adolescent Psychiatry 05/24/19 Jyoti Sotomayor, [facility] F[address] [place], [place] 8317[address] Pharmacist Pharmacist 03/08/23 Marcus Stephens MD [address] [place] [address] 370 [place] [address] Assigned PCP 04/27/23 Rashmi Isaac MD [address] [place] [address] [place] [address] Assigned Behavioral Health Provider 06/16/23 documented as of this encounter
--- OUTSIDE RECORDS SUMMARY | 2025-01-12 09:43 | XMS_ITS | Encounter Summary ---
Author Organization [place] Address [address] [place] [address] Care Team Providers Care Senior Software Systems Engineer Name Role Phone SindevangEstelle meléndez MD Unavailable Jyoti Sotomayor [facility] Unavailable [phone] Marcus Stephens MD Unavailable Rashmi Isaac MD Unavailable Eloy Singh MD Primary Care Provider [phone] Encounter Details Date Type Department Care Team (Latest Contact Info) Description 12/23/2024 Travel Social History Tobacco Use Types Packs/Day [...] in an overnight chcf, or couch-surfing.) Yes 10/06/2024 Are you worried [...] CDT Office Visit [facility] Francie [address] [facility] [address] [place] [address] Eloy Singh MD [address] [place] [address] [place] [address] documented as of this encounter Goals Goal [...] Depression Total Score: 10 025 11:26 AM FOREIGN LANGUAGES DEPARTMENT CHAIR documented as of this encounter Care Teams Senior Software Systems Engineer Relationship Specialty Start Date End Date Eloy Singh MD [address] [facility] [place] [address] PCP - General Internal Medicine - Pediatrics 12/23/24 Estelle Calvillo MD [address] F[address] [place], [place] 404384 bending machine operator & Neurology - Child & Adolescent Psychiatry 05/24/19 Jyoti Sotomayor, [facility] [address] [place], [place] [address] Pharmacist Pharmacist 03/08/23 Marcus Stephens MD [address] [place], [place] 343825 Assigned PCP 04/27/23 Rashmi Isaac MD [address] [place], [place] 083574 Assigned Behavioral Health Provider 06/16/23 documented as of this encounter
--- OUTSIDE RECORDS SUMMARY | 2025-01-12 09:43 | XMS_ITS | Encounter Summary ---
Author Organization [place] Address [address] [place] [address] Care Team Providers Care Electric Range Servicer Name Role Phone KarliEstelle MD Unavailable Marcus Stephens MD Primary Care Provider [phone] Jyoti Sotomayor [facility] Unavailable + [phone] Jyoti Sotomayor [facility] Unavailable + [phone] Marcus Stephens MD Unavailable Rashmi Isaac MD Unavailable [phone] Eloy Singh MD Primary Care Provider [phone] Sara Jara RN Unavailable [phone] Encounter Details Date Type Department Care Team (Latest Contact Info) Description 06/28/2024 [facility] Medical Advice [facility] 2024 [place] [address] Rashmi Isaac MD [address] [place] [address] F275 [place] [address] Extrapyramidal symptom (Primary Dx) Social [...] 06/23/2025 3:30 PM CDT Office Visit [facility] Francie [address] [place] [address] Eloy Singh MD [address] [facility] [place] [id number] documented as of this encounter Goals Goal [...] Parent to continue with medical specialties within [place] and [facility] 2. Parent to continue with [...] Depression Total Score: 10 025 11:26 AM WOOD CUT ENGRAVER documented as of this encounter Care Teams Electric Range Servicer Relationship Specialty Start Date End Date Marcus Stephens MD 717 [facility] 370 [place], [place] 7[address]285 PCP - General Pediatrics 02/14/23 12/22/24 Eloy Singh MD [address] [facility] [place] [address] PCP - General Internal Medicine - Pediatrics 12/23/24 Estelle Calvillo MD [address] [place], [place] 34[address]44 pesticide applicator & Neurology - Child & Adolescent Psychiatry 05/24/19 Jyoti Sotomayor, [facility] [address] [facility] [address] [place], [place] [address] Pharmacist Pharmacist 03/08/23 Jyoti Sotomayor [facility] [address] [place] [address] Assigned MTM Pharmacist 03/11/23 Marcus Stephens MD [address] [place] [address] Assigned PCP 04/27/23 Rashmi Isaac MD [address] [facility] [address] [place] [address] Assigned Behavioral Health Provider 06/16/23 Sara Jara, RN Clinic Glass Designer 12/25/24 documented as of this encounter
--- OUTSIDE RECORDS SUMMARY | 2025-01-12 09:43 | XMS_ITS | Encounter Summary ---
Author Organization [facility] Address [address] [place] [address] Care Team Providers Care Brick And Block Mason Name Role Phone NeishavanessaEstelle meléndez MD Unavailable Marcus Stephens MD Primary Care Provider [phone] Jyoti Sotomayor [facility] Unavailable + [phone] Marcus Stephens MD Unavailable Rashmi Isaac MD Unavailable [phone] Eloy Singh MD Primary Care Provider [phone] Sara Jara RN Unavailable [phone] Encounter Details Date Type Department Care Team (Late st Contact Info) Description 10/25/2024 MyC Medical Advice [facility] 2024 [place] [address] Rashmi Isaac MD [address] [place] [address] [address] [place] [address] Social History Tobacco [...] in an overnight long-term, or couch-surfing.) Yes 10/06/2024 Are you worried [...] 06/23/2025 3:30 PM CDT Office Visit [facility] Francie [address] [facility] [address] [place] [phone] [place] [address] [place] [address] [place] [address] documented as of this encounter Goals Goal [...] Depression Total Score: 10 025 11:26 AM HOSE CEMENTER documented as of this encounter Care Teams Brick And Block Mason Relationship Specialty Start Date End Date Marcus Stephens MD [address] [place] [address] 370 [place] [address] PCP - General Pediatrics 02/14/23 12/22/24 Eloy Singh MD [address] [facility] [place] [address] PCP - General Internal Medicine - Pediatrics 12/23/24 Estelle Calvillo MD [address] [place], [place] 32[address]24 structural engineering drafting officer & Neurology - Child & Adolescent Psychiatry 05/24/19 Jyoti Sotomayor [facility] 2450 [facility] [address] [place], [place] [address] Pharmacist Pharmacist 03/08/23 Marcus Stephens MD 717 [facility] [address] 370 [place] [address] Assigned PCP 04/27/23 Rashmi Isaac MD [address] [place] [address] Assigned Behavioral Health Provider 06/16/23 Sara Jara, RN Clinic Assignment Officer 12/25/24 documented as of this encounter
--- OUTSIDE RECORDS SUMMARY | 2025-01-12 09:43 | XMS_ITS | Encounter Summary ---
Author Organization [place] Address [address] [place] [address] Care Team Providers Care Internal Medicine Hospitalist Name Role Phone Rachel Crum MD Primary Care Provid er Rachel Crum MD Unavailable + [phone] Estelle Calvillo MD Unavailable Twan Patrick MD Unavailable [phone] Zulema Parrish [facility] Unavailable Unavaila Estelle Schaeffer MD Unavailable Erin Fernandez [facility] Unavailable [phone] Erin Fernandez [facility] Unavailable [phone] Marcus Stephens MD Primary Care Provider [phone] Jyoti Sotomayor [facility] Unavailable + [phone] Jyoti Sotomayor [facility] Unavailable + [phone] Marcus Stephens MD Unavailable Twan Patrick MD Unavailable [phone] Rashmi Isaac MD Unavailable [phone] Eloy Singh MD Primary Care Provider [phone] Sara Jara RN Unavailable [phone] Encounter Details Date Type Department Care Team (Late st Contact Info) Description 11/14/2022 MyC Medical Advice [facility]'s 25[address] [place] [address] Rachel Crum MD 10[address] [facility] [address] [place] [address] Social History Tobacco Use Types Packs/Day Years [...] Office Visit [facility] Francie [address] [place] [phone] Eloy Singh MD 3305 [facility] [place] [address] documented as of this encounter Goals Goal [...] documented as of this encounter Care Teams Internal Medicine Hospitalist Relationship Specialty Start Date End Date Rachel Crum MD PCP - General Pediatrics 07/04/12 02/13/23 Marcus Stephens MD [address] [place] [address] [place] [address] PCP - General Pediatrics 02/14/23 12/22/24 Eloy Singh MD 3305 [facility] [place] [address] PCP - General Internal Medicine - Pediatrics 12/23/24 Rachel Crum MD Assigned PCP 11/11/18 04/26/23 Estelle [place]villo MD [address] [facility] [address] [place] [address] svp marketing & Neurology - Child & Adolescent Psychiatry 05/24/19 Twan Patrick MD [address] [facility] [address] [place] [address] Assigned Pediatric Specialist Provider 12/11/21 04/26/23 Zulema Parrish, [facility] Lead Rig Superintendent 07/04/22 01/27/23 Estelle Calvillo MD [address] [place] [address] F275 [place], [place] 417754 Assigned Behavioral Health Provider 07/02/22 06/15/23 Erin Fernandez, [facility] [address] [place] [address] Pharmacist Pharmacist 12/22/22 10/25/23 Erin Fernandez, [facility] [address] [place] [address] [address] Assigned MTM Pharmacist 12/31/22 Jyoti Sotomayor [facility] [address] [place], [place] [address] Pharmacist Pharmacist 03/08/23 Jyoti Sotomayor [facility] [address] [place], [place] [address] Assigned MTM Pharmacist 03/11/23 Marcus Stephens MD [address] [place] [address] Assigned PCP 04/27/23 Twan Patrick MD [address] [place] [address] Assigned Pediatric Specialist Provider 05/05/23 06/15/23 Rashmi Isaac MD [address] [place] [address] Assigned Behavioral Health Provider 06/16/23 Sara Jara, RN Clinic Rig Superintendent 12/25/24 documented as of this encounter
--- OUTSIDE RECORDS SUMMARY | 2025-01-12 09:43 | XMS_ITS | Encounter Summary ---
Author Organization [place] Address [address] [place] [address] Care Team Providers Care Supervisor Beehive Kiln Name Role Phone Rachel Crum MD Primary Care Provid er Rachel Crum MD Unavailable + [phone] Estelle Calvillo MD Unavailable Estelle Calvillo MD Unavailable Twan Patrick MD Unavailable [phone] Zulema Parrish [facility] Unavailable Unavaila Estelle Schaeffer MD Unavailable Erin Fernandez [facility] Unavailable [phone] Erin Fernandez [facility] Unavailable [phone] Marcus Stephens MD Primary Care Provider [phone] Jyoti [address]ayor [facility] Unavailable [phone] Jyoti Sotomayor [facility] Unavailable [phone] Marcus Stephens MD Unavailable Twan Patrick MD Unavailable [phone] Rashmi Isaac MD Unavailable + [phone] Eloy Singh MD Primary Care Provider [phone] Sara Jara RN Unavailable [phone] Encounter Details Date Type Department Care Team (Late st Contact Info) Description 12/08/2021 MyC Medical Advice [place] [id number] [place] [address] Rachel Crum MD [address] [place], [place] [id number] Social History Tobacco Use Types Packs/Day Years [...] Office Visit [facility] Francie [address] [place] [address] Drive [address] [place] [phone] Eloy Singh MD [address] [place] [address] [place] [address] documented as of this encounter Visit Diagnoses Not on filedocumented in this encounter Additional Health Concerns Infection Onset Date Last Indicated Resolved Time Rule Out COVID-19 12/11/2022 12/11/2022 12/12/2022 1:24 PM CDT Rule Out Rubella 07/16/2024 07/16/2024 07/17/2024 12:31 PM CDT documented as of this encounter Care Teams Supervisor Beehive Kiln Relationship Specialty Start Date End Date Rachel Crum MD PCP - General Pediatrics 07/04/12 02/13/23 Marcus Stephens MD [address] [place] [address] PCP - General Pediatrics 02/14/23 12/22/24 Eloy Singh MD [address] [place] [address] [place] [address] PCP - General Internal Medicine - Pediatrics 12/23/24 Rachel Crum MD Assigned PCP 11/11/18 04/26/23 Estelle Calvillo MD [address] [place] [address] [place] [address] clinical research coordinator & Neurology - Child & Adolescent Psychiatry 05/24/19 Estelle Calvillo MD [address] [place] [address] Assigned Behavioral Health Provider 01/24/20 05/13/22 Twan Patrick MD [address] [facility] [address] [facility] 200 [place], [place] 301224 Assigned Pediatric Specialist Provider 12/11/21 04/26/23 Zulema Parrish [facility] Lead Sleep Manager 07/04/22 01/27/23 Estelle Calvillo MD [address] [address] Assigned Behavioral Health Provider 07/02/22 06/15/23 Erin Fernandez, [facility] [address] [id number] Pharmacist Pharmacist 12/22/22 10/25/23 Erin Fernandez, [facility] [address] [id number] Assigned MTM Pharmacist 12/31/[address] [facility] [address] [facility] [address] [place], [place] [address] Pharmacist Pharmacist 03/08/[address] [facility] [address] [place] [address] Assigned MTM Pharmacist 03/11/23 Marcus Stephens MD [address] [facility] [address] [place] [address] Assigned PCP 04/27/23 Twan Patrick MD [address] [facility] [address] [place] [address] Assigned Pediatric Specialist Provider 05/05/23 06/15/23 Rashmi Isaac MD [address] [place] [address] Assigned Behavioral Health Provider 06/16/23 Sara Jara, RN Clinic Sleep Manager 12/25/24 documented as of this encounter
--- OUTSIDE RECORDS SUMMARY | 2025-01-12 09:43 | XMS_ITS | Encounter Summary ---
Author Organization [facility] Address [address] [place] [address] Care Team Providers Care Tennis Instructor Name Role Phone Rachel Crum MD Primary Care Provid er Rachel Crum MD Unavailable + [phone] Estelle Calvillo MD Unavailable Twan Patrick MD Unavailable [phone] Zulema Parrish [facility] Unavailable Unavaila Estelle Schaeffer MD Unavailable Erin Fernandez [facility] Unavailable [phone] Erin Fernandez [facility] Unavailable [phone] Marcus Stephens MD Primary Care Provider [phone] Jyoti Sotomayor [facility] Unavailable + [phone] Jyoti Sotomayor [facility] Unavailable + [phone] Marcus Stephens MD Unavailable Twan Patrick MD Unavailable +[phone] Rashmi Isaac MD Unavailable [phone] Eloy Singh MD Primary Care Provider [phone] Sara Jara RN Unavailable [phone] Encounter Details Date Type Department Care Team (Late st Contact Info) Description 12/08/2022 MyC Medical Advice [facility] [address] [place] [address] Rachel Crum MD 1021 [facility] [address] [place] [address] Social History Tobacco Use Types Packs/Day Years [...] CDT Office Visit [facility] Francie [address] [facility] [address] [place] [address] Eloy Singh MD 3305 [facility] [place] [address] documented as of this encounter Goals Goal [...] documented as of this encounter Care Teams Tennis Instructor Relationship Specialty Start Date End Date Rachel Crum MD PCP - General Pediatrics 07/04/12 02/13/23 Marcus Stephens MD 717 [facility] 370 [place] [address] PCP - General Pediatrics 02/14/23 12/22/24 [place] [address] [place] [address] [place] [address] PCP - General Internal Medicine - Pediatrics 12/23/24 Rachel Crum MD Assigned PCP 11/11/18 04/26/23 Estelle Calvillo MD [address] [place], [place] [address] [place] [address] rn dermatology & Neurology - Child & Adolescent Psychiatry 05/24/19 Twan Patrick MD [address] [place] [address] 200 [place], [place] 599874 Assigned Pediatric Specialist Provider 12/11/21 04/26/23 Zulema Parrish, [facility] Lead Email Campaign Manager 07/04/22 01/27/23 [place] [address] [place], [place] [address] [place], [place] 440144 Assigned Behavioral Health Provider 07/02/22 06/15/23 Erin Fernandez [facility] 1440 [facility] [place] [id number] Pharmacist Pharmacist 12/22/22 10/25/23 Erin Fernandez, [facility] [address] [place] [address] Assigned MTM Pharmacist 12/31/22 Jyoti Sotomayor, [facility] [address] [place] [address] Pharmacist Pharmacist 03/08/23 [facility] [address] [place], [place] 479[address] Assigned MTM Pharmacist 03/11/23 Marcus Stephens MD [address] [place] [address] Assigned PCP 04/27/23 Twan Patrick MD [address] [facility] [address] [place], [place] [address] Assigned Pediatric Specialist Provider 05/05/23 06/15/23 Rashmi Isaac MD [address] [place], [place] [address]694 Assigned Behavioral Health Provider 06/16/23 Sara Jara, RN Clinic Email Campaign Manager 12/25/24 documented as of this encounter
--- OUTSIDE RECORDS SUMMARY | 2025-01-12 09:43 | XMS_ITS | Encounter Summary ---
Author Organization [place] Address [address] [place] [address] Care Team Providers Care Tile Setter Name Role Phone Rachel Crum MD Primary Care Provid er Rachel Crum MD Unavailable + [phone] Estelle Calvillo MD Unavailable Estelle Calvillo MD Unavailable Twan Patrick MD Unavailable +[phone] Zulema Parrish [facility] Unavailable Unavaila Estelle Schaeffer MD Unavailable Erin Fernandez [facility] Unavailable +[phone] Erin Fernandez [facility] Unavailable [phone] Marcus Stephens MD Primary Care Provider [phone] Jyoti Sotomayor [facility] Unavailable +[phone] Jyoti Sotomayor [facility] Unavailable +[phone] Marcus Stephens MD Unavailable Twan Patrick MD Unavailable +[phone] Rashmi Isaac MD Unavailable + [phone] Eloy Singh MD Primary Care Provider [phone] Sara Jara RN Unavailable [phone] Encounter Details Date Type Department Care Team (Late st Contact Info) Description 12/08/2021 MyC Medical Advice [place] [address] [place] [address] Rachel Crum MD [address] [place], [place] [id number] Social History Tobacco Use Types Packs/Day Years [...] Office Visit [facility] Francie [address] [place] [address] Drive [address] [place] [phone] Eloy Singh MD [address] [place] [address] [place] [address] documented as of this encounter Visit Diagnoses Not on filedocumented in this encounter Additional Health Concerns Infection Onset Date Last Indicated Resolved Time Rule Out COVID-19 12/11/2022 12/11/2022 12/12/2022 1:24 PM CDT Rule Out Rubella 07/16/2024 07/16/2024 07/17/2024 12:31 PM CDT documented as of this encounter Care Teams Tile Setter Relationship Specialty Start Date End Date Rachel Crum MD PCP - General Pediatrics 07/04/12 02/13/23 Marcus Stephens MD [address] [place] [address] PCP - General Pediatrics 02/14/23 12/22/24 Eloy Singh MD [address] [place] [address] [place] [address] PCP - General Internal Medicine - Pediatrics 12/23/24 Rachel Crum MD Assigned PCP 11/11/18 04/26/23 Estelle Calvillo MD [address] [place] [address] [place] [address] lens matcher & Neurology - Child & Adolescent Psychiatry 05/24/19 Estelle Calvillo MD [address] [place] [address] Assigned Behavioral Health Provider 01/24/20 05/13/22 Twan Patrick MD [address] [facility] [address] S [facility] 200 [place], [place] 644924 Assigned Pediatric Specialist Provider 12/11/21 04/26/23 Zulema Parrish [facility] Lead Big Data Admin 07/04/22 01/27/23 Estelle Calvillo MD [address] 548784 Assigned Behavioral Health Provider 07/02/22 06/15/23 Erin Fernandez, [facility] [address] [id number] Pharmacist Pharmacist 12/22/22 10/25/23 Erin Fernandez, [facility] [address] [id number] Assigned MTM Pharmacist 12/31/22 Jyoti Sotomayor [facility] [address] [facility] [facility] [address] [place], [place] [id number] Pharmacist Pharmacist 03/08/23 Jyoti Sotomayor [facility] [address] [place] [address] Assigned MTM Pharmacist 03/11/23 Marcus Stephens MD [address] [facility] [address] 370 [place] [address] Assigned PCP 04/27/23 Twan Patrick MD [address] [facility] [address] 200 [place] [address] Assigned Pediatric Specialist Provider 05/05/23 06/15/23 Rashmi Isaac MD [address] [place] [address] Assigned Behavioral Health Provider 06/16/23 Sara Jara, RN Clinic Big Data Admin 12/25/24 documented as of this encounter
--- OUTSIDE RECORDS SUMMARY | 2025-01-12 09:43 | XMS_ITS | Encounter Summary ---
Author Organization [place] Address [address] [place] [address] Care Team Providers Care College Scouting Coordinator Name Role Phone Rachel Crum MD Primary Care Provid er Rachel Crum MD Unavailable + [phone] Estelle Calvillo MD Unavailable Twan Patrick MD Unavailable +[phone] Zulema Parrish [facility] Unavailable Unavaila Estelle Schaeffer MD Unavailable Erin Fernandez [facility] Unavailable +[phone] Erin Fernandez [facility] Unavailable +[phone] Marcus Stephens MD Primary Care Provider +[phone] Jyoti Sotomayor [facility] Unavailable + [phone] Jyoti Sotomayor [facility] Unavailable + [phone] Marcus Stephens MD Unavailable Twan Patrick MD Unavailable +[phone] Rashmi Isaac MD Unavailable +[phone] Eloy Singh MD Primary Care Provider [phone] Sara Jara RN Unavailable +[phone] Encounter Details Date Type Department Care Team (Late st Contact Info) Description 12/12/2022 MyC Medical Advice [facility] 2535 [place] [address] Rachel Crum MD 1021 [facility] [address] 100 [place] [address] Social History Tobacco Use Types Packs/Day Years [...] Description 06/23/2025 3:30 PM CDT Office Visit [facility] Francie [address] [facility] [address] [place] [address] Eloy Singh MD 3305 [facility] [place] [address] documented as of this encounter Goals Goal [...] as of this encounter Care Teams College Scouting Coordinator Relationship Specialty Start Date End Date Rachel Crum MD PCP - General Pediatrics 07/04/12 02/13/23 Marucs Stephens MD 717 [facility] 370 [place] [address] PCP - General Pediatrics 02/14/23 12/22/24 [place] [address] [place] [address] [place] [address] PCP - General Internal Medicine - Pediatrics 12/23/24 Rachel Crum MD Assigned PCP 11/11/18 04/26/23 Estelle Calvillo MD [address] [place], [place] 140[address] [place] [address] cake wrapper & Neurology - Child & Adolescent Psychiatry 05/24/19 Twan Patrick MD [address] [place] [address] 200 [place], [place] 547704 Assigned Pediatric Specialist Provider 12/11/21 04/26/23 Zulema Parrish, [facility] Lead Business Objects Developer 07/04/22 01/27/23 [place] [address] [place], [place] 78[address] [place], [place] 5[address] Assigned Behavioral Health Provider 07/02/22 06/15/23 Erin Fernandez [facility] 1440 [facility] [place] [id number] Pharmacist Pharmacist 12/22/22 10/25/23 Erin Fernandez, [facility] [address] [place] [address] Assigned MTM Pharmacist 12/31/22 Jyoti Sotomayor, [facility] [address] [place] [address] Pharmacist Pharmacist 03/08/23 [facility] [address] [place], [place] 437864 Assigned MTM Pharmacist 03/11/23 Marcus Stephens MD [address] [place] [address] [place] [address] Assigned PCP 04/27/23 Twan Patrick MD [address] [facility] [address] 200 [place], [place] 952764 Assigned Pediatric Specialist Provider 05/05/23 06/15/23 Rashmi Isaac MD [address] [place], [place] 967324 Assigned Behavioral Health Provider 06/16/23 Sara Jara, RN Clinic Business Objects Developer 12/25/24 documented as of this encounter
--- OUTSIDE RECORDS SUMMARY | 2025-01-12 09:43 | XMS_ITS | Encounter Summary ---
Author Organization [place] Address [address] [place] [address] Care Team Providers Care Cnc Mill Set Up Operator Name Role Phone NeishaoscarEstelle MD Unavailable Marcus Stephens MD Primary Care Provider [phone] Jyoti Sotomayor [facility] Unavailable + [phone] Jyoti Sotomayor [facility] Unavailable + [phone] Marcus Stephens MD Unavailable Rashmi Isaac MD Unavailable +[phone] Eloy Singh MD Primary Care Provider [phone] Sara Jara RN Unavailable +[phone] Encounter Details Date Type Department Care Team (Late st Contact Info) Description 07/17/2024 [facility] Medical Advice [place] [address] [place] [address] Marcus Stephens MD [address] [place] [address] Social History Tobacco Use Types Packs/Day [...] in an overnight half-way, or couch-surfing.) Yes 07/15/2024 Are you worried [...] CDT Office Visit [facility] Francie [address] [place] [address] Eloy Singh MD [address] [place] [address] [place] [id number] documented as of this encounter Goals Goal [...] Parent to continue with medical specialties within [place] and [facility] 2. Parent to continue with [...] Depression Total Score: 10 025 11:26 AM SENIOR ANALYST MARKET INTELLIGENCE documented as of this encounter Care Teams Cnc Mill Set Up Operator Relationship Specialty Start Date End Date Marcus Stephens MD 717 [facility] 370 [place] [address] PCP - General Pediatrics 02/14/23 12/22/24 Eloy Singh MD [address] [facility] [place] [address] PCP - General Internal Medicine - Pediatrics 12/23/24 Estelle Calvillo MD [address] [place], [place] 561854 charge account authorizer & Neurology - Child & Adolescent Psychiatry 05/24/19 Jyoti Sotomayor [facility]50 [facility] F[address] [place], [place] 6[address] Pharmacist Pharmacist 03/08/23 Jyoti Sotomayor [facility] [address] [place] [address] Assigned MTM Pharmacist 03/11/23 Marcus Stephens MD [facility] [facility] [address] 370 [place] [address] Assigned PCP 04/27/23 Rashmi Isaac MD [address] [place] [address] [address] [place] [address] Assigned Behavioral Health Provider 06/16/23 Sara Jara, RN Clinic Heel Gummer 12/25/24 documented as of this encounter
--- OUTSIDE RECORDS SUMMARY | 2025-01-12 09:43 | XMS_ITS | Encounter Summary ---
Author Organization [place] Address [address] [place] [address] Care Team Providers Care Metal Polisher Name Role Phone KarliEstelle MD Unavailable Marcus Stephens MD Primary Care Provider [phone] Jyoti Sotomayor [facility] Unavailable + [phone] Jyoti Sotomayor [facility] Unavailable + [phone] Marcus Stephens MD Unavailable Rashmi Isaac MD Unavailable [phone] Eloy Singh MD Primary Care Provider [phone] Sara Jara RN Unavailable [phone] Reason for Visit * Reason Onset Date Comments Refill Request 07/15/2024 Encounter Details Date Type Department Care Team (Late st Contact Info) Description 07/15/2024 MyC Refill [facility] 2024 [place] [address] Rashmi Isaac MD [facility] [address] [place] [address] F275 [place] [address] Refill Request Social History Tobacco [...] Description 06/23/2025 3:30 PM CDT Office Visit [facility] Francie [address] [place] [phone] Eloy Singh MD [address] [place] [address] [place] [address] documented as of this encounter Goals Goal [...] Parent to continue with medical specialties within [place] and [facility] 2. Parent to continue with [...] Depression Total Score: 10 025 11:26 AM COMPUTER SYSTEMS INTEGRATOR documented as of this encounter Care Teams Metal Polisher Relationship Specialty Start Date End Date Marcus Stephens MD 717 [facility] 370 [place], [place] 211095 PCP - General Pediatrics 02/14/23 12/22/24 Eloy Singh MD [address] [place] [address] PCP - General Internal Medicine - Pediatrics 12/23/24 Estelle Calvillo MD [address] [place], [place] [address] nut sorter operator & Neurology - Child & Adolescent Psychiatry 05/24/19 Jyoti Sotomayor, [facility] 2450 [facility] F282 [place] [address] Pharmacist Pharmacist 03/08/23 Jyoti Sotomayor [facility] [address] [place] [address] Assigned MTM Pharmacist 03/11/23 Marcus Stephens MD 717 [facility] 370 [place] [address] Assigned PCP 04/27/23 Rashmi Isaac MD [address] [place] [address] Assigned Behavioral Health Provider 06/16/23 Sara Jara, RN Clinic Pbx Technician 12/25/24 documented as of this encounter
--- OUTSIDE RECORDS SUMMARY | 2025-01-12 09:43 | XMS_ITS | Encounter Summary ---
Author Organization [place] Address [address] [place] [address] Care Team Providers Care Pipe Maker Name Role Phone Rachel Crum MD Primary Care Provid er Rachel Crum MD Unavailable + [phone] Estelle Calvillo MD Unavailable Twan Patrick MD Unavailable +[phone] Zulema Parrish [facility] Unavailable Unavaila Estelle Schaeffer MD Unavailable Erin Fernandez [facility] Unavailable [phone] Erin Fernandez [facility] Unavailable [phone] Marcus Stephens MD Primary Care Provider [phone] Jyoti Sotomayor [facility] Unavailable + [phone] Jyoti Sotomayor [facility] Unavailable + [phone] Marcus Stephens MD Unavailable Twan Patrick MD Unavailable [phone] Rashmi Isaac MD Unavailable +[phone] Eloy Singh MD Primary Care Provider [phone] Sara Jara RN Unavailable [phone] Encounter Details Date Type Department Care Team (Late st Contact Info) Description 11/24/2022 MyC Medical Advice [facility] 2535 [place] [address] Rachel Crum MD 1021 [facility] [address] [place] [address] Social History Tobacco Use Types Packs/Day Years [...] CDT Office Visit [facility] Francie [address] [facility] [place] [phone] Eloy Singh MD 3305 [facility] [place] [address] documented as of this encounter Goals Goal [...] as of this encounter Care Teams Pipe Maker Relationship Specialty Start Date End Date Rachel Crum MD PCP - General Pediatrics 07/04/12 02/13/23 Marcus Stephens MD [address] [place] [address] [place] [address] PCP - General Pediatrics 02/14/23 12/22/24 Eloy Singh MD 3305 [facility] [place] [address] PCP - General Internal Medicine - Pediatrics 12/23/24 Rachel Crum MD Assigned PCP 11/11/18 04/26/23 Estelle Calvillo MD [address] [facility] F275 [place] [address] radiology director & Neurology - Child & Adolescent Psychiatry 05/24/19 Twan Patrick MD [address] [facility] [address] 200 [place] [address] Assigned Pediatric Specialist Provider 12/11/21 04/26/23 Zulema Parrish, [facility] Lead Back Panel Padder 07/04/22 01/27/23 Estelle Calvillo MD [address] [place] [address] F275 [place], [place] 503644 Assigned Behavioral Health Provider 07/02/22 06/15/23 Erin Fernandez, [facility] [address] [place] [address] Pharmacist Pharmacist 12/22/22 10/25/23 Erin Fernandez, [facility] [address] [place] [address] [address] Assigned MTM Pharmacist 12/31/22 Jyoti Sotomayor [facility] [address] [place], [place] 383[address] Pharmacist Pharmacist 03/08/23 Jyoti Sotomayor [facility] [address] [place], [place] [address] Assigned MTM Pharmacist 03/11/23 Marcus Stephens MD [address] [place] [address] [place] [address] Assigned PCP 04/27/23 Twan Patrick MD [address] 200 [place] [address] Assigned Pediatric Specialist Provider 05/05/23 06/15/23 Rashmi Isaac MD [address] [place] [address] Assigned Behavioral Health Provider 06/16/23 Sara Jara, RN Clinic Back Panel Padder 12/25/24 documented as of this encounter
--- OUTSIDE RECORDS SUMMARY | 2025-01-12 09:43 | XMS_ITS | Encounter Summary ---
Author Organization [place] Address [address] [place] [address] Care Team Providers Care Provider Network Analyst Name Role Phone Rachel Crum MD Primary Care Provid er Rachel Crum MD Unavailable + [phone] Estelle Calvillo MD Unavailable Estelle Calvillo MD Unavailable Twan Patrick MD Unavailable +[phone] Zulema Parrish [facility] Unavailable Unavaila Estelle Schaeffer MD Unavailable Erin Fernandez [facility] Unavailable +[phone] Erin Fernandez [facility] Unavailable [phone] Marcus Stephens MD Primary Care Provider [phone] Jyoti Sotomayor [facility] Unavailable +[phone] Jyoti Sotomayor [facility] Unavailable +[phone] Marcus Stephens MD Unavailable Twan Patrick MD Unavailable +[phone] Rashmi Isaac MD Unavailable + [phone] Eloy Singh MD Primary Care Provider [phone] Sara Jara RN Unavailable [phone] Encounter Details Date Type Department Care Team (Late st Contact Info) Description 11/30/2021 MyC Medical Advice [facility] 2nd Floor - [address] [place] [address] Twan Patrick MD [address] 200 [place], [place] [address] Social History Tobacco Use Types Packs/Day Years [...] Office Visit [facility] Francie [address] [place] [address] Drive [address] [place] [address] Eloy Singh MD [address] [place] [address] [place] [id number] documented as of this encounter Visit Diagnoses Not on filedocumented in this encounter Additional Health Concerns Infection Onset Date Last Indicated Resolved Time Rule Out COVID-19 12/11/2022 12/11/2022 12/12/2022 1:24 PM CDT Rule Out Rubella 07/16/2024 07/16/2024 07/17/2024 12:31 PM CDT documented as of this encounter Care Teams Provider Network Analyst Relationship Specialty Start Date End Date Rachel Crum MD PCP - General Pediatrics 07/04/12 02/13/23 Marcus Stephens MD [address] [place] [address] 721065 PCP - General Pediatrics 02/14/23 12/22/24 Eloy Singh MD [address] [place] [address] [place] [address] PCP - General Internal Medicine - Pediatrics 12/23/24 Rachel Crum MD Assigned PCP 11/11/18 04/26/23 Estelle Calvillo MD [address] [place] [address] F275 [place] [address] airframe design engineer & Neurology - Child & Adolescent Psychiatry 05/24/19 Estelle Calvillo MD [address] [place] [address] F275 [place], [place] 691094 Assigned Behavioral Health Provider 01/24/20 05/13/22 Twan Patrick MD [address] [place] [address] 200 [place], [place] 395824 Assigned Pediatric Specialist Provider 12/11/21 04/26/23 Zulema Parrish, [facility] Lead Circus Laborer 07/04/22 01/27/23 Estelle Calvillo MD [address] [place], [place] [address] Assigned Behavioral Health Provider 07/02/22 06/15/23 Erin Fernandez, [facility] [address] [id number] Pharmacist Pharmacist 12/22/22 10/25/23 Erin Fernandez, [facility] [address] [id number] Assigned MTM Pharmacist 12/31/22 Jyoti Sotomayor [facility] [address] [place], [place] 97[address] Pharmacist Pharmacist 03/08/23 Jyoti oStomayor [facility] 2450 [facility] [address] [place] [address] Assigned MTM Pharmacist 03/11/23 Marcus Stephens MD 717 [facility] TAMIE 370 [place], [place] 8[address] Assigned PCP 04/27/23 Twan Patrick MD [address] [place] [address] [address] 200 [place] [address] Assigned Pediatric Specialist Provider 05/05/23 06/15/23 Rashmi Isaac MD [address] [place], [place] [address] Assigned Behavioral Health Provider 06/16/23 Sara Jara, RN Clinic Circus Laborer 12/25/24 documented as of this encounter
--- OUTSIDE RECORDS SUMMARY | 2025-01-12 09:43 | XMS_ITS | Encounter Summary ---
Author Organization [place] Address [address] [place] [address] Care Team Providers Care Security Intern Name Role Phone NeishaoscarEstelle MD Unavailable Marcus Stephens MD Primary Care Provider [phone] Jyoti Sotomayor [facility] Unavailable + [phone] Jyoti Sotomayor [facility] Unavailable + [phone] Marcus Stephens MD Unavailable Rashmi Isaac MD Unavailable [phone] Eloy Singh MD Primary Care Provider [phone] Sara Jara RN Unavailable [phone] Encounter Details Date Type Department Care Team (Late st Contact Info) Description 07/04/2024 [facility] [place] [address] [place] [address] Marcus Stephens MD [address] [place] [address] Social History Tobacco Use Types Packs/Day [...] in an overnight chcf, or couch-surfing.) Yes 02/13/2024 Are you worried [...] 3:30 PM CDT Office Visit [facility] Francie [address] [place] [address] Eloy Singh MD 3305 [facility] [place] [id number] documented as of this encounter Goals Goal [...] Parent to continue with medical specialties within [place] and [facility] 2. Parent to continue with [...] Depression Total Score: 10 025 11:26 AM CARGO SURVEYOR documented as of this encounter Care Teams Security Intern Relationship Specialty Start Date End Date Marcus Stephens MD 717 [facility] 370 [place] [address] PCP - General Pediatrics 02/14/23 12/22/24 Eloy Singh MD [address] [facility] [place] [address] PCP - General Internal Medicine - Pediatrics 12/23/24 Estelle Calvillo MD [address] [place], [place] [address] core maker & Neurology - Child & Adolescent Psychiatry 05/24/19 Jyoti Sotomayor [facility] 2450 [facility] F[address] [place], [place] 375[address] Pharmacist Pharmacist 03/08/23 Jyoti Sotomayor [facility] [address] [place] [address] Assigned MTM Pharmacist 03/11/23 Marcus Stephens MD 717 [facility] [address] [place] [address] Assigned PCP 04/27/23 Rashmi Isaac MD 2312 [address] [facility] T[address] [place] [address] Assigned Behavioral Health Provider 06/16/23 Sara Jara, RN Clinic Icer Machine Operator 12/25/24 documented as of this encounter
--- OUTSIDE RECORDS SUMMARY | 2025-01-12 09:43 | XMS_ITS | Encounter Summary ---
Author Organization [place] Address [address] [place] [address] Care Team Providers Care Airline Manager Name Role Phone Estelle Calvillo MD Unavailable Marcus Stephens MD Primary Care Provider [phone] Jyoti Sotomayor [facility] Unavailable + [phone] Marcus Stephens MD Unavailable Rashmi Isaac MD Unavailable +[phone] Reason for Visit * Reason Onset Date Comments Forms 12/12/2024 Statement of Med ical Necessity Encounter Details Date Type Department Care Team (Late st Contact Info) Description 12/12/2024 Telephone [place] [id number] [place] [address] Marcus Stephens MD [address] [place] [address] Forms (Statement of Medical Necessity) Social History Tobacco Use Types Packs/Day Years [...] an overnight group home, or couch-surfing.) Yes 10/06/2024 Are you [...] * Telephone Encounter - Beena Odom - 12/17/2024 1:04 PM CDT Forms completed, signed, copy made for chart and faxed as requested.Beena Odom, Waste Disposal Plant Operator * Telephone Encounter - Beena Odom - 12/12/2024 1:17 PM CDT Forms received from [facility] for Marcus Stephens M.D.. Forms placed in provider 'sign me' folder. Please fax forms to [phone] after completion. Beena Odom, Waste Disposal Plant Operator documented in this encounter Plan of Treatment Upcoming Encounters Date Type Department Care Team (Late st Contact Info) Description 06/23/2025 3:30 PM CDT Office Visit [facility] Francie [address] [place] [phone] [place] [address] [place] [address] [place]ON [id number] documented as of this encounter Goals Goal [...] Parent to continue with medical specialties within [place] and [facility]. Parent to continue [...] Depression Total Score: 10 025 11:26 AM CUT OFF [place] documented as of this encounter Care Teams Airline Manager Relationship Specialty Start Date End Date Marcus Stephens MD [address] [facility] 370 [place] [address] PCP - General Pediatrics 02/14/23 12/22/24 Estelle Calvillo MD [address] [place] [address] [address]275 [place] [address] director of rehabilitation & Neurology - Child & Adolescent Psychiatry 05/24/19 Jyoti Sotomayor, [facility] [address] [place], [place] [phone] Pharmacist Pharmacist 03/08/23 Marcus Stephens MD [address] [facility] 370 [place], [place] 953765 Assigned PCP 04/27/23 Rashmi Isaac MD [address] [place] [address] [address] [place] [address] Assigned Behavioral Health Provider 06/16/23 documented as of this encounter
--- OUTSIDE RECORDS SUMMARY | 2025-01-12 09:43 | XMS_ITS | Encounter Summary ---
Author Organization [place] Address [address] [place] [address] Care Team Providers Care Clinical Nursing Intern Name Role Phone Rachel Crum MD Primary Care Provid er Rachel Crum MD Unavailable + [phone] Estelle Calvillo MD Unavailable Twan Patrick MD Unavailable +[phone] Zulema Parrish [facility] Unavailable Unavaila Estelle Schaeffer MD Unavailable Erin Fernandez [facility] Unavailable +[phone] Erin Fernandez [facility] Unavailable +[phone] Marcus Stephens MD Primary Care Provider +[phone] Jyoti Sotomayor [facility] Unavailable + [phone] Jyoti Sotomayor [facility] Unavailable + [phone] Marcus Stephens MD Unavailable Twan Patrick MD Unavailable +[phone] Rashmi Isaac MD Unavailable [phone] Eloy Singh MD Primary Care Provider +[phone] Sara Jara RN Unavailable +[phone] Encounter Details Date Type Department Care Team (Late st Contact Info) Description 11/23/2022 MyC Medical Advice [facility] 2535 [place] [address] Rachel Crum MD [address] [facility] [address] [place] [address] Social History Tobacco Use Types Packs/Day Years [...] Description 06/23/2025 3:30 PM CDT Office Visit [facility] Francie [address] [facility] [address] [place] [phone] Eloy Singh MD [address] [facility] [place] [address] documented as of this encounter Goals Goal [...] as of this encounter Care Teams Clinical Nursing Intern Relationship Specialty Start Date End Date Rachel Crum MD PCP - General Pediatrics 07/04/12 02/13/23 Marcus Stephens MD [address] [place] [address] PCP - General Pediatrics 02/14/23 12/22/24 Eloy Singh MD [address] [facility] [place] [address] PCP - General Internal Medicine - Pediatrics 12/23/24 Rachel Crum MD Assigned PCP 11/11/18 04/26/23 Estelle Calvillo MD [address] [facility] [address] [place] [address] handicraft or hobby shop manager & Neurology - Child & Adolescent Psychiatry 05/24/19 Twan Patrick MD [address] [facility] [address] [place] [address] Assigned Pediatric Specialist Provider 12/11/21 04/26/23 Zulema Parrish, [facility] Lead Drywall Stripper Helper 07/04/22 01/27/23 Estelle Calvillo MD [address] [place] [address] [address]275 [place], [place] 318284 Assigned Behavioral Health Provider 07/02/22 06/15/23 Erin Fernandez, [facility] [address] [place] [address] Pharmacist Pharmacist 12/22/22 10/25/23 Erin Fernandez, [facility] [address] [place] [address] Assigned MTM Pharmacist 12/31/22 Jyoti Sotomayor [facility] [address] [place], [place] [phone] Pharmacist Pharmacist 03/08/23 Jyoti Sotomayor [facility] [address] [place], [place] [address] Assigned MTM Pharmacist 03/11/23 Marcus Stephens MD [address] [place] [address] [place] [address] Assigned PCP 04/27/23 Twan Patrick MD [address] [place] [address] Assigned Pediatric Specialist Provider 05/05/23 06/15/23 Rashmi Isaac MD [address] [place] [address] Assigned Behavioral Health Provider 06/16/23 Sara Jara, RN Clinic Drywall Stripper Helper 12/25/24 documented as of this encounter
--- OUTSIDE RECORDS SUMMARY | 2025-01-12 09:43 | XMS_ITS | Encounter Summary ---
Author Organization [place] Address [address] [place] [address] Care Team Providers Care Set O Type Operator Name Role Phone Rachel Crum MD Primary Care Provid er Rachel Crum MD Unavailable + [phone] Estelle Calvillo MD Unavailable Estelle Calvillo MD Unavailable Twan Patrick MD Unavailable [phone] Zulema Parrish [facility] Unavailable Unavaila Estelle Schaeffer MD Unavailable Erin Fernandez [facility] Unavailable [phone] Erin Fernandez [facility] Unavailable [phone] Marcus Stephens MD Primary Care Provider [phone] Jyoti Sotomayor [facility] Unavailable +[phone] Jyoti Sotomayor [facility] Unavailable +[phone] Marcus Stephens MD Unavailable Twan Patrick MD Unavailable +[phone] Rashmi Isaac MD Unavailable + [phone] Eloy Singh MD Primary Care Provider [phone] Sara Jara RN Unavailable [phone] Encounter Details Date Type Department Care Team (Late st Contact Info) Description 12/08/2021 MyC Medical Advice [place] [id number] [place] [address] Rachel Crum MD [address] [place], [place] [id number] Social History Tobacco Use Types Packs/Day Years [...] Description 06/23/2025 3:30 PM CDT Office Visit [facility] Francie [address] [place] [address] Drive [address] [place] [phone] Eloy Singh MD [address] [place] [address] [place] [address] documented as of this encounter Visit Diagnoses Not on filedocumented in this encounter Additional Health Concerns Infection Onset Date Last Indicated Resolved Time Rule Out COVID-19 12/11/2022 12/11/2022 12/12/2022 1:24 PM CDT Rule Out Rubella 07/16/2024 07/16/2024 07/17/2024 12:31 PM CDT documented as of this encounter Care Teams Set O Type Operator Relationship Specialty Start Date End Date Rachel Crum MD PCP - General Pediatrics 07/04/12 02/13/23 Marcus Stephens MD [address] [place] [address] PCP - General Pediatrics 02/14/23 12/22/24 Eloy Singh MD [address] [place] [address] [place] [address] PCP - General Internal Medicine - Pediatrics 12/23/24 Rachel Crum MD Assigned PCP 11/11/18 04/26/23 Estelle Calvillo MD [address] [place] [address] [place] [address] clay transporter & Neurology - Child & Adolescent Psychiatry 05/24/19 Estelle Calvillo MD [address] [place] [address] Assigned Behavioral Health Provider 01/24/20 05/13/22 Twan Patrick MD 701 [facility] [address] S [facility] 200 [place], [place] [address]014 Assigned Pediatric Specialist Provider 12/11/21 04/26/23 Zulema Parrish [facility] Lead Children'S Institution Attendant 07/04/22 01/27/23 Estelle Calvillo MD [address] 5194[address] Assigned Behavioral Health Provider 07/02/22 06/15/23 Erin Fernandez, [facility] [address] [id number] Pharmacist Pharmacist 12/22/22 10/25/23 Erin Fernandez, [facility] [address] [id number] Assigned MTM Pharmacist 12/31/22 Jyoti Sotomayor [facility] [address] [place], [place] [phone] Pharmacist Pharmacist 03/08/23 Jyoti Sotomayor [facility] [address] [place] [address] Assigned MTM Pharmacist 03/11/23 Marcus Stephens MD [address] [facility] [address] [place] [address] Assigned PCP 04/27/23 Twan Patrick MD 701 [facility] [address] [place] [address] Assigned Pediatric Specialist Provider 05/05/23 06/15/23 Rashmi Isaac MD [address] [place] [address] Assigned Behavioral Health Provider 06/16/23 Sara Jara, RN Clinic Children'S Institution Attendant 12/25/24 documented as of this encounter
--- OUTSIDE RECORDS SUMMARY | 2025-01-12 09:43 | XMS_ITS | Encounter Summary ---
Author Organization [place] Address [address] [place] [address] Care Team Providers Care Air Twist Operator Name Role Phone SindevangEstelle meléndez MD Unavailable Jyoti Sotomayor [facility] Unavailable [phone] Marcus Stephens MD Unavailable Rashmi Isaac MD Unavailable [phone] Eloy Singh MD Primary Care Provider [phone] Encounter Details Date Type Department Care Team (Latest Contact Info) Description 12/24/2024 Travel Social History Tobacco Use Types Packs/Day [...] in an overnight prison, or couch-surfing.) Yes 10/06/2024 Are you worried [...] CDT Office Visit [facility] Francie [address] [facility] [address] [place] [phone] Eloy Singh MD [address] [place] [address] [place] [address] documented as of this encounter Goals Goal [...] Depression Total Score: 10 025 11:26 AM LOOM OPERATOR APPRENTICE documented as of this encounter Care Teams Air Twist Operator Relationship Specialty Start Date End Date Eloy Singh MD [address] [facility] [place] [address] PCP - General Internal Medicine - Pediatrics 12/23/24 Estelle Calvillo MD [address] [place], [place] 081814 community development aide & Neurology - Child & Adolescent Psychiatry 05/24/19 Jyoti Sotomayor, [facility] [address] [place], [place] [phone] Pharmacist Pharmacist 03/08/23 Marcus Stephens MD [address] [place] [address] [place], [place] 715905 Assigned PCP 04/27/23 Rashmi Isaac MD [address] [place], [place] 422404 Assigned Behavioral Health Provider 06/16/23 documented as of this encounter
--- OUTSIDE RECORDS SUMMARY | 2025-01-12 09:43 | XMS_ITS | Encounter Summary ---
Author Organization [facility] Address [address] [place] [address] Care Team Providers Care Material Flow Engineer Name Role Phone Rachel Crum MD Primary Care Provid er Rachel Crum MD Unavailable + [phone] Estelle Calvillo MD Unavailable Estelle Calvillo MD Unavailable Twan Patrick MD Unavailable [phone] Zulema Parrish [facility] Unavailable Unavaila Estelle Schaeffer MD Unavailable Erin Fernandez [facility] Unavailable [phone] Erin Fernandez [facility] Unavailable [phone] Marcus Stephens MD Primary Care Provider [phone] Jyoti Sotomayor [facility] Unavailable +[phone] Jyoti Sotomayor [facility] Unavailable +[phone] Marcus Stephens MD Unavailable Twan Patrick MD Unavailable [phone] Rashmi Isaac MD Unavailable + [phone] Eloy Singh MD Primary Care Provider [phone] Sara Jara RN Unavailable [phone] Reason for Visit * Reason Onset Date Comments Patient Request for Note/Letter 12/13/2021 Encounter Details Date Type Department Care Team (Late st Contact Info) Description 12/13/2021 MyC Medical Advice [place] [address] [place] [address] Rachel Crum MD 1021 [facility] E [facility] 100 [place], [place] [phone] Patient Request for Note/Letter Social History Tobacco [...] 3:30 PM CDT Office Visit [facility] Francie [address] [place] [address] Drive [address] [place] [phone] Eloy Singh MD [address] [place] [address] [place] [address] documented as of this encounter Visit Diagnoses Not on filedocumented in this encounter Additional Health Concerns Infection Onset Date Last Indicated Resolved Time Rule Out COVID-19 12/11/2022 12/11/2022 12/12/2022 1:24 PM CDT Rule Out Rubella 07/16/2024 07/16/2024 07/17/2024 12:31 PM CDT documented as of this encounter Care Teams Material Flow Engineer Relationship Specialty Start Date End Date Rachel Crum MD PCP - General Pediatrics 07/04/12 02/13/23 Marcus Stephens MD [address] [address] PCP - General Pediatrics 02/14/23 12/22/24 Eloy Singh MD [address] [place] [address] [place] [address] PCP - General Internal Medicine - Pediatrics 12/23/24 Rachel Crum MD Assigned PCP 11/11/18 04/26/23 Estelle Calvillo MD [address] [place] [address] [address]275 [place] [address] dirt contractor & Neurology - Child & Adolescent Psychiatry 05/24/19 Estelle Calvillo MD [address] [place] [address] 901994 Assigned Behavioral Health Provider 01/24/20 05/13/22 Twan Patrick MD [facility] 200 [place], [place] 414634 Assigned Pediatric Specialist Provider 12/11/21 04/26/23 Zulema Parrish LGSW Lead Cook Chill Technician 07/04/22 01/27/23 Estelle Calvillo MD [address] [place] [address] Assigned Behavioral Health Provider 07/02/22 06/15/23 Erin Fernandez [facility] [address] [place] [place] [address] Pharmacist Pharmacist 12/22/22 10/25/23 Erin Fernandez [facility] [address] [place] [address] Assigned MTM Pharmacist 12/31/22 Jyoti Sotomayor [facility] [address] [place] [address] [address]282 [place] [address] Pharmacist Pharmacist 03/08/23 Jyoti Sotomayor [facility] 2450 [facility] [address] [place] [address] Assigned MTM Pharmacist 03/11/23 Marcus Stephens MD 717 [facility] [address] 370 [place] [address] Assigned PCP 04/27/23 Twan Patrick MD [address] [place], [place] [address]E [address] 200 [place] [address] Assigned Pediatric Specialist Provider 05/05/23 06/15/23 Rashmi Isaac MD [address] [place] [address] Assigned Behavioral Health Provider 06/16/23 Sara Jara, RN Clinic Cook Chill Technician 12/25/24 documented as of this encounter
--- OUTSIDE RECORDS SUMMARY | 2025-01-12 09:44 | XMS_ITS | Encounter Summary ---
Author Organization [place] Address [address] [place] [address] Care Team Providers Care Retail Agent Name Role Phone Rachel Crum MD Unavailable + [phone] Estelle Calvillo MD Unavailable Twan Patrick MD Unavailable +[phone] Estelle Calvillo MD Unavailable Erin Fernandez [facility] Unavailable [phone] Marcus Stephens MD Primary Care Provider [phone] Jyoti Sotomayor [facility] Unavailable + [phone] Jyoti Sotomayor [facility] Unavailable + [phone] Marcus Stephens MD Unavailable Twan Patrick MD Unavailable +[phone] Rashmi Isaac MD Unavailable [phone] Eloy Singh MD Primary Care Provider [phone] Sara Jara RN Unavailable +[phone] Encounter Details Date Type Department Care Team (Late st Contact Info) Description 04/10/2023 [facility] Medical [place] [place] [address] Marcus Stephens MD [address] [place] [address] [id number] Social History Tobacco Use Types Packs/Day Years [...] Description 06/23/2025 3:30 PM CDT Office Visit [facility] Francie [address] [facility] [address] [place] [phone] Eloy Singh MD 3305 [facility] [place] [address] documented as of this encounter Goals Goal [...] Parent to continue with medical specialties within [place] and [facility]. Parent to continue with [...] documented as of this encounter Care Teams Retail Agent Relationship Specialty Start Date End Date Marcus Stephens MD [address] [place] [address] 370 [place] [address] PCP - General Pediatrics 02/14/23 12/22/24 Eloy Singh MD [address] [place] [address] [place] [address] PCP - General Internal Medicine - Pediatrics 12/23/24 Rachel Crum MD Assigned PCP 11/11/18 04/26/23 Estelle Calvillo MD [address] [place] [address] F275 [place] [address] candy puller & Neurology - Child & Adolescent Psychiatry 05/24/19 Twan Patrick MD [address] [place] [address] [address] [place], [place] 213014 Assigned Pediatric Specialist Provider 12/11/21 04/26/23 Estelle Calvillo MD [address] [place] [address] F275 [place], [place] 7[address]234 Assigned Behavioral Health Provider 07/02/22 06/15/23 Erin Fernandez [facility] [address] [place], [place] [phone] Pharmacist Pharmacist 12/22/22 10/25/23 Jyoti Sotomayor [facility] 2450 [facility] [address] [place] [address] Pharmacist Pharmacist 03/08/23 Jyoti Sotomayor [facility] [address] [place] [address] Assigned MTM Pharmacist 03/11/23 Marcus Stephens MD 717 [facility] 370 [place] [address] Assigned PCP 04/27/23 Twan Patrick MD [address] 200 [place] [address] Assigned Pediatric Specialist Provider 05/05/23 06/15/23 Rashmi Isaac MD [address] [facility] F[address] [place], [place] 230374 Assigned Behavioral Health Provider 06/16/23 Sara Jara, RN Clinic Public Works Technician 12/25/24 documented as of this encounter
--- OUTSIDE RECORDS SUMMARY | 2025-01-12 09:44 | XMS_ITS | Encounter Summary ---
Author Organization [facility] Address [address] [place] [address] Care Team Providers Care Meter Engineer Name Role Phone Rachel Crum MD Primary Care Provid er Rachel Crum MD Unavailable + [phone] Estelle Calvillo MD Unavailable Estelle Calvillo MD Unavailable Twan Patrick MD Unavailable +[phone] Zulema Parrish [facility] Unavailable Unavaila Estelle Schaeffer MD Unavailable Erin Fernandez [facility] Unavailable +[phone] Erin Fernandez [facility] Unavailable [phone] Marcus Stephens MD Primary Care Provider [phone] Jyoti Sotomayor [facility] Unavailable +[phone] Jyoti Sotomayor [facility] Unavailable +[phone] Marcus Stephens MD Unavailable Twan Patrick MD Unavailable [phone] Rashmi Isaac MD Unavailable + [phone] Eloy Singh MD Primary Care Provider [phone] Sara Jara RN Unavailable +[phone] Encounter Details Date Type Department Care Team (Late st Contact Info) Description 01/20/2022 MyC Medical Advice [place] [address] [place] [address] Rachel Crum MD [address] [place], [place] [phone] Social History Tobacco Use Types Packs/Day Years [...] 06/23/2025 3:30 PM CDT Office Visit [facility] Francie [address] [place] [address] Drive [address] [place] [phone] [place] [address] [place] [address] [place]ON [phone] documented as of this encounter Visit Diagnoses Not on filedocumented in this encounter Additional Health Concerns Infection Onset Date Last Indicated Resolved Time Rule Out COVID-19 12/11/2022 12/11/2022 12/12/2022 1:24 PM CDT Rule Out Rubella 07/16/2024 07/16/2024 07/17/2024 12:31 PM CDT Assessment Noted Time PHQ-9 Depression Total Score: 18 022 1:59 PM CDT documented as of this encounter Care Teams Meter Engineer Relationship Specialty Start Date End Date Rachel Crum MD PCP - General Pediatrics 07/04/12 02/13/23 Marcus Stephens MD [address] [place] [address] PCP - General Pediatrics 02/14/23 12/22/24 Eloy Singh MD [address] [place] [address] [place] [address] PCP - General Internal Medicine - Pediatrics 12/23/24 Rachel Crum MD Assigned PCP 11/11/18 04/26/23 Estelle Calvillo MD [address] [place] [address] F275 [place] [address] senior operator & Neurology - Child & Adolescent Psychiatry 05/24/19 Estelle Calvillo MD [address] [place], [place] [address] Assigned Behavioral Health Provider 01/24/20 05/13/22 Twan Patrick MD [address] [place] [address] 200 [place], [place] 730344 Assigned Pediatric Specialist Provider 12/11/21 04/26/23 Zulema Parrish LGSW Lead Pulling Unit Operator 07/04/22 01/27/23 Estelle Calvillo MD [address] [place] [address] Assigned Behavioral Health Provider 07/02/22 06/15/23 Erin Fernandez [facility] [address] [place] [address] Pharmacist Pharmacist 12/22/22 10/25/23 Erin Fernandez [facility] [address] [place] [address] Assigned MTM Pharmacist 12/31/22 Jyoti Sotomayor [place] 2450 [facility] F[address] [place] [address] Pharmacist Pharmacist 03/08/23 Jyoti Sotomayor [facility] [address] [place], [place] [address] Assigned MTM Pharmacist 03/11/23 Marcus Stephens MD 717 [facility] [address] [place], [place] 548995 Assigned PCP 04/27/23 Twan Patrick MD [address] [place], [place] [address]E [address] 200 [place], [place] 9767[address] Assigned Pediatric Specialist Provider 05/05/23 06/15/23 Rashmi Isaac MD [address] [place], [place] 523094 Assigned Behavioral Health Provider 06/16/23 Sara Jara, RN Clinic Pulling Unit Operator 12/25/24 documented as of this encounter
--- OUTSIDE RECORDS SUMMARY | 2025-01-12 09:44 | XMS_ITS | Encounter Summary ---
Author Organization [place] Address [address] [place] [address] Care Team Providers Care Rental Management Trainee Name Role Phone Rachel Crum MD Primary Care Provid er Rachel Crum MD Unavailable + [phone] Estelle Calvillo MD Unavailable Twan Patrick MD Unavailable +[phone] Zulema Parrish [facility] Unavailable Unavaila Estelle Schaeffer MD Unavailable Erin Fernandez [facility] Unavailable +[phone] Erin Fernandez [facility] Unavailable +[phone] Marcus Stephens MD Primary Care Provider +[phone] Jyoti Sotomayor [facility] Unavailable + [phone] Jyoti Sotomayor [facility] Unavailable + [phone] Marcus Stephens MD Unavailable Twan Patrick MD Unavailable +[phone] Rashmi Isaac MD Unavailable [phone] Eloy Singh MD Primary Care Provider +[phone] Sara Jara RN Unavailable [phone] Encounter Details Date Type Department Care Team (Late st Contact Info) Description 10/14/2022 [facility] Medical Advice [facility]'s [address] [place] [address] Saul Ruelas Social History Tobacco Use [...] Visit [facility] Francie [address] [place] [address] Eloy Singh MD [address] [facility] [place] [id number] documented as of this encounter Goals Goal [...] Parent to continue with medical specialties within [place] and [facility] 2. Parent to continue with [...] documented as of this encounter Care Teams Rental Management Trainee Relationship Specialty Start Date End Date Rachel Crum MD PCP - General Pediatrics 07/04/12 02/13/23 Marcus Stephens MD [address] [address] PCP - General Pediatrics 02/14/23 12/22/24 Eloy Singh MD [address] [facility] [place] [address] PCP - General Internal Medicine - Pediatrics 12/23/24 Rachel Crum MD Assigned PCP 11/11/18 04/26/23 Estelle Calvillo MD [address] [place] [address] [address]275 [place], [place] 2[address]64 communications advisor & Neurology - Child & Adolescent Psychiatry 05/24/19 Twan Patrick MD [address] [place] [address] 200 [place], [place] 336644 Assigned Pediatric Specialist Provider 12/11/21 04/26/23 Zulema Parrish [facility] Lead Warehouse Processor 07/04/22 01/27/23 Estelle Calvillo MD [address] [place] [address] [address] [place] [address] Assigned Behavioral Health Provider 07/02/22 06/15/23 Erin Fernandez [facility] [address] [place] [place] [address] Pharmacist Pharmacist 12/22/22 10/25/23 Erin Fernandez [facility] [address] [id number] Assigned MTM Pharmacist 12/31/22 Jyoti Sotomayor [facility] 2450 [facility] [address] [place] [address] Pharmacist Pharmacist 03/08/23 Jyoti Sotomayor [facility] [address] [place] [address] Assigned MTM Pharmacist 03/11/23 Marcus Stephens MD 717 [facility] [address] 370 [place] [address] Assigned PCP 04/27/23 Twan Patrick MD [address] [facility] [address] 200 [place] [address] Assigned Pediatric Specialist Provider 05/05/23 06/15/23 Rashmi Isaac MD [address] [place] [address] Assigned Behavioral Health Provider 06/16/23 Sara Jara RN Clinic Warehouse Processor 12/25/24 documented as of this encounter
--- OUTSIDE RECORDS SUMMARY | 2025-01-12 09:44 | XMS_ITS | Encounter Summary ---
Author Organization [place] Address [address] [place] [address] Care Team Providers Care Economic Research Analyst Name Role Phone Rachel Crum MD Primary Care Provid er Rachel Crum MD Unavailable + [phone] Estelle Calvillo MD Unavailable Twan Patrick MD Unavailable +[phone] Zulema Parrish [facility] Unavailable Unavaila Estelle Schaeffer MD Unavailable Erin Fernandez [facility] Unavailable +[phone] Erin Fernandez [facility] Unavailable +[phone] Marcus Stephens MD Primary Care Provider +[phone] Jyoti Sotomayor [facility] Unavailable + [phone] Jyoti Sotomayor [facility] Unavailable + [phone] Marcus Stephens MD Unavailable Twan Patrick MD Unavailable +[phone] Rashmi Isaac MD Unavailable +[phone] Eloy Singh MD Primary Care Provider [phone] Sara Jara RN Unavailable [phone] Encounter Details Date Type Department Care Team (Late st Contact Info) Description 11/11/2022 MyC Medical Advice [facility]'s 2535 [place] [address] Rachel Crum MD 10[address] [facility] [address] [place] [address] Social History Tobacco Use Types Packs/Day Years [...] Description 06/23/2025 3:30 PM CDT Office Visit [facility] Francie [address] [facility] [address] [place] [phone] Eloy Singh MD [address] [facility] [place] [address] documented as of this encounter Goals Goal [...] documented as of this encounter Care Teams Economic Research Analyst Relationship Specialty Start Date End Date Rachel Crum MD PCP - General Pediatrics 07/04/12 02/13/23 Marcus Stephens MD [address] [place] [place] [address] PCP - General Pediatrics 02/14/23 12/22/24 Eloy Singh MD [address] [facility] [place] [address] PCP - General Internal Medicine - Pediatrics 12/23/24 Rachel Crum MD Assigned PCP 11/11/18 04/26/23 Estelle Calvillo MD [address] [facility] [address] [place] [address] carton making machine operator & Neurology - Child & Adolescent Psychiatry 05/24/19 Twan Patrick MD [address] [facility] [address] [place] [address] Assigned Pediatric Specialist Provider 12/11/21 04/26/23 Zulema Parrish, [facility] Lead Wafer Fab Technician 07/04/22 01/27/23 Estelle Calvillo MD [address] [place] [address] [address] [place], [place] 959374 Assigned Behavioral Health Provider 07/02/22 06/15/23 Erin Fernandez, [facility] [address] [place] [address] [address] Pharmacist Pharmacist 12/22/22 10/25/23 Erin Fernandez, [facility] [address] [place] [address] Assigned MTM Pharmacist 12/31/22 Jyoti Sotomayor [facility] [address] [place], [place] [id number] Pharmacist Pharmacist 03/08/23 Jyoti Sotomayor [facility] [address] [place], [place] [address] Assigned MTM Pharmacist 03/11/23 Marcus Stephens MD [address] [place] [address] [place] [address] Assigned PCP 04/27/23 Twan Patrick MD [address] [place] [address] Assigned Pediatric Specialist Provider 05/05/23 06/15/23 Rashmi Isaac MD [address] [place] [address] Assigned Behavioral Health Provider 06/16/23 Sara Jara, RN Clinic Wafer Fab Technician 12/25/24 documented as of this encounter
--- OUTSIDE RECORDS SUMMARY | 2025-01-12 09:44 | XMS_ITS | Encounter Summary ---
Author Organization [place] Address [address] [place] [address] Care Team Providers Care Food Safety Director Name Role Phone NeishaoscarEstelle MD Unavailable Marcus Stephens MD Primary Care Provider Jyoti Sotomayor [facility] Unavailable + [phone] Jyoti Sotomayor [facility] Unavailable + [phone] Marcus Stephens MD Unavailable Rashmi Isaac MD Unavailable +[phone] Eloy Singh MD Primary Care Provider [phone] Sara Jara RN Unavailable [phone] Encounter Details Date Type Department Care Team (Late st Contact Info) Description 05/22/2024 [facility] Medical Advice [address] [address] Camila Shelley Social History Tobacco [...] in an overnight snf, or couch-surfing.) Yes 02/13/2024 Are you worried [...] Description 06/23/2025 3:30 PM CDT Office Visit [facility] Francie [address] [place] [address] Drive [address] [place] [phone] Eloy Singh MD [address] [place] [address] [place] [address] documented as of this encounter Goals Goal Patient Goal Type Associated Problems Recent Progress Patient-Stated? Author Establish appropriate developmental/beha vioral services and supports Care Plan Lacking Appropriate Services and Supports 10%( 3 2:23 PM CDT) No Parrish, Zulema, VALIDATION MANAGER Note: Barriers: long waitlist's, age Strengths: parents [...] Depression Total Score: 10 025 11:26 AM SUPPORT ASSOCIATE documented as of this encounter Care Teams Food Safety Director Relationship Specialty Start Date End Date Marcus Stephens MD 717 [facility] 370 [place], [place] [address] PCP - General Pediatrics 02/14/23 12/22/24 Eloy Singh MD [address] [facility] [place] [address] PCP - General Internal Medicine - Pediatrics 12/23/24 Estelle Calvlilo MD [address] [place], [place] 336[address] machine carton marker & Neurology - Child & Adolescent Psychiatry 05/24/19 Jyoti Sotomayor [facility] [address] [place] [phone] Pharmacist Pharmacist 03/08/23 Jyoti Sotomayor [facility] [address] [address] Assigned MTM Pharmacist 03/11/23 Marcus Stephens MD 717 [facility] 370 [place] [address] Assigned PCP 04/27/23 Rashmi Isaac MD [address] [place] [address] Assigned Behavioral Health Provider 06/16/23 Sara Jara, RN Clinic Open Hearth Melter 12/25/24 documented as of this encounter
--- OUTSIDE RECORDS SUMMARY | 2025-01-12 09:44 | XMS_ITS | Encounter Summary ---
Author Organization [place] Address [address] [place] [address]. [place] [address] Care Team Providers Care Cartography Supervisor Name Role Phone NeishaoscarEstelle MD Unavailable Marcus Stephens MD Primary Care Provider [phone] Jyoti Sotomayor [facility] Unavailable + [phone] Jyoti Sotomayor [facility] Unavailable + [phone] Marcus Stephens MD Unavailable Rashmi Isaac MD Unavailable [phone] Eloy Singh MD Primary Care Provider [phone] Sara Jara RN Unavailable [phone] Reason for Visit * Reason Onset Date Comments Forms 05/17/2024 Encounter Details Date Type Department Care Team (Late st Contact Info) Description 05/17/2024 Telephone [facility] [place] [address] Marcus Stephens MD [address] [place] [address] Forms Social History Tobacco Use Types [...] - 05/22/2024 8:11 AM CST Uploaded to [email or web address] Camila Lead Leveling Machine Operator ATION RN * Telephone Encounter - Areli Rivas RN - 05/21/2024 10:49 AM CST Reviewed forms and filled out what I was able. Placed in Dr. Stephens basket to review and sign if appropriate. ATION RN * Telephone Encounter - Beena Odom - 05/17/2024 2:39 PM CST Specialized Theray forms received. Placed in Team April LOPEZ folder for review. Please give to provider for review and signature upon completion. Please upload forms to [employer] after completion. Beena Odom, Leveling Machine Operator ATION RN * Telephone Encounter - Shaye Snider - 05/17/2024 12:17 PM CST Forms/Letter Request Type of form/letter: OTHER: Specialized therapy Do we have the form/letter: Yes: In Dr. Stephens's folder Who is the form from? Patient Where did/will the form come from? Patient or family brought in When is form/letter needed by: 05/22/2024 How would you like the form/letter returned: [employer] Patient Notified form requests are processed in 5-7 business days:Yes Could we send this information to you in [employer] or would you prefer to receive a phone call?: Patient would like to be contacted via [employer] ATION RN documented in this encounter Plan of Treatment Upcoming Encounters Date Type Department Care Team (Late st Contact Info) Description 06/23/2025 3:30 PM CDT Office Visit [facility] Francie [address] [place] [phone] Eloy Singh MD [address] [place] [address] [place] [address] documented as of this encounter Goals Goal [...] Depression Total Score: 10 025 11:26 AM EDUCATION RN documented as of this encounter Care Teams Cartography Supervisor Relationship Specialty Start Date End Date Marcus Stephens MD 717 [facility] 370 [place] [address] PCP - General Pediatrics 02/14/23 12/22/24 Eloy Singh MD [address] [facility] [place] [address] PCP - General Internal Medicine - Pediatrics 12/23/24 Estelle Calvillo MD [address] [place] [address] F275 [place], [place] 9[address] metropolitan editor & Neurology - Child & Adolescent Psychiatry 05/24/19 Jyoti Sotomayor [facility] [address] [place] [address] [phone] Pharmacist Pharmacist 03/08/23 Jyoti oStomayor [facility] [address] [place] [address] Assigned MTM Pharmacist 03/11/23 Marcus Stephens MD 717 [facility] 370 [place] [address] Assigned PCP 04/27/23 Rashmi Isaac MD [address] [place] [address] Assigned Behavioral Health Provider 06/16/23 Sara Jara, RN Clinic Property Field Inspector 12/25/24 documented as of this encounter
--- OUTSIDE RECORDS SUMMARY | 2025-01-12 09:44 | XMS_ITS | Encounter Summary ---
Author Organization [place] Address [address] [place] [address] Care Team Providers Care Jewel Hole Rough Opener Name Role Phone NeishaoscarEstelle MD Unavailable Marcus Stephens MD Primary Care Provider [phone] Jyoti Sotomayor [facility] Unavailable + [phone] Jyoti Sotomayor [facility] Unavailable + [phone] Marcus Stephens MD Unavailable Rashmi Isaac MD Unavailable +[phone] Eloy Singh MD Primary Care Provider [phone] Sara Jara RN Unavailable [phone] Encounter Details Date Type Department Care Team (Late st Contact Info) Description 06/18/2024 [facility] Medical Advice [facility] 2024 [place] [address] Rashmi Isaac MD [address] [facility] [address] [place] [address] Social History Tobacco Use Types [...] in an overnight mcfp, or couch-surfing.) Yes 02/13/2024 Are you worried [...] Description 06/23/2025 3:30 PM CDT Office Visit [facility] Francie [address] [facility] [address] [place] [address] Eloy Singh MD [address] [facility] [place] [address] documented as of this [...] Parent to continue with medical specialties within [place] and [facility]. Parent to continue with [...] Depression Total Score: 10 025 11:26 AM GLOVE CUFFER documented as of this encounter Care Teams Jewel Hole Rough Opener Relationship Specialty Start Date End Date Marcus Stephens MD 717 [facility] 370 [place], [place] [address] PCP - General Pediatrics 02/14/23 12/22/24 Eloy Singh MD [address] [place] [address] PCP - General Internal Medicine - Pediatrics 12/23/24 Estelle Calvillo MD [address] [place], [place] 15[address] cloth brushing and sueding supervisor & Neurology - Child & Adolescent Psychiatry 05/24/19 [facility]yoti Sotomayor [facility]50 [facility] [address] [place], [place] 502404 Pharmacist Pharmacist 03/08/23 Jyoti Sotomayor [facility] [address] [place] [address] Assigned MTM Pharmacist 03/11/23 Marcus Stephens MD [address] [place] [address] [place] [address] Assigned PCP 04/27/23 Rashmi Isaac MD [address] [place] [address] Assigned Behavioral Health Provider 06/16/23 Sara Jara, RN Clinic Pan Devulcanizer Helper 12/25/24 documented as of this encounter
--- OUTSIDE RECORDS SUMMARY | 2025-01-12 09:44 | XMS_ITS | Encounter Summary ---
Author Organization [place] Address [address] [place] [address] Care Team Providers Care Combination Worker Name Role Phone Rachel Crum MD Unavailable + [phone] Estelle aClvillo MD Unavailable Twan Patrick MD Unavailable +[phone] Estelle Calvillo MD Unavailable Erin Fernandez [facility] Unavailable +[phone] Erin Fernandez [facility] Unavailable [phone] Marcus Stephens MD Primary Care Provider [phone] Jyoti Sotomayor [facility] Unavailable + [phone] Jyoti Sotomayor [facility] Unavailable + [phone] Marcus Stephens MD Unavailable Twan Patrick MD Unavailable +[phone] Rashmi Isaac MD Unavailable +[phone] Eloy Singh MD Primary Care Provider [phone] Sara Jara RN Unavailable [phone] Encounter Details Date Type Department Care Team (Late st Contact Info) Description 03/09/2023 [facility] [address] [place] [phone] Jyoti Sotomayor, [facility] 2450 [facility] F[address] [place], [place] 601[address] Social History Tobacco Use Types Packs/Day Years [...] PM CDT Office Visit [facility] Francie [address] [facility] [address] [place] [phone] [place] [address] [place] [address] [place] [address] documented as of this encounter Goals Goal [...] Parent to continue with medical specialties within [place] and [facility]. Parent to continue with [...] as of this encounter Care Teams Combination Worker Relationship Specialty Start Date End Date Marcus Stephens MD [address] [place] [address] 370 [place] [address] PCP - General Pediatrics 02/14/23 12/22/24 Eloy Singh MD [address] [place] [address] [place] [address] PCP - General Internal Medicine - Pediatrics 12/23/24 Rachel Crum MD Assigned PCP 11/11/18 04/26/23 Estelle Calvillo MD [address] [place] 7416575 [place], [place] 015634 new product trainer & Neurology - Child & Adolescent Psychiatry 05/24/19 Twan Patrick MD [address] [facility] 200 [place], [place] [address] Assigned Pediatric Specialist Provider 12/11/21 04/26/23 Estelle Calvillo MD [address] [place] 7416575 [place], [place] 8[address]884 Assigned Behavioral Health Provider 07/02/22 06/15/23 Erin Fernandez, [facility] [address] [id number] Pharmacist Pharmacist 12/22/22 10/25/23 Erin Fernandez, [facility] [address] [id number] Assigned MTM Pharmacist 12/31/22 Jyoti Sotomayor [facility] [address] [place] [address] [phone] Pharmacist Pharmacist 03/08/23 Jyoti Sotomayor [facility] [address] [id number] Assigned MTM Pharmacist 03/11/23 Marcus Stephens MD 717 [facility] [address] [place] [address] Assigned PCP 04/27/23 Twan Patrick MD [address] [facility] [place] [address] Assigned Pediatric Specialist Provider 05/05/23 06/15/23 Rashmi Isaac MD [address] [place] [address] Assigned Behavioral Health Provider 06/16/23 Sara Jara, RN Clinic Weigh Tank Operator 12/25/24 documented as of this encounter
--- OUTSIDE RECORDS SUMMARY | 2025-01-12 09:44 | XMS_ITS | Encounter Summary ---
Author Organization [place] Address [address] [place] [address] Care Team Providers Care District Representative Name Role Phone Rachel Crum MD Primary Care Provid er Rachel Crum MD Unavailable + [phone] Estelle Calvillo MD Unavailable Estelle Calvillo MD Unavailable Twan Patrick MD Unavailable +[phone] Zulema Parrish [facility] Unavailable Unavaila Estelle Schaeffer MD Unavailable Erin Fernandez [facility] Unavailable +[phone] Erin Fernandez [facility] Unavailable +[phone] Marcus Stephens MD Primary Care Provider [phone] Jyoti Sotomayor [facility] Unavailable +[phone] Jyoti Sotomayor [facility] Unavailable +[phone] Marcus Stephens MD Unavailable Twan Patrick MD Unavailable +[phone] Rashmi Isaac MD Unavailable + [phone] Eloy Singh MD Primary Care Provider [phone] Sara Jara RN Unavailable +[phone] Encounter Details Date Type Department Care Team (Late st Contact Info) Description 02/08/2022 My[facility] Medical Advice [place] [address] [place] [address] Rachel Crum MD [address] [place], [place] [id number] Social History Tobacco Use Types Packs/Day Years [...] Coronavirus/COVID-19? No / Unsure 02/09/2022 1:25 PM CUT IN STATION OPERATOR documented as of this encounter Plan of Treatment Upcoming Encounters Date Type Department Care Team (Late st Contact Info) Description 06/23/2025 3:30 PM CDT Office Visit [facility] Francie [address] [place] [address] Drive [address] [place] [phone] Eloy Singh MD [address] [place] [address] [place] [id number] documented as of this encounter Visit Diagnoses Not on filedocumented in this encounter Additional Health Concerns Infection Onset Date Last Indicated Resolved Time Rule Out COVID-19 12/11/2022 12/11/2022 12/12/2022 1:24 PM CDT Rule Out Rubella 07/16/2024 07/16/2024 07/17/2024 12:31 PM CDT Assessment Noted Time PHQ-9 Depression Total Score: 18 022 1:59 PM CDT documented as of this encounter Care Teams District Representative Relationship Specialty Start Date End Date Rachel Crum MD PCP - General Pediatrics 07/04/12 02/13/23 Marcus Stephens MD [address] [address] PCP - General Pediatrics 02/14/23 12/22/24 Eloy Singh MD [address] [place] [address] [place] [address] PCP - General Internal Medicine - Pediatrics 12/23/24 Rachel Crum MD Assigned PCP 11/11/18 04/26/23 Estelle Calvillo MD [address] [place] [address] [address] [place], [place] 95[address] sales lead & Neurology - Child & Adolescent Psychiatry 05/24/19 Estelle Calvillo MD [address] [place] [address] [address] [place], [place] 268924 Assigned Behavioral Health Provider 01/24/20 05/13/22 Twan Patrick MD [address] [place] [address] 200 [place], [place] 583094 Assigned Pediatric Specialist Provider 12/11/21 04/26/23 Zulema Parrish LGSW Lead Physician Industrial 07/04/22 01/27/23 Estelle Calvillo MD [address] [place] [address] [address] [place], [place] 764404 Assigned Behavioral Health Provider 07/02/22 06/15/23 Erin Fernandez [facility] [address] [place] [address] Pharmacist Pharmacist 12/22/22 10/25/23 Erin Fernandez [facility] [address] [place] [address] Assigned MTM Pharmacist 12/31/22 Jyoti Sotomayor [facility] [address] [id number] [place] [address] Pharmacist Pharmacist 03/08/23 Jyoti Sotomayor [facility] 2450 [facility] F282 [place] [address] Assigned MTM Pharmacist 03/11/23 Marcus Stephens MD 717 [facility] 370 [place] [address] Assigned PCP 04/27/23 Twan Patrick MD [address] [place], [place] [address]E [facility] 200 [place] [address] Assigned Pediatric Specialist Provider 05/05/23 06/15/23 Rashmi Isaac MD [address] [place] [address] Assigned Behavioral Health Provider 06/16/23 Sara Jara RN Clinic Physician Industrial 12/25/24 documented as of this encounter
--- OUTSIDE RECORDS SUMMARY | 2025-01-12 09:44 | XMS_ITS | Encounter Summary ---
Author Organization [place] Address [address] [place] [address] Care Team Providers Care Solar Mechanical Engineer Name Role Phone Rachel Crum MD Primary Care Provid er Rachel Crum MD Unavailable + [phone] Estelle Calvillo MD Unavailable Twan Patrick MD Unavailable +[phone] Zulema Parrish [facility] Unavailable Unavaila Estelle Schaeffer MD Unavailable Erin Fernandez [facility] Unavailable +[phone] Erin Fernandez [facility] Unavailable +[phone] Marcus Stephens MD Primary Care Provider +[phone] Jyoti Sotomayor [facility] Unavailable + [phone] Jyoti Sotomayor [facility] Unavailable + [phone] Marcus Stephens MD Unavailable Twan Patrick MD Unavailable +[phone] Rashmi Isaac MD Unavailable +[phone] Eloy Singh MD Primary Care Provider [phone] Sara Jara RN Unavailable +[phone] Encounter Details Date Type Department Care Team (Late st Contact Info) Description 08/19/2022 [facility] [address] [place] [address] Saul Ruelas Social History Tobacco [...] [facility] Francie [address] [place] [address] Eloy Singh MD 3305 [facility] [place] [address] documented as of this encounter Goals Goal [...] as of this encounter Care Teams Solar Mechanical Engineer Relationship Specialty Start Date End Date Rachel Crum MD PCP - General Pediatrics 07/04/12 02/13/23 Marcus Stephens MD 717 [facility] 370 [place] [address] PCP - General Pediatrics 02/14/23 12/22/24 Eloy Singh MD 3305 [facility] [place] [address] PCP - General Internal Medicine - Pediatrics 12/23/24 Rachel Crum MD Assigned PCP 11/11/18 04/26/23 Estelle Calvillo MD [address] [facility] F275 [place], [place] 011374 supervisor boarding & Neurology - Child & Adolescent Psychiatry 05/24/19 Twan Patrick MD [address] [facility] 200 [place], [place] 496864 Assigned Pediatric Specialist Provider 12/11/21 04/26/23 Zulema Parrish, MARGI Lead Staff Antisubmarine Officer 07/04/22 01/27/23 Estelle Calvillo MD [address] [place] [address] F275 [place] [address] Assigned Behavioral Health Provider 07/02/22 06/15/23 Erin Fernandez [facility] [address] [id number] Pharmacist Pharmacist 12/22/22 10/25/23 Erin Fernandez [facility] [address] [id number] Assigned MTM Pharmacist 12/31/22 Jyoti Sotomayor [facility] 2450 [facility] F282 [place], [place] 634864 Pharmacist Pharmacist 03/08/23 Jyoti Sotomayor [facility] 2450 [facility] F282 [place], [place] 348884 Assigned MTM Pharmacist 03/11/23 Marcus Stephens MD 717 [facility] [address] [place], [place] 152115 Assigned PCP 04/27/23 Twan Patrick MD [address] 200 [place] [address] Assigned Pediatric Specialist Provider 05/05/23 06/15/23 Rashmi Isaac MD 2312 S [facility] T[address] F[address] [place], [place] 663034 Assigned Behavioral Health Provider 06/16/23 Sara Jara, RN Clinic Staff Antisubmarine Officer 12/25/24 documented as of this encounter
--- OUTSIDE RECORDS SUMMARY | 2025-01-12 09:44 | XMS_ITS | Encounter Summary ---
Author Organization [place] Address [address] [place] [address] Care Team Providers Care Digital Designer Name Role Phone Rachel Crum MD Unavailable + [phone] Estelle Calvillo MD Unavailable Twan Patrick MD Unavailable +[phone] Estelle Calvillo MD Unavailable Erin Fernandez [facility] Unavailable +[phone] Marcus Stephens MD Primary Care Provider +[phone] Jyoti Sotomayor [facility] Unavailable + [phone] Jyoti Sotomayor [facility] Unavailable + [phone] Marcus Stephens MD Unavailable Twan Patrick MD Unavailable +[phone] Rashmi Isaac MD Unavailable +[phone] Eloy Singh MD Primary Care Provider +[phone] Sara Jara RN Unavailable +[phone] Encounter Details Date Type Department Care Team (Late st Contact Info) Description 04/24/2023 [facility] [place] [id number] [place] [address] Marcus Stephens MD [address] [place] [address] [id number] Social History Tobacco Use Types Packs/Day Years [...] 06/23/2025 3:30 PM CDT Office Visit [facility] Francie [address] [place] [phone] Eloy Singh MD 3305 [facility] [place] [address] documented as of this encounter Goals Goal [...] Parent to continue with medical specialties within [place] and [facility]. Parent to continue with [...] as of this encounter Care Teams Digital Designer Relationship Specialty Start Date End Date Marcus Stephens MD [address] [place] [address] 370 [place] [address] PCP - General Pediatrics 02/14/23 12/22/24 Eloy Singh MD [address] [place] [address] [place] [address] PCP - General Internal Medicine - Pediatrics 12/23/24 Rachel Crum MD Assigned PCP 11/11/18 04/26/23 Estelle Calvillo MD [address] [place] [address] F275 [place] [address] dairy husbandman & Neurology - Child & Adolescent Psychiatry 05/24/19 Twan Patrick MD [address] [place] [address] [address] 200 [place], [place] 709184 Assigned Pediatric Specialist Provider 12/11/21 04/26/23 Estelle Calvillo MD [address] [place] [address] F275 [place], [place] 947034 Assigned Behavioral Health Provider 07/02/22 06/15/23 Erin Fernandez [facility] [address] [place], [place] 144[address] Pharmacist Pharmacist 12/22/22 10/25/23 Jyoti Sotomayor [facility] [facility] F282 [place] [address] Pharmacist Pharmacist 03/08/23 Jyoti Sotomayor [facility] [address] [place] [address] Assigned MTM Pharmacist 03/11/23 Marcus Stephens MD 717 [facility] 370 [place] [address] Assigned PCP 04/27/23 Twan Patrick MD [address] 200 [place] [address] Assigned Pediatric Specialist Provider 05/05/23 06/15/23 Rashmi Isaac MD [address] [facility] [address] [place], [place] 356554 Assigned Behavioral Health Provider 06/16/23 Sara Jara, RN Clinic Timing Inspector 12/25/24 documented as of this encounter
--- OUTSIDE RECORDS SUMMARY | 2025-01-12 09:44 | XMS_ITS | Encounter Summary ---
Author Organization [place] Address [address] [place] [address] Care Team Providers Care Lease Broker Name Role Phone Rachel Crum MD Primary Care Provid er Rachel Crum MD Unavailable + [phone] Estelle Calvillo MD Unavailable Estelle Calvillo MD Unavailable Twan Patrick MD Unavailable +[phone] Zulema Parrish [facility] Unavailable Unavaila Estelle Schaeffer MD Unavailable Erin Fernandez [facility] Unavailable +[phone] Erin Fernandez [facility] Unavailable +[phone] Marcus Stephens MD Primary Care Provider [phone] Jyoti Sotomayor [facility] Unavailable +[phone] Jyoti Sotomayor [facility] Unavailable +[phone] Marcus Stephens MD Unavailable Twan Patrick MD Unavailable +[phone] Rashmi Isaac MD Unavailable + [phone] Eloy Singh MD Primary Care Provider [phone] Sara Jara RN Unavailable [phone] Encounter Details Date Type Department Care Team (Late st Contact Info) Description 03/16/2022 MyC Medical Advice [place] [address] [place] [address] Rachel Crum MD [address] [place], [place] 88[address] Social History Tobacco Use Types Packs/Day Years [...] Coronavirus/COVID-19? No / Unsure 03/14/2022 9:56 AM MOLDING TECHNICIAN documented as of this encounter Plan of Treatment Upcoming Encounters Date Type Department Care Team (Late st Contact Info) Description 06/23/2025 3:30 PM CDT Office Visit [facility] Francie [address] [place] [address] Drive [address] [place] [phone] Eloy Singh MD [address] [place] [address] [place] [id number] documented as of this encounter Visit Diagnoses Not on filedocumented in this encounter Additional Health Concerns Infection Onset Date Last Indicated Resolved Time Rule Out COVID-19 12/11/2022 12/11/2022 12/12/2022 1:24 PM CDT Rule Out Rubella 07/16/2024 07/16/2024 07/17/2024 12:31 PM CDT Assessment Noted Time PHQ-9 Depression Total Score: 18 022 1:59 PM CDT documented as of this encounter Care Teams Lease Broker Relationship Specialty Start Date End Date Rachel Crum MD PCP - General Pediatrics 07/04/12 02/13/23 Marcus Stephens MD [address] [address] PCP - General Pediatrics 02/14/23 12/22/24 Eloy Singh MD [address] [place] [address] [place] [address] PCP - General Internal Medicine - Pediatrics 12/23/24 Rachel Crum MD Assigned PCP 11/11/18 04/26/23 Estelle Calvillo MD [address] [place] [address] [address]275 [place], [place] 567104 tipple greaser & Neurology - Child & Adolescent Psychiatry 05/24/19 Estelle Calvillo MD [address] [place] [address] [address] [place], [place] 403464 Assigned Behavioral Health Provider 01/24/20 05/13/22 Twan Patrick MD [address] [place] [address] 200 [place], [place] 036264 Assigned Pediatric Specialist Provider 12/11/21 04/26/23 Zulema Parrish LGSW Lead Coat Hanger Shaper Machine Operator 07/04/22 01/27/23 Estelle Calvillo MD [address] [place] [address] [address]275 [place], [place] 834244 Assigned Behavioral Health Provider 07/02/22 06/15/23 Erin Fernandez [facility] [address] [place] [address] [address] Pharmacist Pharmacist 12/22/22 10/25/23 Erin Fernandez [facility] [address] [place] [address] Assigned MTM Pharmacist 12/31/22 Jyoti Sotomayor [facility] [address] [place] [id number] [place] [address] Pharmacist Pharmacist 03/08/23 Jyoti Sotomayor [facility] 2450 [facility] [address] [place] [address] Assigned MTM Pharmacist 03/11/23 Marcus Stephens MD 717 [facility] 370 [place] [address] Assigned PCP 04/27/23 Twan Patrick MD [address] [place] [address]E [facility] 200 [place] [address] Assigned Pediatric Specialist Provider 05/05/23 06/15/23 Rashmi Isaac MD [address] [place] [address] Assigned Behavioral Health Provider 06/16/23 Sara Jara RN Clinic Coat Hanger Shaper Machine Operator 12/25/24 documented as of this encounter
--- OUTSIDE RECORDS SUMMARY | 2025-01-12 09:44 | XMS_ITS | Encounter Summary ---
Author Organization [place] Address [address] [place] [address] Care Team Providers Care Spring Bender Name Role Phone Rachel Crum MD Primary Care Provid er Rachel Crum MD Unavailable + [phone] Estelle Calvillo MD Unavailable Twan Patrick MD Unavailable +[phone] Zulema Parrish [facility] Unavailable Unavaila Estelle Schaeffer MD Unavailable Erin Fernandez [facility] Unavailable +[phone] Erin Fernandez [facility] Unavailable +[phone] Marcus Stephens MD Primary Care Provider +[phone] Jyoti Sotomayor [facility] Unavailable + [phone] Jyoti Sotomayor [facility] Unavailable + [phone] Marcus Stephens MD Unavailable Twan Patrick MD Unavailable +[phone] Rashmi Isaac MD Unavailable +[phone] Eloy Singh MD Primary Care Provider +[phone] Sara Jara RN Unavailable [phone] Encounter Details Date Type Department Care Team (Late st Contact Info) Description 09/11/2022 MyC Medical Advice [facility] 2024 [place] [address] Estelle Calvillo MD [address] [place] [place] [address] Social History Tobacco Use Types Packs/Day Years [...] Description 06/23/2025 3:30 PM CDT Office Visit [facility] Francie [address] [facility] [facility] [address] [place] [phone] Eloy Singh MD 3305 [facility] [place] [address] documented as of this encounter Goals Goal [...] Parent to continue with medical specialties within [place] and [facility]. Parent to continue with [...] documented as of this encounter Care Teams Spring Bender Relationship Specialty Start Date End Date Rachel Crum MD PCP - General Pediatrics 07/04/12 02/13/23 Marcus Stephens MD 717 [facility] 370 [place] [address] PCP - General Pediatrics 02/14/23 12/22/24 [place] [address] [place] [address] [place] [address] PCP - General Internal Medicine - Pediatrics 12/23/24 Rachel Crum MD Assigned PCP 11/11/18 04/26/23 Estelle Calvillo MD [address] [place], [place] 00[address] [place] [address] shrub grower & Neurology - Child & Adolescent Psychiatry 05/24/19 Twan Patrick MD [address] [place] [address] 200 [place], [place] 218184 Assigned Pediatric Specialist Provider 12/11/21 04/26/23 Zulema Parrish, [facility] Lead Pickle Pumper 07/04/22 01/27/23 Estelle Calvillo MD [address] [place] [address] [address] [place], [place] 846554 Assigned Behavioral Health Provider 07/02/22 06/15/23 Erin Fernandez, [facility] [address] [place] [address] [place] [id number] Pharmacist Pharmacist 12/22/22 10/25/23 Erin Fernandez, [facility] [address] [place] [address] Assigned MTM Pharmacist 12/31/22 Jyoti Sotomayor, [facility] [address] [place] [address] Pharmacist Pharmacist 03/08/23 [facility] [address] [place], [place] 883684 Assigned MTM Pharmacist 03/11/23 Marcus Stephens MD [address] [place] [address] [place] [address] Assigned PCP 04/27/23 Twan Patrick MD [address] [place], [place] 490134 Assigned Pediatric Specialist Provider 05/05/23 06/15/23 Rashmi Isaac MD [address] [address] [place], [place] 229764 Assigned Behavioral Health Provider 06/16/23 Sara Jara, RN Clinic Pickle Pumper 12/25/24 documented as of this encounter
--- OUTSIDE RECORDS SUMMARY | 2025-01-12 09:44 | XMS_ITS | Encounter Summary ---
Author Organization [place] Address [address] [place] [address]. [place] [address] Care Team Providers Care Canoe Maker Name Role Phone NeishaoscarEstelle MD Unavailable Marcus Stephens MD Primary Care Provider [phone] Jyoti Sotomayor [facility] Unavailable + [phone] Jyoti Sotomayor [facility] Unavailable + [phone] Marcus Stephens MD Unavailable Rashmi Isaac MD Unavailable [phone] Eloy Singh MD Primary Care Provider [phone] Sara Jara RN Unavailable [phone] Reason for Visit * Reason Onset Date Comments Forms 05/14/2024 [facility] Encounter Details Date Type Department Care Team (Late st Contact Info) Description 05/14/2024 Telephone [facility] [place] [address] Marcus Stephens MD [address] [place] [address] Forms ([facility]) Social History Tobacco Use Types Packs/Day Years [...] in an overnight alf, or couch-surfing.) Yes 02/13/2024 Are you worried [...] - 05/22/2024 8:11 AM CST Uploaded to [employer] Jensen Lead Customer Operations Specialist DEPILER OPERATOR * Telephone Encounter - Kandy Vega RN - 05/15/2024 5:38 PM CST Form put in Dr. Stephens's to sign folder Kandy Vega RN DEPILER OPERATOR * Telephone Encounter - Beena Odom - 05/15/2024 8:19 AM CST Special Diet forms received. Placed in Team Sonja RN folder for review. Please give to provider for review and signature upon completion. Please upload forms to [employer] after completion. Beena Odom, Customer Operations Specialist DEPILER OPERATOR * Telephone Encounter - Vega Noriega - 05/14/2024 1:51 PM CST Forms/Letter Request Type of form/letter: OTHER: CDCS Do we have the form/letter: Yes: in provider folder Who is the form from? Patient Where did/will the form come from? Patient or family brought in When is form/letter needed by: 05/17/2024 How would you like the form/letter returned: [employer] Patient Notified form requests are processed in 5-7 business days:Yes Could we send this information to you in [employer] or would you prefer to receive a phone call?: Patient would prefer a phone call Okay to leave a detailed message?: Yes at Cell number on file: Telephone Information: Vega Noriega Patient rep [facility] DEPILER OPERATOR documented in this encounter Plan of Treatment Upcoming Encounters Date Type Department Care Team (Late st Contact Info) Description 06/23/2025 3:30 PM CDT Office Visit [facility] Francie [address] [place] [phone] Eloy Singh MD [address] [facility] [place] [address] documented as of this encounter Goals Goal [...] Depression Total Score: 10 025 11:26 AM SLAB DEPILER OPERATOR documented as of this encounter Care Teams Canoe Maker Relationship Specialty Start Date End Date Marcus Stephens MD [address] [place] [address] 370 [place] [address] PCP - General Pediatrics 02/14/23 12/22/24 [place] [address] [place] [address] [place] [id number] PCP - General Internal Medicine - Pediatrics 12/23/24 Estelle Calvillo MD [address] [place] [address] [address] [place], [place] 345894 lactation consultant & Neurology - Child & Adolescent Psychiatry 05/24/19 Jyoti Sotomayor [facility] [address] [place] [address] 265074 Pharmacist Pharmacist 03/08/23 Jyoti Sotomayor [facility] [address] [place] [address], [place] [address] Assigned MTM Pharmacist 03/11/23 Marcus Stephens MD 717 [facility] 370 [place] [address] Assigned PCP 04/27/23 Rashmi Isaac MD [facility] [address] [place] [address] Assigned Behavioral Health Provider 06/16/23 Sara Jara, RN Clinic Spinner Tender 12/25/24 documented as of this encounter
--- OUTSIDE RECORDS SUMMARY | 2025-01-12 09:44 | XMS_ITS | Encounter Summary ---
Author Organization [place] Address [address] [place] [address] Care Team Providers Care Architecture Instructor Name Role Phone Rachel Crum MD Primary Care Provid er Rachel Crum MD Unavailable + [phone] Estelle Calvillo MD Unavailable Estelle Calvillo MD Unavailable Twan Patrick MD Unavailable +[phone] Zulema Parrish [facility] Unavailable Unavaila Estelle Schaeffer MD Unavailable Erin Fernandez [facility] Unavailable [phone] Erin Fernandez [facility] Unavailable +[phone] Marcus Stephens MD Primary Care Provider [phone] Jyoti Sotomayor [facility] Unavailable +[phone] Jyoti Sotomayor [facility] Unavailable +[phone] Marcus Stephens MD Unavailable Twan Patrick MD Unavailable +[phone] Rashmi Isaac MD Unavailable + [phone] Eloy Singh MD Primary Care Provider [phone] Sara Jara RN Unavailable [phone] Encounter Details Date Type Department Care Team (Late st Contact Info) Description 04/20/2022 MyC Medical Advice [place] [id number] [place] [address] Rachel Crum MD [address] [place] [address] Social History Tobacco Use Types [...] slept in a alf (including now)? No 02/09/2022 Sex and Gender [...] Coronavirus/COVID-19? 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 documented as of this encounter Plan of Treatment Upcoming Encounters Date Type Department Care Team (Late st Contact Info) Description 06/23/2025 3:30 PM CDT Office Visit [facility] Francie [address] [place] [address] Drive [address] [place] [phone] Eloy Singh MD [address] [place] [address] [place] [id number] documented as of this encounter Visit Diagnoses Not on filedocumented in this encounter Additional Health Concerns Infection Onset Date Last Indicated Resolved Time Rule Out COVID-19 12/11/2022 12/11/2022 12/12/2022 1:24 PM CDT Rule Out Rubella 07/16/2024 07/16/2024 07/17/2024 12:31 PM CDT Assessment Noted Time PHQ-9 Depression Total Score: 18 022 1:59 PM CDT documented as of this encounter Care Teams Architecture Instructor Relationship Specialty Start Date End Date Rachel Crum MD PCP - General Pediatrics 07/04/12 02/13/23 Marcus Stephens MD [address] [address] PCP - General Pediatrics 02/14/23 12/22/24 Eloy Singh MD [address] [place] [address] [place] [address] PCP - General Internal Medicine - Pediatrics 12/23/24 Rachel Crum MD Assigned PCP 11/11/18 04/26/23 Estelle Calvillo MD [address] [place] [address] F275 [place], [place] 025984 senior logistics manager & Neurology - Child & Adolescent Psychiatry 05/24/19 Estelle Calvillo MD [address] [place] [address] F275 [place], [place] 089204 Assigned Behavioral Health Provider 01/24/20 05/13/22 Twan Patrick MD [address] [place] [address] 200 [place], [place] 996364 Assigned Pediatric Specialist Provider 12/11/21 04/26/23 Zulema Parrish LGSW Lead Science Job Titles 07/04/22 01/27/23 Estelle Calvillo MD [address] [place] [address] [address] [place], [place] 282494 Assigned Behavioral Health Provider 07/02/22 06/15/23 Erin Fernandez [facility] [address] [place] [address] Pharmacist Pharmacist 12/22/22 10/25/23 Erin Fernandez [facility] [address] [place] [address] Assigned MTM Pharmacist 12/31/22 Jyoti Sotomayor [facility] [address] [place] [id number] [place] [address] Pharmacist Pharmacist 03/08/23 Jyoti Sotomayor [facility] 2450 [facility] F[address] [place] [address] Assigned MTM Pharmacist 03/11/23 Marcus Stephens MD 717 [facility] 370 [place] [address] Assigned PCP 04/27/23 Twan Patrick MD [address] [place], [place] [address]E [facility] 200 [place] [address] Assigned Pediatric Specialist Provider 05/05/23 06/15/23 Rashmi Isaac MD [address] [place] [address] Assigned Behavioral Health Provider 06/16/23 Sara Jara RN Clinic Science Job Titles 12/25/24 documented as of this encounter
--- OUTSIDE RECORDS SUMMARY | 2025-01-12 09:44 | XMS_ITS | Encounter Summary ---
Author Organization [employer] Address [address] [place] [address] Care Team Providers Care Cloth Sander Name Role Phone Rachel Crum MD Primary Care Provid er Rachel Crum MD Unavailable + [phone] Estelle Calvillo MD Unavailable Estelle Calvillo MD Unavailable Twan Patrick MD Unavailable +[phone] Zulema Parrish [facility] Unavailable Unavaila Estelle Schaeffer MD Unavailable Erin Fernandez [facility] Unavailable +[phone] Erin Fernandez [facility] Unavailable +[phone] Marcus Stephens MD Primary Care Provider [phone] Jyoti Sotomayor [facility] Unavailable +[phone] Jyoti Sotomayor [facility] Unavailable +[phone] Marcus Stephens MD Unavailable Twan Patrick MD Unavailable +[phone] Rashmi Isaac MD Unavailable + [phone] Eloy Singh MD Primary Care Provider +[phone] Sara Jara RN Unavailable +[phone] Encounter Details Date Type Department Care Team (Late st Contact Info) Description 01/18/2022 MyC Medical Advice [place] [id number] [place] [address] Rachel Crum MD [address] [place], [place] [id number] Social History Tobacco Use Types Packs/Day Years [...] PM CDT Office Visit [facility] Francie [address] [place] [address] Drive [address] [place] [phone] Eloy Singh MD [address] [place] [address] [place]ON [address] documented as of this encounter Visit Diagnoses Not on filedocumented in this encounter Additional Health Concerns Infection Onset Date Last Indicated Resolved Time Rule Out COVID-19 12/11/2022 12/11/2022 12/12/2022 1:24 PM CDT Rule Out Rubella 07/16/2024 07/16/2024 07/17/2024 12:31 PM CDT documented as of this encounter Care Teams Cloth Sander Relationship Specialty Start Date End Date Rachel Crum MD PCP - General Pediatrics 07/04/12 02/13/23 Marcus Stephens MD [address] [address] PCP - General Pediatrics 02/14/23 12/22/24 Eloy Singh MD [address] [place] [address] [place] [address] PCP - General Internal Medicine - Pediatrics 12/23/24 Rachel Crum MD Assigned PCP 11/11/18 04/26/23 Estelle Calvillo MD [address] [place] [address] [address]275 [place] [address] oracle application consultant & Neurology - Child & Adolescent Psychiatry 05/24/19 Estelle Calvillo MD [address] [place] [address] F275 [place] [address] Assigned Behavioral Health Provider 01/24/20 05/13/22 Twan Patrick MD [address] [facility] [address] [facility] 200 [place], [place] [address] Assigned Pediatric Specialist Provider 12/11/21 04/26/23 Zulema Parrish [facility] Lead Medication Care Manager 07/04/22 01/27/23 Estelle Calvillo MD [facility] [address] [address] Assigned Behavioral Health Provider 07/02/22 06/15/23 Erin Fernandez [facility] [address] [id number] Pharmacist Pharmacist 12/22/22 10/25/23 Erin Fernandez, [facility] [address] [id number] Assigned MTM Pharmacist 12/31/22 Jyoti Sotomayor [facility] [address] [place] [address] Pharmacist Pharmacist 03/08/23 Jyoti Sotomayor [facility] [address] [place] [address] 644154 Assigned MTM Pharmacist 03/11/23 Marcus Stephens MD [facility] [facility] 370 [place], [place] 381045 Assigned PCP 04/27/23 Twan Patrick MD [address] [place], [place] [address]E S [address] 200 [place] [address] Assigned Pediatric Specialist Provider 05/05/23 06/15/23 Rashmi Isaac MD [address] [place], [place] 889024 Assigned Behavioral Health Provider 06/16/23 Sara Jara, RN Clinic Medication Care Manager 12/25/24 documented as of this encounter
--- OUTSIDE RECORDS SUMMARY | 2025-01-12 09:44 | XMS_ITS | Encounter Summary ---
Author Organization [employer] Address [address] [place] [address] Care Team Providers Care Software Test Specialist Name Role Phone Rachel Crum MD Primary Care Provid er Rachel Crum MD Unavailable + [phone] Estelle Calvillo MD Unavailable Twan Patrick MD Unavailable +[phone] Zulema Parrish [facility] Unavailable Unavaila Estelle Schaeffer MD Unavailable Erin Fernandez [facility] Unavailable +[phone] Erin Fernandez [facility] Unavailable +[phone] Marcus Stephens MD Primary Care Provider +[phone] Jyoti Sotomayor [facility] Unavailable + [phone] Jyoti Sotomayor [facility] Unavailable + [phone] Marcus Stephens MD Unavailable Twan Patrick MD Unavailable +[phone] Rashmi Isaac MD Unavailable +[phone] Eloy Singh MD Primary Care Provider +[phone] Sara Jara RN Unavailable +[phone] Encounter Details Date Type Department Care Team (Late st Contact Info) Description 01/16/[address] [facility] [address] [address] Skylar Gotti, [facility]2 [place] [address] Social History Tobacco Use Types Packs/Day Years [...] [facility] Francie [address] [facility] [facility] [address] [place] [phone] Eloy Singh MD 3305 [facility] [place] [address] documented as of this encounter Goals Goal [...] Parent to continue with medical specialties within [place] and [facility] 2. Parent to continue with [...] documented as of this encounter Care Teams Software Test Specialist Relationship Specialty Start Date End Date Rachel Crum MD PCP - General Pediatrics 07/04/12 02/13/23 Marcus Stephens MD [address] [place] [address] PCP - General Pediatrics 02/14/23 12/22/24 Eloy Singh MD 3305 [facility] [place] [address] PCP - General Internal Medicine - Pediatrics 12/23/24 Rachel Crum MD Assigned PCP 11/11/18 04/26/23 Estelle Calvillo MD [address] [place] [address] emery wheel molder & Neurology - Child & Adolescent Psychiatry 05/24/19 Twan Patrick MD [address] [place] [address] 200 [place] [address] Assigned Pediatric Specialist Provider 12/11/21 04/26/23 Zulema Parrish, [facility] Lead Sales Representative Raw Fibers 07/04/22 01/27/23 Estelle Calvillo MD [address] [place] [address] F275 [place] [address] Assigned Behavioral Health Provider 07/02/22 06/15/23 Erin Fernandez [facility] [address] [place] [id number] Pharmacist Pharmacist 12/22/22 10/25/23 Erin Fernandez, [facility] [address] [place] [id number] Assigned MTM Pharmacist 12/31/22 Jyoti Sotomayor [facility] [address] [place], [place] 6[address] Pharmacist Pharmacist 03/08/23 Jyoti Sotomayor [facility] [address] [place], [place] 608924 Assigned MTM Pharmacist 03/11/23 Marcus Stephens MD 717 [facility] [address] 370 [place], [place] [address] Assigned PCP 04/27/23 Twan Patrick MD [address] 200 [place], [place] [address] Assigned Pediatric Specialist Provider 05/05/23 06/15/23 Rashmi Isaac MD [address] [place], [place] [address] Assigned Behavioral Health Provider 06/16/23 Sara Jara, RN Clinic Sales Representative Raw Fibers 12/25/24 documented as of this encounter
--- OUTSIDE RECORDS SUMMARY | 2025-01-12 09:44 | XMS_ITS | Encounter Summary ---
Author Organization [place] Address [address] [place] [address] Care Team Providers Care Wax Pot Tender Name Role Phone Rachel Crum MD Unavailable + [phone] Estelle Calvillo MD Unavailable Twan Patrick MD Unavailable +[phone] Estelle Calvillo MD Unavailable Erin Fernandez [facility] Unavailable +[phone] Erin Fernandez [facility] Unavailable +[phone] Marcus Stephens MD Primary Care Provider +[phone] Jyoti Sotomayor [facility] Unavailable + [phone] Jyoti Sotomayor [facility] Unavailable + [phone] Marcus Stephens MD Unavailable Twan Patrick MD Unavailable +[phone] Rashmi Isaac MD Unavailable +[phone] Eloy Singh MD Primary Care Provider +[phone] Sara Jara RN Unavailable +[phone] Encounter Details Date Type Department Care Team (Late st Contact Info) Description 02/16/2023 [facility] Neurology Clinic [address] [phone] Skylar Gotti, [address] [place] [address] Social History Tobacco Use Types Packs/Day Years [...] Description 06/23/2025 3:30 PM CDT Office Visit [facility] Francie [address] [facility] [address] [place] [phone] [place] [address] [place] [address] [place] [address] documented as of this encounter Goals Goal [...] documented as of this encounter Care Teams Wax Pot Tender Relationship Specialty Start Date End Date Marcus Stephens MD 717 [facility] 370 [place] [address] PCP - General Pediatrics 02/14/23 12/22/24 Eloy Singh MD [address] [place] [address] [place] [address] PCP - General Internal Medicine - Pediatrics 12/23/24 Rachel Crum MD Assigned PCP 11/11/18 04/26/23 Estelle Calvillo MD [address] [place] [address] F275 [place], [place] 236034 mechanical supervisor & Neurology - Child & Adolescent Psychiatry 05/24/19 Twan Patrick MD [address] [facility] [address] [facility] 200 [place], [place] 872214 Assigned Pediatric Specialist Provider 12/11/21 04/26/23 Estelle Calvillo MD [address] [place], [place] 12[address] [place], [place] [address] Assigned Behavioral Health Provider 07/02/22 06/15/23 Erin Fernandez, [facility] [address] [id number] Pharmacist Pharmacist 12/22/22 10/25/23 Erin Fernandez, [facility] [address] [id number] Assigned MTM Pharmacist 12/31/22 Jyoti Sotomayor [facility] [address] [address] Pharmacist Pharmacist 03/08/23 Jyoti Sotomayor [facility] [address]50 [place] [id number] [place], [place] 947134 Assigned MTM Pharmacist 03/11/23 Marcus Stephens MD [address] [place] [address] 370 [place] [address] Assigned PCP 04/27/23 Twan Patrick MD [address] [place] 200 [place] [address] Assigned Pediatric Specialist Provider 05/05/23 06/15/23 Rashmi Isaac MD [address] [place] [address] [address] [place] [address] Assigned Behavioral Health Provider 06/16/23 Sara Jara RN Clinic Observer Helper 12/25/24 documented as of this encounter
--- OUTSIDE RECORDS SUMMARY | 2025-01-12 09:44 | XMS_ITS | Encounter Summary ---
Author Organization [facility] Address [address] [place] [address] Care Team Providers Care Groundskeeper Name Role Phone Rachel Crum MD Primary Care Provid er Rachel Crum MD Unavailable + [phone] Estelle Calvillo MD Unavailable Twan Patrick MD Unavailable +[phone] Zulema Parrish [facility] Unavailable Unavaila Estelle Schaeffer MD Unavailable Erin Fernandez [facility] Unavailable +[phone] Erin Fernandez [facility] Unavailable +[phone] Marcus Stephens MD Primary Care Provider +[phone] Jyoti Sotomayor [facility] Unavailable + [phone] Jyoti Sotomayor [facility] Unavailable + [phone] Marcus Stephens MD Unavailable Twan Patrick MD Unavailable +[phone] Rashmi Isaac MD Unavailable +[phone] Eloy Singh MD Primary Care Provider +[phone] Sara Jara RN Unavailable +[phone] Encounter Details Date Type Department Care Team (Late st Contact Info) Description 12/29/2022 MyC Medical Advice [facility]ty [facility] 2450 [facility] [address],[place] [address] Skylar Gotti, [place] [address] [place] [address] Social History Tobacco Use Types Packs/Day Years [...] Description 06/23/2025 3:30 PM CDT Office Visit [facility] Francie [address] [facility] [address] [place] [address] Eloy Singh MD [address] [place] [address] [place] [address] documented as of this encounter Goals Goal [...] to continue with medical specialties within [place] and [facility] 2. Parent to continue with [...] documented as of this encounter Care Teams Groundskeeper Relationship Specialty Start Date End Date Rachel Crum MD PCP - General Pediatrics 07/04/12 02/13/23 Marcus Stephens MD 717 [facility] 370 [place] [address] PCP - General Pediatrics 02/14/23 12/22/24 Eloy Singh MD [address] [facility] [place] [address] PCP - General Internal Medicine - Pediatrics 12/23/24 Rachel Crum MD Assigned PCP 11/11/18 04/26/23 Estelle Calvillo MD [facility] [address] [place] [address] production inspector & Neurology - Child & Adolescent Psychiatry 05/24/19 Twan Patrick MD [address] [facility] [address] [facility] 200 [place], [place] 9[address]244 Assigned Pediatric Specialist Provider 12/11/21 04/26/23 Zulema Parrish [facility] Lead Residential Mortgage Underwriter 07/04/22 01/27/23 Estelle Calvillo MD [address] [place] [address] F275 [place], [place] 144854 Assigned Behavioral Health Provider 07/02/22 06/15/23 [facility] 1440 [facility] [place] [address] Pharmacist Pharmacist 12/22/22 10/25/23 [facility] 1440 [place] [address] Assigned MTM Pharmacist 12/31/22 Jyoti Sotomayor, [facility] [address] [place], [place] 0[address]64 Pharmacist Pharmacist 03/08/23 [facility] [address] [place], [place] 571554 Assigned MTM Pharmacist 03/11/23 Marcus Stephens MD 717 [facility] [address] 370 [place] [address] Assigned PCP 04/27/23 Twan Patrick MD [address] [facility] [address] 200 [place], [place] 042314 Assigned Pediatric Specialist Provider 05/05/23 06/15/23 Rashmi Isaac MD 2312 [address] [facility] T[address]IE [address] [place], [place] 506064 Assigned Behavioral Health Provider 06/16/23 Sara Jara, RN Clinic Residential Mortgage Underwriter 12/25/24 documented as of this encounter
--- OUTSIDE RECORDS SUMMARY | 2025-01-12 09:44 | XMS_ITS | Encounter Summary ---
Author Organization [employer] Address [address] [place] [address] Care Team Providers Care Channel Cementer Outsole Machine Name Role Phone Rachel Crum MD Primary Care Provid er Rachel Crum MD Unavailable + [phone] Estelle Calvillo MD Unavailable Estelle Calvillo MD Unavailable Twan Patrick MD Unavailable +[phone] Zulema Parrish [facility] Unavailable Unavaila Estelle Schaeffer MD Unavailable Erin Fernandez [facility] Unavailable +[phone] Erin Fernandez [facility] Unavailable +[phone] Marcus Stephens MD Primary Care Provider [phone] Jyoti Sotomayor [facility] Unavailable +[phone] Jyoti Sotomayor [facility] Unavailable +[phone] Marcus Stephnes MD Unavailable Twan Patrick MD Unavailable +[phone] Rashmi Isaac MD Unavailable + [phone] Eloy Singh MD Primary Care Provider +[phone] Sara Jara RN Unavailable +[phone] Encounter Details Date Type Department Care Team (Late st Contact Info) Description 04/20/2022 MyC Medical Advice [place] [id number] [place] [address] Rachel Crum MD [address] [place] [address] Social History Tobacco Use Types [...] Coronavirus/COVID-19? No / Unsure 04/19/2022 3:33 PM MICROSOFT EXCHANGE ARCHITECT documented as of this encounter Plan of Treatment Upcoming Encounters Date Type Department Care Team (Late st Contact Info) Description 06/23/2025 3:30 PM CDT Office Visit [facility] Francie [address] [place] [address] Drive [address] [place] [phone] Eloy Singh MD [address] [place] [address] [place] SCANLON [id number] documented as of this encounter Visit Diagnoses Not on filedocumented in this encounter Additional Health Concerns Infection Onset Date Last Indicated Resolved Time Rule Out COVID-19 12/11/2022 12/11/2022 12/12/2022 1:24 PM CDT Rule Out Rubella 07/16/2024 07/16/2024 07/17/2024 12:31 PM CDT Assessment Noted Time PHQ-9 Depression Total Score: 18 022 1:59 PM CDT documented as of this encounter Care Teams Channel Cementer Outsole Machine Relationship Specialty Start Date End Date Rachel Crum MD PCP - General Pediatrics 07/04/12 02/13/23 Macrus Stephens MD [address] [address] PCP - General Pediatrics 02/14/23 12/22/24 Eloy Singh MD [address] [place] [address] [place] [address] PCP - General Internal Medicine - Pediatrics 12/23/24 Rachel Crum MD Assigned PCP 11/11/18 04/26/23 Estelle Calvillo MD [address] [place] [address] F275 [place], [place] 733624 electronic wirer & Neurology - Child & Adolescent Psychiatry 05/24/19 Estelle Calvillo MD [address] [place] [address] F275 [place], [place] 181904 Assigned Behavioral Health Provider 01/24/20 05/13/22 Twan Patrick MD [address] [place] [address] 200 [place], [place] [address]64 Assigned Pediatric Specialist Provider 12/11/21 04/26/23 Zulema Parrish [employer] Lead Fisheries Enforcement Officer 07/04/22 01/27/23 Estelle Calvillo MD [address] [place] [address] F275 [place], [place] 158914 Assigned Behavioral Health Provider 07/02/22 06/15/23 Erin Fernandez [facility] [address] [place] [id number] Pharmacist Pharmacist 12/22/22 10/25/23 Erin Fernandez [facility] [address] [place] [id number] Assigned MTM Pharmacist 12/31/22 Jyoti Sotomayor [facility] [address] [place] 0622982 [place] [address] Pharmacist Pharmacist 03/08/23 Jyoti Sotomayor [facility] 2450 [facility] [address]282 [place] [address] Assigned MTM Pharmacist 03/11/23 Marcus Stephens MD 717 [facility] 370 [place] [address] Assigned PCP 04/27/23 Twan Patrick MD [address] [place], [place] [address]E [facility] 200 [place] [address] Assigned Pediatric Specialist Provider 05/05/23 06/15/23 Rashmi Isaac MD [address] [place] [address] Assigned Behavioral Health Provider 06/16/23 Sara Jara RN Clinic Fisheries Enforcement Officer 12/25/24 documented as of this encounter
--- OUTSIDE RECORDS SUMMARY | 2025-01-12 09:44 | XMS_ITS | Encounter Summary ---
Author Organization [place] Address [address] [place] [address] Care Team Providers Care Land Surveyor Manager Name Role Phone Rachel Crum MD Primary Care Provid er Rachel Crum MD Unavailable + [phone] Estelle Calvillo MD Unavailable Twan Patrick MD Unavailable +[phone] Zulema Parrish [facility] Unavailable Unavaila Estelle Schaeffer MD Unavailable Erin Fernandez [facility] Unavailable +[phone] Erin Fernandez [facility] Unavailable +[phone] Marcus Stephens MD Primary Care Provider +[phone] Jyoti Sotomayor [facility] Unavailable + [phone] Jyoti Sotomayor [facility] Unavailable + [phone] Marcus Stephens MD Unavailable Twan Patrick MD Unavailable +[phone] Rashmi Isaac MD Unavailable +[phone] Eloy Singh MD Primary Care Provider +[phone] Sara Jara RN Unavailable +[phone] Encounter Details Date Type Department Care Team (Late st Contact Info) Description 11/03/2022 [facility] Specialty Clinic [facility] [address] [place] [address] Saul Ruelas Social History Tobacco [...] Visit [facility] Francie [address] [place] [phone] Eloy Singh MD 3305 [facility] [place] [address] documented as of this encounter Goals Goal [...] Parent to continue with medical specialties within [place] and [facility] 2. Parent to continue with [...] documented as of this encounter Care Teams Land Surveyor Manager Relationship Specialty Start Date End Date Rachel Crum MD PCP - General Pediatrics 07/04/12 02/13/23 Marcus Stephens MD 717 [facility] [address] 370 [place] [address] PCP - General Pediatrics 02/14/23 12/22/24 Eloy Singh MD 3305 [facility] [place] [address] PCP - General Internal Medicine - Pediatrics 12/23/24 Rachel Crum MD Assigned PCP 11/11/18 04/26/23 Estelle Calvillo MD [address] [place] [address] F275 [place], [place] 95[address] dairy truck driver & Neurology - Child & Adolescent Psychiatry 05/24/19 Twan Patrick MD [address] [place] [address] 200 [place], [place] 487104 Assigned Pediatric Specialist Provider 12/11/21 04/26/23 Zulema Parrish LGS[facility] Lead Varnishing Unit Operator 07/04/22 01/27/23 Estelel Calvillo MD [address] [place] [address] F275 [place] [address] Assigned Behavioral Health Provider 07/02/22 06/15/23 Erin Fernandez [facility] [address] [place] [place] [id number] Pharmacist Pharmacist 12/22/22 10/25/23 Erin Fernandez [facility] [address] [place] [id number] Assigned MTM Pharmacist 12/31/22 Jyoti Sotomayor [facility] 2450 [facility] [address] [place] [address] Pharmacist Pharmacist 03/08/23 Jyoti Sotomayor [facility] 2450 [facility] [address] [place] [address] Assigned MTM Pharmacist 03/11/23 Marcus Stephens MD 717 [facility] 370 [place] [address] Assigned PCP 04/27/23 Twan Patrick MD [address] [place] [address] [address] 200 [place] [address] Assigned Pediatric Specialist Provider 05/05/23 06/15/23 Rashmi Isaac MD [address] [place] [address] Assigned Behavioral Health Provider 06/16/23 Sara Jara RN Clinic Varnishing Unit Operator 12/25/24 documented as of this encounter
--- OUTSIDE RECORDS SUMMARY | 2025-01-12 09:44 | XMS_ITS | Encounter Summary ---
Author Organization [facility] Address [address] [place] [address] Care Team Providers Care Specialist Employee Labor Relations Name Role Phone Rachel Crum MD Unavailable + [phone] Estelle Calvillo MD Unavailable Twan Patrick MD Unavailable +[phone] Estelle Calvillo MD Unavailable Erin Fernandez [facility] Unavailable +[phone] Erin Fernandez [facility] Unavailable +[phone] Marcus Stephens MD Primary Care Provider +[phone] Jyoti Sotomayor [facility] Unavailable + [phone] Jyoti Sotomayor [facility] Unavailable + [phone] Marcus Stephens MD Unavailable Twan Patrick MD Unavailable +[phone] Rashmi Isaac MD Unavailable +[phone] Eloy Singh MD Primary Care Provider +[phone] Sara Jara RN Unavailable +[phone] Encounter Details Date Type Department Care Team (Late st Contact Info) Description 02/15/2023 [facility] [place] [facility] 2024 [place] [address] Estelle Calvillo MD [address] [facility] [address] [place] [address] Social History Tobacco Use Types Packs/Day Years [...] in a usp (including now)? No 02/09/2022 Adolescent Education Answer [...] CDT Office Visit [facility] Francie [address] [place] [address] Eloy Singh MD [address] [place] [address] [place] [id number] documented as of this encounter Goals Goal [...] documented as of this encounter Care Teams Specialist Employee Labor Relations Relationship Specialty Start Date End Date Marcus Stephens MD [address] [facility] 370 [place] [address] PCP - General Pediatrics 02/14/23 12/22/24 Eloy Singh MD [address] [place] [address] [place] [address] PCP - General Internal Medicine - Pediatrics 12/23/24 Rachel Crum MD Assigned PCP 11/11/18 04/26/23 Estelle Calvillo MD [address] [place], [place] [address] [place], [place] 611[address] facilities administrator & Neurology - Child & Adolescent Psychiatry 05/24/19 Twan Patrick MD [address] [facility] [address] [facility] 200 [place], [place] 215[address] Assigned Pediatric Specialist Provider 12/11/21 04/26/23 Estelle Calvillo MD [address] [place], [place] [address] [place], [place] 833634 Assigned Behavioral Health Provider 07/02/22 06/15/23 Erin Fernandez, [facility] [address] [id number] Pharmacist Pharmacist 12/22/22 10/25/23 Erin Fernandez, [facility] [address] [id number] Assigned MTM Pharmacist 12/31/22 Jyoti Sotomayor [facility] [address] [id number] Pharmacist Pharmacist 03/08/23 Jyoti Sotomayor [facility] [address] [place] 8772582 [place], [place] 349564 Assigned MTM Pharmacist 03/11/23 Marcus Stephens MD [address] [facility] [address] 370 [place] [address] Assigned PCP 04/27/23 Twan Patrick MD [address] [facility] [address] [place] [address] Assigned Pediatric Specialist Provider 05/05/23 06/15/23 Rashmi Isaac MD [address] [place] [address] [address] [place] [address] Assigned Behavioral Health Provider 06/16/23 Sara Jara RN Clinic Rail Car Repairer 12/25/24 documented as of this encounter
--- OUTSIDE RECORDS SUMMARY | 2025-01-12 09:44 | XMS_ITS | Encounter Summary ---
Author Organization [facility] Address [address] [place] [address] Care Team Providers Care Supervisor Sewing Room Name Role Phone NeishaoscarEstelle MD Unavailable Marcus Stephens MD Primary Care Provider +[phone] Jyoti Sotomayor [facility] Unavailable + [phone] Jyoti Sotomayor [facility] Unavailable + [phone] Marcus Stephens MD Unavailable Rashmi Isaac MD Unavailable +[phone] Eloy Singh MD Primary Care Provider [phone] Sara Jara RN Unavailable +[phone] Encounter Details Date Type Department Care Team (Late st Contact Info) Description 04/17/2024 [facility] Advice [facility] 2024 [place] [address] Rashmi Isaac MD [address] [facility] [address] [place] [address] Social History Tobacco Use Types [...] Visit [facility] Franc[place] [address] [place] [address] Eloy Singh MD [address] [facility] [place] [address] documented as of [...] Parent to continue with medical specialties within [place] and [facility]. Parent to continue with [...] as of this encounter Care Teams Supervisor Sewing Room Relationship Specialty Start Date End Date Marcus Stephens MD [address]17 [facility] 370 [place], [place] 911[address] PCP - General Pediatrics 02/14/23 12/22/24 Eloy Singh MD [address] [facility] [address] PCP - General Internal Medicine - Pediatrics 12/23/24 Estelle Calvillo MD [address] [place], [place] [address] major assembly lineman & Neurology - Child & Adolescent Psychiatry 05/24/19 Jyoti Sotomayor [facility]PH [address] [facility] [address] [place], [place] 0[address] Pharmacist Pharmacist 03/08/23 Jyoti Sotomayor [facility]PH [address] [place] [address] Assigned MTM Pharmacist 03/11/23 Marcus Stephens MD [address] [facility] [address] [place] [address] Assigned PCP 04/27/23 Rashmi Isaac MD [address] [place] [address] Assigned Behavioral Health Provider 06/16/23 Sara Jara, RN Clinic Trekking Guide 12/25/24 documented as of this encounter
--- OUTSIDE RECORDS SUMMARY | 2025-01-12 09:44 | XMS_ITS | Encounter Summary ---
Author Organization [facility] Address [address] [place] [address] Care Team Providers Care Marketing Manager Health Communications Name Role Phone Rachel Crum MD Primary Care Provid er Rachel Crum MD Unavailable + [phone] Estelle Calvillo MD Unavailable Estelle Calvillo MD Unavailable Twan Patrick MD Unavailable +[phone] Zulema Parrish [facility] Unavailable Unavaila Estelle Schaeffer MD Unavailable Erin Fernandez [facility] Unavailable +[phone] Erin Fernandez [facility] Unavailable +[phone] Marcus Stephens MD Primary Care Provider [phone] Jyoti Sotomayor [facility] Unavailable +[phone] Jyoti Sotomayor [facility] Unavailable +[phone] Marcus Stephens MD Unavailable Twan Patrick MD Unavailable +[phone] Rashmi Isaac MD Unavailable + [phone] Eloy Singh MD Primary Care Provider [phone] Sara Jara RN Unavailable [phone] Encounter Details Date Type Department Care Team (Late st Contact Info) Description 04/21/2022 MyC Medical Advice [place] [id number] [place] [address] Rachel Crum MD [address] [place] [address] Social History Tobacco Use Types [...] Coronavirus/COVID-19? No / Unsure 04/19/2022 3:33 PM INFORMATICS NURSE SPECIALIST documented as of this encounter Plan of Treatment Upcoming Encounters Date Type Department Care Team (Late st Contact Info) Description 06/23/2025 3:30 PM CDT Office Visit [facility] Francie [address] [place] [address] Drive [address] [place] [phone] Eloy Singh MD [address] [place] [address] [place] [id number] documented as of this encounter Visit Diagnoses Not on filedocumented in this encounter Additional Health Concerns Infection Onset Date Last Indicated Resolved Time Rule Out COVID-19 12/11/2022 12/11/2022 12/12/2022 1:24 PM CDT Rule Out Rubella 07/16/2024 07/16/2024 07/17/2024 12:31 PM CDT Assessment Noted Time PHQ-9 Depression Total Score: 18 022 1:59 PM CDT documented as of this encounter Care Teams Marketing Manager Health Communications Relationship Specialty Start Date End Date Rachel Crum MD PCP - General Pediatrics 07/04/12 02/13/23 Marcus Stephens MD [address] [address] PCP - General Pediatrics 02/14/23 12/22/24 Eloy Singh MD [address] [place] [address] [place] [address] PCP - General Internal Medicine - Pediatrics 12/23/24 Rachel Crum MD Assigned PCP 11/11/18 04/26/23 Estelle Calvillo MD [address] [place] [address] [address] [place], [place] 901834 boil off worker & Neurology - Child & Adolescent Psychiatry 05/24/19 Estelle Calvillo MD [address] [place] [address] [address] [place], [place] 298924 Assigned Behavioral Health Provider 01/24/20 05/13/22 Twan Patrick MD [address] [place] [address] 200 [place], [place] 064904 Assigned Pediatric Specialist Provider 12/11/21 04/26/23 Zulema Parrish LGSW Lead Full Stack Engineer 07/04/22 01/27/23 Estelle Calvillo MD [address] [place] [address] [address] [place], [place] 760764 Assigned Behavioral Health Provider 07/02/22 06/15/23 Erin Fernandez [facility] [address] [place] [address] [id number] Pharmacist Pharmacist 12/22/22 10/25/23 Erin Fernandez [facility] [address] [place] [address] [id number] Assigned MTM Pharmacist 12/31/22 Jyoti Sotomayor [facility] [address] [place] 6651982 [place] [address] Pharmacist Pharmacist 03/08/23 Jyoti Sotomayor [facility] 2450 [facility] [address] [place] [address] Assigned MTM Pharmacist 03/11/23 Marcus Stephens MD 717 [facility] 370 [place] [address] Assigned PCP 04/27/23 Twan Patrick MD [address] [place], [place] [address]E [facility] 200 [place] [address] Assigned Pediatric Specialist Provider 05/05/23 06/15/23 Rashmi Isaac MD [address] [place] [address] Assigned Behavioral Health Provider 06/16/23 Sara Jara RN Clinic Full Stack Engineer 12/25/24 documented as of this encounter
--- OUTSIDE RECORDS SUMMARY | 2025-01-12 09:44 | XMS_ITS | Encounter Summary ---
Author Organization [facility] Address [address] [place] [address] Care Team Providers Care Medical Billing Representative Name Role Phone Rachel Crum MD Primary Care Provid er Rachel rCum MD Unavailable + [phone] Estelle Calvillo MD Unavailable Twan Patrick MD Unavailable +[phone] Zulema Parrish [facility] Unavailable Unavaila Estelle Schaeffer MD Unavailable Erin Fernandez [facility] Unavailable [phone] Erin Fernandez [facility] Unavailable [phone] Marcus Stephens MD Primary Care Provider [phone] Jyoti Sotomayor [facility] Unavailable + [phone] Jyoti Sotomayor [facility] Unavailable + [phone] Marcus Stephens MD Unavailable Twan Patrick MD Unavailable +[phone] Rashmi Isaac MD Unavailable [phone] Eloy Singh MD Primary Care Provider [phone] Sara Jara RN Unavailable +[phone] Encounter Details Date Type Department Care Team (Late st Contact Info) Description 2022 MyC Medical Advice [facility] Care Coordination [facility] 17[address] [place] [address] Zulema Parrish, MARGI Social History Tobacco Use [...] Visit [facility] Francie [address] [facility] [address] [place] [address] Eloy Singh MD 3305 [facility] [place] [id number] documented as of this encounter Goals Goal [...] as of this encounter Care Teams Medical Billing Representative Relationship Specialty Start Date End Date Rachel Crum MD PCP - General Pediatrics 07/04/12 02/13/23 Marcus Stephens MD [address] [address] PCP - General Pediatrics 02/14/23 12/22/24 Eloy Singh MD [address] [facility] [place] [address] PCP - General Internal Medicine - Pediatrics 12/23/24 Rachel Crum MD Assigned PCP 11/11/18 04/26/23 Estelle Calvillo MD [address] [place] [address] [address]275 [place], [place] 938484 ceo & board director & Neurology - Child & Adolescent Psychiatry 05/24/19 Twan Patrick MD [address] [place] [address] 200 [place], [place] 535494 Assigned Pediatric Specialist Provider 12/11/21 04/26/23 Zulema Parrish [facility] Lead Export Freight Clerk 07/04/22 01/27/23 Estelle Calvillo MD [address] [place] [address] [address] [place] [address] Assigned Behavioral Health Provider 07/02/22 06/15/23 Erin Fernandez [facility] [address] [place] [place] [address] Pharmacist Pharmacist 12/22/22 10/25/23 Erin Fernandez [facility] [address] [place] [address] Assigned MTM Pharmacist 12/31/22 Jyoti Sotomayor [facility] 2450 [facility] [address] [place], [place] [address] Pharmacist Pharmacist 03/08/23 Jyoti Sotomayor [facility] [address] [place] [address] Assigned MTM Pharmacist 03/11/23 Marcus Stephens MD 717 [facility] T[address] 370 [place] [address] Assigned PCP 04/27/23 Twan Patrick MD [address] [place], [place] [address] S [address] 200 [place] [address] Assigned Pediatric Specialist Provider 05/05/23 06/15/23 Rashmi Isaac MD [address] [place], [place] [address] Assigned Behavioral Health Provider 06/16/23 Sara Jara, RN Clinic Export Freight Clerk 12/25/24 documented as of this encounter
--- OUTSIDE RECORDS SUMMARY | 2025-01-12 09:44 | XMS_ITS | Encounter Summary ---
Author Organization [facility] Address [address] [place] [address] Care Team Providers Care Retirement Plan Specialist Name Role Phone Rachel Crum MD Primary Care Provid er Rachel Crum MD Unavailable + [phone] Estelle Calvillo MD Unavailable Estelle Calvillo MD Unavailable Twan Patrick MD Unavailable +[phone] Zulema Parrish [facility] Unavailable Unavaila Estelle Schaeffer MD Unavailable Erin Fernandez [facility] Unavailable +[phone] Erin Fernandez [facility] Unavailable [phone] Marcus Stephens MD Primary Care Provider [phone] Jyoti Sotomayor [facility] Unavailable +[phone] Jyoti Sotomayor [facility] Unavailable +[phone] Marcus Stephens MD Unavailable Twan Patrick MD Unavailable +[phone] Rashmi Isaac MD Unavailable + [phone] Eloy Singh MD Primary Care Provider +[phone] Sara Jara RN Unavailable +[phone] Encounter Details Date Type Department Care Team (Late st Contact Info) Description 01/20/2022 MyC Medical Advice [place] [id number] [place] [address] Rachel Crum MD [address] [place], [place] [id number] Social History Tobacco Use Types Packs/Day Years [...] Office Visit [facility] Francie [address] [place] [address] Drive [address] [place] [phone] [place] [address] [place] [address] [place] [id number] documented as of this encounter Visit Diagnoses Not on filedocumented in this encounter Additional Health Concerns Infection Onset Date Last Indicated Resolved Time Rule Out COVID-19 12/11/2022 12/11/2022 12/12/2022 1:24 PM CDT Rule Out Rubella 07/16/2024 07/16/2024 07/17/2024 12:31 PM CDT Assessment Noted Time PHQ-9 Depression Total Score: 18 022 1:59 PM CDT documented as of this encounter Care Teams Retirement Plan Specialist Relationship Specialty Start Date End Date Rachel Crum MD PCP - General Pediatrics 07/04/12 02/13/23 Marcus Stephens MD [address] [place] [address] PCP - General Pediatrics 02/14/23 12/22/24 Eloy Singh MD [address] [place] [address] [place] [address] PCP - General Internal Medicine - Pediatrics 12/23/24 Rachel Crum MD Assigned PCP 11/11/18 04/26/23 Estelle Calvillo MD [address] [place] [address] [address] [place] [address] donor processor & Neurology - Child & Adolescent Psychiatry 05/24/19 Estelle Calvillo MD [address] [place], [place] 6450[address] Assigned Behavioral Health Provider 01/24/20 05/13/22 Twan Patrick MD [address] [place] [address] 200 [place], [place] 075614 Assigned Pediatric Specialist Provider 12/11/21 04/26/23 Zulema Parrish LGSW Lead Hot Kettle Tender 07/04/22 01/27/23 Estelle Calvillo MD [address] [place] [address] Assigned Behavioral Health Provider 07/02/22 06/15/23 Erin Fernandez [facility] [address] [place] [address] [address] Pharmacist Pharmacist 12/22/22 10/25/23 Erin Fernandez [facility] [address] [place] [address] Assigned MTM Pharmacist 12/31/22 Jyoti Sotomayor [facility] 2450 [facility] [address] [place] [address] Pharmacist Pharmacist 03/08/23 Jyoti Sotomayor [facility] [address] [place], [place] 9[address] Assigned MTM Pharmacist 03/11/23 Marcus Stephens MD 717 [facility] [address] [place], [place] 77[address] Assigned PCP 04/27/23 Twan Patrick MD [address] [place], [place] [address]E [address] 200 [place], [place] 348954 Assigned Pediatric Specialist Provider 05/05/23 06/15/23 Rashmi Isaac MD [address] [place], [place] 297[address] Assigned Behavioral Health Provider 06/16/23 Sara Jara, RN Clinic Hot Kettle Tender 12/25/24 documented as of this encounter
--- OUTSIDE RECORDS SUMMARY | 2025-01-12 09:45 | XMS_ITS | Clinical Summary ---
Author Organization [facility] Address [address] [place] [address] Care Team Providers Care Tow Motor Mechanic Name Role Phone Rachel Crum MD Primary Care Provid er Allergies Active Allergy Reactions Criticality Noted Date Comments Casein Stomach Upset 12/28/2020 Gluten Stomach Upset 01/19/2023 Medications medication order composer [facility] digestive enzyme with each meal Nature's Bounty Probiotic (afternoon) ProOmega 2000 2000D Fish Oil 2 times daily (AM and PM) Fleet enemas every other day 0 3 Active risperiDONE (RISPERDAL) 2 mg tablet Take 2 mg by mouth two times daily. Active Polyethylene Glycol 300 liqdIndications :Constipation in pediatric patient,Tethere d cord () As directed 4 Capfuls once daily. 300 mL 6 3 Active omeprazole (PRILOSEC) 40 mg Delayed-Release capsule Take 1 Capsule by mouth once daily. 4 Active linaCLOtide (Linzess) 72 mcg cap capsule Take 1 Capsule by mouth once daily. 4 Active Lexapro 5 mg tablet take 1/2 tablet by oral route every day 4 Active nystatin 500,000 unit tabletIndicatio ns:[place] infection,[place] miguel serum creatinine Take 1 Tablet by mouth two times daily. 60 Tablet 1 5 Active leucovorin 5 mg tabletIndicatio ns:Autism (HC),Cerebral folate deficiency Take 4 Tablets (20 mg) by mouth once daily. 120 Tablet 2 5 02/24/20 25 Active leucovorin 5 mg tabletIndicatio ns:Autism (HC),Cerebral folate deficiency Take 4 Tablets (20 mg) by mouth every 12 hours. 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 01/20/2023 Constipation in pediatric patient 01/20/2023 Seizure 01/20/2023 Tethered spinal cord 01/20/2023 Encephalitis 01/20/2023 Autism 01/20/2023 Encounters Date Type Department Care Team Description 11/25/2024 8:00 AM CDT Telemedicine [facility] [address] [place] [address] Rachel Crum MD 11/24/2024 Travel 11/04/2024 Refill [facility] [address] [place] [address] Sherrie Reyes NP Refill Request (Nystatin) from Last 3 Months Family History Medical [...] on file Legal Sex Male 2:40 PM BLEND PLANT OPERATOR Gender Identity Not on file Sexual Orientation Not on file Obstetrics History Last Filed Vital Signs Vital Sign Reading Time Taken Comments Blood Pressure 90/60 02/12/2017 2:52 PM BLEND PLANT OPERATOR Pulse 88 02/12/2017 2:52 PM BLEND PLANT OPERATOR Temperature 37.8 C (100 F) 02/12/2017 2:52 PM BLEND PLANT OPERATOR Respiratory Rate 20 02/12/2017 2:52 PM BLEND PLANT OPERATOR Oxygen Saturation 98% 02/12/2017 2:52 PM BLEND PLANT OPERATOR Inhaled Oxygen Concentration - - Weight 29.3 kg (64 lb 8 oz) 02/12/2017 2:[address] Height 152.4 cm (5') 02/12/2017 2:52 PM BLEND PLANT OPERATOR Body Mass Index 12.6 02/12/2017 2:52 PM BLEND PLANT OPERATOR Body Mass Index Percentile 0.00% 02/12/2017 2:5 2 PM BLEND PLANT OPERATOR Growth Chart: [facility] (Boys, 2-2 0 Years) Plan of Treatment Upcoming Encounters Date Type Department Care Team (Late st Contact Info) Description 01/15/2025 8:00 AM CDT Telemedicine [facility] [address] [place] [address] Rachel Crum MD [address] [place] [address] 02/19/2025 8:00 AM BLEND PLANT OPERATOR Telemedicine [facility] [address] [place] [address] Rachel Crum MD [address] [place] [address] 03/13/2025 8:00 AM BLEND PLANT OPERATOR Telemedicine [facility] [address] [place] [address] Rachel Crum MD [address] [place] [address] Health Maintenance Due Date Last Done Comments Well Child Check for age 3-20 08/19/2008 Tetanus booster 2016 Depression screening for age 12+ 2017 HIV for age 15-65 2020 HPV series for age 9-45 (1 - Male 3-dose series) 2020 BMI (ht and wt on same day) for age 18+ 09/20/2023 Hepatitis C screening for ag e 18-79 09/20/2023 Hepatitis B series for 19+ ( 1 of 3 - 19+ 3-dose series) 2024 COVID-19 vaccine series (3 - 2024- season) 2024 10/18/2020, 09/12/2020 Influenza Vaccine (#1) 2024 RSV vaccine for adults or (1 - 1-dose 75+ series) 2080 Meningococcal series for age 11-21 Aged Out No longer eligible b ased on patient's age to complete this topic Pneumococcal series for age 6-49 Aged Out No longer eligible b ased on patient's age to complete this topic Insurance MEDICAID [facility] MEDICAID Care Teams Tow Motor Mechanic Relationship Specialty Start Date End Date Rachel Crum MD [address] [place] [address] PCP - General Pediatric 03/22/23
--- OUTSIDE RECORDS SUMMARY | 2025-01-12 09:45 | XMS_ITS | Clinical Summary ---
Author Organization [place] Address [address] [place] [address] Care Team Providers Care Associate Media Director Name Role Phone SindevangEstelle meléndez MD Unavailable Jyoti Sotomayor [facility] Unavailable [phone] Marcus Stephens MD Unavailable Rashmi Isaac MD Unavailable [phone] Eloy Singh MD Primary Care Provider [phone] Sara Jara RN Unavailable [phone] Allergies Active Allergy Reactions Criticality Noted Date [...] Oil-Cholecalcife rol (OMEGA-3 + D PO) Pro [place] 2000-D Gay Active omeprazole (PRILOSEC) [address] capsule [...] hours as needed. 200 mL 1 025 2024 Discontinued Active Problems Problem Noted Date Diagnosed Date Aggressive behavior 12/23/2024 G tube feedings 12/23/2024 Food aversion 12/23/2024 Complex care coordination 12/23/2024 Overview (12/23/2024): [facility]. G Tube placed thru [facility] as well. To meet with Scouring Machine Operator at [facility] for GT feeds Dr[facility] for his spine fusion Rachel Cabrera at [facility], for Functional Medicine for diagnosis of PANS. Takes a supplement program called [employer], Rashmi Isaac: Psychiatry. GTube feeds. Currently just taking water and miralax. Goal 800 mL per day to help with hydration and constipation. Formula (Functional Formularies, Keto Formula, coconut base) causing excess gas. [facility] for dentistry. Sedated dental cleaning. To have IV sedation. H/O spinal fusion 07/16/2024 Overview (12/23/2024): For Scoliosis and tethered cord. [id number] decreased function 03/09/2023 CYP2D6 intermediate metabolizer 03/09/2023 [id number] intermediate metabolizer 03/09/2023 CYP2B6 intermediate metabolizer 03/09/2023 Gastroesophageal reflux dise ase with esophagitis without [...] Gluten and casein free Seizures 07/12/2012 Overview (12/23/2024): KCNQ2 mutation. History of seizures At age [...] prozac. History of using lexapro. SEEN AT [facility] with full neurological work-up (metabolic labs, other labs, MRI and EEG with no identifiable cause for ASD) Attends GRETCHEN alvarez for 4 mo of intuiv today on 10/02/2013. Pineda's last appointment was 07/02/2013 and he should be seen in clinic by . Constipation 07/12/2012 Overview (07/01/2013): Improved with diet Resolved Problems Problem Noted Date Diagnosed Date Resolved Date Weight loss 08/22/2022 12/23/2024 Toe-walking 05/06/2017 08/29/2018 Overview (05/06/2017): S/p casting at [facility] Immunization not carried out because of caregiver refusal 05/12/2015 09/24/2020 Overview (05/12/2015): Does not have kindergarten immunizations Following hearing 07/12/2012 06/08/2017 Overview (07/02/2013): History of PE tubes at age 2 and 4. Last hearing test with concern about right ear. Hx of communication delay and seizures as baby. 07/02/2013 [facility] passed hearing at some Hz, did not fail but otherwise was unable to perform test Was sent to ENT at previous [facility] Encounters Date Type Department Care Team Description 01/06/2025 12:00 PM CDT Virtual Visit [facility] [address] [place] [phone] Rashmi Isaac MD 12/24/2024 11:18 AM CDT - 12/24/2024 2:58 PM CDT Emergency [facility] Emergency Department [address] [place] [phone] Calin Yanez MD Encounter for gastrojejunal (GJ) tube placement (Primary Dx) Discharge Disposition: Home or Self Care 12/24/2024 Travel 12/23/2024 2:30 PM CDT Office Visit [facility] [address] [place] [address] [address] [place] [phone] Eloy Singh MD Autism (Primary Dx); Seizures (H); G tube feedings (H); Anxiety; H/O spinal fusion; Aggressive behavior; CYP2D6 intermediate metabolizer (H); Nutritional deficiency; Food aversion; Impacted tooth; Preop general physical exam; Complex care coordination 12/23/2024 Orders Only [address] [place] [phone] Eloy Singh MD 12/23/2024 Travel 12/20/2024 Travel 12/17/2024 Medical Correspondence [facility] Health Information Management [address] [facility] [address] [place] [address] Scan, Non-Provider 12/12/2024 Telephone [facility] [address] [place] [phone] Marcus Stephens MD Forms (Statement of Medical Necessity) 11/12/2024 10:00 AM CDT Office Visit [facility] [address] [place] [phone] Deena Ortiz ra, PA-C Preop general physical exam (Primary Dx); Aspiration into respiratory tract, initial encounter; Dehydration; Autism; Intellectual disability; Nutritional deficiency 11/12/2024 Travel 10/31/2024 Refill [facility] [address] [place] [phone] Rashmi Isaac MD Med Change Request 10/25/2024 MyC Medical Advice [facility] [address] [place] [phone] Rashmi Isaac MD 10/23/2024 Telephone [facility] [address] [place] [phone] Rashmi Isaac MD Call Back 10/17/2024 MyC Medical Advice [address] [phone] Marcus Stephens MD 10/16/2024 3:00 PM CDT Office Visit [facility] [place] [address] [place] [phone] Kristel Rogel MD Epigastric pain (Primary Dx) 10/16/2024 Travel 10/15/2024 Medical Correspondence [facility] Health Information Management [address] [facility] [address] [place] [address] Scan, Non-Provider 10/15/[address] [phone] Marcus Stephens MD Medication Refill 10/15/[address] [phone] Marcus Stephens MD Forms (ICD-10) from Last 3 Months Immunizations Immunization Administration Dates Next Due COVID-19 MONOVALENT 12+ (Pfizer) 09/12/2020 DTaP/HepB/IPV 06/12/2006,02/27/2006,2005 Flu, Unspecified 05/18/2007,02/16/2007 B1h9-50 Novel Flu 02/07/2009 HEPA 01/29/2008,11/29/2006 HIB (PRP-T) [...] Mass Index 15.81 12/23/2024 2:23 PM CDT Plan of Treatment Upcoming Encounters Date Type Department Care Team (Late st Contact Info) Description 06/23/2025 3:30 PM CDT Office Visit [facility] [place] [address] [place] [phone] Eloy Singh MD [address] [facility] [place] [address] Health Maintenance Due Date Last Done Comments IPV VACCINE (4 of 4 - 4-dose series) 2009 06/12/2006, 02/27/2006, 2005 VARICELLA VACCINE (2 of 2 - 2-dose childhood series) 2009 05/18/2007 HIV SCREENING 2020 HPV VACCINE (1 - Male 3-dose series) 2020 MENINGITIS B VACCINE (1 of 2 - Standard) 2021 HEPATITIS C SCREENING 09/20/2023 COVID-19 VACCINE (3 - season) 2024 10/18/2020, 09/12/2020 INFLUENZA VACCINE (#1) 2024 9, 02/07/2009, 02/07/2009, Additional history exists YEARLY PREVENTIVE VISIT 07/16/2025 07/17/19 25, 06/13/2023, 02/09/2022, Additional history exists ANNUAL REVIEW OF HM ORDERS 11/12/2025 11/12/2024 ADVANCE CARE PLANNING 11/12/2029 11/12/2024, 024 DTAP/TDAP/TD VACCINE (6 - Td or Tdap) [...] 1 VIEW STAT 12/24/2024 2:17 PM CDT from Last 3 Months Results * XR Abdomen Port 1 View (12/24/2024 2:17 PM CDT) Anatomical Region Laterality Modality Abdomen/Pelvis Computed Radiogr aphy Impressions 12/24/2024 2:17 PM CDT IMPRESSION: Adequate G tube positioning based on fluoroscopic water-soluble contrast check. ALICE BROWN MD Narrative 12/24/2024 2:17 PM CDT Examination: Water-soluble contrast G tube check x-ray 12/24/2024 INDICATION: G-tube placement, please place contrast in COMPARISON: Radiograph 07/01/2024. FINDINGS: Set Up Mechanic Coating Machines film demonstrates nonobstructive bowel gas pattern with [...] place contrast in COMPARISON: Radiograph 07/01/2024. FINDINGS: Set Up Mechanic Coating Machines film demonstrates nonobstructive bowel gas pattern with G-tube projecting over the lower stomach. Omnipaque water soluble contrast administered via G-tube, demonstrating normal G-tube positioning, with contrast outlining portions of the stomach and proximal small bowel. No evidence of extravasation. IMPRESSION: Adequate G tube positioning based on fluoroscopic water-soluble contrast check. ALICE BROWN MD Calin Yanez MD IMG DIAGNOSTIC IMAGING ORDERAB LES Final Result from Last 3 Months Additional Health Concerns Active Problems Noted Date Diagnosed Date Lacking Appropriate Services and Supports 2022 Insurance [facility] [employer] [place] [facility] [employer] MEDICAID [place] [facility] MEDICAID [place] [facility] [place]CIAL [place]ID [place] [facility] * Guarantor: AILYN RICE Account Type Relation to Patient Date of Phone Billing Address Medication Therapy Mother [address] [place] [address] [place] [facility] MEDICAID [place] Advance Directives For more information, please contact: [phone] Documents on File Type Date Recorded Patient Income Tax Return Preparer Expl anation Advance Directives and Living Will 09/21/2023 Tomeka Rice (TEMPORARY CO GUARDIAN TO 07-26-2029; MUST ACT JOINTLY)Sanjeev Rice (TEMPORARY CO GUARDIAN TO 07-26-2029; MUST ACT JOINTLY) Legal Temporary Guardianship 07-27-2023 to 07-26-2029 Care Teams Associate Media Director Relationship Specialty Start Date End Date Eloy Singh MD [address] [facility] [place] [id number] PCP - General Internal Medicine - Pediatrics 12/23/24 Estelle Calvillo MD [address] [facility] [address] [place], [place] [phone] black pickler & Neurology - Child & Adolescent Psychiatry 05/24/19 Jyoti Sotomayor, [facility] [address] [place] [address] Pharmacist Pharmacist 03/08/23 Marcus Stephens MD [address] [facility] [address] [place], [place] [id number] Assigned PCP 04/27/23 Rashmi Isaac MD [address] [place] [place], [place] [phone] Assigned Behavioral Health Provider 06/16/23 Sara Jara, RN Clinic Fur Blowing Machine Operator 12/25/24
--- OUTSIDE RECORDS SUMMARY | 2025-01-12 09:45 | XMS_ITS | Encounter Summary ---
Author Organization [place] Address [address] [place] [address] Care Team Providers Care Institutional Aide Name Role Phone Rachel Crum MD Primary Care Provid er Rachel Crum MD Unavailable + [phone] Estelle Calvillo MD Unavailable Twan Patrick MD Unavailable [phone] Zulema Parrish [facility] Unavailable Unavaila Estelle Schaeffer MD Unavailable Erin Fernandez [facility] Unavailable [phone] Erin Fernandez [facility] Unavailable [phone] Marcus Stephens MD Primary Care Provider [phone] Jyoti Sotomayor [facility] Unavailable + [phone] Jyoti Sotomayor [facility] Unavailable + [phone] Marcus Stephens MD Unavailable Twan Patrick MD Unavailable [phone] Rashmi Isaac MD Unavailable [phone] Eloy Singh MD Primary Care Provider [phone] Sara Jara RN Unavailable [phone] Encounter Details Date Type Department Care Team (Late st Contact Info) Description 12/28/2022 MyC Medical Advice [facility] [address] [place] [phone] Erin Fernandez, [facility] [address] [address] Social History Tobacco Use Types Packs/Day Years [...] in a fpc (including now)? No 02/09/2022 Adolescent Education Answer [...] Visit [facility] [place] [address] [place] [phone] Eloy Singh MD [address] [facility] [place] [address] documented as of this encounter Goals Goal [...] Parent to continue with medical specialties within [facility] and [facility] 2. Parent to continue with [...] documented as of this encounter Care Teams Institutional Aide Relationship Specialty Start Date End Date Rachel Crum MD PCP - General Pediatrics 07/04/12 02/13/23 Marcus Stephens MD [address] [facility] [address] [place], [place] [address] PCP - General Pediatrics 02/14/23 12/22/24 Eloy Singh MD [address] [place] [address] [place] [address] PCP - General Internal Medicine - Pediatrics 12/23/24 Rachel Crum MD Assigned PCP 11/11/18 04/26/23 Estelle Calvillo MD [address] [place], [place] [address] [place], [place] [address] door repairman & Neurology - Child & Adolescent Psychiatry 05/24/19 Twan Patrick MD [address] [place] [address] 200 [place], [place] [address] Assigned Pediatric Specialist Provider 12/11/21 04/26/23 Zulema Parrish, DOUGH RAISER Lead Group Therapy Counselor 07/04/22 01/27/23 Estelle Calvillo MD [address] [place] [address] Assigned Behavioral Health Provider 07/02/22 06/15/23 Erin Fernandez [facility] [address] [place] [address] [place] [id number] Pharmacist Pharmacist 12/22/22 10/25/23 Erin Fernandez [facility] [address] [place] [address] Assigned MTM Pharmacist 12/31/22 Jyoti Sotomayor [facility] [address] [place] [address] Pharmacist Pharmacist 03/08/23 Jyoti Sotomayor [facility] [address] [place] [address] Assigned MTM Pharmacist 03/11/23 Marcus Stephens MD [address] [facility] [address] [place], [place] [address] Assigned PCP 04/27/23 Twan Patrick MD [address] [place], [place] [address] Assigned Pediatric Specialist Provider 05/05/23 06/15/23 Rashmi Isaac MD [address] [place], [place] [address] Assigned Behavioral Health Provider 06/16/23 Sara Jara, RN Clinic Group Therapy Counselor 12/25/24 documented as of this encounter
--- OUTSIDE RECORDS SUMMARY | 2025-01-12 09:45 | XMS_ITS | Encounter Summary ---
Author Organization [place] Address [address] [place] [address] Care Team Providers Care Data Warehouse Administrator Name Role Phone Rachel Crum MD Primary Care Provid er Rachel Crum MD Unavailable + [phone] Estelle Calvillo MD Unavailable Estelle Calvillo MD Unavailable Jose Hartman SERVICER TRAVEL TRAILERS MACHINE CHAIN MAKER Unavailable Lexii Wray RN Unavailable [phone] Twan Patrick MD Unavailable [phone] Zulema Parrish [facility] Unavailable Unavaila Estelle Schaeffer MD Unavailable Erin Fernandez [facility] Unavailable [phone] Erin Fernandez [facility] Unavailable [phone] Marcus Stephens MD Primary Care Provider [phone] Jyoti Sotomayor [facility] Unavailable + [phone] Jyoti Sotomayor [facility] Unavailable [phone] Marcus Stephens MD Unavailable Twan Patrick MD Unavailable [phone] Rashmi Isaac MD Unavailable [phone] Eloy Singh MD Primary Care Provider [phone] Sara Jara RN Unavailable [phone] Encounter Details Date Type Department Care Team (Late Contact Info) Description 02/12/2020 MyC Medical Advice [facility] Mental Health & Addiction [place] [id number] [address] [phone] Estelle Calvillo MD [facility] [place] [id number] [place], [place] [address] Social History Tobacco Use Types Packs/Day Years [...] Upcoming Encounters Date Type Department Care Team ([facility] Contact Info) Description 06/23/2025 3:30 PM CDT Office Visit [facility] [place] [address] [place] [address] Drive [address] [place] [phone] Eloy Singh MD [address] [place] [address] [place] [address] documented as of this encounter Visit Diagnoses Not on filedocumented in this encounter Additional Health Concerns Infection Onset Date Last Indicated Resolved Time Rule Out COVID-19 12/11/2022 12/11/2022 12/12/2022 1:24 PM CDT Rule Out Rubella 07/16/2024 07/16/2024 07/17/2024 12:31 PM CDT documented as of this encounter Care Teams Data Warehouse Administrator Relationship Specialty Start Date End Date Rachel Crum MD PCP - General Pediatrics 07/04/12 02/13/23 Marcus Stephens MD [address] [facility] [address] [place], [place] [address] PCP - General Pediatrics 02/14/23 12/22/24 Eloy Singh MD [address] [place] [address] PCP - General Internal Medicine - Pediatrics 12/23/24 Rachel Crum MD Assigned PCP 11/11/18 04/26/23 Estelle Calvillo MD [address] [place] [address] [address] [place], [place] [phone] railway track plant operator & Neurology - Child & Adolescent Psychiatry 05/24/19 Estelle Calvillo MD [address] [place], [place] [id number] [place], [place] [phone] Assigned Behavioral Health Provider 01/24/20 05/13/22 Jose Hartman APRN MACHINE CHAIN MAKER [address] [place] [address] Assigned Pediatric Specialist Provider 01/24/20 09/05/20 Lexii Wray, JOHN Lead Patent Prosecution Paralegal Primary Care - CC 08/14/20 Twan Patrick MD [address] [place] [address] Assigned Pediatric Specialist Provider 12/11/21 04/26/23 Zulema Parrish [facility] Lead Patent Prosecution Paralegal 07/04/22 01/27/23 Estelle Calvillo MD [address] [place], [place] [address] Assigned Behavioral Health Provider 07/02/22 06/15/23 rEin Fernandez, [facility] [address] [id number] Pharmacist Pharmacist 12/22/22 10/25/23 Erin Fernandez, [facility] [address] [id number] Assigned MTM Pharmacist 12/31/22 Jyoti Sotomayor, [facility] [address] [place], [place] [phone] Pharmacist Pharmacist 03/08/23 [facility] [address] [place], [place] [address] Assigned MTM Pharmacist 03/11/23 Marcus Stephens MD [address] [facility] [address] [place], [place] [address] Assigned PCP 04/27/23 Twan Patrick MD [address] [place] [address] Assigned Pediatric Specialist Provider 05/05/23 06/15/23 Rashmi Isaac MD [address] [place] [address] Assigned Behavioral Health Provider 06/16/23 Sara Jara, RN Clinic Patent Prosecution Paralegal 12/25/24 documented as of this encounter
--- OUTSIDE RECORDS SUMMARY | 2025-01-12 09:45 | XMS_ITS | Encounter Summary ---
Author Organization [place] Address [address] [place] [address] Care Team Providers Care Molder Closed Molds Name Role Phone Rachel Crum MD Primary Care Provid er Rachel Crum MD Unavailable + [phone] Rachel Crum MD Unavailable + [phone] Santos Guerrero MD Unavailable [phone] Rachel Crum MD Unavailable + [phone] Estelle Calvillo MD Unavailable Estelle Calvillo MD Unavailable Jose Hartman SOFTWARE DEVELOPER MANAGER CIRCULATION ASSISTANT Unavailable Lexii Wray RN Unavailable [phone] Twan Patrick MD Unavailable +[phone] Zulema Parrish [facility] Unavailable Unavaila ble Estelle Calvillo MD Unavailable Erin Fernandez [facility] Unavailable [phone] Erin Fernandez [facility] Unavailable +[phone] Marcus Stephens MD Primary Care Provider Jyoti Sotomayor [facility] Unavailable + [phone] Jyoti Sotomayor [facility] Unavailable + [phone] Marcus Stephens MD Unavailable Twan Patrick MD Unavailable +[phone] Rashmi Isaac MD Unavailable [phone] Eloy Singh MD Primary Care Provider [phone] Sara Jara RN Unavailable +[phone] Encounter Details Date Type Department Care Team (Late st Contact Info) Description 05/28/2018 Orders Only [facility] Laboratory [address] [place] [address] Praful Werner MD Autistic spectrum [...] PM CDT [facility] [address] [place] [address] [address] [place] [address] Eloy Singh MD [address] [place] [address] [place] [address] documented as of this encounter Results * Prolactin (07/11/2018 3:36 PM CDT) Prolactin 15 2 - 18 ug/L 07/12/2018 3:10 PM CDT [facility] Blood specimen (specimen) 07/11/2018 3:36 PM CDT 07/11/2018 3:38 PM CDT us Praful Werner MD LAB - BLOOD ORDERABLES Final Res ult [facility] [address] [place] [address] * Lipid Profile (07/11/2018 3:36 PM CDT) Cholesterol 113 <170 mg/dL 07/12/2018 1:58 PM CDT [facility] Triglycerides 57 <90 mg/dL 07/12/2018 2:05 PM CDT [facility] Comment:Non Fasting HDL Cholesterol 46 >45 mg/dL 9 2:09 PM CDT [facility] LDL Cholesterol Calculated 56 <110 mg/dL 07/12/2018 2:09 PM CDT [facility] Non HDL Cholesterol 67 <120 mg/dL 07/12/2018 2:09 PM CDT [facility] Blood specimen (specimen) 07/11/2018 3:36 PM CDT 07/11/2018 3:38 PM CDT Praful Werner MD LAB - BLOOD ORDERABLES Final Res ult Performing Organization Address [facility] Co de Phone Number [facility] [address] [place] [address] * Hemoglobin A1c (07/11/2018 3:36 PM CDT) Hemoglobin A1C 5.2 0 - 5.6 % 07/11/2018 4:06 PM CDT [facility] Comment: Normal <5.7% Prediabetes 5.7-6.4% Diabetes 6.5% or higher - adopted from ADA consensus guidelines. Blood specimen (specimen) 07/11/2018 3:36 PM CDT 07/11/2018 3:38 PM CDT Praful Werner MD LAB - BLOOD ORDERABLES Final Res ult Performing Organization Address City/[facility]/ZIP Co de Phone Number [facility] [address] [place] [address] documented in this encounter Visit Diagnoses Diagnosis [...] documented as of this encounter Care Teams Molder Closed Molds Relationship Specialty Start Date End Date Rachel Crum MD PCP - General Pediatrics 07/04/12 02/13/23 Rachel Crum MD [address] [place], [place] [id number] PCP - Assigned PCP 05/22/16 06/05/18 Marcus Stephens MD [address] [facility] [address] [place] [address] PCP - General Pediatrics 02/14/23 12/22/24 Eloy Singh MD [address] [facility] [place] [address] PCP - General Internal Medicine - Pediatrics 12/23/24 Rachel Crum MD [address] [place] [address] Assigned PCP 05/22/16 06/09/18 [place] [address] [place] [address] Assigned PCP 07/01/18 11/10/18 Rachel Crum MD Assigned PCP 11/11/18 04/26/23 Estelle Calvillo MD [address] [place] [address] micrographics services supervisor & Neurology - Child & Adolescent Psychiatry 05/24/19 Estelle Calvillo MD [facility] [place] [address] Assigned Behavioral Health Provider 01/24/20 05/13/22 Jose Hartman APRN [facility] [address] [place] [address] Assigned Pediatric Specialist Provider 01/24/20 09/05/20 Lexii Wray, JOHN Lead Icu Manager Primary Care - CC 08/14/20 Twan Patrick MD [address] [place] [address] 200 [place], [place] 116004 Assigned Pediatric Specialist Provider 12/11/21 04/26/23 Zulema Parrish LGSW Lead Icu Manager 07/04/22 01/27/23 Estelle Calvillo MD [address] [place] [address] 019384 Assigned Behavioral Health Provider 07/02/22 06/15/23 Erin Fernandez [facility] [address] [place] [address] Pharmacist Pharmacist 12/22/22 10/25/23 Erin Fernandez [facility] [address] [place] [address] Assigned MTM Pharmacist 12/31/22 [facility] [address] [place], [place] 24[address]54 Pharmacist Pharmacist 03/08/23 [facility] [address] [facility] [address] [place], [place] 663074 Assigned MTM Pharmacist 03/11/23 Marcus Stephens MD [address] [place], [place] 859215 Assigned PCP 04/27/23 Twan Patrick MD [address] [place] [address] Assigned Pediatric Specialist Provider 05/05/23 06/15/23 Rashmi Isaac MD [address] [place], [place] [address] Assigned Behavioral Health Provider 06/16/23 Sara Jara, RN Clinic Icu Manager 12/25/24 documented as of this encounter
--- OUTSIDE RECORDS SUMMARY | 2025-01-12 09:45 | XMS_ITS | Encounter Summary ---
Author Organization [place] Address [address] [place] [address] Care Team Providers Care Cyber Defense Incident Responder Name Role Phone Rachel Crum MD Primary Care Provid er Rachel Crum MD Unavailable + [phone] Estelle Calvillo MD Unavailable Estelle Calvillo MD Unavailable Jose Hartman HAND TOOL LAPPER RESIDENTIAL PROPERTY CONSULTANT Unavailable Lexii Wray RN Unavailable [phone] Twan Patrick MD Unavailable [phone] Zulema Parrish [facility] Unavailable Unavaila Estelle Schaeffer MD Unavailable Erin Fernandez [facility] Unavailable [phone] Erin Fernandez [facility] Unavailable +[phone] Marcus Stephens MD Primary Care Provider [phone] Jyoti Sotomayor [facility] Unavailable + [phone] Jyoti Sotomayor [facility] Unavailable +[phone] Marcus Stephens MD Unavailable Twan Patrick MD Unavailable +[phone] Rashmi Isaac MD Unavailable Eloy Singh MD Primary Care Provider [phone] Sara Jara RN Unavailable [phone] Encounter Details Date Type Department Care Team (Late Contact Info) Description 08/08/2020 MyC Medical Advice [facility] [address] 1[address] Floor, [address] [place] [phone] Estelle Calvillo MD [address] [facility] [address] [place], [place] 246774 Social History Tobacco Use Types Packs/Day Years [...] 3:30 PM CDT Office Visit [facility] [place] [address] [facility] [address] [place] [phone] [place] [address] [place] [address] [place] [id number] documented as of this encounter Visit Diagnoses Not on filedocumented in this encounter Additional Health Concerns Infection Onset Date Last Indicated Resolved Time Rule Out COVID-19 12/11/2022 12/11/2022 12/12/2022 1:24 PM CDT Rule Out Rubella 07/16/2024 07/16/2024 07/17/2024 12:31 PM CDT documented as of this encounter Care Teams Cyber Defense Incident Responder Relationship Specialty Start Date End Date Rachel Crum MD PCP - General Pediatrics 07/04/12 02/13/23 Marcus Stephens MD 717 [facility] 370 [place], [place] 741425 PCP - General Pediatrics 02/14/23 12/22/24 Eloy Singh MD [address] [facility] [address] [place] [id number] PCP - General Internal Medicine - Pediatrics 12/23/24 Rachel Crum MD Assigned PCP 11/11/18 04/26/23 Estelle Calvillo MD [address] [place] [address] [address]275 [place], [place] [phone] metal welder & Neurology - Child & Adolescent Psychiatry 05/24/19 Estelle Calvillo MD [address] [place], [place] 1832275 [place], [place] [address] Assigned Behavioral Health Provider 01/24/20 05/13/22 Jose Hartman APRN RESIDENTIAL PROPERTY CONSULTANT [place] [address] Assigned Pediatric Specialist Provider 01/24/20 09/05/20 Lexii Wray, JOHN Lead Vp Business Development Primary Care - CC 08/14/20 Twan Patrick MD [address] [place] [address] Assigned Pediatric Specialist Provider 12/11/21 04/26/23 Zulema Parrish LGSW Lead Vp Business Development 07/04/22 01/27/23 Estelle Calvillo MD [address] [place], [place] 798204 Assigned Behavioral Health Provider 07/02/22 06/15/23 Erin Fernandez, [facility] [address] [place] [id number] Pharmacist Pharmacist 12/22/22 10/25/23 Erin Fernandez, [facility] [address] [place] [id number] Assigned MTM Pharmacist 12/31/22 Jyoti Sotomayor [facility] [address] [place] [address] Pharmacist Pharmacist 03/08/23 Jyoti Sotomayor [facility] [address] [place], [place] [address] Assigned MTM Pharmacist 03/11/23 Marcus Stephens MD [facility] [facility] [address] [place], [place] 857525 Assigned PCP 04/27/23 Twan Patrick MD [address] [place] [address] Assigned Pediatric Specialist Provider 05/05/23 06/15/23 Rashmi Isaac MD [address] [place] [address] Assigned Behavioral Health Provider 06/16/23 Sara Jara, RN Clinic Vp Business Development 12/25/24 documented as of this encounter
--- OUTSIDE RECORDS SUMMARY | 2025-01-12 09:45 | XMS_ITS | Encounter Summary ---
Author Organization [place] Address [address] [place] [address] Care Team Providers Care Personal Development Educator Name Role Phone Rachel Crum MD Primary Care Provid er Rachel Crum MD Unavailable + [phone] Estelle Calvillo MD Unavailable Estelle Calvillo MD Unavailable Twan Patrick MD Unavailable +[phone] Zulema Parrish [facility] Unavailable Unavaila Estelle Schaeffer MD Unavailable Erin Fernandez [facility] Unavailable [phone] [facility] Unavailable [phone] Marcus Stephens MD Primary Care Provider [phone] [facility] Unavailable +[phone] [facility] Unavailable +[phone] Marcus Stephens MD Unavailable Twan Patrick MD Unavailable +[phone] Rashmi Isaac MD Unavailable + [phone] Eloy Singh MD Primary Care Provider +[phone] Sara Jara RN Unavailable +[phone] Encounter Details Date Type Department Care Team (Late st Contact Info) Description 02/21/2022 MyC Medical Advice [place] [id number] [place] [address] Rachel Crum MD [address] [place], [place] [id number] Social History Tobacco Use Types Packs/Day Years [...] Coronavirus/COVID-19? No / Unsure 02/18/2022 5:21 PM PASTEURIZER HELPER documented as of this encounter Miscellaneous Notes * Telephone Encounter - Kandy Vega RN - 02/23/2022 8:42 AM CST Hi [facility] team ?? Can you dig into this referral? ?? Maybe call [facility]? ?? It's not normal for [...] work ?? [employer] Rachel Crum MD EURIZER HELPER documented in this encounter Plan of Treatment Upcoming Encounters Date Type Department Care Team (Late st Contact Info) Description 06/23/2025 3:30 PM CDT Office Visit [facility] [place] [address] [place] [address] [address] [place] [phone] Eloy Singh MD [address] [place] [address] [place] [address] documented as of this encounter Visit Diagnoses Not on filedocumented in this encounter Additional Health Concerns Infection Onset Date Last Indicated Resolved Time Rule Out COVID-19 12/11/2022 12/11/2022 12/12/2022 1:24 PM CDT Rule Out Rubella 07/16/2024 07/16/2024 07/17/2024 12:31 PM CDT Assessment Noted Time PHQ-9 Depression Total Score: 18 01/20/2 022 1:59 PM CDT documented as of this encounter Care Teams Personal Development Educator Relationship Specialty Start Date End Date Rachel Crum MD PCP - General Pediatrics 07/04/12 02/13/23 Marcus Stephens MD [address] [place] [address] 370 [place] [address] PCP - General Pediatrics 02/14/23 12/22/24 Eloy iSngh MD [address] [facility] [address] PCP - General Internal Medicine - Pediatrics 12/23/24 Rachel Crum MD Assigned PCP 11/11/18 04/26/23 Estelle Calvillo MD [facility] [place] [id number] [place] [address] front end developer designer & Neurology - Child & Adolescent Psychiatry 05/24/19 Estelle Calvillo MD [facility] [address] [address] Assigned Behavioral Health Provider 01/24/20 05/13/22 Twan Patrick MD [address] [place] [address] 200 [place], [place] 403784 Assigned Pediatric Specialist Provider 12/11/21 04/26/23 Zulema Parrish, [facility] Lead Buckle Attaching Machine Operator 07/04/22 01/27/23 Estelle Calvillo MD [address] [place] [address]014 Assigned Behavioral Health Provider 07/02/22 06/15/23 Erin Fernandez, [facility] [address] [place] [address] Pharmacist Pharmacist 12/22/22 10/25/23 Erin Fernandez, [facility] [address] [place] [address] Assigned MTM Pharmacist 12/31/22 Jyoti Sotomayor, [facility] [address] [place] [address] Pharmacist Pharmacist 03/08/23 Jyoti Sotomayor, [facility] [address]50 [facility] [address] [place], [place] [address] Assigned MTM Pharmacist 03/11/23 Marcus Stephens MD [address]17 [facility] [address] [place] [address] Assigned PCP 04/27/23 Twan Patrick MD [address] [facility] [address] [place] [address] Assigned Pediatric Specialist Provider 05/05/23 06/15/23 Rashmi Isaac MD [address] [place] [address] Assigned Behavioral Health Provider 06/16/23 Sara Jara, RN Clinic Buckle Attaching Machine Operator 12/25/24 documented as of this encounter
--- OUTSIDE RECORDS SUMMARY | 2025-01-12 09:45 | XMS_ITS | Encounter Summary ---
Author Organization [place] Address [address] [place] [address] Care Team Providers Care Unhairing Machine Operator Name Role Phone Rachel Crum MD Primary Care Provid er Rachel Crum MD Unavailable + [phone] Estelle Calvillo MD Unavailable Estelle Calvillo MD Unavailable Jose Hartman [employer] [facility] Unavailable Lexii Wray RN Unavailable [phone] Twan Patrick MD Unavailable +[phone] Zulema Parrish [facility] Unavailable Unavaila Estelle Schaeffer MD Unavailable Erin Fernandez [facility] Unavailable +[phone] Erin Fernandez [facility] Unavailable [phone] Marcus Stephens MD Primary Care Provider [phone] Jyoti Sotomayor [facility] Unavailable + [phone] Jyoti Sotomayor [facility] Unavailable +[phone] Marcus Stephens MD Unavailable Twan Patrick MD Unavailable +[phone] Rashmi Isaac MD Unavailable [phone] Eloy Singh MD Primary Care Provider [phone] Sara Jara RN Unavailable [phone] Encounter Details Date Type Department Care Team (Late Contact Info) Description 05/06/2020 MyC Medical Advice [facility]ty [facility] [address] 1st Floor, [address] [place] [phone] Estelle Calvillo MD [address] [facility] [address] [place], [place] 203[address] Social History Tobacco Use Types Packs/Day Years [...] 06/23/2025 3:30 PM CDT Office Visit [facility] [place] [address] [facility] [address] [place] [phone] [place] [address] [place] [address] [place] [address] documented as of this encounter Visit Diagnoses Not on filedocumented in this encounter Additional Health Concerns Infection Onset Date Last Indicated Resolved Time Rule Out COVID-19 12/11/2022 12/11/2022 12/12/2022 1:24 PM CDT Rule Out Rubella 07/16/2024 07/16/2024 07/17/2024 12:31 PM CDT documented as of this encounter Care Teams Unhairing Machine Operator Relationship Specialty Start Date End Date Rachel Crum MD PCP - General Pediatrics 07/04/12 02/13/23 Marcus Stephens MD 717 [facility] 370 [place], [place] 3[address] PCP - General Pediatrics 02/14/23 12/22/24 Eloy Singh MD [address] [facility] [address] [place] [phone] PCP - General Internal Medicine - Pediatrics 12/23/24 Rachel Crum MD Assigned PCP 11/11/18 04/26/23 Estelle Calvillo MD [address] [place] [address] F275 [place], [place] [id number] fine grade bulldozer operator & Neurology - Child & Adolescent Psychiatry 05/24/19 Estelle Calvillo MD [address] [place], [place] [address] [place], [place] [address] Assigned Behavioral Health Provider 01/24/20 05/13/22 Jose Hartman APRN [employer] [facility] [place] [address] Assigned Pediatric Specialist Provider 01/24/20 09/05/20 Lexii Wray, JOHN Lead Digital Media Analyst Primary Care - CC 08/14/20 Twan Patrick MD [address] [place] [address] Assigned Pediatric Specialist Provider 12/11/21 04/26/23 Zulema Parrish LGSW Lead Digital Media Analyst 07/04/22 01/27/23 Estelle Calvillo MD [address] [place], [place] [address] Assigned Behavioral Health Provider 07/02/22 06/15/23 Erin Fernandez, [facility] [address] [place] [phone] Pharmacist Pharmacist 12/22/22 10/25/23 Erin Fernandez, [facility] [address] [place] [id number] Assigned MTM Pharmacist 12/31/22 Jyoti Sotomayor [facility] [address] [place] [address] Pharmacist Pharmacist 03/08/23 Jyoti Sotomayor [facility] [address] [place], [place] 3[address] Assigned MTM Pharmacist 03/11/23 Marcus Stephens MD [facility]17 [facility] [address] [place], [place] 04[address] Assigned PCP 04/27/23 Twan Patrick MD [address] [place] [address] Assigned Pediatric Specialist Provider 05/05/23 06/15/23 Rashmi Isaac MD [address] [place] [address] Assigned Behavioral Health Provider 06/16/23 Sara Jara, RN Clinic Digital Media Analyst 12/25/24 documented as of this encounter
--- OUTSIDE RECORDS SUMMARY | 2025-01-12 09:45 | XMS_ITS | Encounter Summary ---
Author Organization [place] Address [address] [place] [address]. [place] [address] Care Team Providers Care Feller Operator Name Role Phone NeishavanessaEstelle meléndez MD Unavailable Marcus Stephens MD Primary Care Provider [phone] Jyoti Sotomayor [facility] Unavailable + [phone] Marcus Stephens MD Unavailable Rashmi Isaac MD Unavailable [phone] Eloy Singh MD Primary Care Provider [phone] Sara Jara RN Unavailable [phone] Reason for Visit * Reason Onset Date Comments Forms 10/15/2024 ICD-10 Encounter Details Date Type Department Care Team (Late st Contact Info) Description 10/15/2024 Telephone [id number] [place] [address] Marcus Stephens MD [address] [place] [address] Forms (ICD-10) Social History Tobacco Use [...] in an abandoned building, in an overnight mcc, or couch-surfing.) Yes 10/06/2024 Are you worried [...] encounter Miscellaneous Notes * Telephone Encounter - Maribel Negron - 10/22/2024 4:49 PM CDT Forms completed, signed, copy made for chart and faxed as requested. Maribel Negron Property Field Inspector * Telephone Encounter - Beena Odom - 10/15/2024 12:22 PM CDT Forms received from [facility] for Marcus Stephens M.D.. Forms placed in provider 'sign me' folder. Please fax forms to [phone] after completion. Beena Odom, Property Field Inspector documented in this encounter Plan of Treatment Upcoming Encounters Date Type Department Care Team (Late st Contact Info) Description 06/23/2025 3:30 PM CDT Office Visit [facility] [place] [address] [facility] [address] [place] [phone] Eloy Singh MD 3305 [facility] [place] [phone] documented as of this encounter Goals Goal [...] Parent to continue with medical specialties within [place] and [facility] 2. Parent to continue with [...] Depression Total Score: 10 025 11:26 AM PETS SALESPERSON documented as of this encounter Care Teams Feller Operator Relationship Specialty Start Date End Date Marcus Stephens MD 717 [facility] [address] [place] [address] PCP - General Pediatrics 02/14/23 12/22/24 Eloy Singh MD [address] [facility] [address] [place], [place] [phone] PCP - General Internal Medicine - Pediatrics 12/23/24 Estelle Calvillo MD [address] [place] [address] [address] [place], [place] [phone] director of planning & Neurology - Child & Adolescent Psychiatry 05/24/19 Jyoti Sotomayor, [facility] 2450 [facility] [address] [place] [address] Pharmacist Pharmacist 03/08/23 Marcus Stephens MD 717 [facility] 370 [place], [place] [address] Assigned PCP 04/27/23 Rashmi Isaac MD [address] [place] [address] [address] [place] [address] Assigned Behavioral Health Provider 06/16/23 Sara Jara, RN Clinic Presiding Judge 12/25/24 documented as of this encounter
--- OUTSIDE RECORDS SUMMARY | 2025-01-12 09:45 | XMS_ITS | Encounter Summary ---
Author Organization [place] Address [address] [place] [address] Care Team Providers Care Supervisor Molding Name Role Phone Rachel Crum MD Primary Care Provid er Rachel Crum MD Unavailable + [phone] Estelle Calvillo MD Unavailable Estelle Calvillo MD Unavailable Jose Hartman STRING TOP SEALER REAL ESTATE MARKETING COORDINATOR Unavailable Lexii Wray RN Unavailable [phone] Twan Patrick MD Unavailable +[phone] Zulema Parrish [facility] Unavailable Unavaila Estelle Schaeffer MD Unavailable Erin Fernandez [facility] Unavailable [phone] Erin Fernandez [facility] Unavailable +[phone] Marcus Stephens MD Primary Care Provider +[phone] Jyoti Sotomayor [facility] Unavailable + [phone] Jyoti Sotomayor [facility] Unavailable +[phone] Marcus Stephens MD Unavailable Twan Patrick MD Unavailable [phone] Rashmi Isaac MD Unavailable Eloy Singh MD Primary Care Provider [phone] Sara Jara RN Unavailable [phone] Encounter Details Date Type Department Care Team (Late Contact Info) Description 03/23/2020 MyC Medical Advice [facility] [address] 1st Floor, [address] [place] [address] Estelle Calvillo MD [address] [facility] [address] [place], [place] 376824 Social History Tobacco Use Types Packs/Day Years [...] CDT Office Visit [facility] Francie 3[address] [facility] [address] [place] [phone] [place] [address] [place] [address] [place] [id number] documented as of this encounter Visit Diagnoses Not on filedocumented in this encounter Additional Health Concerns Infection Onset Date Last Indicated Resolved Time Rule Out COVID-19 12/11/2022 12/11/2022 12/12/2022 1:24 PM CDT Rule Out Rubella 07/16/2024 07/16/2024 07/17/2024 12:31 PM CDT documented as of this encounter Care Teams Supervisor Molding Relationship Specialty Start Date End Date Rachel Crum MD PCP - General Pediatrics 07/04/12 02/13/23 Marcus Stephens MD 717 [facility] 370 [place], [place] 218135 PCP - General Pediatrics 02/14/23 12/22/24 Eloy Singh MD [address] [facility] [place] [address] PCP - General Internal Medicine - Pediatrics 12/23/24 Rachel Crum MD Assigned PCP 11/11/18 04/26/23 Estelle Calvillo MD [address] [place] [address] [address] [place], [place] [phone] population health coach & Neurology - Child & Adolescent Psychiatry 05/24/19 Estelle Calvillo MD [address] [place], [place] 5534275 [place], [place] [phone] Assigned Behavioral Health Provider 01/24/20 05/13/22 Jose Hartman APRN REAL ESTATE MARKETING COORDINATOR [address] [place] [address] Assigned Pediatric Specialist Provider 01/24/20 09/05/20 Lexii Wray, RN Lead Grinding Supervisor Primary Care - CC 08/14/20 Twan Patrick MD [address] [place] [address] Assigned Pediatric Specialist Provider 12/11/21 04/26/23 Zulema Parrish LGSW Lead Grinding Supervisor 07/04/22 01/27/23 Estelle Calvillo MD [address] [facility] [address] [place], [place] 406474 Assigned Behavioral Health Provider 07/02/22 06/15/23 Erin Fernandez, [facility] [address] [place] [id number] Pharmacist Pharmacist 12/22/22 10/25/23 Erin Fernandez, [facility] [address] [place] [id number] Assigned MTM Pharmacist 12/31/22 Jyoti Sotomayor, [facility] [address] [place] [address] Pharmacist Pharmacist 03/08/23 Jyoti Sotomayor [facility] [address] [place], [place] 514044 Assigned MTM Pharmacist 03/11/23 Marcus Stephens MD 717 [facility] [address] [place], [place] 852455 Assigned PCP 04/27/23 Twan Patrick MD [address] [place] [address] Assigned Pediatric Specialist Provider 05/05/23 06/15/23 Rashmi sIaac MD [address] [place] [address] Assigned Behavioral Health Provider 06/16/23 Sara Jara, RN Clinic Grinding Supervisor 12/25/24 documented as of this encounter
--- OUTSIDE RECORDS SUMMARY | 2025-01-12 09:45 | XMS_ITS | Encounter Summary ---
Author Organization [place] Address [address] [place] [address] Care Team Providers Care Shank Archer Name Role Phone Rachel Crum MD Primary Care Provid er Rachel Crum MD Unavailable + [phone] Estelle Calvillo MD Unavailable Estelle Calvillo MD Unavailable Twan Patrick MD Unavailable [phone] Zulema Parrish [facility] Unavailable Unavaila Estelle Schaeffer MD Unavailable Erin Fernandez [facility] Unavailable [phone] Erin Fernandez [facility] Unavailable [phone] Marcus Stephens MD Primary Care Provider [phone] Jyoti Sotomayor [facility] Unavailable +[phone] Jyoti Sotomayor [facility] Unavailable [phone] Marcus Stephens MD Unavailable Twan Patrick MD Unavailable +[phone] Rashmi Isaac MD Unavailable + [phone] Eloy Singh MD Primary Care Provider [phone] Sara Jara RN Unavailable +[phone] Encounter Details Date Type Department Care Team (Late st Contact Info) Description 12/24/2021 MyC Medical Advice [place] [address] [place] [address] Rachel Crum MD [address] [place], [place] [id number] Social History Tobacco Use Types Packs/Day Years [...] CDT Office Visit [facility] Francie [address] [place] [address] Drive [address] [place] [phone] Eloy Singh MD [address] [place] [address] [place] [address] documented as of this encounter Visit Diagnoses Not on filedocumented in this encounter Additional Health Concerns Infection Onset Date Last Indicated Resolved Time Rule Out COVID-19 12/11/2022 12/11/2022 12/12/2022 1:24 PM CDT Rule Out Rubella 07/16/2024 07/16/2024 07/17/2024 12:31 PM CDT documented as of this encounter Care Teams Shank Archer Relationship Specialty Start Date End Date Rachel Crum MD PCP - General Pediatrics 07/04/12 02/13/23 Marcus Stephens MD [address] [place] [address] PCP - General Pediatrics 02/14/23 12/22/24 Eloy Singh MD [address] [place] [address] [place] [address] PCP - General Internal Medicine - Pediatrics 12/23/24 Rachel Crum MD Assigned PCP 11/11/18 04/26/23 Estelle Calvillo MD [address] [place] [address] [place] [address] turntable man & Neurology - Child & Adolescent Psychiatry 05/24/19 Estelle Calvillo MD [address] [place] [address] Assigned Behavioral Health Provider 01/24/20 05/13/22 Twan Patrick MD [address] [facility] [address] [facility] 200 [place], [place] 693064 Assigned Pediatric Specialist Provider 12/11/21 04/26/23 Zulema Parrish [facility] Lead Clinical Specialist 07/04/22 01/27/23 Estelle Calvillo MD [address] 218[address] Assigned Behavioral Health Provider 07/02/22 06/15/23 Erin Fernandez, [facility] [address] [id number] Pharmacist Pharmacist 12/22/22 10/25/23 Erin Fernandez, [facility] [address] [id number] Assigned MTM Pharmacist 12/31/22 Jyoti Sotomayor [facility] [address] [facility] [address] [place], [place] [phone] Pharmacist Pharmacist 03/08/23 Jyoti Sotomayor [facility] [address] [place] [address] Assigned MTM Pharmacist 03/11/23 Marcus Stephens MD [facility]17 [facility] [address] [place] [address] Assigned PCP 04/27/23 Twan Patrick MD [address] [facility] [address] [place] [address] Assigned Pediatric Specialist Provider 05/05/23 06/15/23 Rashmi Isaac MD [address] [place] [address] Assigned Behavioral Health Provider 06/16/23 Sara Jara, RN Clinic Clinical Specialist 12/25/24 documented as of this encounter
--- OUTSIDE RECORDS SUMMARY | 2025-01-12 09:45 | XMS_ITS | Encounter Summary ---
Author Organization [place] Address [address] [place] [address] Care Team Providers Care Advisory Services Associate Name Role Phone Rachel Crum MD Primary Care Provid er Rachel Crum MD Unavailable + [phone] Estelle Calvillo MD Unavailable Estelle Calvillo MD Unavailable Jose Hartman RADIO JOURNALIST CEMENT CRUSHER OPERATOR Unavailable Lexii Wray RN Unavailable [phone] Twan Patrick MD Unavailable [phone] Zulema Parrish [facility] Unavailable Unavaila Estelle Schaeffer MD Unavailable Erin Fernandez [facility] Unavailable [phone] Erin Fernandez [facility] Unavailable [phone] Marcus Stephens MD Primary Care Provider [phone] Jyoti Sotomayor [facility] Unavailable + [phone] Jyoti Sotomayor [facility] Unavailable [phone] Marcus Stephens MD Unavailable Twan Patrick MD Unavailable [phone] Rashmi Isaac MD Unavailable Eloy Singh MD Primary Care Provider [phone] Sara Jara RN Unavailable [phone] Encounter Details Date Type Department Care Team (Late Contact Info) Description 07/21/2020 MyC Medical Advice [facility] [address] 1st Floor, [address] [place] [phone] Estelle Calvillo MD [address] [facility] [address] [place], [place] 796254 Social History Tobacco Use Types Packs/Day Years [...] Office Visit [facility] Francie [address] [facility] [address] [place] [phone] [place] [address] [place] [address] SAS[place] [id number] documented as of this encounter Visit Diagnoses Not on filedocumented in this encounter Additional Health Concerns Infection Onset Date Last Indicated Resolved Time Rule Out COVID-19 12/11/2022 12/11/2022 12/12/2022 1:24 PM CDT Rule Out Rubella 07/16/2024 07/16/2024 07/17/2024 12:31 PM CDT documented as of this encounter Care Teams Advisory Services Associate Relationship Specialty Start Date End Date Rachel Crum MD PCP - General Pediatrics 07/04/12 02/13/23 Marcus Stephens MD 717 [facility] 370 [place], [place] [address]165 PCP - General Pediatrics 02/14/23 12/22/24 Eloy Singh MD [address] [facility] [address] [place] [id number] PCP - General Internal Medicine - Pediatrics 12/23/24 Rachel Crum MD Assigned PCP 11/11/18 04/26/23 Estelle Calvillo MD [address] [place] [address] [address]275 [place], [place] [phone] cotton opener & Neurology - Child & Adolescent Psychiatry 05/24/19 Estelle Calvillo MD [address] [place], [place] 5631575 [place], [place] [address] Assigned Behavioral Health Provider 01/24/20 05/13/22 Jose Hartman APRN CEMENT CRUSHER OPERATOR [facility] [place] [address] Assigned Pediatric Specialist Provider 01/24/20 09/05/20 Lexii Wray, JOHN Lead Automatic Tire Tester Primary Care - CC 08/14/20 Twan Patrick MD [address] [place] [address] Assigned Pediatric Specialist Provider 12/11/21 04/26/23 Zulema Parrish LGSW Lead Automatic Tire Tester 07/04/22 01/27/23 Estelle Calvillo MD [address] [place], [place] 330644 Assigned Behavioral Health Provider 07/02/22 06/15/23 Erin Fernandez, [facility] [address] [place] [id number] Pharmacist Pharmacist 12/22/22 10/25/23 Erin Fernandez, [facility] [address] [place] [id number] Assigned MTM Pharmacist 12/31/22 Jyoti Sotomayor [facility] [address] [place] [address] Pharmacist Pharmacist 03/08/23 Jyoti Sotomayor [facility] [address] [place], [place] 421424 Assigned MTM Pharmacist 03/11/23 Marcus Stephens MD [facility] [facility] [address] [place], [place] 885805 Assigned PCP 04/27/23 Twan Patrick MD [address] [place] [address] Assigned Pediatric Specialist Provider 05/05/23 06/15/23 Rashmi Isaac MD [address] [place] [address] Assigned Behavioral Health Provider 06/16/23 Sara Jara, RN Clinic Automatic Tire Tester 12/25/24 documented as of this encounter
--- OUTSIDE RECORDS SUMMARY | 2025-01-12 09:45 | XMS_ITS | Encounter Summary ---
Author Organization [facility] Address [address] [place] [address] Care Team Providers Care Doctor Of Optometry Name Role Phone SindevangEstelle meléndez MD Unavailable Marcus Stephens MD Primary Care Provider [phone] Jyoti Sotomayor [facility] Unavailable + [phone] Marcus Stephens MD Unavailable Rashmi Isaac MD Unavailable [phone] Eloy Singh MD Primary Care Provider [phone] Sara Jara RN Unavailable [phone] Encounter Details Date Type Department Care Team (Late st Contact Info) Description 10/17/2024 MyC Medical Advice [place] [address] [place] [address] Marcus Stephens MD [address] [place] [address] Social History Tobacco Use Types Packs/Day [...] Description 06/23/2025 3:30 PM CDT Office Visit [facility] Francie [address] [facility] [address] [place] [phone] [place] [address] [place] [address] [place] [address] documented as of this encounter Goals Goal [...] Depression Total Score: 10 025 11:26 AM COUNTER CLERK [employer] documented as of this encounter Care Teams Doctor Of Optometry Relationship Specialty Start Date End Date Marcus Stephens MD [address] [place] [address] 370 [place] [address] PCP - General Pediatrics 02/14/23 12/22/24 Eloy Singh MD [address] [place] [address] [place] [address] PCP - General Internal Medicine - Pediatrics 12/23/24 Estelle aClvillo MD [facility] [address] [place], [place] 377264 stock handler floorperson & Neurology - Child & Adolescent Psychiatry 05/24/19 Jyoti Sotomayor [facility] 2450 [facility] [place] [facility] [address] [place], [place] 315874 Pharmacist Pharmacist 03/08/23 Marcus Stephens MD [address] [place] [address] 370 [place] [address] Assigned PCP 04/27/23 Rashmi Isaac MD [address] [place], [place] 883454 Assigned Behavioral Health Provider 06/16/23 Sara Jara, RN Clinic Access Rep 12/25/24 documented as of this encounter
--- OUTSIDE RECORDS SUMMARY | 2025-01-12 09:45 | XMS_ITS | Encounter Summary ---
Author Organization [place] Address [address] [place] [address] Care Team Providers Care Aboriginal Home School Liaison Officer Name Role Phone Rachel Crum MD Primary Care Provid er Rachel Crum MD Unavailable + [phone] Rachel Crum MD Unavailable + [phone] Santos Guerrero MD Unavailable [phone] Rachel Crum MD Unavailable + [phone] Estelle Calvillo MD Unavailable Estelle Calvillo MD Unavailable Jose Hartman FORESTER AIDE CERTIFIED DENTAL ASSISTANT Unavailable Lexii Wray RN Unavailable [phone] Twan Patrick MD Unavailable [phone] Zulema Parrish [facility] Unavailable Unavaila ble Estelle Calvillo MD Unavailable Erin Fernandez [facility] Unavailable +[phone] Erin Fernandez [facility] Unavailable [phone] Marcus Stephens MD Primary Care Provider [phone] Jyoti Sotomayor [facility] Unavailable + [phone] Jyoti Sotomayor [facility] Unavailable + [phone] Marcus Stephens MD Unavailable Twan Patrick MD Unavailable [phone] Rashmi Isaac MD Unavailable [phone] Eloy Singh MD Primary Care Provider [phone] Sara Jara RN Unavailable [phone] Reason for Visit * Reason Onset Date Comments Orders 08/31/2017 Pullups, day and night Forms 08/31/2017 from [employer] Encounter Details Date Type Department Care Team (Late st Contact Info) Description 08/31/2017 MyC Medical Advice [address] [address] Rachel Crum MD 1021 [facility] 100 [place] [address] Orders (Pullups, day and night); Forms (fr... [...] - 09/04/2017 12:42 PM CDT I called [employer] and explained the situation. They can try to help obtain diapers/pull ups only if pt has medical assistance. Adi has [employer] with [employer] [place] back up. Last weight: Vital Signs 06/08/2017 Systolic 98 Diastolic 59 Pulse 86 Temperature 98.7 Weight (LB) 62 lb 6.4 oz Height 4' 7.118 BMI (Calculated) 14.47 O2 I spoke with Lyn at [employer] and we set up an account for [...] Office Visit [facility] Francie [address] [place] [address] Drive [address] [place] [phone] Eloy Singh MD [address] [place] [address] [place] [address] documented as of this encounter Visit Diagnoses Not on filedocumented in this encounter Additional Health Concerns Infection Onset Date Last Indicated Resolved Time Rule Out COVID-19 12/11/2022 12/11/2022 12/12/2022 1:24 PM CDT Rule Out Rubella 07/16/2024 07/16/2024 07/17/2024 12:31 PM CDT documented as of this encounter Care Teams Aboriginal Home School Liaison Officer Relationship Specialty Start Date End Date Rachel Crum MD PCP - General Pediatrics 07/04/12 02/13/23 Rachel Crum MD [facility] [address] [place] [address] PCP - Assigned PCP 05/22/16 06/05/18 Marcus Stephens MD 717 [facility] 370 [place] [address] PCP - General Pediatrics 02/14/23 12/22/24 Eloy Singh MD [address] [facility] [place] [address] PCP - General Internal Medicine - Pediatrics 12/23/24 Rachel Crum MD 1021 [facility] 100 [place], [place] [address] Assigned PCP 05/22/16 06/09/18 [place] [address] [place], [place] [id number] Assigned PCP 07/01/18 11/10/18 Rachel Crum MD Assigned PCP 11/11/18 04/26/23 Estelle Calvillo MD [address] [place] [address] F275 [place], [place] 499604 stylist assistant & Neurology - Child & Adolescent Psychiatry 05/24/19 Estelle Calvillo MD [address] [place] [address] F275 [place], [place] 871574 Assigned Behavioral Health Provider 01/24/20 05/13/22 Jose Hartman APRN CERTIFIED DENTAL ASSISTANT [address] [facility] [place] [address] Assigned Pediatric Specialist Provider 01/24/20 09/05/20 Lexii Wray, RN Lead Automation Consultant Primary Care - CC 08/14/20 Twan Patrick MD [address] [place], [place] [address]314 Assigned Pediatric Specialist Provider 12/11/21 04/26/23 Zulema Parrish LGSW Lead Automation Consultant 07/04/22 01/27/23 Estelle Calvillo MD [address] [place], [place] 449[address] Assigned Behavioral Health Provider 07/02/22 06/15/23 Erin Fernandez, [facility] [address] [id number] Pharmacist Pharmacist 12/22/22 10/25/23 Erin Fernandez, [facility] [address] [id number] Assigned MTM Pharmacist 12/31/22 Jyoti Sotomayor [facility] 2450 [facility] F[address] [place], [place] 8[address]704 Pharmacist Pharmacist 03/08/23 Jyoti Sotomayor [facility] 2450 [facility] F[address] [place], [place] [phone] Assigned MTM Pharmacist 03/11/23 Marcus Stephens MD 717 [facility] [address] 370 [place], [place] [address] Assigned PCP 04/27/23 Twan Patrick MD [address] [place] [address] Assigned Pediatric Specialist Provider 05/05/23 06/15/23 Rashmi Isaac MD [address] [place] [address] [address] [place] [address] Assigned Behavioral Health Provider 06/16/23 Sara Jara, RN Clinic Automation Consultant 12/25/24 documented as of this encounter
--- OUTSIDE RECORDS SUMMARY | 2025-01-12 09:45 | XMS_ITS | Encounter Summary ---
Author Organization [place] Address [address] [place] [address] Care Team Providers Care Distributed Generation Project Manager Name Role Phone Rachel Crum MD Primary Care Provid er Rachel Crum MD Unavailable + [phone] Estelle Calvillo MD Unavailable Estelle Calvillo MD Unavailable Jose Hartman RAILROAD SIGNAL OPERATOR HYDRO GENERATION SUPERVISOR Unavailable Lexii Wray RN Unavailable +[phone] Twan Patrick MD Unavailable +[phone] Zulema Parrish [facility] Unavailable Unavaila Estelle Schaeffer MD Unavailable Erin Fernandez [facility] Unavailable +[phone] Erin Fernandez [facility] Unavailable +[phone] Marcus Stephens MD Primary Care Provider +[phone] Jyoti Sotomayor [facility] Unavailable + [phone] Jyoti Sotomayor [facility] Unavailable +[phone] Marcus Stephens MD Unavailable Twan Patrick MD Unavailable +[phone] Rashmi Isaac MD Unavailable Eloy Singh MD Primary Care Provider [phone] Sara Jara RN Unavailable +[phone] Reason for Visit * Reason Comments Medication Refill Encounter Details Date Type Department Care Team (Late st Contact Info) Description 03/01/[address] [facility] [place] [address] Rachel Crum MD 10[address] [facility] 100 [place], [place] [id number] Medication Refill Social History Tobacco Use Types [...] protocol. Rx sent Mihaela Reeves RN, IBCLC ANALYST documented in this encounter Plan of Treatment Upcoming Encounters Date Type Department Care Team (Late st Contact Info) Description 06/23/2025 3:30 PM CDT Office Visit [facility] Francie [address] [place] [phone] [place] [address] [place] [address] [place] [id number] documented as of this encounter Visit Diagnoses Diagnosis Other sinusitis, unspecified chronicity documented in this encounter Additional Health Concerns Infection Onset Date Last Indicated Resolved Time Rule Out COVID-19 12/11/2022 12/11/2022 12/12/2022 1:24 PM CDT Rule Out Rubella 07/16/2024 07/16/2024 07/17/2024 12:31 PM CDT documented as of this encounter Care Teams Distributed Generation Project Manager Relationship Specialty Start Date End Date Rachel Crum MD PCP - General Pediatrics 07/04/12 02/13/23 Marcus Stephens MD [address] [place] [address] 111015 PCP - General Pediatrics 02/14/23 12/22/24 Eloy Singh MD [address] [place] [address] [place] [address] PCP - General Internal Medicine - Pediatrics 12/23/24 Rachel Crum MD Assigned PCP 11/11/18 04/26/23 Estelle Calvillo MD [address] [place] [address]404 natural resource economist & Neurology - Child & Adolescent Psychiatry 05/24/19 Estelle Calvillo MD [address] [place] [address] 327774 Assigned Behavioral Health Provider 01/24/20 05/13/22 Jose Hartman APRN [facility] [address] [place] [address] Assigned Pediatric Specialist Provider 01/24/20 09/05/20 Lexii Wray, RN Lead Ice Guard Tester Primary Care - CC 08/14/20 Twan Patrick MD [address] [facility] [address] 200 [place], [place] 492154 Assigned Pediatric Specialist Provider 12/11/21 04/26/23 Zulema Parrish LGSW Lead Ice Guard Tester 07/04/22 01/27/23 Estelle Calvillo MD [address] [facility] TAMIE F[address] [place], [place] 00[address]74 Assigned Behavioral Health Provider 07/02/22 06/15/23 Erin Fernandez [facility] [address] [place] [address] Pharmacist Pharmacist 12/22/22 10/25/23 Erin Fernandez, [facility] [address] [place] [address] [address] Assigned MTM Pharmacist 12/31/22 Jyoti Sotomayor [facility] 24[address] [facility] F[address] [place], [place] 826784 Pharmacist Pharmacist 03/08/23 Jyoti Sotomayor [facility] 24[address] [facility] F[address] [place] [address] Assigned MTM Pharmacist 03/11/23 Marcus Stephens MD 717 [facility] 370 [place], [place] 571825 Assigned PCP 04/27/23 Twan Patrick MD [address] [place], [place] [address]E [facility] 200 [place] [address] Assigned Pediatric Specialist Provider 05/05/23 06/15/23 Rashmi Isaac MD [address] [place] [address] Assigned Behavioral Health Provider 06/16/23 Sara Jara, RN Clinic Ice Guard Tester 12/25/24 documented as of this encounter
--- OUTSIDE RECORDS SUMMARY | 2025-01-12 09:45 | XMS_ITS | Encounter Summary ---
Author Organization [place] Address [address] [place] [address] Care Team Providers Care Applications Tester Name Role Phone Rachel Crum MD Unavailable + [phone] Estelle Calvillo MD Unavailable Twan Patrick MD Unavailable +[phone] Estelle Calvillo MD Unavailable Erin Fernandez [facility] Unavailable [phone] Erin Fernandez [facility] Unavailable +[phone] Marcus Stephens MD Primary Care Provider +[phone] Jyoti Sotomayor [facility] Unavailable + [phone] Jyoti Sotomayor [facility] Unavailable + [phone] Marcus Stephens MD Unavailable Twan Patrick MD Unavailable +[phone] Rashmi Isaac MD Unavailable +[phone] Eloy Singh MD Primary Care Provider +[phone] Sara Jara RN Unavailable +[phone] Encounter Details Date Type Department Care Team (Late st Contact Info) Description 02/15/2023 [facility] [address] [address] Marcus Stephens MD 717 [facility] [address] 370 [place] [address] Social History Tobacco Use Types Packs/Day Years [...] in a intermediate (including now)? No 02/09/2022 Adolescent Education Answer [...] Description 06/23/2025 3:30 PM CDT Office Visit [facility] Francie [address] [place] [address] [place] [address] [place] [address] [place] [address] documented as of this encounter Goals Goal [...] Parent to continue with medical specialties within [place] and [facility] 2. Parent to continue with [...] documented as of this encounter Care Teams Applications Tester Relationship Specialty Start Date End Date Marcus Stephens MD 717 [facility] 370 [place] [address] PCP - General Pediatrics 02/14/23 12/22/24 Eloy Singh MD [address] [place] [address] [place] [address] PCP - General Internal Medicine - Pediatrics 12/23/24 Rachel Crum MD Assigned PCP 11/11/18 04/26/23 Estelle Calvillo MD [address] [facility] F275 [place], [place] 920234 code and test clerk & Neurology - Child & Adolescent Psychiatry 05/24/19 Twan Patrick MD [address] [facility] [address] [place], [place] 614884 Assigned Pediatric Specialist Provider 12/11/21 04/26/23 Estelle Calvillo MD [address] [place] [address] F275 [place], [place] [address] Assigned Behavioral Health Provider 07/02/22 06/15/23 Erin Fernandez, [facility] [address] [id number] Pharmacist Pharmacist 12/22/22 10/25/23 Erin Fernandez, [facility] [address] [id number] Assigned MTM Pharmacist 12/31/22 Jyoti Sotomayor [facility] [address] [place], [place] 3644[address] Pharmacist Pharmacist 03/08/23 Jyoti Sotomayor [facility] [address] [place] [address] Assigned MTM Pharmacist 03/11/23 Marcus Stephens MD [address] [place], [place] 359775 Assigned PCP 04/27/23 Twan Patrick MD [address] 200 [place] [address] Assigned Pediatric Specialist Provider 05/05/23 06/15/23 Rashmi Isaac MD [address]12 S [facility] T[address] [place] [address] Assigned Behavioral Health Provider 06/16/23 Sara Jara, RN Clinic Managing Director 12/25/24 documented as of this encounter
--- OUTSIDE RECORDS SUMMARY | 2025-01-12 09:45 | XMS_ITS | Encounter Summary ---
Author Organization [place] Address [address] [place] [address] Care Team Providers Care Bilingual Trainer Name Role Phone Rachel Crum MD Primary Care Provid er Rachel Crum MD Unavailable + [phone] Estelle Calvillo MD Unavailable Estelle Calvillo MD Unavailable Jose Hartman [employer] PROFESS[employer] BLOCK[employer] POLISHING Unavailable Lexii Wray RN Unavailable [phone] Twan Patrick MD Unavailable +[phone] Zulema Parrish [facility] Unavailable Unavaila Estelle Schaeffer MD Unavailable Erin Fernandez [facility] Unavailable +[phone] Erin Fernandez [facility] Unavailable +[phone] Marcus Stephens MD Primary Care Provider [phone] Jyoti Sotomayor [facility] Unavailable + [phone] Jyoti Sotomayor [facility] Unavailable +[phone] aMrcus Stephens MD Unavailable Twan Patrick MD Unavailable +[phone] Rashmi Isaac MD Unavailable Eloy Singh MD Primary Care Provider [phone] Sara Jara RN Unavailable +[phone] Encounter Details Date Type Department Care Team (Late Contact Info) Description 06/08/2020 MyC Medical Advice [facility] [address] 1st Floor, [address] [place] [phone] Estelle Calvillo MD [address] [facility] T[address] [place], [place] [address] Social History Tobacco Use Types Packs/Day Years [...] [facility] Francie [address] [facility] [address] [place] [phone] [place] [address] [place] [address] [place] [address] documented as of this encounter Visit Diagnoses Not on filedocumented in this encounter Additional Health Concerns Infection Onset Date Last Indicated Resolved Time Rule Out COVID-19 12/11/2022 12/11/2022 12/12/2022 1:24 PM CDT Rule Out Rubella 07/16/2024 07/16/2024 07/17/2024 12:31 PM CDT documented as of this encounter Care Teams Bilingual Trainer Relationship Specialty Start Date End Date Rachel Crum MD PCP - General Pediatrics 07/04/12 02/13/23 Marcus Stephens MD 717 [facility] 370 [place], [place] 0[address]75 PCP - General Pediatrics 02/14/23 12/22/24 Eloy Singh MD [address] [facility] [address] [place] [id number] PCP - General Internal Medicine - Pediatrics 12/23/24 Rachel Crum MD Assigned PCP 11/11/18 04/26/23 Estelle Calvillo MD [address] [place] [address] F275 [place], [place] [id number] ceramic painter & Neurology - Child & Adolescent Psychiatry 05/24/19 Estelle Calvillo MD [address] [place], [place] [address] [place] [address] Assigned Behavioral Health Provider 01/24/20 05/13/22 Jose Hartman APRN BLOCKER POLISHING [facility] [place] [address] Assigned Pediatric Specialist Provider 01/24/20 09/05/20 Lexii Wray, JOHN Lead Foreign Languages Department Chair Primary Care - CC 08/14/20 Twan Patrick MD [address] 200 [place] [address] Assigned Pediatric Specialist Provider 12/11/21 04/26/23 Zulema Parrish LGSW Lead Foreign Languages Department Chair 07/04/22 01/27/23 Estelle Calvillo MD [address] F[address] [place], [place] 003984 Assigned Behavioral Health Provider 07/02/22 06/15/23 Erin Fernandez, [facility] [address] [place] [id number] Pharmacist Pharmacist 12/22/22 10/25/23 Erin Fernandez, [facility] [address] [place] [id number] Assigned MTM Pharmacist 12/31/22 Jyoti Sotomayor [facility] [address] [place] [address] Pharmacist Pharmacist 03/08/23 Jyoti Sotomayor [facility] [address] [place], [place] 406844 Assigned MTM Pharmacist 03/11/23 Marcus Stephens MD 717 [facility] [address] [place], [place] 474885 Assigned PCP 04/27/23 Twan Patrick MD [address] 200 [place] [address] Assigned Pediatric Specialist Provider 05/05/23 06/15/23 Rashmi Isaac MD [address] [place] [address] Assigned Behavioral Health Provider 06/16/23 Sara Jara, RN Clinic Foreign Languages Department Chair 12/25/24 documented as of this encounter
--- OUTSIDE RECORDS SUMMARY | 2025-01-12 09:45 | XMS_ITS | Encounter Summary ---
Author Organization [place] Address [address] [place] [address] Care Team Providers Care Human Resources Manager Manufacturing Name Role Phone Rachel Crum MD Primary Care Provid er Rachel Crum MD Unavailable + [phone] Estelle Calvillo MD Unavailable Twan Patrick MD Unavailable +[phone] Estelle Calvillo MD Unavailable Erin Fernandez [facility] Unavailable +[phone] Erin Fernandez [facility] Unavailable [phone] Marcus Stephens MD Primary Care Provider +[phone] Jyoti Sotomayor [facility] Unavailable + [phone] Jyoti Sotomayor [facility] Unavailable + [phone] Marcus Stephens MD Unavailable Twan Patrick MD Unavailable +[phone] Rashmi Isaac MD Unavailable +[phone] Eloy Singh MD Primary Care Provider +[phone] Sara Jara RN Unavailable +[phone] Encounter Details Date Type Department Care Team (Late st Contact Info) Description 02/03/2023 MyC Medical Advice Health Neurology 909 [facility] 3rd [place] [phone] Rica Cadena, GC Social History Tobacco Use [...] [facility] Francie [address] [place] [phone] Eloy Singh MD 3305 [facility] [place] [id number] documented as of this encounter Goals Goal [...] Parent to continue with medical specialties within [place] and [facility] 2. Parent to continue with [...] of this encounter Care Teams Human Resources Manager Manufacturing Relationship Specialty Start Date End Date Rachel Crum MD PCP - General Pediatrics 07/04/12 02/13/23 Marcus Stephens MD [address] [place] [address] PCP - General Pediatrics 02/14/23 12/22/24 [place] [address] [place] [address] [place] [address] PCP - General Internal Medicine - Pediatrics 12/23/24 Rachel Crum MD Assigned PCP 11/11/18 04/26/23 Estelle Calvillo MD [address] [place] [address] F275 [place] [address] fashion consultant & Neurology - Child & Adolescent Psychiatry 05/24/19 Twan Patrick MD [address] [place] [address] T[address] [place] [address] Assigned Pediatric Specialist Provider 12/11/21 04/26/23 Estelle Calvillo MD [address] [place] [address] F275 [place], [place] 210744 Assigned Behavioral Health Provider 07/02/22 06/15/23 Erin Fernandez [facility] [address] [place] [address] Pharmacist Pharmacist 12/22/22 10/25/23 Erin Fernandez [facility] [address] [place] [address] Assigned MTM Pharmacist 12/31/22 Jyoti Sotomayor [place] [address] [place] [address] [address] [place] [address] Pharmacist Pharmacist 03/08/23 Jyoti Sotomayor [facility] [address] [facility] [address] [place], [place] 15350[address] Assigned MTM Pharmacist 03/11/23 Marcus Stephens MD [address] [place], [place] 18[address]45 Assigned PCP 04/27/23 Twan Patrick MD [address] [facility] [address] [place], [place] [address] Assigned Pediatric Specialist Provider 05/05/23 06/15/23 Rashmi Isaac MD [address] [place], [place] 952774 Assigned Behavioral Health Provider 06/16/23 Saar Jara, RN Clinic Scenario Writer 12/25/24 documented as of this encounter
--- OUTSIDE RECORDS SUMMARY | 2025-01-12 09:45 | XMS_ITS | Encounter Summary ---
Author Organization [place] Address [address] [place] [address] Care Team Providers Care Polymer Materials Consultant Name Role Phone Rachel Crum MD Unavailable + [phone] Estelle Calvillo MD Unavailable Twan Patrick MD Unavailable +[phone] Estelle Calvillo MD Unavailable Erin Fernandez [facility] Unavailable +[phone] Erin Fernandez [facility] Unavailable [phone] Marcus Stephens MD Primary Care Provider [phone] Jyoti Sotomayor [facility] Unavailable + [phone] Jyoti Sotomayor [facility] Unavailable + [phone] Marcus Stephens MD Unavailable Twan Patrick MD Unavailable +[phone] Rashmi Isaac MD Unavailable +[phone] Eloy Singh MD Primary Care Provider [phone] Sara Jara RN Unavailable +[phone] Encounter Details Date Type Department Care Team (Late st Contact Info) Description 02/15/2023 [facility] 2024 [place] [address] Estelle Calvillo MD [address] [facility] F275 [place] [address] Social History Tobacco Use Types Packs/Day Years [...] CDT Office Visit [facility] Francie [address] [place] [phone] Eloy Singh MD [address] [place] [address] [place] [address] documented as of this encounter Goals Goal [...] documented as of this encounter Care Teams Polymer Materials Consultant Relationship Specialty Start Date End Date Marcus Stephens MD 717 [facility] 370 [place] [address] PCP - General Pediatrics 02/14/23 12/22/24 Eloy Singh MD [address] [place] [address] [place] [address] PCP - General Internal Medicine - Pediatrics 12/23/24 Rachel Crum MD Assigned PCP 11/11/18 04/26/23 Estelle Calvillo MD [address] [place], [place] [address] [place], [place] 115[address] junior automation engineer & Neurology - Child & Adolescent Psychiatry 05/24/19 Twan Patrick MD [address] [facility] [address] [facility] 200 [place], [place] 023134 Assigned Pediatric Specialist Provider 12/11/21 04/26/23 Estelle Calvillo MD [address] [place], [place] [address] [place], [place] 712424 Assigned Behavioral Health Provider 07/02/22 06/15/23 Erin Fernandez, [facility] [address] [id number] Pharmacist Pharmacist 12/22/22 10/25/23 Erin Fernandez, [facility] [address] [id number] Assigned MTM Pharmacist 12/31/22 Jyoti Sotomayor [facility] [address] [id number] Pharmacist Pharmacist 03/08/23 Jyoti Sotomayor [facility] [address] [place] [id number] [place] 176784 Assigned MTM Pharmacist 03/11/23 Marcus Stephens MD 717 [facility] [address] 370 [place] [address] Assigned PCP 04/27/23 Twan Patrick MD [address] [facility] [address] [place] [address] Assigned Pediatric Specialist Provider 05/05/23 06/15/23 Rsahmi Isaac MD [address] [place] [address] [address] [place] [address] Assigned Behavioral Health Provider 06/16/23 Sara Jara RN Clinic Weight Loss Consultant 12/25/24 documented as of this encounter
--- OUTSIDE RECORDS SUMMARY | 2025-01-12 09:45 | XMS_ITS | Encounter Summary ---
Author Organization [place] Address [address] [place] [address] Care Team Providers Care Collision Center Manager Name Role Phone NeishaoscarEstelle MD Unavailable Marcus Stephens MD Primary Care Provider [phone] Jyoti Sotomayor [facility] Unavailable + [phone] Jyoti Sotomayor [facility] Unavailable + [phone] Marcus Stephens MD Unavailable Rashmi Isaac MD Unavailable [phone] Eloy Singh MD Primary Care Provider [phone] Sara Jara RN Unavailable +[phone] Encounter Details Date Type Department Care Team (Late st Contact Info) Description 10/27/2023 [facility] Medical Advice [facility] 2024 [place] [address] Rashmi Isaac MD [address] [facility] [address] [place] [address] Social History Tobacco Use Types [...] Visit [facility] [place] Francie [address] [facility] [address] [place] [address] Eloy Singh MD 3305 [facility] [place] [id number] documented as of this encounter Goals Goal [...] documented as of this encounter Care Teams Collision Center Manager Relationship Specialty Start Date End Date Marcus Stephens MD 717 [facility] 370 [place] [address] PCP - General Pediatrics 02/14/23 12/22/24 Eloy Singh MD [address] [facility] [place] [address] PCP - General Internal Medicine - Pediatrics 12/23/24 Estelle Calvillo MD [address] [place], [place] [address] cloth shearing supervisor & Neurology - Child & Adolescent Psychiatry 05/24/19 Jyoti Sotomayor [facility] 2450 [facility] F282 [place], [place] [address] Pharmacist Pharmacist 03/08/23 Jyoti Sotomayor [facility] [address] [place] [address] Assigned MTM Pharmacist 03/11/23 Marcus Stephens MD [facility] [facility] [address] [place] [address] Assigned PCP 04/27/23 Rashmi Isaac MD [address] [place] [address] [address] [place] [address] Assigned Behavioral Health Provider 06/16/23 Sara Jara, RN Clinic Business Analyst Sales Operations 12/25/24 documented as of this encounter
--- OUTSIDE RECORDS SUMMARY | 2025-01-12 09:45 | XMS_ITS | Encounter Summary ---
Author Organization [place] Address [address] [place] [address] Care Team Providers Care Film Cleaner Name Role Phone NeishaoscarEstelle MD Unavailable Marcus Stephens MD Primary Care Provider [phone] Jyoti Sotomayor [facility] Unavailable + [phone] Jyoti Sotomayor [facility] Unavailable + [phone] Marcus Stephens MD Unavailable Rashmi Isaac MD Unavailable [phone] Eloy Singh MD Primary Care Provider [phone] Sara Jara RN Unavailable [phone] Encounter Details Date Type Department Care Team (Late st Contact Info) Description 09/02/2024 [facility] Medical Advice [facility] 2024 [place] [address] Rashmi Isaac MD [address] [facility] F275 [place] [address] Social History Tobacco Use Types [...] Description 06/23/2025 3:30 PM CDT Office Visit [facility] Francie [address] [facility] [address] [place] [phone] Eloy Singh MD 3305 [facility] [place] [id number] documented as of this encounter Goals Goal [...] Depression Total Score: 10 025 11:26 AM ASSISTED LIVING COORDINATOR documented as of this encounter Care Teams Film Cleaner Relationship Specialty Start Date End Date Marcus Stephens MD 717 [facility] 370 [place] [address] PCP - General Pediatrics 02/14/23 12/22/24 Eloy Singh MD [address] [facility] [place] [address] PCP - General Internal Medicine - Pediatrics 12/23/24 Estelle Calvillo MD [address] [place] [address] F275 [place], [place] 9922[address] security program manager & Neurology - Child & Adolescent Psychiatry 05/24/19 Jyoti Sotomayor [facility] [address] [place] [address] [id number] Pharmacist Pharmacist 03/08/23 Jyoti Sotomayor [facility] [address] [place] [address] 349574 Assigned MTM Pharmacist 03/11/23 Marcus Stephens MD 717 [facility] 370 [place] [address] Assigned PCP 04/27/23 Rashmi Isaac MD [facility] [address] [place] [address] Assigned Behavioral Health Provider 06/16/23 Sara Jara, RN Clinic Supervisor Pyrotechnic Loading 12/25/24 documented as of this encounter
--- NOTE | 2025-01-12 09:50 | ED_ITS ---
HPI - General Adult General Time Seen by Provider: 09:50 <Iliana Aguillon MD - Last Filed: 01/12/25 10:59> Date Seen: 01/12/25 <Iliana Aguillon MD - Last Filed: 01/12/25 10:59> Chief complaint: Unspecified Complaint, Adult <Iliana Aguillon MD - Last Filed: 01/12/25 10:59> Stated complaint: pulled out tube in stomach <Iliana Aguillon MD - Last Filed: 01/12/25 10:59> Time Seen by Provider: 01/12/25 09:44 <Iliana Aguillon MD - Last Filed: 01/12/25 10:59> Source: patient and RN notes reviewed <Iliana Aguillon MD - Last Filed: 01/12/25 10:59> Mode of arrival: ambulatory <Iliana Aguillon MD - Last Filed: 01/12/25 10:59> Limitations: no limitations <Iliana Aguillon MD - Last Filed: 01/12/25 10:59> History of Present Illness HPI narrative: This 19-year-old nonverbal patient had his G-tube fall out this morning, they are not completely sure why came out. It has been in since November. He pulled it out 1 other time. They have the kit to change it, have not been trained in on how to replace it yet. They are going to be working with to let on training on this. He did just have wisdom teeth/dental surgery 3 days ago, is a bit agitated about healthcare at this time. Parents states he usually needs procedural sedation and they usually have to hang onto him. They just do not know how to replace it at this time. His nurse today is comfortable replacing this, has training on this. <Iliana Aguillon MD - Last Filed: 01/12/25 10:59> Related Data Home medications: Home Medications ?Medication ?Instructions ?Recorded ?Confirmed escitalopram oxalate 5 mg tablet 5 mg PO DAILY 5 01/12/25 (Lexapro) polyethylene glycol 3350 17 68 g PO DAILY 08/18/2403/27 gram/dose oral powder (Miralax) risperidone 2 mg tablet 2 mg PO DAILY 08/18/2401/12 Previous Rx's ?Medication ?Instructions ?Recorded amoxicillin 500 mg capsule 500 mg PO TID 7 days #21 ca ps 10/18/24 hydrocodone 5 mg-acetaminophen 325 1 tab PO Q4-6H PRN pain #15 tabs 10/18/24 mg tablet lorazepam 0.5 mg tablet 0.5 mg PO BID PRN #10 tabs 0 10/18/24 <Iliana Aguillon MD - Last Filed: 01/12/25 10:59> Allergies/adverse reactions: Allergies Allergy/AdvReac Type Severity Reaction Status Date / Time No Known Drug Allergies Allergy Verified 01/12/25 09:43 <Iliana Aguillon MD - Last Filed: 01/12/25 10:59> Review of Systems Status of ROS: Reports: unobtainable due to medical condition <Iliana Aguillon MD - Last Filed: 01/12/25 10:59> Narrative: History provided by parents, patient is unable to. <Iliana Aguillon MD - Last Filed: 01/12/25 10:59> PFSH PFSH Social History: Social History Smoking Status: Never smoker How often do you have a drink containing alcohol: never AUDIT-C Alcohol total score: 0 Non-prescribed substance use: denies use <Iliana Aguillon MD - Last Filed: 01/12/25 10:59> Exam Const: Vital Signs, click to edit/add: Vital Signs - 24 hr 01/12/25 09:39 Temperature 97.8 F Pulse Rate [Right Pulse Oximeter] 75 Respiratory Rate 18 Blood Pressure [Ri ght Upper Arm] 121/73 Pulse Oximetry 92 Oxygen Delivery Me thod Room Air Patient is slender frame, up pacing in the room, unable to examine his abdomen due to his pacing. He will not sit down. Parents do have the replacement G- tube kit with. <Iliana Aguillon MD - Last Filed: 01/12/25 10:59> Vital Signs, click to edit/add: Vital Signs - 24 hr 01/12/25 09:39 Temperature 97.8 F Pulse Rate [Right Pulse Oximeter] 75 Respiratory Rate 18 Blood Pressure [Ri ght Upper Arm] 121/73 Pulse Oximetry 92 Oxygen Delivery Me thod Room Air <Sb Shelley MD - Last Filed: 01/12/25 12:18> Documenting provider has reviewed patient's vital signs: yes <Iliana Aguillon MD - Last Filed: 01/12/25 10:59> Course Course ED Course: Parents do not think nasal sedation is an option, they have given him injectables before. They do not feel he needs to be sedated to the level of ketamine which she has had before. We are going to try some IM Valium, 5 mg, and see if this just takes enough edge off for the patient so parents can hold him and then we will replace his G-tube. <Iliana Aguillon MD - Last Filed: 01/12/25 10:59> Reevaluation(s) Time of Reevaluation #1: 10:55 <Iliana Aguillon MD - Last Filed: 01/12/25 10:59> Reevaluation #1: Nursing staff unable to get the G-tube back in place. Dr. Shelley is here now and will give this an attempt, bringing small Flaherty in as well to try to just keep tract open. Parents are becoming concerned, tube has been out about 4 hours now. <Iliana Aguillon MD - Last Filed: 01/12/25 10:59> Vital Signs Vital signs: Initial Vital Signs Temperature 97.8 F 01/12/25 09:39 Temperature Source Temporal Artery Scan 01/12/25 09:39 Pulse Rate 75 01/12/25 09:39 Pulse Rhythm Regular 01/12/25 09:39 Pulse Strength 3+ Normal 01/12/25 09:39 Respiratory Rate 18 01/12/25 09:39 Blood Pressure 121/73 01/12/25 09:39 Blood Pressure Mean 89 01/12/25 09:39 Blood Pressure Position Sitting 01/12/25 09:39 Pulse Oximetry 92 01/12/25 09:39 Oxygen Delivery Method Room Air 01/12/25 09:39 Vital Signs Temperature 97.8 F 01/12/25 09:39 Pulse Rate 75 01/12/25 09:39 Respiratory Rate 18 01/12/25 09:39 Blood Pressure 121/73 01/12/25 09:39 Pulse Oximetry 92 01/12/25 09:39 Oxygen Delivery Method Room Air 01/12/25 09:39 Temperature 97.8 F 01/12/25 09:39 Pulse Rate 75 01/12/25 09:39 Respiratory Rate 18 01/12/25 09:39 Blood Pressure 121/73 01/12/25 09:39 Pulse Oximetry 92 01/12/25 09:39 Oxygen Delivery Method Room Air 01/12/25 09:39 <Iliana Aguillon MD - Last Filed: 01/12/25 10:59> Initial Vital Signs Temperature 97.8 F 01/12/25 09:39 Temperature Source Temporal Artery Scan 01/12/25 09:39 Pulse Rate 75 01/12/25 09:39 Pulse Rhythm Regular 01/12/25 09:39 Pulse Strength 3+ Normal 01/12/25 09:39 Respiratory Rate 18 01/12/25 09:39 Blood Pressure 121/73 01/12/25 09:39 Blood Pressure Mean 89 01/12/25 09:39 Blood Pressure Position Sitting 01/12/25 09:39 Pulse Oximetry 92 01/12/25 09:39 Oxygen Delivery Method Room Air 01/12/25 09:39 Vital Signs Temperature 97.8 F 01/12/25 09:39 Pulse Rate 75 01/12/25 09:39 Respiratory Rate 18 01/12/25 09:39 Blood Pressure 121/73 01/12/25 09:39 Pulse Oximetry 92 01/12/25 09:39 Oxygen Delivery Method Room Air 01/12/25 09:39 Temperature 97.8 F 01/12/25 09:39 Pulse Rate 75 01/12/25 09:39 Respiratory Rate 18 01/12/25 09:39 Blood Pressure 121/73 01/12/25 09:39 Pulse Oximetry 92 01/12/25 09:39 Oxygen Delivery Method Room Air 01/12/25 09:39 <Sb Shelley MD - Last Filed: 01/12/25 12:18> Medications Administered Medications: Discontinued Medications Generic Name Dose Route Start Last Admin Trade Name Julioq PRN Reason Stop Dose Admin Diazepam 5 mg 01/12/25 10:03 01/12/25 10:08 Diazepam 5 Mg/Ml Inj IM 01/12/25 10:04 5 mg ONCE ONE Administration Midazolam HCl 5 mg 01/12/25 11:08 01/12/25 11:33 Midazolam Hcl 1 Mg/Ml Inj IM 01/12/25 11:09 5 mg ONCE ONE Administration <Iliana Aguillon MD - Last Filed: 01/12/25 10:59> Discontinued Medications Generic Name Dose Route Start Last Admin Trade Name Julioq PRN Reason Stop Dose Admin Diazepam 5 mg 01/12/25 10:03 01/12/25 10:08 Diazepam 5 Mg/Ml Inj IM 01/12/25 10:04 5 mg ONCE ONE Administration Midazolam HCl 5 mg 01/12/25 11:08 01/12/25 11:33 Midazolam Hcl 1 Mg/Ml Inj IM 01/12/25 11:09 5 mg ONCE ONE Administration <Sb Shelley MD - Last Filed: 01/12/25 12:18> Medical Decision Making MDM Narrative Medical decision making narrative: 19-year-old male with cognitive delay and poor oral intake leading to G- tube placement done by a surgeon at [facility] in the end of November. His G-tube was placed to help facilitate oral hydration because of his leading to chronic health problems such as constipation. He has been doing better from a hydration standpoint with a G-tube in but has been problematic for the patient and his family. It fell out once already and required a visit to the ER at [facility]. The G-tube was noted to have been displaced this morning. When he got up at around 7 or 8 in pulled up his shirt for shower the G-tube fell out. Parents thought initially that the tube had fallen out at 7 or 8, but now we suspected probably head is been essentially dislodged overnight and was held in place under his sure until he pulled his shirt up. They came to the ER with his G-tube replacement kits to get the G-tube replaced before the track closed. Nurses were unable to replace the G-tube. I attempted to replace the G-tube myself. We administered Versed 5 mg IM for sedation and then applied topical anesthetic with viscous lidocaine-3 mL. Unfortunately, we were not able to get the G-tube back into position. I am able to advance the tip of the G-tube about a cm but then not all the way through the trach into the stomach. I suspect the trach is already closed. At this point, the patient's family in IR convinced that the tube probably was displaced sometime overnight but the displacement was not recognized until he pulled up his sure this morning the tube actually fell to the floor. The track is already closed. We cannot replaced the G-tube blindly here in the ER. His abdominal exam is soft and nontender. No evidence for any perforation or free air. No signs of any infection of the skin around the G-tube site. No signs of any significant bleeding, gastric fluid drainage, or other complication. Discussed options with the patient's parents. At this point he is only getting oral hydration to the tube and does not have any critical medications. They feel that they want to try to get him hydrating by mouth and if he is not able to stay hydrated, they will follow-up with the surgeons at [facility] tomorrow to have G-tube replacement. At this point they feel that transfer to the [facility] for emergent replacement today ( Monday) is not necessary. They are going to try oral hydration at home 1st. <Sb Shelley MD - Last Filed: 01/12/25 12:18> Discharge Plan Discharge Clinical Impression: Dislodged gastrostomy tube <Iliana Aguillon MD - Last Filed: 01/12/25 10:59> Patient Disposition: Home w/ Parent or Adult <Iliana Aguillon MD - Last Filed: 01/12/25 10:59> Condition: Stable <Iliana Aguillon MD - Last Filed: 01/12/25 10:59> Additional Instructions: As we discussed, please try to keep him hydrated by mouth by drinking oral liquids today. You can use straws or cups. Try to use straws with a larger diameter to reduce the sucking force required for him to drink. This well minimize the chance of him developing a dry socket or other problems from his wisdom tooth extraction. If you are having problems-especially if he is not staying hydrated, or here if he has other worsening symptoms such as abdominal pain, vomiting, fever, please return to the ER or see his doctors at [facility] immediately If you ultimately decide that you want to have the G-tube replaced, follow-up with his doctors at [facility] tomorrow for G-tube replacement <Iliana Aguillon MD - Last Filed: 01/12/25 10:59> Prescriptions: No Action risperidone 2 mg tablet 2 mg PO DAILY escitalopram oxalate [Lexapro] 5 mg tablet 5 mg PO DAILY polyethylene glycol 3350 [Miralax] 17 gram/dose powder 68 g PO DAILY amoxicillin 500 mg capsule 500 mg PO TID 7 Days Qty: 21 0RF lorazepam 0.5 mg tablet 0.5 mg PO BID PRNQty: 10 0RF hydrocodone-acetaminophen 5-325 mg tablet 1 tab PO Q4-6H PRN (Reason: pain) Qty: 15 0RF <Iliana Aguillon MD - Last Filed: 01/12/25 10:59> Follow Up/Referrals: Provider,Not a Local [Primary Care Provider, Family Practice] <Iliana Aguillon MD - Last Filed: 01/12/25 10:59> Stand Alone Forms: MyHealth Info Instructions <Iliana Aguillon MD - Last Filed: 01/12/25 10:59>
[2025-01-12] MEDS: diazePAM 5 MG/ML inj IM (10:08)
[2025-01-12] MEDS: MIDAZOLAM HCL 1 MG/ML inj 5 MG IM (11:33)
== END 2025-01-12 12:40 | disposition home or self-care (01) ==
PROVIDERS: Emergency Provider Family Medicine
DX: T85.528A Displacement of other gastrointestinal prosthetic devices, implants and grafts, initial encounter (principal)
CPT/HCPCS: 96372; 99282; 99283; 99284; J2250; J3360